=== PATIENT | male | born 1960 | race Caucasian/White ===

== ENCOUNTER 2017-08-04 10:37 | Inpatient (IN) | payer MEDICAID ==
[~2017-08-04] VITALS: Ht 180.3 cm; Wt 79.4 kg
[2017-08-04] VITALS (8 sets, daily range): BP systolic 123–155; BP diastolic 65–88
[2017-08-04] MEDS ORDERED: FEROSUL325 M1 PO (11:24)
[2017-08-04] MEDS ORDERED: WARFARIN SODIUM10 MG ORAL (11:24)
[2017-08-04] MEDS ORDERED: LORATADINE10 M3 PO (11:24)
[2017-08-04] MEDS ORDERED: FOLIC ACID1 MG ORAL (11:24)
[2017-08-04] MEDS ORDERED: MIRTAZAPINE15 M3 ORAL (11:24)
[2017-08-04] MEDS ORDERED: GABAPENTIN600 MG ORAL (11:24)
[2017-08-04] MEDS ORDERED: Vancomycin 1.5gm/D5W 250ml 250 ML IVPB ONE (11:30)
[2017-08-04] MEDS ORDERED: VENTOLIN HFA18 GM INH (11:36)
[2017-08-04] MEDS ORDERED: ATROVENT HFA12.9 GM IH (11:36)
--- NOTE | 2017-08-04 12:14 | Diagnostic Imaging Report ---
Indication: Dyspnea Comparison: None A single view chest radiograph was obtained. Findings: Cardiomediastinal appearance is within normal limits for age. Pulmonary vascularity is appropriate. The diaphragmatic contour is smooth and costophrenic angles are sharp. No pleural effusions are identified. The bones are osteopenic. Impression: No acute findings
[2017-08-04 12:41] LABS: BASOPHILS % (AUTO) 1.2 % (0.0-2.0); EOSINOPHILS % (AUTO) 9.4 % (0.0-3.0); HEMATOCRIT 37.7 % (42.0-52.0); HEMOGLOBIN 12.2 G/DL (14.2-18.0); LYMPHOCYTES % (AUTO) 31.2 % (20.0-45.0); MEAN CORPUSCULAR VOLUME 91 FL (80-99); MONOCYTES % (AUTO) 8.5 % (1.0-10.0); NEUTROPHILS % (AUTO) 49.7 % (45.0-75.0); PLATELET COUNT 379 K/UL (150-450); RED BLOOD COUNT 4.16 M/UL (4.70-6.10); RED CELL DISTRIBUTION WIDTH 18.9 % (11.6-14.8); WHITE BLOOD COUNT 7.3 K/UL (4.8-10.8)
[2017-08-04 12:49] LABS: ANION GAP 4 mmol/L (5-15); BLOOD UREA NITROGEN 11 mg/dL (7-18); CALCIUM 8.8 MG/DL (8.5-10.1); CARBON DIOXIDE 28 MMOL/L (21-32); CHLORIDE 102 MMOL/L (98-107); CREATININE 0.9 MG/DL (0.55-1.30); POTASSIUM 4.9 MMOL/L (3.5-5.1); SODIUM 134 MMOL/L (136-145)
--- NOTE | 2017-08-04 12:50 | Emergency Room Report ---
History of Present Illness General Chief Complaint: General Complaint Source: Patient Present Illness HPI 57-year-old male, presenting with right lower extremity pain swelling redness. Patient states it has been that way for a long time, however has gotten worse in the last week. Denies any fever or chills. Is at a [id number] and a nurse helps with his wound. No recent antibiotic use Denies any history of DVT Allergies: Coded Allergies: CEPHALEXIN (Verified Allergy, Unknown, 08/04/17) Patient History Past Medical History: see triage record Past Surgical History: none Pertinent Family History: none Reviewed Nursing Documentation: PMH: Agreed, PSxH: Agreed Nursing Documentation-PMH Hx COPD: Yes Review of Systems All Other Systems: negative except mentioned in HPI Physical Exam Vital Signs Date Time Temp Pulse Resp B/P (MAP) Pulse Ox O2 Delivery O2 Flow Rate FiO2 08/04/17 11:08 97.9 100 20 133/84 96 Room Air 97.9 Sp02 EP Interpretation: reviewed, normal General Appearance: alert, GCS 15, non-toxic, mild distress Head: normocephalic, atraumatic Eyes: bilateral eye normal inspection, bilateral eye PERRL, bilateral eye EOMI ENT: normal ENT inspection, normal pharynx, normal voice, moist mucus membranes Neck: normal inspection, full range of motion, supple Respiratory: normal inspection, lungs clear, normal breath sounds, no respiratory distress, no retraction, no wheezing, speaking full sentences, chest symmetrical Cardiovascular #1: normal inspection, regular rate, rhythm, no edema, normal capillary refill Cardiovascular #2: 2+ radial (R), 2+ radial (L) Gastrointestinal: normal inspection, non tender, soft, non-distended, no guarding Genitourinary: no CVA tenderness Musculoskeletal: other - RLE with eryteha exttending from foot to mid calf, purulent drainage dorsum R foot Neurologic: normal inspection, alert, oriented x3, responsive, motor strength/ tone normal, sensory intact, normal gait, speech normal Psychiatric: normal inspection, judgement/insight normal, memory normal Skin: normal inspection, normal color, no rash, warm/dry, well hydrated, normal turgor Medical Decision Making Diagnostic Impression: Primary Impression: Cellulitis of right lower limb ER Course 57 over male with right lower extremity erythema swelling pain DDX: Cellulitis No crepitus / pain out of proportion / rapid spreading for concern for nec fasc Plan: Antibiotics Anticipate admission ER course: Patient has been monitored during ED stay, HD stable Given IV antibiotics Disposition: Patient is to be admitted to [facility] D/W hospitalist Dr Smith Please note that this Emergency Department Report was dictated using [employer] truck installation mechanic technology software, occasionally this can lead to erroneous entry secondary to interpretation by the dictation equipment. EKG Diagnostic Results EP Interpretation: Yes Rate: normal Rhythm: NSR ST Segments: No acute changes ASA given to patient: No Rhythm Strip EP Interpretation: Yes Rate: 90 Rhythm: NSR, no PVCs, no ectopy Chest X-ray CXR: Ordered: Yes 1 view Indication: Pain EP interpretation: Yes Interpretation: No consolidation, no effusion, no PTX, no acute cardiopulmonary disease Impression: No acute disease Electronically signed by Meredith Farfan MD Laboratory Tests Test 08/04/17 12:15 08/04/17 12:50 White Blood Count 7.3 K/UL (4.8-10.8) Red Blood Count 4.16 M/UL (4.70-6.10) L Hemoglobin 12.2 G/DL (14.2-18.0) L Hematocrit 37.7 % (42.0-52.0) L Mean Corpuscular Volume 91 FL (80-99) Mean Corpuscular Hemoglobin 29.3 PG (27.0-31.0) Mean Corpuscular Hemoglobin Concent 32.3 G/DL (32.0-36.0) Red Cell Distribution Width 18.9 % (11.6-14.8) H Platelet Count 379 K/UL (150-450) Mean Platelet Volume 5.8 FL (6.5-10.1) L Neutrophils (%) (Auto) 49.7 % (45.0-75.0) Lymphocytes (%) (Auto) 31.2 % (20.0-45.0) Monocytes (%) (Auto) 8.5 % (1.0-10.0) Eosinophils (%) (Auto) 9.4 % (0.0-3.0) H Basophils (%) (Auto) 1.2 % (0.0-2.0) Sodium Level 134 MMOL/L (136-145) L Potassium Level 4.9 MMOL/L (3.5-5.1) Chloride Level 102 MMOL/L (98-107) Carbon Dioxide Level 28 MMOL/L (21-32) Anion Gap 4 mmol/L (5-15) L Blood Urea Nitrogen 11 mg/dL (7-18) Creatinine 0.9 MG/DL (0.55-1.30) Estimate Glomerular Filtration Rate > 60 mL/min (>60) Glucose Level 86 MG/DL (74-106) Lactic Acid Level 1.60 mmol/L (0.66-2.22) Calcium Level 8.8 MG/DL (8.5-10.1) Total Bilirubin 0.2 MG/DL (0.2-1.0) Aspartate Amino Transferase (AST) 32 U/L (15-37) Alanine Aminotransferase (ALT) 13 U/L (12-78) Alkaline Phosphatase 103 U/L (46-116) Troponin I 0.017 ng/mL (0.000-0.056) Total Protein 8.1 G/DL (6.4-8.2) Albumin 2.6 G/DL (3.4-5.0) L Globulin 5.5 g/dL Albumin/Globulin Ratio 0.5 (1.0-2.7) L Urine Color Pending Urine Appearance Pending Urine pH Pending Urine Specific [place] Pending Urine Protein Pending Urine Glucose (UA) Pending Urine Ketones Pending Urine Occult Blood Pending Urine Nitrite Pending Urine Bilirubin Pending Urine Urobilinogen Pending Urine Leukocyte Esterase Pending Last Vital Signs Date Time Temp Pulse Resp B/P (MAP) Pulse Ox O2 Delivery O2 Flow Rate FiO2 08/04/17 12:43 97.9 99 18 123/79 98 Room Air 97.9 Disposition: ADMITTED INPATIENT Condition: Serious Referrals: NOT CHOSEN SLIM/,REFERRING (PCP) Meredith Farfan M.D. Aug 04, 2017 12:50
[2017-08-04 12:54] LABS: ALANINE AMINOTRANSFERASE 13 U/L (12-78); ALBUMIN 2.6 G/DL (3.4-5.0); ALBUMIN/GLOBULIN RATIO 0.5 (1.0-2.7); ALKALINE PHOSPHATASE 103 U/L (46-116); ASPARTATE AMINO TRANSFERASE 32 U/L (15-37); BILIRUBIN,TOTAL 0.2 MG/DL (0.2-1.0)
[2017-08-04] MEDS ORDERED: DiphenhydrAMINE 50mg/ml Inj ONE (13:14)
[2017-08-04] MEDS ORDERED: DiphenhydrAMINE 50mg/ml Inj IVP ONE (13:15)
[2017-08-04 13:26] LABS: APPEARANCE,URINE CLEAR; BILIRUBIN, URINE NEGATIVE (NEGATIVE); COLOR,URINE PALE YELLOW; GLUCOSE, URINE (UA) NEGATIVE (NEGATIVE); KETONES,URINE NEGATIVE (NEGATIVE); LEUKOCYTE ESTERASE ,URINE NEGATIVE (NEGATIVE); NITRITE,URINE NEGATIVE (NEGATIVE); PH,URINE 5 (4.5-8.0); PROTEIN,URINE NEGATIVE (NEGATIVE); UROBILINOGEN,URINE NORMAL MG/DL (0.0-1.0)
[2017-08-04] MEDS ORDERED: Morphine Sulfate 4mg/ml Inj IVP ONE (14:15)
[2017-08-04] MEDS ORDERED: Albuterol 90mcg Inhaler 8gm INH PRN ×2 (15:45)
[2017-08-04 17:19] LABS: INR 2.1 (0.9-1.1)
[2017-08-04] MEDS: Clindamycin 600mg 50 ML IV SCH (17:33)
[2017-08-04] MEDS: Ipratropium 0.02% Inh Soln 2.5ml UD HHN SCH (20:10)
--- NOTE | 2017-08-04 20:14 | Cardiology Progress Note ---
Assessment/Plan Assessment/Plan The patient is seen and examined, full consult note is dictated. Objective Last 24 Hour Vital Signs Date Time Temp Pulse Resp B/P (MAP) Pulse Ox O2 Delivery O2 Flow Rate FiO2 08/04/17 16:00 98.1 97 20 123/65 91 Room Air 08/04/17 15:45 98.1 97 20 123/65 91 Room Air 08/04/17 15:00 96.8 101 20 136/80 92 Room Air 08/04/17 14:30 96.8 101 20 136/80 92 Room Air 08/04/17 14:15 97.9 08/04/17 14:12 97.9 08/04/17 14:03 97.9 95 17 128/76 98 Room Air 97.9 08/04/17 13:48 97.9 95 17 128/76 98 Room Air 97.9 08/04/17 12:43 97.9 99 18 123/79 98 Room Air 97.9 08/04/17 11:08 97.9 100 20 133/84 96 Room Air 97.9 Laboratory Tests Test 08/04/17 12:15 08/04/17 12:50 08/04/17 16:43 White Blood Count 7.3 K/UL (4.8-10.8) Red Blood Count 4.16 M/UL (4.70-6.10) L Hemoglobin 12.2 G/DL (14.2-18.0) L Hematocrit 37.7 % (42.0-52.0) L Mean Corpuscular Volume 91 FL (80-99) Mean Corpuscular Hemoglobin 29.3 PG (27.0-31.0) Mean Corpuscular Hemoglobin Concent 32.3 G/DL (32.0-36.0) Red Cell Distribution Width 18.9 % (11.6-14.8) H Platelet Count 379 K/UL (150-450) Mean Platelet Volume 5.8 FL (6.5-10.1) L Neutrophils (%) (Auto) 49.7 % (45.0-75.0) Lymphocytes (%) (Auto) 31.2 % (20.0-45.0) Monocytes (%) (Auto) 8.5 % (1.0-10.0) Eosinophils (%) (Auto) 9.4 % (0.0-3.0) H Basophils (%) (Auto) 1.2 % (0.0-2.0) Sodium Level 134 MMOL/L (136-145) L Potassium Level 4.9 MMOL/L (3.5-5.1) Chloride Level 102 MMOL/L (98-107) Carbon Dioxide Level 28 MMOL/L (21-32) Anion Gap 4 mmol/L (5-15) L Blood Urea Nitrogen 11 mg/dL (7-18) Creatinine 0.9 MG/DL (0.55-1.30) Estimat Glomerular Filtration Rate > 60 mL/min (>60) Glucose Level 86 MG/DL (74-106) Lactic Acid Level 1.60 mmol/L (0.66-2.22) Calcium Level 8.8 MG/DL (8.5-10.1) Total Bilirubin 0.2 MG/DL (0.2-1.0) Aspartate Amino Transf (AST/SGOT) 32 U/L (15-37) Alanine Aminotransferase (ALT/SGPT) 13 U/L (12-78) Alkaline Phosphatase 103 U/L (46-116) Troponin I 0.017 ng/mL (0.000-0.056) Total Protein 8.1 G/DL (6.4-8.2) Albumin 2.6 G/DL (3.4-5.0) L Globulin 5.5 g/dL Albumin/Globulin Ratio 0.5 (1.0-2.7) L Urine Color Pale yellow Urine Appearance Clear Urine pH 5 (4.5-8.0) Urine Specific [place] 1.010 (1.005-1.035) Urine Protein Negative (NEGATIVE) Urine Glucose (UA) Negative (NEGATIVE) Urine Ketones Negative (NEGATIVE) Urine Occult Blood Negative (NEGATIVE) Urine Nitrite Negative (NEGATIVE) Urine Bilirubin Negative (NEGATIVE) Urine Urobilinogen Normal MG/DL (0.0-1.0) Urine Leukocyte Esterase Negative (NEGATIVE) Prothrombin Time 22.4 SEC (9.30-11.50) H Prothromb Time International Ratio 2.1 (0.9-1.1) H LANCE SHIPLEY Aug 04, 2017 20:14
--- NOTE | 2017-08-04 21:45 | Consultation ---
DATE OF CONSULTATION: 08/04/2017 INFECTIOUS DISEASE CONSULTATION CONSULTING PHYSICIAN: Devonte Zamora M.D. PRIMARY ATTENDING PHYSICIAN: Torsten Sandoval M.D. REASON FOR CONSULT: Cellulitis of right leg. HISTORY OF PRESENT ILLNESS: This is a 57-year-old white male, admitted today complaining of pain and swelling in right lower extremity, getting worse in the past week. No fever. No chills. He developed an ulcer on the right foot. The patient got vancomycin in the ER and developed some burning sensation and does not want to take anymore of it. PAST MEDICAL HISTORY: Significant for history of deep venous thrombosis and pulmonary emboli. The patient is on Coumadin. The patient is also a smoker. MEDICATIONS: Getting folic acid, mirtazapine, Atrovent, ferrous sulfate, albuterol, Coumadin, and Tylenol. ALLERGIES: Allergic to cephalexin. SOCIAL HISTORY: Smoking one pack of cigarettes a day. He is single, has one child. Occasionally smokes weed. Social drinking. REVIEW OF SYSTEMS: He had occasional cough. He has significant pain in right lower extremity. He has burning sensation in other areas of upper body after getting vancomycin. PHYSICAL EXAMINATION: GENERAL APPEARANCE: Well developed, in no acute distress. VITAL SIGNS: Temperature 98.1 degrees, pulse 97, and blood pressure 123/65. HEAD AND NECK: He has facial erythema. No oral lesion. HEART: S1 and S2. Regular. LUNGS: Clear. ABDOMEN: Soft and nontender. EXTREMITIES: He has bilateral lower extremity edema, stasis dermatitis, has superficial ulcer and erythema in the right foot that are more severe near the toe area. LABORATORY AND DIAGNOSTIC DATA: Chest x-ray was negative. WBC 7.3, hemoglobin 12.2, hematocrit 37.7, and platelets 379. Sodium 134, potassium 4.9, chloride 102, bicarbonate 28, BUN 11, creatinine 0.9 and glucose is 86. Albumin is 2.6. IMPRESSION: Right lower extremity cellulitis, has bilateral stasis dermatitis of lower extremity, has history of deep vein thrombosis and pulmonary emboli, has nicotine dependence. He is allergic to cephalexin and believes to have some reaction to vancomycin. RECOMMENDATION: We will give the patient clindamycin and we will obtain wound culture. At the end of my exam, I thank Dr. Sandoval for involving me in the care of this patient. Devonte Zamora M.D. DR: DELIA JOB#: [id number] CC: SAUNDRA
[2017-08-04] MEDS ORDERED: Warfarin Sodium 10mg ORAL ONE (22:30)
[2017-08-05] VITALS: BP 114/68
[2017-08-05] MEDS: Clindamycin 600mg 50 ML IV SCH ×3 (01:06→17:37)
[2017-08-05 04:00] VITALS: BP 114/66
[2017-08-05] MEDS: Ipratropium 0.02% Inh Soln 2.5ml UD HHN SCH ×4 (07:49→19:44)
[2017-08-05 08:00] VITALS: BP 111/65
[2017-08-05 09:57] LABS: BASOPHILS % (AUTO) 0.7 % (0.0-2.0); EOSINOPHILS % (AUTO) 12.4 % (0.0-3.0); HEMATOCRIT 39.6 % (42.0-52.0); HEMOGLOBIN 12.5 G/DL (14.2-18.0); LYMPHOCYTES % (AUTO) 16.5 % (20.0-45.0); MEAN CORPUSCULAR VOLUME 89 FL (80-99); MONOCYTES % (AUTO) 3.7 % (1.0-10.0); NEUTROPHILS % (AUTO) 66.7 % (45.0-75.0); PLATELET COUNT 406 K/UL (150-450); RED BLOOD COUNT 4.44 M/UL (4.70-6.10); RED CELL DISTRIBUTION WIDTH 18.6 % (11.6-14.8); WHITE BLOOD COUNT 6.5 K/UL (4.8-10.8)
[2017-08-05 12:00] VITALS: BP 116/70
--- NOTE | 2017-08-05 12:05 | Infectious Diseases Prog Note ---
Assessment/Plan Assessment/Plan A; R leg cellulitis stasis Dermatitis allergic reaction to IV Vancomycin history of DVT P; Continue Clindamycin Venous duplex of R leg to rule out DVT Subjective ROS Limited/Unobtainable: No Respiratory: Reports: no symptoms Cardiovascular: Reports: no symptoms Gastrointestinal/Abdominal: Reports: no symptoms Musculoskeletal: Reports: pain, other - pain in left leg Allergies: Coded Allergies: CEPHALEXIN (Verified Allergy, Unknown, 08/04/17) Objective Vital Signs Last 24 Hour Vital Signs Date Time Temp Pulse Resp B/P (MAP) Pulse Ox O2 Delivery O2 Flow Rate FiO2 08/05/17 10:54 89 20 99 Nasal Cannula 4.0 36 08/05/17 10:43 88 18 96 Nasal Cannula 4.0 36 08/05/17 08:00 94 08/05/17 08:00 92 22 98 Nasal Cannula 4.0 36 08/05/17 07:50 89 20 Nasal Cannula 4.0 36 08/05/17 07:50 95 Nasal Cannula 4.0 36 08/05/17 07:50 Nasal Cannula 4.0 36 08/05/17 07:50 89 20 94 Nasal Cannula 4.0 36 08/05/17 04:00 96 08/05/17 04:00 98.1 97 20 114/66 96 08/05/17 00:00 98.4 104 20 114/68 95 08/05/17 00:00 109 08/04/17 22:10 97.0 93 20 155/88 95 08/04/17 21:52 116 20 90 Nasal Cannula 4.0 36 08/04/17 21:45 36 08/04/17 21:45 116 20 90 Nasal Cannula 4.0 36 08/04/17 21:45 Nasal Cannula 4.0 36 08/04/17 20:00 97.0 116 20 126/71 100 08/04/17 16:00 98.1 97 20 123/65 91 Room Air 08/04/17 15:45 98.1 97 20 123/65 91 Room Air 08/04/17 15:00 96.8 101 20 136/80 92 Room Air 08/04/17 14:30 96.8 101 20 136/80 92 Room Air 08/04/17 14:15 97.9 08/04/17 14:12 97.9 08/04/17 14:03 97.9 95 17 128/76 98 Room Air 97.9 08/04/17 13:48 97.9 95 17 128/76 98 Room Air 97.9 08/04/17 12:43 97.9 99 18 123/79 98 Room Air 97.9 Height (Feet): 5 Height (Inches): 11.00 Weight (Pounds): 175 General Appearance: no acute distress HEENT: mucous membranes moist Respiratory/Chest: lungs clear Cardiovascular: normal rate Abdomen: soft, non tender Skin: rash, ulcers, other - right foot suferficial ulcer, erythma & tenderness of right leg Neurologic/Psychiatric: alert, responsive Laboratory Tests Test 08/04/17 12:15 08/04/17 12:50 08/04/17 16:43 08/04/17 20:21 White Blood Count 7.3 K/UL (4.8-10.8) Red Blood Count 4.16 M/UL (4.70-6.10) L Hemoglobin 12.2 G/DL (14.2-18.0) L Hematocrit 37.7 % (42.0-52.0) L Mean Corpuscular Volume 91 FL (80-99) Mean Corpuscular Hemoglobin 29.3 PG (27.0-31.0) Mean Corpuscular Hemoglobin Concent 32.3 G/DL (32.0-36.0) Red Cell Distribution Width 18.9 % (11.6-14.8) H Platelet Count 379 K/UL (150-450) Mean Platelet Volume 5.8 FL (6.5-10.1) L Neutrophils (%) (Auto) 49.7 % (45.0-75.0) Lymphocytes (%) (Auto) 31.2 % (20.0-45.0) Monocytes (%) (Auto) 8.5 % (1.0-10.0) Eosinophils (%) (Auto) 9.4 % (0.0-3.0) H Basophils (%) (Auto) 1.2 % (0.0-2.0) Sodium Level 134 MMOL/L (136-145) L Potassium Level 4.9 MMOL/L (3.5-5.1) Chloride Level 102 MMOL/L (98-107) Carbon Dioxide Level 28 MMOL/L (21-32) Anion Gap 4 mmol/L (5-15) L Blood Urea Nitrogen 11 mg/dL (7-18) Creatinine 0.9 MG/DL (0.55-1.30) Estimat Glomerular Filtration Rate > 60 mL/min (>60) Glucose Level 86 MG/DL (74-106) Lactic Acid Level 1.60 mmol/L (0.66-2.22) Calcium Level 8.8 MG/DL (8.5-10.1) Total Bilirubin 0.2 MG/DL (0.2-1.0) Aspartate Amino Transf (AST/SGOT) 32 U/L (15-37) Alanine Aminotransferase (ALT/SGPT) 13 U/L (12-78) Alkaline Phosphatase 103 U/L (46-116) Troponin I 0.017 ng/mL (0.000-0.056) Total Protein 8.1 G/DL (6.4-8.2) Albumin 2.6 G/DL (3.4-5.0) L Globulin 5.5 g/dL Albumin/Globulin Ratio 0.5 (1.0-2.7) L Urine Color Pale yellow Urine Appearance Clear Urine pH 5 (4.5-8.0) Urine Specific [place] 1.010 (1.005-1.035) Urine Protein Negative (NEGATIVE) Urine Glucose (UA) Negative (NEGATIVE) Urine Ketones Negative (NEGATIVE) Urine Occult Blood Negative (NEGATIVE) Urine Nitrite Negative (NEGATIVE) Urine Bilirubin Negative (NEGATIVE) Urine Urobilinogen Normal MG/DL (0.0-1.0) Urine Leukocyte Esterase Negative (NEGATIVE) Prothrombin Time 22.4 SEC (9.30-11.50) H Prothromb Time International Ratio 2.1 (0.9-1.1) H Arterial Blood pH 7.518 (7.350-7.450) Arterial Blood Partial Pressure CO2 31.1 mmHg (35.0-45.0) L Arterial Blood Partial Pressure O2 49.9 mmHg (75.0-100.0) Arterial Blood HCO3 24.7 mmol/L (22.0-26.0) Arterial Blood Oxygen Saturation 84.8 % (92.0-98.0) L Arterial Blood Base Excess 2.4 Crispin Test Positive Test 08/05/17 09:30 White Blood Count 6.5 K/UL (4.8-10.8) Red Blood Count 4.44 M/UL (4.70-6.10) L Hemoglobin 12.5 G/DL (14.2-18.0) L Hematocrit 39.6 % (42.0-52.0) L Mean Corpuscular Volume 89 FL (80-99) Mean Corpuscular Hemoglobin 28.2 PG (27.0-31.0) Mean Corpuscular Hemoglobin Concent 31.6 G/DL (32.0-36.0) L Red Cell Distribution Width 18.6 % (11.6-14.8) H Platelet Count 406 K/UL (150-450) Mean Platelet Volume 5.8 FL (6.5-10.1) L Neutrophils (%) (Auto) 66.7 % (45.0-75.0) Lymphocytes (%) (Auto) 16.5 % (20.0-45.0) L Monocytes (%) (Auto) 3.7 % (1.0-10.0) Eosinophils (%) (Auto) 12.4 % (0.0-3.0) H Basophils (%) (Auto) 0.7 % (0.0-2.0) Prothrombin Time 20.9 SEC (9.30-11.50) H Prothromb Time International Ratio 2.0 (0.9-1.1) H Troponin I 0.000 ng/mL (0.000-0.056) Current Medications Medications (Trade) Dose Ordered Sig/Italo Route PRN Reason Start Time Stop Time Status Last Admin Dose Admin Acetaminophen (Tylenol) 650 mg EVERY 4 HOURS PRN ORAL Mild Pain/Temp > 100.5 08/04/17 15:30 09/03/17 15:29 Albuterol Sulfate (Proventil MDI) 2 puff EVERY 6 HOURS PRN INH Shortness of Breath 08/04/17 15:45 09/03/17 15:44 Clindamycin HCl/ Dextrose 50 ml @ 100 mls/hr Q8H IV 08/04/17 17:00 08/11/17 23:59 08/05/17 08:11 Ferrous Sulfate (Feosol) 325 mg BID ORAL 08/04/17 18:00 09/03/17 17:59 08/05/17 08:11 Fexofenadine HCl (Lawanda) 60 mg BID ORAL 2/13/18 18:00 09/03/17 17:59 08/05/17 08:11 Folic Acid (Folate) 1 mg DAILY ORAL 08/05/17 09:00 09/04/17 08:59 08/05/17 08:11 Gabapentin (Neurontin) 600 mg QID ORAL 08/04/17 18:00 09/03/17 17:59 08/05/17 08:11 Ipratropium [place] (Atrovent) 500 mcg QIDRT HHN 08/04/17 19:00 08/09/17 18:59 08/05/17 10:43 Mirtazapine (Remeron) 45 mg BEDTIME ORAL 08/04/17 21:00 09/03/17 20:59 08/04/17 22:02 Warfarin Sodium (Coumadin per pharmacy) 1 ea DAILY PRN MISC Per rx protocol 08/04/17 15:45 09/03/17 15:44 Warfarin Sodium (Coumadin) 10 mg COUMADIN ORAL 08/05/17 17:00 08/05/17 17:01 ANANT BRANDT Aug 05, 2017 12:05
--- NOTE | 2017-08-05 13:06 | Consultation ---
Consult Note Consult Note asked to eval for electrolyte abnormalities Low Na 57-year-old male, presenting with right lower extremity pain swelling redness. Patient states it has been that way for a long time, however has gotten worse in the last week. Denies any fever or chills. Is at a [facility] and a nurse helps with his wound. No recent antibiotic use Denies any history of DVT CEPHALEXIN (Verified Allergy, Unknown, 08/04/17) He has bilateral lower extremity edema, stasis dermatitis, has superficial ulcer and erythema in the right foot that are more severe near the toe area. data reviewed interviewed and examined . Assessment/Plan Low Na , depletional Right lower extremity cellulitis, bilateral stasis dermatitis of lower extremity, history of deep vein thrombosis & pulmonary emboli, on Coumadin nicotine dependence. ? COPD allergic to cephalexin and vancomycin. HypoAlbuminemia- Urine Neg for protein. Plan: NS jefe- Monitor lytes Iron panel per ID local skin care per orders KENTRELL WARREN Aug 05, 2017 13:06
--- NOTE | 2017-08-05 13:12 | Wound Care Consultation ---
Wound Assessment Wound Assessment : Wound Number: 1 Wound Present on Admission: Yes New Wound: No Status Change of Wound: No Wound Location Body Site Modif: right, lower Wound Location Body Site: leg - and dorsal foot Wound Type: vascular issue w/vascular changes Che Test: Does not Che Vascular Issues: venous stasis ulcers - with cellulitis Wound Thickness: Full Thickness Percent of Wound Dinosaur/Red: 70 Percent of Wound Bed Yellow/Wh: 30 Wound Drainage Description: Serosanguineous Wound Drainage Amount: Moderate Wound Drainage Odor: None/Absent Tissue Surrounding Wound: Erythemic Wound General Appearance: Reddened, Draining Wound Comment #1 Venous stasis ulcer with cellulitis on the right lower leg and dorsal foot Recommendations -Cleanse with saline pat dry apply Xeroform gauze cover with 4x4 wrap with Kerlix daily and PRN soiled/dislodged -Offload both heels -Optimize nutrition -Keep clean and dry -Turn and reposition -Assess and f/u with MD for any changes CURTIS CAZARES RN Aug 05, 2017 13:12
[2017-08-05] MEDS ORDERED: Sodium Chloride 500ML 500 ML IV ONE (13:15)
[2017-08-05 16:00] VITALS: BP 103/50
--- NOTE | 2017-08-05 16:17 | Cardiology Report ---
APPROVED REPORT EXAM: Two-dimensional and M-mode echocardiogram with Doppler and color Doppler. INDICATION SOB M-Mode DIMENSIONS IVSd1.4 (0.7-1.1cm)Left Atrium (MM)2.5 (1.6-4.0cm) LVDd4.1 (3.5-5.6cm)Aortic Root3.6 (2.0-3.7cm) PWd1.1 (0.7-1.1cm)Aortic Cusp Exc.1.8 (1.5-2.0cm) IVSs1.9 cm LVDs2.6 (2.5-4.0cm) PWs1.5 cm Normal left ventricular chamber size, systolic function and wall motion . Left ventricular ejection fraction estimated to be 65-70 %. Mild left ventricular hypertrophy by 2-D. Trivial posterior pericardial effusion. All other cardiac chamber sizes are within normal limits. Focal aortic valve sclerosis with adequate cusp excursion. Thickened mitral valve leaflets with normal excursion. Mitral annulus and aortic root calcification. Normal pulmonic valve structure. Normal tricuspid valve structure. IVC at 1.8 cm without physiologic collapse . A color flow and spectral Doppler study was performed and revealed: No aortic regurgitation. Trace mitral valve regurgitation . Mitral diastolic velocities suggest reduced left ventricular relaxation c/w mild LV diastolic dysfunction (Grade I ) Trace tricuspid regurgitation. Tricuspid systolic velocities suggests peak right ventricular systolic pressure of 25 mmHg No Pulmonic regurgitation present.
[2017-08-05] MEDS ORDERED: Warfarin Sodium 10mg ORAL SCH (17:00)
--- NOTE | 2017-08-05 18:00 | Consultation ---
DATE OF CONSULTATION: 08/05/2017 PULMONARY CONSULTATION CONSULTING PHYSICIAN: René Gore M.D. HISTORY OF PRESENT ILLNESS: This is a 57-year-old male, who is a shelter resident. He came to the hospital with right lower extremity pain, swelling and redness. He was seen and worked up and admitted to the hospital. He was also noted to be hypoxic with a pO2 49. X-ray of the chest has been clear. PAST MEDICAL HISTORY: Notable only for previous DVT and pulmonary embolism. He is presently also on Coumadin. He is also a smoker. MEDICATIONS: Home medications, folic acid, mirtazapine, Atrovent, ferrous sulfate, albuterol, Coumadin, and Tylenol. ALLERGIES: Cephalexin. SOCIAL HISTORY: He admits to tobacco and marijuana use. REVIEW OF SYSTEMS: Denies any headaches, hematemesis, melena, or hematochezia. PHYSICAL EXAMINATION: GENERAL: Reveals 57-year-old male HEENT: Unremarkable. CHEST: Clear breath sounds bilaterally. ABDOMEN: Soft. EXTREMITIES: He has 1+ bilateral lower extremity edema as well as a superficial ulcer on the right foot. LABORATORY AND DIAGNOSTIC DATA: X-ray chest negative. White count 7.3. IMPRESSION: 1. Right lower extremity cellulitis. 2. History of deep vein thrombosis. 3. Chronic Coumadin usage. 4. History of previous pulmonary embolism. 5. Tobacco use. 6. . DISCUSSION: Continue present medications and care. The patient will stay on Coumadin, breathing treatments, pain medications and antibiotics per ID. His hypoxemia is secondary to combination of previous pulmonary embolism and chronic obstructive pulmonary disease. We will continue to follow. Thank you for the consultation. René Gore M.D. DR: ABENA JOB#: [id number] CC:
[2017-08-05 20:00] VITALS: BP 112/57
--- NOTE | 2017-08-05 23:30 | Consultation ---
DATE OF CONSULTATION: 08/05/2017 HEMATOLOGY/ONCOLOGY CONSULTATION CONSULTING PHYSICIAN: Chance Lakhani M.D. REFERRING PHYSICIAN: Torsten Sandoval M.D. REASON FOR CONSULTATION: Evaluation of coagulopathy, DVT, and pulmonary embolism. IDENTIFYING DATA: Dear Dr. Sandoval, The patient is a pleasant 57-year-old male with past medical history significant for right lower extremity pain, swelling, redness has been getting worse over the past several weeks. The patient denies any fevers or chills, antibiotic use. The patient has been on anticoagulation. The patient noted to have anemia as well. Hematology service consulted as well as Nephrology and ID service. PAST MEDICAL HISTORY: DVT, pulmonary embolism on Coumadin, also a smoker. MEDICATIONS: Mirtazapine, folic acid, ferrous sulfate, Atrovent, Coumadin, Tylenol, albuterol. ALLERGIES: Keflex. SOCIAL HISTORY: Smokes one cigarette a day. Single. One child. Smokes weed. Social drinking. REVIEW OF SYSTEMS: CONSTITUTIONAL: No fevers, chills, or night sweats. SKIN: No rashes, bumps, or itching. HEENT: No headache, hearing or vision changes. BREASTS: No lumps, pain, or discharge. PULMONARY: No cough, sputum, or shortness of breath. GASTROINTESTINAL: No nausea, vomiting, or diarrhea. GENITOURINARY: No dysuria, frequency, or urgency. MUSCULOSKELETAL: No joint swelling, muscle pain, or trauma. PHYSICAL EXAMINATION: GENERAL: No acute distress. VITAL SIGNS: Reviewed. HEENT: Facial erythema noted. PULMONARY: Decreased breath sounds. CARDIOVASCULAR: Regular rate. No S3 or S4. ABDOMEN: Soft, nontender, and nondistended. EXTREMITIES: Lower extremity edema noted bilaterally. LABORATORY AND DIAGNOSTIC DATA: WBC 7.3, hemoglobin 12.2, hematocrit 38, and platelets 379,00. BUN 11, creatinine 0.9. ASSESSMENT AND RECOMMENDATIONS: 1. Pulmonary embolism and deep venous thrombosis history. He is on Coumadin. Continue to maintain INR between 2 and 3. Current INR is at 2. 2. Anemia due to underlying chronic disease. Continue to closely monitor. 3. Coagulopathy due to the patient being on Coumadin. 4. Hyponatremia. Continue to closely monitor. Likely depletional. 5. Lower extremity cellulitis. Continue antibiotics. 6. Nicotine dependence, likely chronic obstructive pulmonary disease related as well. 7. Hypoalbuminemia, probably related severe protein-caloric malnutrition. I appreciate consultation. Chance Lakhani M.D. DR: SAVANNAH JOB#: [id number] CC:
[2017-08-06] VITALS: BP 111/60
[2017-08-06] MEDS: Clindamycin 600mg 50 ML IV SCH ×3 (00:39→17:45)
[2017-08-06 04:00] VITALS: BP 106/57
[2017-08-06] MEDS: Ipratropium 0.02% Inh Soln 2.5ml UD HHN SCH ×4 (07:05→19:45)
--- NOTE | 2017-08-06 07:30 | History and Physical Report ---
DATE OF ADMISSION: 08/04/2017 REASON FOR ADMISSION: Cellulitis. HISTORY OF PRESENT ILLNESS: The patient has also been complaining of wheezing and cough productive for a week and shortness of breath and rash all over. The patient also came in because of right foot pain. He has history of DVT, history of alcohol and drug abuse. Apparently, the patient ankle and has rash and itching. The patient is weak and somewhat confused. The patient does have pain around where the wound is on the right foot. Denies nausea, vomiting, or diarrhea. Denies fever or chills. PAST MEDICAL HISTORY: Iron deficiency anemia, neuropathy, allergic rhinitis, history of wounds, and history of DVT. PAST SURGICAL HISTORY: None. MEDICATIONS: Ferrous sulfate, gabapentin, loratadine, lorazepam, and warfarin. Also, we are not sure if the patient has been taking warfarin. The patient has been noncompliant with . ALLERGIES: Vancomycin and cephalexin. SOCIAL HISTORY: . No drug or alcohol abuse. FAMILY HISTORY: Noncontributory. PHYSICAL EXAMINATION: VITAL SIGNS: Temperature . HEENT: PERRLA. NECK: Supple. No lymphadenopathy. CHEST: Clear to auscultation. CARDIOVASCULAR: Regular rate and rhythm. GASTROINTESTINAL: Abdomen is soft and nontender. EXTREMITIES: He does have wounds and wounds. Please refer to the nursing notes for the details. The patient does have a wound on the right foot and left calf. There is a lesion on the right knee. Bandage over the right ankle. scratch santos. No edema. Reflexes are equal on both sides. The patient moves all four extremities. LABORATORY DATA: WBC of 7.3, hemoglobin 12.2, and platelets of 279. Sodium 134, potassium 4.9, BUN of 11, creatinine of 0.9, and glucose of 80. ASSESSMENT AND PLAN: Shortness of breath, wheezing, cough, extremities itching and history of deep vein thrombosis. I have asked Dr. Gore to see the patient. I have asked Dr. Summres, Dr. Call, Dr. Canales, and Dr. Lakhani for hypoxia and altered as well as borderline elevated troponin as well as cellulitis. Cellulitis, elevated troponin, hypoxia , and consultants have been called. Torsten Sandoval M.D. DR: MIMI JOB#: [id number] CC:
[2017-08-06 08:00] VITALS: BP 139/87
--- NOTE | 2017-08-06 08:12 | Pulmonology Progress Note ---
Assessment/Plan Assessment/Plan IMPRESSION: 1. Right lower extremity cellulitis. 2. History of deep vein thrombosis. 3. Chronic Coumadin usage. 4. History of previous pulmonary embolism. 5. Tobacco use. 6. Probable underlying COPD DISCUSSION: Continue present medications and care. The patient will stay on Coumadin, breathing treatments, pain medications and antibiotics per ID. His hypoxemia is secondary to combination of previous pulmonary embolism and chronic obstructive pulmonary disease. I will continue to follow. INR is therapeutic. Thank you for the consultation. Subjective Interval Events: None; ECHo done Constitutional: Reports: no symptoms HEENT: Repors: no symptoms Respiratory: Reports: dry cough Cardiovascular: Reports: no symptoms Gastrointestinal/Abdominal: Reports: no symptoms Allergies: Coded Allergies: VANCOMYCIN (Verified Allergy, Severe, rash, 08/05/17) CEPHALEXIN (Verified Allergy, Unknown, 08/04/17) Objective Last 24 Hour Vital Signs Date Time Temp Pulse Resp B/P (MAP) Pulse Ox O2 Delivery O2 Flow Rate FiO2 08/06/17 07:17 Nasal Cannula 5.0 40 08/06/17 07:17 95 Nasal Cannula 5.0 40 08/06/17 07:16 88 20 95 Nasal Cannula 5.0 40 08/06/17 07:05 88 20 74 Room Air 21 08/06/17 04:00 86 08/06/17 04:00 98.3 87 20 106/57 95 Venturi Mask 35 08/06/17 00:00 91 08/06/17 00:00 98.3 88 22 111/60 97 08/05/17 20:00 98.1 88 23 112/57 99 08/05/17 20:00 88 08/05/17 19:54 90 20 97 Nasal Cannula 4.0 36 08/05/17 19:44 97 20 94 Nasal Cannula 4.0 36 08/05/17 19:44 94 Nasal Cannula 4.0 36 08/05/17 19:44 Nasal Cannula 4.0 36 08/05/17 16:00 87 08/05/17 16:00 97.7 88 20 103/50 95 08/05/17 15:08 87 18 99 Nasal Cannula 4.0 36 08/05/17 14:59 86 16 97 Nasal Cannula 4.0 36 08/05/17 12:00 97.5 91 22 116/70 96 08/05/17 12:00 87 08/05/17 10:54 89 20 99 Nasal Cannula 4.0 36 08/05/17 10:43 88 18 96 Nasal Cannula 4.0 36 Intake and Output 08/05/17 08/06/17 19:00 07:00 Intake Total 360 ml Output Total 550 ml 1800 ml Balance -190 ml -1800 ml Intake Oral 360 ml Output Urine Total 550 ml 1800 ml # Bowel Movements 1 General Appearance: no acute distress HEENT: normocephalic Respiratory/Chest: chest wall non-tender, lungs clear Cardiovascular: normal peripheral pulses, normal rate Abdomen: normal bowel sounds Microbiology Date/Time Source Procedure Growth Status 08/04/17 12:25 Blood Blood Culture - Preliminary NO GROWTH AFTER 24 HOURS Resulted 08/04/17 12:15 Blood Blood Culture - Preliminary NO GROWTH AFTER 24 HOURS Resulted Laboratory Tests 08/05/17 09:30: White Blood Count 6.5, Red Blood Count 4.44L, Hemoglobin 12.5L, Hematocrit 39.6L , Mean Corpuscular Volume 89, Mean Corpuscular Hemoglobin 28.2, Mean Corpuscular Hemoglobin Concent 31.6L, Red Cell Distribution Width 18.6H, Platelet Count 406, Mean Platelet Volume 5.8L, Neutrophils (%) (Auto) 66.7, Lymphocytes (%) (Auto) 16.5L, Monocytes (%) (Auto) 3.7, Eosinophils (%) (Auto) 12.4H, Basophils (%) (Auto) 0.7, Prothrombin Time 20.9H, Prothromb Time International Ratio 2.0H, Troponin I 0.000, C-Reactive Protein, Quantitative 10.0H Current Medications Medications (Trade) Dose Ordered Sig/Italo Route PRN Reason Start Time Stop Time Status Last Admin Dose Admin Acetaminophen (Tylenol) 650 mg EVERY 4 HOURS PRN ORAL Mild Pain/Temp > 100.5 08/04/17 15:30 09/03/17 15:29 Albuterol Sulfate (Proventil MDI) 2 puff EVERY 6 HOURS PRN INH Shortness of Breath 08/04/17 15:45 09/03/17 15:44 Clindamycin HCl/ Dextrose 50 ml @ 100 mls/hr Q8H IV 08/04/17 17:00 08/11/17 23:59 08/06/17 00:39 Diphenhydramine HCl (Benadryl) 25 mg Q6H PRN ORAL Itching 08/05/17 17:30 09/04/17 17:29 08/05/17 20:03 Fexofenadine HCl (Lawanda) 60 mg BID ORAL 08/04/17 18:00 09/03/17 17:59 08/05/17 17:37 Gabapentin (Neurontin) 600 mg QID ORAL 08/04/17 18:00 09/03/17 17:59 08/05/17 20:03 Ipratropium [place] (Atrovent) 500 mcg QIDRT HHN 08/04/17 19:00 08/09/17 18:59 08/06/17 07:05 Lansoprazole (Prevacid) 30 mg DAILY ORAL 08/05/17 13:30 09/04/17 13:29 08/05/17 15:36 Mirtazapine (Remeron) 45 mg BEDTIME ORAL 08/04/17 21:00 09/03/17 20:59 08/05/17 20:03 Warfarin Sodium (Coumadin per pharmacy) 1 ea DAILY PRN MISC Per rx protocol 08/04/17 15:45 09/03/17 15:44 René Gore MD Aug 06, 2017 08:12
[2017-08-06 08:22] LABS: EOSINOPHILS % (AUTO) 19.1 % (0.0-3.0); HEMATOCRIT 40.4 % (42.0-52.0); HEMOGLOBIN 12.9 G/DL (14.2-18.0); LYMPHOCYTES % (AUTO) 18.7 % (20.0-45.0); MEAN CORPUSCULAR VOLUME 90 FL (80-99); MONOCYTES % (AUTO) 7.9 % (1.0-10.0); NEUTROPHILS % (AUTO) 53.4 % (45.0-75.0); PLATELET COUNT 406 K/UL (150-450); RED BLOOD COUNT 4.51 M/UL (4.70-6.10); RED CELL DISTRIBUTION WIDTH 18.6 % (11.6-14.8); WHITE BLOOD COUNT 5.3 K/UL (4.8-10.8)
[2017-08-06 08:54] LABS: INR 2.2 (0.9-1.1)
[2017-08-06 09:43] LABS: ALANINE AMINOTRANSFERASE 15 U/L (12-78); ALBUMIN 2.7 G/DL (3.4-5.0); ALBUMIN/GLOBULIN RATIO 0.5 (1.0-2.7); ALKALINE PHOSPHATASE 86 U/L (46-116); ANION GAP 6 mmol/L (5-15); ASPARTATE AMINO TRANSFERASE 31 U/L (15-37); BILIRUBIN,TOTAL 0.2 MG/DL (0.2-1.0); BLOOD UREA NITROGEN 11 mg/dL (7-18); CALCIUM 9.2 MG/DL (8.5-10.1); CARBON DIOXIDE 29 MMOL/L (21-32); CHLORIDE 100 MMOL/L (98-107); CHOLESTEROL 122 MG/DL (< 200); CREATININE 0.9 MG/DL (0.55-1.30); FERRITIN 143 NG/ML (8-388); GAMMA GLUTAMYL TRANSPEPTIDASE 25 U/L (5-85); HDL CHOLESTEROL 38 MG/DL (40-60); PHOSPHORUS 3.9 MG/DL (2.5-4.9); POTASSIUM 4.1 MMOL/L (3.5-5.1); SODIUM 135 MMOL/L (136-145); TRIGLYCERIDES 79 MG/DL (30-150)
[2017-08-06 09:44] LABS: % IRON SATURATION 9 % (15-50); IRON 22 ug/dL (50-175); TOTAL IRON BINDING CAPACITY 251 ug/dL (250-450)
[2017-08-06 12:00] VITALS: BP 104/69
--- NOTE | 2017-08-06 12:05 | Infectious Diseases Prog Note ---
Assessment/Plan Assessment/Plan A; R leg cellulitis stasis Dermatitis allergic reaction to IV Vancomycin history of DVT COPD Eosinophilia P; Continue Clindamycin Subjective ROS Limited/Unobtainable: No Constitutional: Reports: no symptoms, other - doing better Respiratory: Reports: dry cough Skin: Reports: other - itching dereased Musculoskeletal: Reports: pain, other - in right leg Allergies: Coded Allergies: VANCOMYCIN (Verified Allergy, Severe, rash, 08/05/17) CEPHALEXIN (Verified Allergy, Unknown, 08/04/17) Objective Vital Signs Last 24 Hour Vital Signs Date Time Temp Pulse Resp B/P (MAP) Pulse Ox O2 Delivery O2 Flow Rate FiO2 08/06/17 11:25 81 20 94 Nasal Cannula 4.0 36 08/06/17 11:13 78 18 98 Nasal Cannula 5.0 40 08/06/17 08:00 96.3 88 20 139/87 94 Venturi Mask 35 08/06/17 07:17 Nasal Cannula 5.0 40 08/06/17 07:17 95 Nasal Cannula 5.0 40 08/06/17 07:16 88 20 95 Nasal Cannula 5.0 40 08/06/17 07:05 88 20 74 Room Air 21 08/06/17 04:00 86 08/06/17 04:00 98.3 87 20 106/57 95 Venturi Mask 35 08/06/17 00:00 91 08/06/17 00:00 98.3 88 22 111/60 97 08/05/17 20:00 98.1 88 23 112/57 99 08/05/17 20:00 88 08/05/17 19:54 90 20 97 Nasal Cannula 4.0 36 08/05/17 19:44 97 20 94 Nasal Cannula 4.0 36 08/05/17 19:44 94 Nasal Cannula 4.0 36 08/05/17 19:44 Nasal Cannula 4.0 36 08/05/17 16:00 87 08/05/17 16:00 97.7 88 20 103/50 95 08/05/17 15:08 87 18 99 Nasal Cannula 4.0 36 08/05/17 14:59 86 16 97 Nasal Cannula 4.0 36 Height (Feet): 5 Height (Inches): 11.00 Weight (Pounds): 175 General Appearance: no acute distress HEENT: mucous membranes moist Respiratory/Chest: lungs clear Cardiovascular: normal rate Abdomen: soft, non tender Extremities: other - edema more in R leg Skin: rash - decreasing, ulcers, other - right foot Neurologic/Psychiatric: alert, oriented x 3, responsive Microbiology Date/Time Source Procedure Growth Status 08/04/17 12:25 Blood Blood Culture - Preliminary NO GROWTH AFTER 24 HOURS Resulted 08/04/17 12:15 Blood Blood Culture - Preliminary NO GROWTH AFTER 24 HOURS Resulted 08/04/17 21:00 Nasal Nares MRSA Culture - Preliminary Resulted Laboratory Tests Test 08/06/17 07:40 White Blood Count 5.3 K/UL (4.8-10.8) Red Blood Count 4.51 M/UL (4.70-6.10) L Hemoglobin 12.9 G/DL (14.2-18.0) L Hematocrit 40.4 % (42.0-52.0) L Mean Corpuscular Volume 90 FL (80-99) Mean Corpuscular Hemoglobin 28.6 PG (27.0-31.0) Mean Corpuscular Hemoglobin Concent 32.0 G/DL (32.0-36.0) Red Cell Distribution Width 18.6 % (11.6-14.8) H Platelet Count 406 K/UL (150-450) Mean Platelet Volume 5.4 FL (6.5-10.1) L Neutrophils (%) (Auto) 53.4 % (45.0-75.0) Lymphocytes (%) (Auto) 18.7 % (20.0-45.0) L Monocytes (%) (Auto) 7.9 % (1.0-10.0) Eosinophils (%) (Auto) 19.1 % (0.0-3.0) H Basophils (%) (Auto) 1.0 % (0.0-2.0) Prothrombin Time 22.8 SEC (9.30-11.50) H Prothromb Time International Ratio 2.2 (0.9-1.1) H Sodium Level 135 MMOL/L (136-145) L Potassium Level 4.1 MMOL/L (3.5-5.1) Chloride Level 100 MMOL/L (98-107) Carbon Dioxide Level 29 MMOL/L (21-32) Anion Gap 6 mmol/L (5-15) Blood Urea Nitrogen 11 mg/dL (7-18) Creatinine 0.9 MG/DL (0.55-1.30) Estimat Glomerular Filtration Rate > 60 mL/min (>60) Glucose Level 106 MG/DL (74-106) Hemoglobin A1c 6.6 % (4.3-6.0) H Uric Acid 6.3 MG/DL (2.6-7.2) Calcium Level 9.2 MG/DL (8.5-10.1) Phosphorus Level 3.9 MG/DL (2.5-4.9) Magnesium Level 1.8 MG/DL (1.8-2.4) Iron Level 22 ug/dL (50-175) L Total Iron Binding Capacity 251 ug/dL (250-450) Percent Iron Saturation 9 % (15-50) L Unsaturated Iron Binding 229 ug/dL (112-346) Ferritin 143 NG/ML (8-388) Total Bilirubin 0.2 MG/DL (0.2-1.0) Gamma Glutamyl Transpeptidase 25 U/L (5-85) Aspartate Amino Transf (AST/SGOT) 31 U/L (15-37) Alanine Aminotransferase (ALT/SGPT) 15 U/L (12-78) Alkaline Phosphatase 86 U/L (46-116) Pro-B-Type Natriuretic Peptide 170 pg/mL (0-125) H Total Protein 8.7 G/DL (6.4-8.2) H Albumin 2.7 G/DL (3.4-5.0) L Globulin 6.0 g/dL Albumin/Globulin Ratio 0.5 (1.0-2.7) L Triglycerides Level 79 MG/DL (30-150) Cholesterol Level 122 MG/DL (< 200) LDL Cholesterol 76 mg/dL (<100) HDL Cholesterol 38 MG/DL (40-60) L Cholesterol/HDL Ratio 3.2 (3.3-4.4) L Vitamin B12 Level 141 PG/ML (193-986) L Folate 19.5 NG/ML (8.6-58.9) Thyroid Stimulating Hormone (TSH) 1.490 uiU/mL (0.358-3.740) Current Medications Medications (Trade) Dose Ordered Sig/Italo Route PRN Reason Start Time Stop Time Status Last Admin Dose Admin Acetaminophen (Tylenol) 650 mg EVERY 4 HOURS PRN ORAL Mild Pain/Temp > 100.5 08/04/17 15:30 09/03/17 15:29 Albuterol Sulfate (Proventil MDI) 2 puff EVERY 6 HOURS PRN INH Shortness of Breath 08/04/17 15:45 09/03/17 15:44 Clindamycin HCl/ Dextrose 50 ml @ 100 mls/hr Q8H IV 08/04/17 17:00 08/11/17 23:59 08/06/17 11:05 Diphenhydramine HCl (Benadryl) 25 mg Q6H PRN ORAL Itching 08/05/17 17:30 09/04/17 17:29 08/06/17 09:44 Fexofenadine HCl (Lawanda) 60 mg BID ORAL 08/04/17 18:00 09/03/17 17:59 08/06/17 09:44 Gabapentin (Neurontin) 600 mg QID ORAL 08/04/17 18:00 09/03/17 17:59 08/06/17 09:44 Ipratropium [place] (Atrovent) 500 mcg QIDRT HHN 08/04/17 19:00 08/09/17 18:59 08/06/17 11:13 Lansoprazole (Prevacid) 30 mg DAILY ORAL 08/05/17 13:30 09/04/17 13:29 08/06/17 09:45 Mirtazapine (Remeron) 45 mg BEDTIME ORAL 08/04/17 21:00 09/03/17 20:59 08/05/17 20:03 Warfarin Sodium (Coumadin per pharmacy) 1 ea DAILY PRN MISC Per rx protocol 08/04/17 15:45 09/03/17 15:44 Warfarin Sodium (Coumadin) 10 mg COUMADIN ONCE ORAL 08/06/17 17:00 08/06/17 17:01 ANANT BRANDT Aug 06, 2017 12:05
--- NOTE | 2017-08-06 12:19 | Nephrology Progress Note ---
Assessment/Plan Assessment Low Na , depletional up to 135 today Right lower extremity cellulitis, bilateral stasis dermatitis of lower extremity, history of deep vein thrombosis & pulmonary emboli, on Coumadin nicotine dependence. ? COPD allergic to cephalexin and vancomycin. HypoAlbuminemia- Urine Neg for protein. Low Fe Low B12 High A1C . Plan Medium CHO diet B12 SQ IV Iron per ID local skin care Subjective ROS Limited/Unobtainable: No Constitutional: Reports: malaise Objective Objective Last 24 Hour Vital Signs Date Time Temp Pulse Resp B/P (MAP) Pulse Ox O2 Delivery O2 Flow Rate FiO2 08/06/17 11:25 81 20 94 Nasal Cannula 4.0 36 08/06/17 11:13 78 18 98 Nasal Cannula 5.0 40 08/06/17 08:00 96.3 88 20 139/87 94 Venturi Mask 35 08/06/17 07:17 Nasal Cannula 5.0 40 08/06/17 07:17 95 Nasal Cannula 5.0 40 08/06/17 07:16 88 20 95 Nasal Cannula 5.0 40 08/06/17 07:05 88 20 74 Room Air 21 08/06/17 04:00 86 08/06/17 04:00 98.3 87 20 106/57 95 Venturi Mask 35 08/06/17 00:00 91 08/06/17 00:00 98.3 88 22 111/60 97 08/05/17 20:00 98.1 88 23 112/57 99 08/05/17 20:00 88 08/05/17 19:54 90 20 97 Nasal Cannula 4.0 36 08/05/17 19:44 97 20 94 Nasal Cannula 4.0 36 08/05/17 19:44 94 Nasal Cannula 4.0 36 08/05/17 19:44 Nasal Cannula 4.0 36 08/05/17 16:00 87 08/05/17 16:00 97.7 88 20 103/50 95 08/05/17 15:08 87 18 99 Nasal Cannula 4.0 36 08/05/17 14:59 86 16 97 Nasal Cannula 4.0 36 Intake and Output 08/05/17 08/06/17 19:00 07:00 Intake Total 360 ml Output Total 550 ml 1800 ml Balance -190 ml -1800 ml Intake Oral 360 ml Output Urine Total 550 ml 1800 ml # Bowel Movements 1 Laboratory Tests 08/06/17 07:40: White Blood Count 5.3, Red Blood Count 4.51L, Hemoglobin 12.9L, Hematocrit 40.4L , Mean Corpuscular Volume 90, Mean Corpuscular Hemoglobin 28.6, Mean Corpuscular Hemoglobin Concent 32.0, Red Cell Distribution Width 18.6H, Platelet Count 406, Mean Platelet Volume 5.4L, Neutrophils (%) (Auto) 53.4, Lymphocytes (%) (Auto) 18.7L, Monocytes (%) (Auto) 7.9, Eosinophils (%) (Auto) 19.1H, Basophils (%) (Auto) 1.0, Prothrombin Time 22.8H, Prothromb Time International Ratio 2.2H, Sodium Level 135L, Potassium Level 4.1, Chloride Level 100, Carbon Dioxide Level 29, Anion Gap 6, Blood Urea Nitrogen 11, Creatinine 0.9, Estimat Glomerular Filtration Rate > 60, Glucose Level 106, Hemoglobin A1c 6.6H, Uric Acid 6.3, Calcium Level 9.2, Phosphorus Level 3.9, Magnesium Level 1.8, Iron Level 22L, Total Iron Binding Capacity 251, Percent Iron Saturation 9L, Unsaturated Iron Binding 229, Ferritin 143, Total Bilirubin 0.2, Gamma Glutamyl Transpeptidase 25, Aspartate Amino Transf (AST/SGOT) 31, Alanine Aminotransferase (ALT/SGPT) 15, Alkaline Phosphatase 86, Pro-B-Type Natriuretic Peptide 170H, Total Protein 8.7H, Albumin 2.7L, Globulin 6.0, Albumin/Globulin Ratio 0.5L, Triglycerides Level 79, Cholesterol Level 122, LDL Cholesterol 76, HDL Cholesterol 38L, Cholesterol/HDL Ratio 3.2L, Vitamin B12 Level 141L, Folate 19.5, Thyroid Stimulating Hormone (TSH) 1.490 Height (Feet): 5 Height (Inches): 11.00 Weight (Pounds): 175 General Appearance: no apparent distress Objective no change KENTRELL WARREN Aug 06, 2017 12:19
[2017-08-06] MEDS ORDERED: Iron Sucrose 200 MG in NS 110 ML IV ONE (14:00)
[2017-08-06] MEDS: Vitamin B12 1000mcg/ml Inj SUBQ SCH (14:55)
[2017-08-06 16:00] VITALS: BP 121/67
[2017-08-06] MEDS ORDERED: Warfarin Sodium 10mg ORAL ONE (17:00)
[2017-08-06 20:00] VITALS: BP 126/75
--- NOTE | 2017-08-06 21:17 | General Progress Note ---
Assessment/Plan Problem List: (1) Cellulitis of right lower limb ICD Codes: L03.115 - Cellulitis of right lower limb SNOMED: 827124082 Status: progressing Assessment/Plan ams cellulitis abx per id afebrile itching not hypoxic reviewed chart and labs Subjective Allergies: Coded Allergies: VANCOMYCIN (Verified Allergy, Severe, rash, 08/05/17) CEPHALEXIN (Verified Allergy, Unknown, 08/04/17) Subjective itching pain le Objective Last 24 Hour Vital Signs Date Time Temp Pulse Resp B/P (MAP) Pulse Ox O2 Delivery O2 Flow Rate FiO2 08/06/17 19:57 89 20 98 Nasal Cannula 3.0 32 08/06/17 19:45 Nasal Cannula 3.0 32 08/06/17 19:45 95 Nasal Cannula 3.0 32 08/06/17 19:45 88 18 95 Nasal Cannula 3.0 32 08/06/17 16:00 97.0 85 20 121/67 96 Venturi Mask 35 08/06/17 16:00 88 08/06/17 15:44 91 20 95 Nasal Cannula 2.0 28 08/06/17 15:30 87 16 93 Room Air 21 08/06/17 12:00 97.3 80 22 104/69 96 Venturi Mask 35 08/06/17 12:00 80 08/06/17 11:25 81 20 94 Nasal Cannula 4.0 36 08/06/17 11:13 78 18 98 Nasal Cannula 5.0 40 08/06/17 08:00 96.3 88 20 139/87 94 Venturi Mask 35 08/06/17 08:00 83 08/06/17 07:17 Nasal Cannula 5.0 40 08/06/17 07:17 95 Nasal Cannula 5.0 40 08/06/17 07:16 88 20 95 Nasal Cannula 5.0 40 08/06/17 07:05 88 20 74 Room Air 21 08/06/17 04:00 86 08/06/17 04:00 98.3 87 20 106/57 95 Venturi Mask 35 08/06/17 00:00 91 08/06/17 00:00 98.3 88 22 111/60 97 Intake and Output 08/05/17 08/06/17 19:00 07:00 Intake Total 360 ml Output Total 550 ml 1800 ml Balance -190 ml -1800 ml Intake Oral 360 ml Output Urine Total 550 ml 1800 ml # Bowel Movements 1 Laboratory Tests 08/06/17 07:40: White Blood Count 5.3, Red Blood Count 4.51L, Hemoglobin 12.9L, Hematocrit 40.4L , Mean Corpuscular Volume 90, Mean Corpuscular Hemoglobin 28.6, Mean Corpuscular Hemoglobin Concent 32.0, Red Cell Distribution Width 18.6H, Platelet Count 406, Mean Platelet Volume 5.4L, Neutrophils (%) (Auto) 53.4, Lymphocytes (%) (Auto) 18.7L, Monocytes (%) (Auto) 7.9, Eosinophils (%) (Auto) 19.1H, Basophils (%) (Auto) 1.0, Prothrombin Time 22.8H, Prothromb Time International Ratio 2.2H, Sodium Level 135L, Potassium Level 4.1, Chloride Level 100, Carbon Dioxide Level 29, Anion Gap 6, Blood Urea Nitrogen 11, Creatinine 0.9, Estimat Glomerular Filtration Rate > 60, Glucose Level 106, Hemoglobin A1c 6.6H, Uric Acid 6.3, Calcium Level 9.2, Phosphorus Level 3.9, Magnesium Level 1.8, Iron Level 22L, Total Iron Binding Capacity 251, Percent Iron Saturation 9L, Unsaturated Iron Binding 229, Ferritin 143, Total Bilirubin 0.2, Gamma Glutamyl Transpeptidase 25, Aspartate Amino Transf (AST/SGOT) 31, Alanine Aminotransferase (ALT/SGPT) 15, Alkaline Phosphatase 86, Pro-B-Type Natriuretic Peptide 170H, Total Protein 8.7H, Albumin 2.7L, Globulin 6.0, Albumin/Globulin Ratio 0.5L, Triglycerides Level 79, Cholesterol Level 122, LDL Cholesterol 76, HDL Cholesterol 38L, Cholesterol/HDL Ratio 3.2L, Vitamin B12 Level 141L, Folate 19.5, Thyroid Stimulating Hormone (TSH) 1.490 Height (Feet): 5 Height (Inches): 11.00 Weight (Pounds): 175 General Appearance: confused Neck: supple Torsten Sandoval MD Aug 06, 2017 21:17
--- NOTE | 2017-08-06 23:17 | Consultation ---
DATE OF CONSULTATION: 08/04/2017 CARDIOLOGY CONSULTATION CONSULTING PHYSICIAN: Rafa Summers M.D. REFERRING PHYSICIAN: Torsten Sandoval M.D. REASON FOR CONSULTATION: Management of tachycardia. HISTORY OF PRESENT ILLNESS: The patient is an very unfortunate 57-year-old gentleman who presents to the hospital with right lower extremity pain, swelling, and redness. The patient states that the above condition has worsened in the past week. He denies any fever or chills. He is a resident of a [facility] and is transferred to this facility by Dr. Sandoval. He denies any prior history of DVT. At the time of arrival to the hospital, blood pressure was 133/84 mmHg, his heart rate was 100. Cardiology consultation was made at request of Dr. Sandoval for management of tachycardia. The patient denies any prior history of coronary artery disease, congestive heart failure, or cardiac arrhythmias. PAST MEDICAL HISTORY: Right lower extremity cellulitis/ulceration, history of DVT, history of pulmonary embolism. ALLERGIES: To cephalexin MEDICATIONS: List of medication includes albuterol two puffs inhaler every six hours p.r.n. shortness of breath, ferrous sulfate 325 mg twice daily, folic acid 1 mg p.o. daily, gabapentin 600 mg q.four times a day, Atrovent one puff inhaled four times a day, loratadine 10 mg p.o. daily, mirtazapine 45 mg daily, and warfarin 10 mg daily. SOCIAL HISTORY: Resident of a [facility]. Denies any tobacco, alcohol, illicit drug use. REVIEW OF SYSTEMS: HEENT: Denies any headache, diplopia, or blurred vision. CONSTITUTIONAL: Denies any fever, chills, night, or weight loss. CARDIOVASCULAR: Denies any no chest pain, shortness of breath, PND, orthopnea, leg swelling, palpitations, or syncope. PULMONARY: Denies any cough, hemoptysis, or wheezing. GASTROINTESTINAL: Denies any nausea, vomiting, diarrhea, constipation, abdominal pain, GI bleed. GENITOURINARY: Denies any hematuria, dysuria, or incontinence. NEUROLOGIC: Denies any motor dysfunction, sensory deficit, or altered speech. MUSCULOSKELETAL: Complaining of right lower extremity pain, swelling, redness, and warmth as well as presence of wounds. PHYSICAL EXAMINATION: VITAL SIGNS: Blood pressure was 133/84, respirations 20, pulse of 100, temperature 97.9 degrees Fahrenheit, and O2 saturation 96%. GENERAL: The patient is an very unfortunate 57-year-old gentleman, in no apparent respiratory distress. GCS 15. Nontoxic. HEENT: Atraumatic and normocephalic. Anicteric. Pupils are equal, round, and reactive to light and accommodation. Extraocular movements are intact. NECK: JVP less than 5 cm. No carotid bruits. Carotid upstrokes 2+ bilaterally. CARDIOVASCULAR: Normal S1 and S2. Regular rate and rhythm. Tachycardiac. No murmurs, gallops, or rubs. PMI is at fourth intercostal space in the left midclavicular line. LUNGS: Clear to auscultation bilaterally. ABDOMEN: Soft, nontender, and nondistended. No hepatosplenomegaly. Positive bowel sounds. EXTREMITIES: Right lower extremity erythema extending from mid calf down to the foot, purulent discharge from the dorsum of the right foot and there is associated edema and redness. LABORATORY FINDINGS: WBC was 7.3, hemoglobin 12.2, hematocrit of 37.7, platelet count 379. Sodium was 134, potassium 4.9, chloride 102, bicarbonate 28, BUN of 11, creatinine 0.9, glucose 86. Calcium is 8.8. INR was 2.1. Chest x-ray showed no acute cardiopulmonary disease. EKG showed sinus tachycardia with no acute ST and T-wave abnormalities, no evidence of ectopy. ASSESSMENT AND PLAN: The patient is an very unfortunate 57-year-old gentleman, seen in Cardiology consultation at request of Dr. Sandoval. 1. Sinus tachycardia. This could be secondary to the infection. We will like to obtain 2D echocardiography to rule out pulmonary embolism. The patient is on anticoagulation therapy. Clinically does not appear to be in heart failure. 2. Right lower extremity cellulitis. 3. History of deep venous thrombosis, on warfarin therapy with therapeutic INR level. Further therapeutic and diagnostic decision will be based on the results of 2D echocardiography. I would like to thank, , for the courtesy of this consultation. Rafa Summers M.D. DR: Ari JOB#: [id number] CC:
[2017-08-07] VITALS: BP 128/78
[2017-08-07] MEDS: Clindamycin 600mg 50 ML IV SCH ×3 (00:39→18:01)
--- NOTE | 2017-08-07 01:31 | General Progress Note ---
Assessment/Plan Assessment/Plan 1. Pulmonary embolism and deep venous thrombosis history. --> He is on Coumadin. --> Continue to maintain INR between 2 and 3. --> Current INR is at 2. 2. Anemia due to underlying chronic disease. --> Continue to closely monitor. --> Anemia workup reviewed. --> Iron 22, TIBC 251, Ferritin 143, B12 141, Folate 19.5 --> Transfuse if hgb <7 3. Coagulopathy due to the patient being on Coumadin. 4. Hyponatremia. --> Continue to closely monitor. Likely depletional. 5. Lower extremity cellulitis. --> Continue antibiotics. 6. Nicotine dependence, likely chronic obstructive pulmonary disease related as well. 7. Hypoalbuminemia, probably related severe protein-caloric malnutrition. Subjective Date patient seen: Aug 06, 2017 Constitutional: Denies: no symptoms, chills, diaphoresis, fever, malaise, weakness, other HEENT: Denies: no symptoms, eye pain, blurred vision, tearing, double vision, ear pain, ear discharge, nose pain, nose congestion, throat pain, throat swelling, mouth pain, mouth swelling, other Cardiovascular: Denies: no symptoms, chest pain, edema, irregular heart rate, lightheadedness, palpitations, syncope, other Respiratory: Denies: no symptoms, cough, orthopnea, shortness of breath, SOB with excertion, SOB at rest, sputum, stridor, wheezing, other Gastrointestinal/Abdominal: Denies: no symptoms, abdomen distended, abdominal pain, black stools, tarry stools, blood in stool, constipated, diarrhea, difficulty swallowing, nausea, poor appetite, poor fluid intake, rectal bleeding , vomiting, other Genitourinary: Denies: no symptoms, burning, discharge, frequency, flank pain, hematuria, incontinence, pain, urgency, other Hematologic/Lymphatic: Reports: anemia Allergies: Coded Allergies: VANCOMYCIN (Verified Allergy, Severe, rash, 08/05/17) CEPHALEXIN (Verified Allergy, Unknown, 08/04/17) Subjective On anticoagulation. No fever. H/H stable. Objective Last 24 Hour Vital Signs Date Time Temp Pulse Resp B/P (MAP) Pulse Ox O2 Delivery O2 Flow Rate FiO2 08/06/17 20:00 97.9 87 24 126/75 94 Nasal Cannula 4.0 35 08/06/17 20:00 86 08/06/17 19:57 89 20 98 Nasal Cannula 3.0 32 08/06/17 19:45 Nasal Cannula 3.0 32 08/06/17 19:45 95 Nasal Cannula 3.0 32 08/06/17 19:45 88 18 95 Nasal Cannula 3.0 32 08/06/17 16:00 97.0 85 20 121/67 96 Venturi Mask 35 08/06/17 16:00 88 08/06/17 15:44 91 20 95 Nasal Cannula 2.0 28 08/06/17 15:30 87 16 93 Room Air 21 08/06/17 12:00 97.3 80 22 104/69 96 Venturi Mask 35 08/06/17 12:00 80 08/06/17 11:25 81 20 94 Nasal Cannula 4.0 36 08/06/17 11:13 78 18 98 Nasal Cannula 5.0 40 08/06/17 08:00 96.3 88 20 139/87 94 Venturi Mask 35 08/06/17 08:00 83 08/06/17 07:17 Nasal Cannula 5.0 40 08/06/17 07:17 95 Nasal Cannula 5.0 40 08/06/17 07:16 88 20 95 Nasal Cannula 5.0 40 08/06/17 07:05 88 20 74 Room Air 21 08/06/17 04:00 86 08/06/17 04:00 98.3 87 20 106/57 95 Venturi Mask 35 Intake and Output 08/06/17 08/07/17 19:00 07:00 Intake Total 240 ml Output Total 600 ml Balance -360 ml Intake Oral 240 ml Output Urine Total 600 ml Laboratory Tests 08/06/17 07:40: White Blood Count 5.3, Red Blood Count 4.51L, Hemoglobin 12.9L, Hematocrit 40.4L , Mean Corpuscular Volume 90, Mean Corpuscular Hemoglobin 28.6, Mean Corpuscular Hemoglobin Concent 32.0, Red Cell Distribution Width 18.6H, Platelet Count 406, Mean Platelet Volume 5.4L, Neutrophils (%) (Auto) 53.4, Lymphocytes (%) (Auto) 18.7L, Monocytes (%) (Auto) 7.9, Eosinophils (%) (Auto) 19.1H, Basophils (%) (Auto) 1.0, Prothrombin Time 22.8H, Prothromb Time International Ratio 2.2H, Sodium Level 135L, Potassium Level 4.1, Chloride Level 100, Carbon Dioxide Level 29, Anion Gap 6, Blood Urea Nitrogen 11, Creatinine 0.9, Estimat Glomerular Filtration Rate > 60, Glucose Level 106, Hemoglobin A1c 6.6H, Uric Acid 6.3, Calcium Level 9.2, Phosphorus Level 3.9, Magnesium Level 1.8, Iron Level 22L, Total Iron Binding Capacity 251, Percent Iron Saturation 9L, Unsaturated Iron Binding 229, Ferritin 143, Total Bilirubin 0.2, Gamma Glutamyl Transpeptidase 25, Aspartate Amino Transf (AST/SGOT) 31, Alanine Aminotransferase (ALT/SGPT) 15, Alkaline Phosphatase 86, Pro-B-Type Natriuretic Peptide 170H, Total Protein 8.7H, Albumin 2.7L, Globulin 6.0, Albumin/Globulin Ratio 0.5L, Triglycerides Level 79, Cholesterol Level 122, LDL Cholesterol 76, HDL Cholesterol 38L, Cholesterol/HDL Ratio 3.2L, Vitamin B12 Level 141L, Folate 19.5, Thyroid Stimulating Hormone (TSH) 1.490 Height (Feet): 5 Height (Inches): 11.00 Weight (Pounds): 175 General Appearance: no apparent distress EENT: normal ENT inspection Neck: supple Cardiovascular: normal rate, regular rhythm Respiratory/Chest: lungs clear Chance Lakhani Aug 07, 2017 01:31
[2017-08-07 04:00] VITALS: BP 119/76
[2017-08-07 07:00] LABS: INR 2.1 (0.9-1.1)
[2017-08-07 08:00] VITALS: BP 121/63
[2017-08-07] MEDS: Vitamin B12 1000mcg/ml Inj SUBQ SCH (08:33)
--- NOTE | 2017-08-07 08:45 | Pulmonology Progress Note ---
Assessment/Plan Assessment/Plan IMPRESSION: 1. Right lower extremity cellulitis. 2. History of deep vein thrombosis. 3. Chronic Coumadin usage. 4. History of previous pulmonary embolism. 5. Tobacco use. 6. Probable underlying COPD DISCUSSION: Continue present medications and care. The patient will stay on Coumadin, breathing treatments, pain medications and antibiotics per ID. His hypoxemia is secondary to combination of previous pulmonary embolism and chronic obstructive pulmonary disease. I will continue to follow. INR is therapeutic. Subjective Interval Events: None Constitutional: Reports: no symptoms HEENT: Repors: no symptoms Respiratory: Reports: no symptoms Cardiovascular: Reports: no symptoms Allergies: Coded Allergies: VANCOMYCIN (Verified Allergy, Severe, rash, 08/05/17) CEPHALEXIN (Verified Allergy, Unknown, 08/04/17) Objective Last 24 Hour Vital Signs Date Time Temp Pulse Resp B/P (MAP) Pulse Ox O2 Delivery O2 Flow Rate FiO2 08/07/17 04:00 97.7 86 18 119/76 100 Nasal Cannula 4.0 35 08/07/17 04:00 84 08/07/17 00:00 97.9 88 21 128/78 98 Nasal Cannula 4.0 35 08/07/17 00:00 84 08/06/17 20:00 208.2 87 24 126/75 94 Nasal Cannula 4.0 35 96 08/06/17 20:00 86 08/06/17 19:57 89 20 98 Nasal Cannula 3.0 32 08/06/17 19:45 Nasal Cannula 3.0 32 08/06/17 19:45 95 Nasal Cannula 3.0 32 08/06/17 19:45 88 18 95 Nasal Cannula 3.0 32 08/06/17 16:00 97.0 85 20 121/67 96 Venturi Mask 35 08/06/17 16:00 88 08/06/17 15:44 91 20 95 Nasal Cannula 2.0 28 08/06/17 15:30 87 16 93 Room Air 21 08/06/17 12:00 97.3 80 22 104/69 96 Venturi Mask 35 08/06/17 12:00 80 08/06/17 11:25 81 20 94 Nasal Cannula 4.0 36 08/06/17 11:13 78 18 98 Nasal Cannula 5.0 40 Intake and Output 08/06/17 08/07/17 19:00 07:00 Intake Total 240 ml 350 ml Output Total 600 ml 1200 ml Balance -360 ml -850 ml Intake Oral 240 ml 300 ml IV Total 50 ml Output Urine Total 600 ml 1200 ml General Appearance: no acute distress HEENT: normocephalic Respiratory/Chest: chest wall non-tender, lungs clear Cardiovascular: normal peripheral pulses, normal rate Abdomen: normal bowel sounds Microbiology Date/Time Source Procedure Growth Status 08/04/17 12:25 Blood Blood Culture - Preliminary NO GROWTH AFTER 48 HOURS Resulted 08/04/17 12:15 Blood Blood Culture - Preliminary NO GROWTH AFTER 48 HOURS Resulted 08/04/17 21:00 Nasal Nares MRSA Culture - Preliminary Resulted 08/04/17 20:30 Foot Right Gram Stain - Final Resulted 08/04/17 20:30 Wound Culture - Preliminary Gram Negative Bacillus 1 Resulted Laboratory Tests 08/07/17 06:00: Prothrombin Time 22.6H, Prothromb Time International Ratio 2.1H Current Medications Medications (Trade) Dose Ordered Sig/Italo Route PRN Reason Start Time Stop Time Status Last Admin Dose Admin Acetaminophen (Tylenol) 650 mg EVERY 4 HOURS PRN ORAL Mild Pain/Temp > 100.5 08/04/17 15:30 09/03/17 15:29 08/06/17 17:46 Albuterol Sulfate (Proventil MDI) 2 puff EVERY 6 HOURS PRN INH Shortness of Breath 08/04/17 15:45 09/03/17 15:44 Clindamycin HCl/ Dextrose 50 ml @ 100 mls/hr Q8H IV 08/04/17 17:00 08/11/17 23:59 08/07/17 08:33 Cyanocobalamin (Vitamin B12) 1,000 mcg DAILY SUBQ 08/06/17 14:00 08/08/17 09:01 08/07/17 08:33 Diphenhydramine HCl (Benadryl) 25 mg Q6H PRN ORAL Itching 08/05/17 17:30 09/04/17 17:29 08/06/17 09:44 Fexofenadine HCl (Lawanda) 60 mg BID ORAL 08/04/17 18:00 09/03/17 17:59 08/07/17 08:33 Gabapentin (Neurontin) 600 mg QID ORAL 08/04/17 18:00 09/03/17 17:59 08/07/17 08:33 Ipratropium [place] (Atrovent) 500 mcg QIDRT HHN 08/04/17 19:00 08/09/17 18:59 08/06/17 19:45 Lansoprazole (Prevacid) 30 mg DAILY ORAL 08/05/17 13:30 09/04/17 13:29 08/07/17 08:33 Mirtazapine (Remeron) 45 mg BEDTIME ORAL 08/04/17 21:00 09/03/17 20:59 08/06/17 21:02 Warfarin Sodium (Coumadin per pharmacy) 1 ea DAILY PRN MISC Per rx protocol 08/04/17 15:45 09/03/17 15:44 Warfarin Sodium (Coumadin) 10 mg COUMADIN ONCE ORAL 08/07/17 17:00 08/07/17 17:01 René Gore MD Aug 07, 2017 08:45
[2017-08-07] MEDS: Ipratropium 0.02% Inh Soln 2.5ml UD HHN SCH ×4 (08:46→19:20)
--- NOTE | 2017-08-07 09:02 | Cardiology Progress Note ---
Assessment/Plan Assessment/Plan 1. Sinus tachycardia, resolved,this could be secondary to the infection/ cellulitis. No evidence of RV strain on the echo, LVEF at 65%. The patient is on anticoagulation therapy. 2. Right lower extremity cellulitis. 3. History of deep venous thrombosis, on warfarin therapy with therapeutic INR level. Subjective Subjective Sinus rhythm at 78. Objective Last 24 Hour Vital Signs Date Time Temp Pulse Resp B/P (MAP) Pulse Ox O2 Delivery O2 Flow Rate FiO2 08/07/17 08:57 78 18 96 Nasal Cannula 3.0 32 08/07/17 08:48 96 Nasal Cannula 3.0 32 08/07/17 08:48 Nasal Cannula 3.0 32 08/07/17 08:46 78 18 95 Nasal Cannula 3.0 32 08/07/17 04:00 97.7 86 18 119/76 100 Nasal Cannula 4.0 35 08/07/17 04:00 84 08/07/17 00:00 97.9 88 21 128/78 98 Nasal Cannula 4.0 35 08/07/17 00:00 84 08/06/17 20:00 208.2 87 24 126/75 94 Nasal Cannula 4.0 35 96 08/06/17 20:00 86 08/06/17 19:57 89 20 98 Nasal Cannula 3.0 32 08/06/17 19:45 Nasal Cannula 3.0 32 08/06/17 19:45 95 Nasal Cannula 3.0 32 08/06/17 19:45 88 18 95 Nasal Cannula 3.0 32 08/06/17 16:00 97.0 85 20 121/67 96 Venturi Mask 35 08/06/17 16:00 88 08/06/17 15:44 91 20 95 Nasal Cannula 2.0 28 08/06/17 15:30 87 16 93 Room Air 21 08/06/17 12:00 97.3 80 22 104/69 96 Venturi Mask 35 08/06/17 12:00 80 08/06/17 11:25 81 20 94 Nasal Cannula 4.0 36 08/06/17 11:13 78 18 98 Nasal Cannula 5.0 40 Intake and Output 08/06/17 08/07/17 19:00 07:00 Intake Total 240 ml 350 ml Output Total 600 ml 1200 ml Balance -360 ml -850 ml Intake Oral 240 ml 300 ml IV Total 50 ml Output Urine Total 600 ml 1200 ml 2D Echo: LVEF 65%, Mild LVH, Grade I LVDD, RVSP 25 mmHg Laboratory Tests Test 08/07/17 06:00 Prothrombin Time 22.6 SEC (9.30-11.50) H Prothromb Time International Ratio 2.1 (0.9-1.1) H Microbiology Date/Time Source Procedure Growth Status 08/04/17 12:25 Blood Blood Culture - Preliminary NO GROWTH AFTER 48 HOURS Resulted 08/04/17 12:15 Blood Blood Culture - Preliminary NO GROWTH AFTER 48 HOURS Resulted 08/04/17 21:00 Nasal Nares MRSA Culture - Preliminary Resulted 08/04/17 20:30 Foot Right Gram Stain - Final Resulted 08/04/17 20:30 Wound Culture - Preliminary Gram Negative Bacillus 1 Resulted Objective HEENT: Atraumatic and normocephalic. Anicteric. Pupils are equal, round, and reactive to light and accommodation. Extraocular movements are intact. NECK: JVP less than 5 cm. No carotid bruits. Carotid upstrokes 2+ bilaterally. CARDIOVASCULAR: Normal S1 and S2. Regular rate and rhythm. Tachycardiac. No murmurs, gallops, or rubs. PMI is at fourth intercostal space in the left midclavicular line. LUNGS: Clear to auscultation bilaterally. ABDOMEN: Soft, nontender, and nondistended. No hepatosplenomegaly. Positive bowel sounds. EXTREMITIES: Right lower extremity erythema extending from mid calf down to the foot, purulent discharge from the dorsum of the right foot and there is associated edema and redness. LANCE SHIPLEY Aug 07, 2017 09:02
[2017-08-07 12:00] VITALS: BP 128/70
--- NOTE | 2017-08-07 13:22 | Nephrology Progress Note ---
Assessment/Plan Problem List: (1) Cellulitis of right lower limb (2) Low vitamin B12 level (3) DM (diabetes mellitus) Assessment Low Na , depletional up to 135 today Right lower extremity cellulitis, bilateral stasis dermatitis of lower extremity, history of deep vein thrombosis & pulmonary emboli, on Coumadin nicotine dependence. ? COPD allergic to cephalexin and vancomycin. HypoAlbuminemia- Urine Neg for protein. Low Fe Low B12 High A1C . . Plan Medium CHO diet B12 SQ IV Iron per ID local skin care Subjective ROS Limited/Unobtainable: No Constitutional: Reports: malaise Objective Objective Last 24 Hour Vital Signs Date Time Temp Pulse Resp B/P (MAP) Pulse Ox O2 Delivery O2 Flow Rate FiO2 08/07/17 11:54 88 18 99 Nasal Cannula 3.0 32 08/07/17 11:43 88 18 97 Nasal Cannula 3.0 32 08/07/17 08:57 78 18 96 Nasal Cannula 3.0 32 08/07/17 08:48 96 Nasal Cannula 3.0 32 08/07/17 08:48 Nasal Cannula 3.0 32 08/07/17 08:46 78 18 95 Nasal Cannula 3.0 32 08/07/17 04:00 97.7 86 18 119/76 100 Nasal Cannula 4.0 35 08/07/17 04:00 84 08/07/17 00:00 97.9 88 21 128/78 98 Nasal Cannula 4.0 35 08/07/17 00:00 84 08/06/17 20:00 208.2 87 24 126/75 94 Nasal Cannula 4.0 35 96 08/06/17 20:00 86 08/06/17 19:57 89 20 98 Nasal Cannula 3.0 32 08/06/17 19:45 Nasal Cannula 3.0 32 08/06/17 19:45 95 Nasal Cannula 3.0 32 08/06/17 19:45 88 18 95 Nasal Cannula 3.0 32 08/06/17 16:00 97.0 85 20 121/67 96 Venturi Mask 35 08/06/17 16:00 88 08/06/17 15:44 91 20 95 Nasal Cannula 2.0 28 08/06/17 15:30 87 16 93 Room Air 21 Intake and Output 08/06/17 08/07/17 19:00 07:00 Intake Total 240 ml 350 ml Output Total 600 ml 1200 ml Balance -360 ml -850 ml Intake Oral 240 ml 300 ml IV Total 50 ml Output Urine Total 600 ml 1200 ml Laboratory Tests 08/07/17 06:00: Prothrombin Time 22.6H, Prothromb Time International Ratio 2.1H Height (Feet): 5 Height (Inches): 11.00 Weight (Pounds): 175 General Appearance: no apparent distress Respiratory/Chest: decreased breath sounds Abdomen: soft Objective no change KENTRELL WARREN Aug 07, 2017 13:22
--- NOTE | 2017-08-07 14:15 | Infectious Diseases Prog Note ---
Assessment/Plan Assessment/Plan A; R leg cellulitis stasis Dermatitis allergic reaction to IV Vancomycin history of DVT COPD Eosinophilia P; Continue Clindamycin Subjective ROS Limited/Unobtainable: Yes Allergies: Coded Allergies: VANCOMYCIN (Verified Allergy, Severe, rash, 08/05/17) CEPHALEXIN (Verified Allergy, Unknown, 08/04/17) Objective Vital Signs Last 24 Hour Vital Signs Date Time Temp Pulse Resp B/P (MAP) Pulse Ox O2 Delivery O2 Flow Rate FiO2 08/07/17 12:00 97.3 81 19 128/70 97 Nasal Cannula 4.0 08/07/17 11:54 88 18 99 Nasal Cannula 3.0 32 08/07/17 11:43 88 18 97 Nasal Cannula 3.0 32 08/07/17 08:57 78 18 96 Nasal Cannula 3.0 32 08/07/17 08:48 96 Nasal Cannula 3.0 32 08/07/17 08:48 Nasal Cannula 3.0 32 08/07/17 08:46 78 18 95 Nasal Cannula 3.0 32 08/07/17 08:00 97.3 79 19 121/63 97 Nasal Cannula 4.0 08/07/17 04:00 97.7 86 18 119/76 100 Nasal Cannula 4.0 35 08/07/17 04:00 84 08/07/17 00:00 97.9 88 21 128/78 98 Nasal Cannula 4.0 35 08/07/17 00:00 84 08/06/17 20:00 208.2 87 24 126/75 94 Nasal Cannula 4.0 35 96 08/06/17 20:00 86 08/06/17 19:57 89 20 98 Nasal Cannula 3.0 32 08/06/17 19:45 Nasal Cannula 3.0 32 08/06/17 19:45 95 Nasal Cannula 3.0 32 08/06/17 19:45 88 18 95 Nasal Cannula 3.0 32 08/06/17 16:00 97.0 85 20 121/67 96 Venturi Mask 35 08/06/17 16:00 88 08/06/17 15:44 91 20 95 Nasal Cannula 2.0 28 08/06/17 15:30 87 16 93 Room Air 21 Height (Feet): 5 Height (Inches): 11.00 Weight (Pounds): 175 HEENT: mucous membranes moist Respiratory/Chest: lungs clear Cardiovascular: normal rate Abdomen: soft, non tender Extremities: no edema Skin: rash, ulcers, other Neurologic/Psychiatric: other - sleeping Microbiology Date/Time Source Procedure Growth Status 08/04/17 21:00 Nasal Nares MRSA Culture - Final NO METHICILLIN RESISTANT STAPH AUREUS... Complete 08/04/17 21:00 Rectum VRE Culture - Final NO VANCOMYCIN RESISTANT ENTEROCOCCUS ... Complete 08/04/17 20:30 Foot Right Gram Stain - Final Resulted 08/04/17 20:30 Wound Culture - Preliminary Gram Negative Bacillus 1 Staphylococcus Aureus Streptococcus Group C Resulted Laboratory Tests Test 08/07/17 06:00 Prothrombin Time 22.6 SEC (9.30-11.50) H Prothromb Time International Ratio 2.1 (0.9-1.1) H Current Medications Medications (Trade) Dose Ordered Sig/Italo Route PRN Reason Start Time Stop Time Status Last Admin Dose Admin Acetaminophen (Tylenol) 650 mg EVERY 4 HOURS PRN ORAL Mild Pain/Temp > 100.5 08/04/17 15:30 09/03/17 15:29 08/06/17 17:46 Albuterol Sulfate (Proventil MDI) 2 puff EVERY 6 HOURS PRN INH Shortness of Breath 08/04/17 15:45 09/03/17 15:44 Clindamycin HCl/ Dextrose 50 ml @ 100 mls/hr Q8H IV 08/04/17 17:00 08/11/17 23:59 08/07/17 08:33 Cyanocobalamin (Vitamin B12) 1,000 mcg DAILY SUBQ 08/06/17 14:00 08/08/17 09:01 08/07/17 08:33 Diphenhydramine HCl (Benadryl) 25 mg Q6H PRN ORAL Itching 08/05/17 17:30 09/04/17 17:29 08/06/17 09:44 Fexofenadine HCl (Lawanda) 60 mg BID ORAL 08/04/17 18:00 09/03/17 17:59 08/07/17 08:33 Gabapentin (Neurontin) 600 mg QID ORAL 08/04/17 18:00 09/03/17 17:59 08/07/17 13:40 Ipratropium [place] (Atrovent) 500 mcg QIDRT HHN 08/04/17 19:00 08/09/17 18:59 08/07/17 11:43 Lansoprazole (Prevacid) 30 mg DAILY ORAL 08/05/17 13:30 09/04/17 13:29 08/07/17 08:33 Mirtazapine (Remeron) 45 mg BEDTIME ORAL 08/04/17 21:00 09/03/17 20:59 08/06/17 21:02 Warfarin Sodium (Coumadin per pharmacy) 1 ea DAILY PRN MISC Per rx protocol 08/04/17 15:45 09/03/17 15:44 Warfarin Sodium (Coumadin) 10 mg COUMADIN ONCE ORAL 08/07/17 17:00 08/07/17 17:01 ANANT BRANDT Aug 07, 2017 14:15
--- NOTE | 2017-08-07 14:47 | Cardiology Report ---
APPROVED REPORT EKG Measurement Heart [id number] Normal sinus rhythm Possible Left atrial enlargement Borderline ECG
[2017-08-07 16:00] VITALS: BP 117/59
[2017-08-07] MEDS ORDERED: Warfarin Sodium 10mg ORAL ONE (17:00)
[2017-08-07 20:00] VITALS: BP 113/79
--- NOTE | 2017-08-07 22:48 | General Progress Note ---
Assessment/Plan Problem List: (1) Cellulitis of right lower limb ICD Codes: L03.115 - Cellulitis of right lower limb SNOMED: [id number] Status: progressing Assessment/Plan ams cellulitis abx per id not hypoxic decreased itching decreased rash afebrile Subjective ROS Limited/Unobtainable: Yes Allergies: Coded Allergies: VANCOMYCIN (Verified Allergy, Severe, rash, 08/05/17) CEPHALEXIN (Verified Allergy, Unknown, 08/04/17) Subjective itching pain le Objective Last 24 Hour Vital Signs Date Time Temp Pulse Resp B/P (MAP) Pulse Ox O2 Delivery O2 Flow Rate FiO2 08/07/17 20:00 98.2 86 20 113/79 94 Nasal Cannula 4.0 08/07/17 20:00 79 08/07/17 19:30 85 18 100 Nasal Cannula 3.0 32 08/07/17 19:21 97 Nasal Cannula 3.0 32 08/07/17 19:21 Nasal Cannula 3.0 32 08/07/17 19:19 79 18 97 Nasal Cannula 3.0 32 08/07/17 16:24 82 18 95 Nasal Cannula 3.0 32 08/07/17 16:00 80 08/07/17 16:00 97.9 82 19 117/59 94 Nasal Cannula 4.0 08/07/17 12:00 97.3 81 19 128/70 97 Nasal Cannula 4.0 08/07/17 12:00 82 08/07/17 11:54 88 18 99 Nasal Cannula 3.0 32 08/07/17 11:43 88 18 97 Nasal Cannula 3.0 32 08/07/17 08:57 78 18 96 Nasal Cannula 3.0 32 08/07/17 08:48 96 Nasal Cannula 3.0 32 08/07/17 08:48 Nasal Cannula 3.0 32 08/07/17 08:46 78 18 95 Nasal Cannula 3.0 32 08/07/17 08:00 97.3 79 19 121/63 97 Nasal Cannula 4.0 08/07/17 08:00 86 08/07/17 04:00 97.7 86 18 119/76 100 Nasal Cannula 4.0 35 08/07/17 04:00 84 08/07/17 00:00 97.9 88 21 128/78 98 Nasal Cannula 4.0 35 08/07/17 00:00 84 Intake and Output 08/06/17 08/07/17 19:00 07:00 Intake Total 240 ml 350 ml Output Total 600 ml 1200 ml Balance -360 ml -850 ml Intake Oral 240 ml 300 ml IV Total 50 ml Output Urine Total 600 ml 1200 ml Laboratory Tests 08/07/17 06:00: Prothrombin Time 22.6H, Prothromb Time International Ratio 2.1H Height (Feet): 5 Height (Inches): 11.00 Weight (Pounds): 175 EENT: normal ENT inspection Cardiovascular: normal rate Abdomen: soft Torsten Sandoval MD Aug 07, 2017 22:48
[2017-08-08] VITALS: BP 117/69
[2017-08-08] MEDS: Clindamycin 600mg 50 ML IV SCH ×3 (00:34→17:11)
--- NOTE | 2017-08-08 03:29 | General Progress Note ---
Assessment/Plan Assessment/Plan #. Pulmonary embolism and deep venous thrombosis history. --> He is on Coumadin. --> Continue to maintain INR between 2 and 3. --> Current INR is at 2. #. Anemia due to underlying chronic disease. --> Continue to closely monitor. --> Anemia workup reviewed. --> Iron 22, TIBC 251, Ferritin 143, B12 141, Folate 19.5 --> Transfuse if hgb <7, Trend cbc daily. #. Coagulopathy due to the patient being on Coumadin. --> INR goal has been met. Cont on coumadin. #. Hyponatremia. --> Continue to closely monitor. Likely depletional. #. Right Lower extremity cellulitis. --> Continue antibiotics. --> On clindamycin, patient allergic to vancomycin. #. Nicotine dependence, likely chronic obstructive pulmonary disease related as well. #. Hypoalbuminemia, probably related severe protein-caloric malnutrition. Subjective Date patient seen: Aug 07, 2017 Constitutional: Denies: no symptoms, chills, diaphoresis, fever, malaise, weakness, other HEENT: Denies: no symptoms, eye pain, blurred vision, tearing, double vision, ear pain, ear discharge, nose pain, nose congestion, throat pain, throat swelling, mouth pain, mouth swelling, other Cardiovascular: Denies: no symptoms, chest pain, edema, irregular heart rate, lightheadedness, palpitations, syncope, other Respiratory: Denies: no symptoms, cough, orthopnea, shortness of breath, SOB with excertion, SOB at rest, sputum, stridor, wheezing, other Gastrointestinal/Abdominal: Denies: no symptoms, abdomen distended, abdominal pain, black stools, tarry stools, blood in stool, constipated, diarrhea, difficulty swallowing, nausea, poor appetite, poor fluid intake, rectal bleeding , vomiting, other Genitourinary: Denies: no symptoms, burning, discharge, frequency, flank pain, hematuria, incontinence, pain, urgency, other Allergies: Coded Allergies: VANCOMYCIN (Verified Allergy, Severe, rash, 08/05/17) CEPHALEXIN (Verified Allergy, Unknown, 08/04/17) Subjective On anticoagulation. NAD. On abx. Objective Last 24 Hour Vital Signs Date Time Temp Pulse Resp B/P (MAP) Pulse Ox O2 Delivery O2 Flow Rate FiO2 08/08/17 00:00 98.8 86 18 117/69 95 Nasal Cannula 4.0 08/07/17 20:00 98.2 86 20 113/79 94 Nasal Cannula 4.0 08/07/17 20:00 79 08/07/17 19:30 85 18 100 Nasal Cannula 3.0 32 08/07/17 19:21 97 Nasal Cannula 3.0 32 08/07/17 19:21 Nasal Cannula 3.0 32 08/07/17 19:19 79 18 97 Nasal Cannula 3.0 32 08/07/17 16:24 82 18 95 Nasal Cannula 3.0 32 08/07/17 16:00 80 08/07/17 16:00 97.9 82 19 117/59 94 Nasal Cannula 4.0 08/07/17 12:00 97.3 81 19 128/70 97 Nasal Cannula 4.0 08/07/17 12:00 82 08/07/17 11:54 88 18 99 Nasal Cannula 3.0 32 08/07/17 11:43 88 18 97 Nasal Cannula 3.0 32 08/07/17 08:57 78 18 96 Nasal Cannula 3.0 32 08/07/17 08:48 96 Nasal Cannula 3.0 32 08/07/17 08:48 Nasal Cannula 3.0 32 08/07/17 08:46 78 18 95 Nasal Cannula 3.0 32 08/07/17 08:00 97.3 79 19 121/63 97 Nasal Cannula 4.0 08/07/17 08:00 86 08/07/17 04:00 97.7 86 18 119/76 100 Nasal Cannula 4.0 35 08/07/17 04:00 84 Intake and Output 08/07/17 08/08/17 19:00 07:00 Intake Total 480 ml Output Total 600 ml Balance -120 ml Intake Oral 480 ml Output Urine Total 600 ml # Voids 1 Laboratory Tests 08/07/17 06:00: Prothrombin Time 22.6H, Prothromb Time International Ratio 2.1H Height (Feet): 5 Height (Inches): 11.00 Weight (Pounds): 175 General Appearance: confused EENT: normal ENT inspection Cardiovascular: normal rate Respiratory/Chest: lungs clear Abdomen: no organomegaly Chance Lakhani Aug 08, 2017 03:29
[2017-08-08 04:00] VITALS: BP 125/74
[2017-08-08] MEDS: Ipratropium 0.02% Inh Soln 2.5ml UD HHN SCH ×4 (06:55→15:30)
[2017-08-08 08:00] VITALS: BP 147/88
[2017-08-08 08:37] LABS: INR 1.9 (0.9-1.1)
[2017-08-08 08:39] LABS: BASOPHILS % (AUTO) 1.1 % (0.0-2.0); EOSINOPHILS % (AUTO) 11.2 % (0.0-3.0); HEMATOCRIT 39.2 % (42.0-52.0); HEMOGLOBIN 12.9 G/DL (14.2-18.0); LYMPHOCYTES % (AUTO) 30.3 % (20.0-45.0); MEAN CORPUSCULAR VOLUME 90 FL (80-99); NEUTROPHILS % (AUTO) 47.4 % (45.0-75.0); PLATELET COUNT 423 K/UL (150-450); RED BLOOD COUNT 4.36 M/UL (4.70-6.10); RED CELL DISTRIBUTION WIDTH 18.8 % (11.6-14.8); WHITE BLOOD COUNT 5.3 K/UL (4.8-10.8)
[2017-08-08 09:08] LABS: ALANINE AMINOTRANSFERASE 17 U/L (12-78); ALBUMIN 2.8 G/DL (3.4-5.0); ALBUMIN/GLOBULIN RATIO 0.5 (1.0-2.7); ALKALINE PHOSPHATASE 105 U/L (46-116); ANION GAP 6 mmol/L (5-15); ASPARTATE AMINO TRANSFERASE 26 U/L (15-37); BILIRUBIN,TOTAL 0.1 MG/DL (0.2-1.0); BLOOD UREA NITROGEN 16 mg/dL (7-18); CALCIUM 9.4 MG/DL (8.5-10.1); CARBON DIOXIDE 30 MMOL/L (21-32); CHLORIDE 99 MMOL/L (98-107); PHOSPHORUS 4.3 MG/DL (2.5-4.9); POTASSIUM 4.2 MMOL/L (3.5-5.1); SODIUM 135 MMOL/L (136-145)
[2017-08-08] MEDS: Vitamin B12 1000mcg/ml Inj SUBQ SCH (09:24)
--- NOTE | 2017-08-08 09:34 | Nephrology Progress Note ---
Assessment/Plan Problem List: (1) Cellulitis of right lower limb (2) Low vitamin B12 level (3) DM (diabetes mellitus) Assessment Low Na , depletional up to 135 today Right lower extremity cellulitis, bilateral stasis dermatitis of lower extremity, history of deep vein thrombosis & pulmonary emboli, on Coumadin nicotine dependence. ? COPD allergic to cephalexin and vancomycin. HypoAlbuminemia- Urine Neg for protein. Low Fe Low B12 High A1C . . Plan Medium CHO diet B12 SQ IV Iron per ID local skin care Subjective ROS Limited/Unobtainable: No Objective Objective Last 24 Hour Vital Signs Date Time Temp Pulse Resp B/P (MAP) Pulse Ox O2 Delivery O2 Flow Rate FiO2 08/08/17 07:05 78 18 96 Nasal Cannula 3.0 32 08/08/17 06:57 Nasal Cannula 3.0 32 08/08/17 06:57 94 Nasal Cannula 3.0 32 08/08/17 06:55 77 18 94 Nasal Cannula 3.0 32 08/08/17 04:00 97.7 78 20 125/74 95 Nasal Cannula 4.0 08/08/17 04:00 73 08/08/17 00:00 73 08/08/17 00:00 98.8 86 18 117/69 95 Nasal Cannula 4.0 08/07/17 20:00 98.2 86 20 113/79 94 Nasal Cannula 4.0 08/07/17 20:00 79 08/07/17 19:30 85 18 100 Nasal Cannula 3.0 32 08/07/17 19:21 97 Nasal Cannula 3.0 32 08/07/17 19:21 Nasal Cannula 3.0 32 08/07/17 19:19 79 18 97 Nasal Cannula 3.0 32 08/07/17 16:24 82 18 95 Nasal Cannula 3.0 32 08/07/17 16:00 80 08/07/17 16:00 97.9 82 19 117/59 94 Nasal Cannula 4.0 08/07/17 12:00 97.3 81 19 128/70 97 Nasal Cannula 4.0 08/07/17 12:00 82 08/07/17 11:54 88 18 99 Nasal Cannula 3.0 32 08/07/17 11:43 88 18 97 Nasal Cannula 3.0 32 Intake and Output 08/07/17 08/08/17 19:00 07:00 Intake Total 480 ml 400 ml Output Total 600 ml 1450 ml Balance -120 ml -1050 ml Intake Oral 480 ml 400 ml Output Urine Total 600 ml 1450 ml # Voids 1 Laboratory Tests 08/08/17 06:42: White Blood Count 5.3, Red Blood Count 4.36L, Hemoglobin 12.9L, Hematocrit 39.2L , Mean Corpuscular Volume 90, Mean Corpuscular Hemoglobin 29.6, Mean Corpuscular Hemoglobin Concent 32.9, Red Cell Distribution Width 18.8H, Platelet Count 423, Mean Platelet Volume 5.4L, Neutrophils (%) (Auto) 47.4, Lymphocytes (%) (Auto) 30.3, Monocytes (%) (Auto) 10.0, Eosinophils (%) (Auto) 11.2H, Basophils (%) (Auto) 1.1, Prothrombin Time 20.1H, Prothromb Time International Ratio 1.9H, Sodium Level 135L, Potassium Level 4.2, Chloride Level 99, Carbon Dioxide Level 30, Anion Gap 6, Blood Urea Nitrogen 16, Creatinine 1.0, Estimat Glomerular Filtration Rate > 60, Glucose Level 90, Uric Acid 5.9, Calcium Level 9.4, Phosphorus Level 4.3, Magnesium Level 1.8, Total Bilirubin 0.1L, Aspartate Amino Transf (AST/SGOT) 26, Alanine Aminotransferase ( ALT/SGPT) 17, Alkaline Phosphatase 105, C-Reactive Protein, Quantitative 2.9H, Pro-B-Type Natriuretic Peptide 60, Total Protein 8.7H, Albumin 2.8L, Globulin 5.9, Albumin/Globulin Ratio 0.5L Height (Feet): 5 Height (Inches): 11.00 Weight (Pounds): 175 General Appearance: no apparent distress Objective no change KENTRELL WARREN Aug 08, 2017 09:34
--- NOTE | 2017-08-08 10:37 | Pulmonology Progress Note ---
Assessment/Plan Assessment/Plan IMPRESSION: 1. Right lower extremity cellulitis. 2. History of deep vein thrombosis. 3. Chronic Coumadin usage. 4. History of previous pulmonary embolism. 5. Tobacco use. 6. Probable underlying COPD DISCUSSION: Continue present medications and care. The patient will stay on Coumadin, breathing treatments, pain medications and antibiotics per ID. His hypoxemia is secondary to combination of previous pulmonary embolism and chronic obstructive pulmonary disease. I will continue to follow. INR is therapeutic. Subjective Interval Events: Saturating 96%on 3Lmin nasal prongs Constitutional: Reports: no symptoms HEENT: Repors: no symptoms Respiratory: Reports: no symptoms Cardiovascular: Reports: no symptoms Allergies: Coded Allergies: VANCOMYCIN (Verified Allergy, Severe, rash, 08/05/17) CEPHALEXIN (Verified Allergy, Unknown, 08/04/17) Objective Last 24 Hour Vital Signs Date Time Temp Pulse Resp B/P (MAP) Pulse Ox O2 Delivery O2 Flow Rate FiO2 08/08/17 07:05 78 18 96 Nasal Cannula 3.0 32 08/08/17 06:57 Nasal Cannula 3.0 32 08/08/17 06:57 94 Nasal Cannula 3.0 32 08/08/17 06:55 77 18 94 Nasal Cannula 3.0 32 08/08/17 04:00 97.7 78 20 125/74 95 Nasal Cannula 4.0 08/08/17 04:00 73 08/08/17 00:00 73 08/08/17 00:00 98.8 86 18 117/69 95 Nasal Cannula 4.0 08/07/17 20:00 98.2 86 20 113/79 94 Nasal Cannula 4.0 08/07/17 20:00 79 08/07/17 19:30 85 18 100 Nasal Cannula 3.0 32 08/07/17 19:21 97 Nasal Cannula 3.0 32 08/07/17 19:21 Nasal Cannula 3.0 32 08/07/17 19:19 79 18 97 Nasal Cannula 3.0 32 08/07/17 16:24 82 18 95 Nasal Cannula 3.0 32 08/07/17 16:00 80 08/07/17 16:00 97.9 82 19 117/59 94 Nasal Cannula 4.0 08/07/17 12:00 97.3 81 19 128/70 97 Nasal Cannula 4.0 08/07/17 12:00 82 08/07/17 11:54 88 18 99 Nasal Cannula 3.0 32 08/07/17 11:43 88 18 97 Nasal Cannula 3.0 32 Intake and Output 08/07/17 08/08/17 19:00 07:00 Intake Total 480 ml 400 ml Output Total 600 ml 1450 ml Balance -120 ml -1050 ml Intake Oral 480 ml 400 ml Output Urine Total 600 ml 1450 ml # Voids 1 General Appearance: no acute distress HEENT: normocephalic Respiratory/Chest: chest wall non-tender, lungs clear Cardiovascular: normal peripheral pulses, normal rate Laboratory Tests 08/08/17 06:42: White Blood Count 5.3, Red Blood Count 4.36L, Hemoglobin 12.9L, Hematocrit 39.2L , Mean Corpuscular Volume 90, Mean Corpuscular Hemoglobin 29.6, Mean Corpuscular Hemoglobin Concent 32.9, Red Cell Distribution Width 18.8H, Platelet Count 423, Mean Platelet Volume 5.4L, Neutrophils (%) (Auto) 47.4, Lymphocytes (%) (Auto) 30.3, Monocytes (%) (Auto) 10.0, Eosinophils (%) (Auto) 11.2H, Basophils (%) (Auto) 1.1, Prothrombin Time 20.1H, Prothromb Time International Ratio 1.9H, Sodium Level 135L, Potassium Level 4.2, Chloride Level 99, Carbon Dioxide Level 30, Anion Gap 6, Blood Urea Nitrogen 16, Creatinine 1.0, Estimat Glomerular Filtration Rate > 60, Glucose Level 90, Uric Acid 5.9, Calcium Level 9.4, Phosphorus Level 4.3, Magnesium Level 1.8, Total Bilirubin 0.1L, Aspartate Amino Transf (AST/SGOT) 26, Alanine Aminotransferase ( ALT/SGPT) 17, Alkaline Phosphatase 105, C-Reactive Protein, Quantitative 2.9H, Pro-B-Type Natriuretic Peptide 60, Total Protein 8.7H, Albumin 2.8L, Globulin 5.9, Albumin/Globulin Ratio 0.5L Current Medications Medications (Trade) Dose Ordered Sig/Italo Route PRN Reason Start Time Stop Time Status Last Admin Dose Admin Acetaminophen (Tylenol) 650 mg EVERY 4 HOURS PRN ORAL Mild Pain/Temp > 100.5 08/04/17 15:30 09/03/17 15:29 08/06/17 17:46 Albuterol Sulfate (Proventil MDI) 2 puff EVERY 6 HOURS PRN INH Shortness of Breath 08/04/17 15:45 09/03/17 15:44 Clindamycin HCl/ Dextrose 50 ml @ 100 mls/hr Q8H IV 08/04/17 17:00 08/11/17 23:59 08/08/17 09:25 Diphenhydramine HCl (Benadryl) 25 mg Q6H PRN ORAL Itching 08/05/17 17:30 09/04/17 17:29 08/06/17 09:44 Fexofenadine HCl (Lawanda) 60 mg BID ORAL 08/04/17 18:00 09/03/17 17:59 08/08/17 09:23 Gabapentin (Neurontin) 600 mg QID ORAL 08/04/17 18:00 09/03/17 17:59 08/08/17 09:24 Ipratropium [place] (Atrovent) 500 mcg QIDRT HHN 08/04/17 19:00 08/09/17 18:59 08/08/17 06:55 Lansoprazole (Prevacid) 30 mg DAILY ORAL 08/05/17 13:30 09/04/17 13:29 08/08/17 09:23 Mirtazapine (Remeron) 45 mg BEDTIME ORAL 08/04/17 21:00 09/03/17 20:59 08/07/17 21:06 Warfarin Sodium (Coumadin per pharmacy) 1 ea DAILY PRN MISC Per rx protocol 08/04/17 15:45 09/03/17 15:44 Warfarin Sodium (Coumadin) 10 mg COUMADIN ORAL 08/08/17 17:00 09/07/17 16:59 René Gore MD Aug 08, 2017 10:37
--- NOTE | 2017-08-08 10:49 | Infectious Diseases Prog Note ---
"Assessment/Plan Assessment/Plan antibiotics : clindamycin A 1. right leg cellulitis with staph aureus | streptococcus | pseudomonas 2. stasis dermatitis 3. COPD 4. allergic reaction to vancomycin P 1. continue clindamycin 2. start levoquin 3. will follow up cultures Subjective Constitutional: Denies: fever, chills Respiratory: Denies: shortness of breath, dry cough Gastrointestinal/Abdominal: Denies: nausea, vomiting, diarrhea Musculoskeletal: Reports: pain - decreased Allergies: Coded Allergies: VANCOMYCIN (Verified Allergy, Severe, rash, 08/05/17) CEPHALEXIN (Verified Allergy, Unknown, 08/04/17) Objective Vital Signs Last 24 Hour Vital Signs Date Time Temp Pulse Resp B/P (MAP) Pulse Ox O2 Delivery O2 Flow Rate FiO2 08/08/17 07:05 78 18 96 Nasal Cannula 3.0 32 08/08/17 06:57 Nasal Cannula 3.0 32 08/08/17 06:57 94 Nasal Cannula 3.0 32 08/08/17 06:55 77 18 94 Nasal Cannula 3.0 32 08/08/17 04:00 97.7 78 20 125/74 95 Nasal Cannula 4.0 08/08/17 04:00 73 08/08/17 00:00 73 08/08/17 00:00 98.8 86 18 117/69 95 Nasal Cannula 4.0 08/07/17 20:00 98.2 86 20 113/79 94 Nasal Cannula 4.0 08/07/17 20:00 79 08/07/17 19:30 85 18 100 Nasal Cannula 3.0 32 08/07/17 19:21 97 Nasal Cannula 3.0 32 08/07/17 19:21 Nasal Cannula 3.0 32 08/07/17 19:19 79 18 97 Nasal Cannula 3.0 32 08/07/17 16:24 82 18 95 Nasal Cannula 3.0 32 08/07/17 16:00 80 08/07/17 16:00 97.9 82 19 117/59 94 Nasal Cannula 4.0 08/07/17 12:00 97.3 81 19 128/70 97 Nasal Cannula 4.0 08/07/17 12:00 82 08/07/17 11:54 88 18 99 Nasal Cannula 3.0 32 08/07/17 11:43 88 18 97 Nasal Cannula 3.0 32 Height (Feet): 5 Height (Inches): 11.00 Weight (Pounds): 175 Respiratory/Chest: lungs clear Cardiovascular: normal rate, regular rhythm, no gallop/murmur Abdomen: soft, non tender Extremities: no edema, other - right leg erythema Laboratory Tests Test 08/08/17 06:42 White Blood Count 5.3 K/UL (4.8-10.8) Red Blood Count 4.36 M/UL (4.70-6.10) L Hemoglobin 12.9 G/DL (14.2-18.0) L Hematocrit 39.2 % (42.0-52.0) L Mean Corpuscular Volume 90 FL (80-99) Mean Corpuscular Hemoglobin 29.6 PG (27.0-31.0) Mean Corpuscular Hemoglobin Concent 32.9 G/DL (32.0-36.0) Red Cell Distribution Width 18.8 % (11.6-14.8) H Platelet Count 423 K/UL (150-450) Mean Platelet Volume 5.4 FL (6.5-10.1) L Neutrophils (%) (Auto) 47.4 % (45.0-75.0) Lymphocytes (%) (Auto) 30.3 % (20.0-45.0) Monocytes (%) (Auto) 10.0 % (1.0-10.0) Eosinophils (%) (Auto) 11.2 % (0.0-3.0) H Basophils (%) (Auto) 1.1 % (0.0-2.0) Prothrombin Time 20.1 SEC (9.30-11.50) H Prothromb Time International Ratio 1.9 (0.9-1.1) H Sodium Level 135 MMOL/L (136-145) L Potassium Level 4.2 MMOL/L (3.5-5.1) Chloride Level 99 MMOL/L (98-107) Carbon Dioxide Level 30 MMOL/L (21-32) Anion Gap 6 mmol/L (5-15) Blood Urea Nitrogen 16 mg/dL (7-18) Creatinine 1.0 MG/DL (0.55-1.30) Estimat Glomerular Filtration Rate > 60 mL/min (>60) Glucose Level 90 MG/DL (74-106) Uric Acid 5.9 MG/DL (2.6-7.2) Calcium Level 9.4 MG/DL (8.5-10.1) Phosphorus Level 4.3 MG/DL (2.5-4.9) Magnesium Level 1.8 MG/DL (1.8-2.4) Total Bilirubin 0.1 MG/DL (0.2-1.0) L Aspartate Amino Transf (AST/SGOT) 26 U/L (15-37) Alanine Aminotransferase (ALT/SGPT) 17 U/L (12-78) Alkaline Phosphatase 105 U/L (46-116) C-Reactive Protein, Quantitative 2.9 mg/dL (0.00-0.90) H Pro-B-Type Natriuretic Peptide 60 pg/mL (0-125) Total Protein 8.7 G/DL (6.4-8.2) H Albumin 2.8 G/DL (3.4-5.0) L Globulin 5.9 g/dL Albumin/Globulin Ratio 0.5 (1.0-2.7) L EMILY GRAHAM Aug 08, 2017 10:49"
[2017-08-08] MEDS: Levofloxacin 500mg tab ORAL SCH (11:20)
[2017-08-08 12:01] VITALS: BP 129/80
[2017-08-08 16:00] VITALS: BP 101/55
[2017-08-08] MEDS ORDERED: Warfarin Sodium 10mg ORAL SCH (17:00)
[2017-08-08 20:00] VITALS: BP 119/76
--- NOTE | 2017-08-08 20:09 | General Progress Note ---
Assessment/Plan Problem List: (1) Cellulitis of right lower limb ICD Codes: L03.115 - Cellulitis of right lower limb SNOMED: 657362138 Status: progressing Assessment/Plan le cellulitis improving reviewed chart and labs cellulitis afebrile Subjective ROS Limited/Unobtainable: Yes Constitutional: Reports: no symptoms Allergies: Coded Allergies: VANCOMYCIN (Verified Allergy, Severe, rash, 08/05/17) CEPHALEXIN (Verified Allergy, Unknown, 08/04/17) Subjective itching pain le Objective Last 24 Hour Vital Signs Date Time Temp Pulse Resp B/P (MAP) Pulse Ox O2 Delivery O2 Flow Rate FiO2 08/08/17 16:00 105 08/08/17 16:00 97.7 85 20 101/55 98 Nasal Cannula 85 08/08/17 15:40 86 20 99 Nasal Cannula 2.0 28 08/08/17 15:31 84 20 97 Nasal Cannula 2.0 28 08/08/17 12:01 97.3 80 18 129/80 96 Nasal Cannula 2.0 08/08/17 12:00 80 08/08/17 12:00 97.3 80 18 96 Nasal Cannula 2.0 08/08/17 11:03 77 18 98 Nasal Cannula 2.0 28 08/08/17 10:52 76 18 96 Nasal Cannula 3.0 32 08/08/17 08:00 97.3 83 22 147/88 97 Nasal Cannula 4.0 08/08/17 08:00 82 08/08/17 07:05 78 18 96 Nasal Cannula 3.0 32 08/08/17 06:57 Nasal Cannula 3.0 32 08/08/17 06:57 94 Nasal Cannula 3.0 32 08/08/17 06:55 77 18 94 Nasal Cannula 3.0 32 08/08/17 04:00 97.7 78 20 125/74 95 Nasal Cannula 4.0 08/08/17 04:00 73 08/08/17 00:00 73 08/08/17 00:00 98.8 86 18 117/69 95 Nasal Cannula 4.0 Intake and Output 08/07/17 08/08/17 19:00 07:00 Intake Total 480 ml 400 ml Output Total 600 ml 1450 ml Balance -120 ml -1050 ml Intake Oral 480 ml 400 ml Output Urine Total 600 ml 1450 ml # Voids 1 Laboratory Tests 08/08/17 06:42: White Blood Count 5.3, Red Blood Count 4.36L, Hemoglobin 12.9L, Hematocrit 39.2L , Mean Corpuscular Volume 90, Mean Corpuscular Hemoglobin 29.6, Mean Corpuscular Hemoglobin Concent 32.9, Red Cell Distribution Width 18.8H, Platelet Count 423, Mean Platelet Volume 5.4L, Neutrophils (%) (Auto) 47.4, Lymphocytes (%) (Auto) 30.3, Monocytes (%) (Auto) 10.0, Eosinophils (%) (Auto) 11.2H, Basophils (%) (Auto) 1.1, Prothrombin Time 20.1H, Prothromb Time International Ratio 1.9H, Sodium Level 135L, Potassium Level 4.2, Chloride Level 99, Carbon Dioxide Level 30, Anion Gap 6, Blood Urea Nitrogen 16, Creatinine 1.0, Estimat Glomerular Filtration Rate > 60, Glucose Level 90, Uric Acid 5.9, Calcium Level 9.4, Phosphorus Level 4.3, Magnesium Level 1.8, Total Bilirubin 0.1L, Aspartate Amino Transf (AST/SGOT) 26, Alanine Aminotransferase ( ALT/SGPT) 17, Alkaline Phosphatase 105, C-Reactive Protein, Quantitative 2.9H, Pro-B-Type Natriuretic Peptide 60, Total Protein 8.7H, Albumin 2.8L, Globulin 5.9, Albumin/Globulin Ratio 0.5L Height (Feet): 5 Height (Inches): 11.00 Weight (Pounds): 175 Cardiovascular: regular rhythm Respiratory/Chest: lungs clear Abdomen: soft Torsten Sandoval MD Aug 08, 2017 20:09
[2017-08-09] VITALS: BP 105/69
[2017-08-09] MEDS: Clindamycin 600mg 50 ML IV SCH ×2 (01:24→08:14)
[2017-08-09 04:00] VITALS: BP 120/56
[2017-08-09] MEDS: Ipratropium 0.02% Inh Soln 2.5ml UD HHN SCH ×3 (07:14→14:51)
[2017-08-09 07:51] LABS: INR 1.8 (0.9-1.1)
[2017-08-09 08:00] VITALS: BP 124/76
[2017-08-09] MEDS: Levofloxacin 500mg tab ORAL SCH (08:14)
--- NOTE | 2017-08-09 08:19 | Pulmonology Progress Note ---
Assessment/Plan Assessment/Plan IMPRESSION: 1. Right lower extremity cellulitis. 2. History of deep vein thrombosis. 3. Chronic Coumadin usage. 4. History of previous pulmonary embolism. 5. Tobacco use. 6. Probable underlying COPD DISCUSSION: Continue present medications and care. The patient will stay on Coumadin, breathing treatments, pain medications and antibiotics per ID. His hypoxemia is secondary to combination of previous pulmonary embolism and chronic obstructive pulmonary disease. I will continue to follow. INR is therapeutic. Subjective Interval Events: none Constitutional: Reports: no symptoms HEENT: Repors: no symptoms Respiratory: Reports: no symptoms Cardiovascular: Reports: no symptoms Gastrointestinal/Abdominal: Reports: no symptoms Allergies: Coded Allergies: VANCOMYCIN (Verified Allergy, Severe, rash, 08/05/17) CEPHALEXIN (Verified Allergy, Unknown, 08/04/17) Objective Last 24 Hour Vital Signs Date Time Temp Pulse Resp B/P (MAP) Pulse Ox O2 Delivery O2 Flow Rate FiO2 08/09/17 07:02 75 20 99 Nasal Cannula 3.0 32 08/09/17 06:58 72 20 97 Nasal Cannula 3.0 32 08/09/17 06:58 97 Nasal Cannula 3.0 32 08/09/17 06:58 Nasal Cannula 3.0 32 08/09/17 04:00 98.0 73 20 120/56 98 Nasal Cannula 2.0 08/09/17 03:45 75 08/09/17 00:00 97.7 85 20 105/69 97 Nasal Cannula 2.0 08/08/17 23:48 75 08/08/17 20:20 Nasal Cannula 3.0 32 08/08/17 20:20 96 Nasal Cannula 3.0 32 08/08/17 20:00 97.7 81 20 119/76 96 Nasal Cannula 2.0 08/08/17 19:33 80 08/08/17 16:00 105 08/08/17 16:00 97.7 85 20 101/55 98 Nasal Cannula 85 08/08/17 15:40 86 20 99 Nasal Cannula 2.0 28 08/08/17 15:31 84 20 97 Nasal Cannula 2.0 28 08/08/17 12:01 97.3 80 18 129/80 96 Nasal Cannula 2.0 08/08/17 12:00 80 08/08/17 12:00 97.3 80 18 96 Nasal Cannula 2.0 08/08/17 11:03 77 18 98 Nasal Cannula 2.0 28 08/08/17 10:52 76 18 96 Nasal Cannula 3.0 32 Intake and Output 08/08/17 08/09/17 19:00 07:00 Intake Total 780 ml 50 ml Output Total 1350 ml 600 ml Balance -570 ml -550 ml Intake Oral 680 ml IV Total 100 ml 50 ml Output Urine Total 1350 ml 600 ml # Voids 2 General Appearance: no acute distress HEENT: normocephalic Respiratory/Chest: chest wall non-tender Cardiovascular: normal peripheral pulses, normal rate Abdomen: normal bowel sounds Laboratory Tests 08/09/17 07:10: Prothrombin Time 18.6H, Prothromb Time International Ratio 1.8H Current Medications Medications (Trade) Dose Ordered Sig/Italo Route PRN Reason Start Time Stop Time Status Last Admin Dose Admin Acetaminophen (Tylenol) 650 mg EVERY 4 HOURS PRN ORAL Mild Pain/Temp > 100.5 08/04/17 15:30 09/03/17 15:29 08/09/17 06:25 Albuterol Sulfate (Proventil MDI) 2 puff EVERY 6 HOURS PRN INH Shortness of Breath 08/04/17 15:45 09/03/17 15:44 Clindamycin HCl/ Dextrose 50 ml @ 100 mls/hr Q8H IV 08/04/17 17:00 08/11/17 23:59 08/09/17 08:14 Diphenhydramine HCl (Benadryl) 25 mg Q6H PRN ORAL Itching 08/05/17 17:30 09/04/17 17:29 08/09/17 06:22 Fexofenadine HCl ([place]anda) 60 mg BID ORAL 08/04/17 18:00 09/03/17 17:59 08/09/17 08:14 Gabapentin (Neurontin) 600 mg QID ORAL 08/04/17 18:00 09/03/17 17:59 08/09/17 08:13 Ipratropium [place] (Atrovent) 500 mcg QIDRT HHN 08/04/17 19:00 08/09/17 18:59 08/09/17 07:14 Lansoprazole (Prevacid) 30 mg DAILY ORAL 08/05/17 13:30 09/04/17 13:29 08/09/17 08:13 Levofloxacin (Levaquin) 500 mg DAILY ORAL 08/08/17 11:00 08/15/17 10:59 08/09/17 08:14 Mirtazapine (Remeron) 45 mg BEDTIME ORAL 08/04/17 21:00 09/03/17 20:59 08/08/17 20:47 Warfarin Sodium (Coumadin per pharmacy) 1 ea DAILY PRN MISC Per rx protocol 08/04/17 15:45 09/03/17 15:44 Warfarin Sodium (Coumadin) 1 mg COUMADIN ONCE ORAL 08/09/17 17:00 08/09/17 17:01 Warfarin Sodium (Coumadin) 10 mg COUMADIN ONCE ORAL 08/09/17 17:00 08/09/17 17:01 René Gore MD Aug 09, 2017 08:19
--- NOTE | 2017-08-09 10:10 | General Progress Note ---
Assessment/Plan Problem List: (1) Cellulitis of right lower limb ICD Codes: L03.115 - Cellulitis of right lower limb SNOMED: [id number] Status: progressing Assessment/Plan le cellulitis no change reviewed chart and labs and meds Subjective ROS Limited/Unobtainable: Yes Allergies: Coded Allergies: VANCOMYCIN (Verified Allergy, Severe, rash, 08/05/17) CEPHALEXIN (Verified Allergy, Unknown, 08/04/17) Subjective itching Objective Last 24 Hour Vital Signs Date Time Temp Pulse Resp B/P (MAP) Pulse Ox O2 Delivery O2 Flow Rate FiO2 08/09/17 08:00 97.2 76 20 124/76 100 Nasal Cannula 2.0 76 08/09/17 08:00 75 08/09/17 07:02 75 20 99 Nasal Cannula 3.0 32 08/09/17 06:58 72 20 97 Nasal Cannula 3.0 32 08/09/17 06:58 97 Nasal Cannula 3.0 32 08/09/17 06:58 Nasal Cannula 3.0 32 08/09/17 04:00 98.0 73 20 120/56 98 Nasal Cannula 2.0 08/09/17 03:45 75 08/09/17 00:00 97.7 85 20 105/69 97 Nasal Cannula 2.0 08/08/17 23:48 75 08/08/17 20:20 Nasal Cannula 3.0 32 08/08/17 20:20 96 Nasal Cannula 3.0 32 08/08/17 20:00 97.7 81 20 119/76 96 Nasal Cannula 2.0 08/08/17 19:33 80 08/08/17 16:00 105 08/08/17 16:00 97.7 85 20 101/55 98 Nasal Cannula 85 08/08/17 15:40 86 20 99 Nasal Cannula 2.0 28 08/08/17 15:31 84 20 97 Nasal Cannula 2.0 28 08/08/17 12:01 97.3 80 18 129/80 96 Nasal Cannula 2.0 08/08/17 12:00 80 08/08/17 12:00 97.3 80 18 96 Nasal Cannula 2.0 08/08/17 11:03 77 18 98 Nasal Cannula 2.0 28 08/08/17 10:52 76 18 96 Nasal Cannula 3.0 32 Intake and Output 08/08/17 08/09/17 19:00 07:00 Intake Total 780 ml 50 ml Output Total 1350 ml 600 ml Balance -570 ml -550 ml Intake Oral 680 ml IV Total 100 ml 50 ml Output Urine Total 1350 ml 600 ml # Voids 2 Laboratory Tests 08/09/17 07:10: Prothrombin Time 18.6H, Prothromb Time International Ratio 1.8H Height (Feet): 5 Height (Inches): 11.00 Weight (Pounds): 175 Respiratory/Chest: lungs clear Abdomen: soft Torsten Sandoval MD Aug 09, 2017 10:10
--- NOTE | 2017-08-09 10:22 | Infectious Diseases Prog Note ---
Assessment/Plan Assessment/Plan A; R leg cellulitis, culture MSSA, Pseudomonas & strep group C stasis Dermatitis allergic reaction to IV Vancomycin history of DVT COPD Eosinophilia improving P; Change Clindamycin to Doxycycline Continue Levaquin Subjective ROS Limited/Unobtainable: No Constitutional: Reports: no symptoms Cardiovascular: Reports: no symptoms Gastrointestinal/Abdominal: Reports: no symptoms Genitourinary: Reports: no symptoms Musculoskeletal: Reports: pain, other - in right leg Allergies: Coded Allergies: VANCOMYCIN (Verified Allergy, Severe, rash, 08/05/17) CEPHALEXIN (Verified Allergy, Unknown, 08/04/17) Objective Vital Signs Last 24 Hour Vital Signs Date Time Temp Pulse Resp B/P (MAP) Pulse Ox O2 Delivery O2 Flow Rate FiO2 08/09/17 08:00 97.2 76 20 124/76 100 Nasal Cannula 2.0 76 08/09/17 08:00 75 08/09/17 07:02 75 20 99 Nasal Cannula 3.0 32 08/09/17 06:58 72 20 97 Nasal Cannula 3.0 32 08/09/17 06:58 97 Nasal Cannula 3.0 32 08/09/17 06:58 Nasal Cannula 3.0 32 08/09/17 04:00 98.0 73 20 120/56 98 Nasal Cannula 2.0 08/09/17 03:45 75 08/09/17 00:00 97.7 85 20 105/69 97 Nasal Cannula 2.0 08/08/17 23:48 75 08/08/17 20:20 Nasal Cannula 3.0 32 08/08/17 20:20 96 Nasal Cannula 3.0 32 08/08/17 20:00 97.7 81 20 119/76 96 Nasal Cannula 2.0 08/08/17 19:33 80 08/08/17 16:00 105 08/08/17 16:00 97.7 85 20 101/55 98 Nasal Cannula 85 08/08/17 15:40 86 20 99 Nasal Cannula 2.0 28 08/08/17 15:31 84 20 97 Nasal Cannula 2.0 28 08/08/17 12:01 97.3 80 18 129/80 96 Nasal Cannula 2.0 08/08/17 12:00 80 08/08/17 12:00 97.3 80 18 96 Nasal Cannula 2.0 08/08/17 11:03 77 18 98 Nasal Cannula 2.0 28 08/08/17 10:52 76 18 96 Nasal Cannula 3.0 32 Height (Feet): 5 Height (Inches): 11.00 Weight (Pounds): 175 General Appearance: no acute distress HEENT: mucous membranes moist Respiratory/Chest: lungs clear Cardiovascular: normal rate Abdomen: soft, non tender Extremities: other - edema of right leg Skin: ulcers, other - right foot Neurologic/Psychiatric: alert, oriented x 3, responsive Laboratory Tests Test 08/09/17 07:10 Prothrombin Time 18.6 SEC (9.30-11.50) H Prothromb Time International Ratio 1.8 (0.9-1.1) H Current Medications Medications (Trade) Dose Ordered Sig/Italo Route PRN Reason Start Time Stop Time Status Last Admin Dose Admin Acetaminophen (Tylenol) 650 mg EVERY 4 HOURS PRN ORAL Mild Pain/Temp > 100.5 08/04/17 15:30 09/03/17 15:29 08/09/17 06:25 Albuterol Sulfate (Proventil MDI) 2 puff EVERY 6 HOURS PRN INH Shortness of Breath 08/04/17 15:45 09/03/17 15:44 Clindamycin HCl/ Dextrose 50 ml @ 100 mls/hr Q8H IV 08/04/17 17:00 08/11/17 23:59 08/09/17 08:14 Diphenhydramine HCl (Benadryl) 25 mg Q6H PRN ORAL Itching 08/05/17 17:30 09/04/17 17:29 08/09/17 06:22 Fexofenadine HCl (Lawanda) 60 mg BID ORAL 08/04/17 18:00 09/03/17 17:59 08/09/17 08:14 Gabapentin (Neurontin) 600 mg QID ORAL 08/04/17 18:00 09/03/17 17:59 08/09/17 08:13 Ipratropium [place] (Atrovent) 500 mcg QIDRT HHN 08/04/17 19:00 08/09/17 18:59 08/09/17 07:14 Lansoprazole (Prevacid) 30 mg DAILY ORAL 08/05/17 13:30 09/04/17 13:29 08/09/17 08:13 Levofloxacin (Levaquin) 500 mg DAILY ORAL 08/08/17 11:00 08/15/17 10:59 08/09/17 08:14 Mirtazapine (Remeron) 45 mg BEDTIME ORAL 08/04/17 21:00 09/03/17 20:59 08/08/17 20:47 Warfarin Sodium (Coumadin per pharmacy) 1 ea DAILY PRN MISC Per rx protocol 08/04/17 15:45 09/03/17 15:44 Warfarin Sodium (Coumadin) 1 mg COUMADIN ONCE ORAL 08/09/17 17:00 08/09/17 17:01 Warfarin Sodium (Coumadin) 10 mg COUMADIN ONCE ORAL 08/09/17 17:00 08/09/17 17:01 ANANT BRANDT Aug 09, 2017 10:22
--- NOTE | 2017-08-09 11:35 | Nephrology Progress Note ---
Assessment/Plan Problem List: (1) Cellulitis of right lower limb (2) Low vitamin B12 level (3) DM (diabetes mellitus) Assessment Low Na , depletional up to 135 today Right lower extremity cellulitis, bilateral stasis dermatitis of lower extremity, history of deep vein thrombosis & pulmonary emboli, on Coumadin nicotine dependence. ? COPD allergic to cephalexin and vancomycin. HypoAlbuminemia- Urine Neg for protein. Low Fe Low B12 High A1C . . Plan no labs today Medium CHO diet B12 SQ IV Iron per ID local skin care Subjective ROS Limited/Unobtainable: No Constitutional: Reports: malaise Objective Objective Last 24 Hour Vital Signs Date Time Temp Pulse Resp B/P (MAP) Pulse Ox O2 Delivery O2 Flow Rate FiO2 08/09/17 11:06 76 20 99 Nasal Cannula 2.0 28 08/09/17 11:04 76 20 96 Nasal Cannula 2.0 28 08/09/17 08:00 97.2 76 20 124/76 100 Nasal Cannula 2.0 76 08/09/17 08:00 75 08/09/17 07:02 75 20 99 Nasal Cannula 3.0 32 08/09/17 06:58 72 20 97 Nasal Cannula 3.0 32 08/09/17 06:58 97 Nasal Cannula 3.0 32 08/09/17 06:58 Nasal Cannula 3.0 32 08/09/17 04:00 98.0 73 20 120/56 98 Nasal Cannula 2.0 08/09/17 03:45 75 08/09/17 00:00 97.7 85 20 105/69 97 Nasal Cannula 2.0 08/08/17 23:48 75 08/08/17 20:20 Nasal Cannula 3.0 32 08/08/17 20:20 96 Nasal Cannula 3.0 32 08/08/17 20:00 97.7 81 20 119/76 96 Nasal Cannula 2.0 08/08/17 19:33 80 08/08/17 16:00 105 08/08/17 16:00 97.7 85 20 101/55 98 Nasal Cannula 85 08/08/17 15:40 86 20 99 Nasal Cannula 2.0 28 08/08/17 15:31 84 20 97 Nasal Cannula 2.0 28 08/08/17 12:01 97.3 80 18 129/80 96 Nasal Cannula 2.0 08/08/17 12:00 80 08/08/17 12:00 97.3 80 18 96 Nasal Cannula 2.0 Intake and Output 08/08/17 08/09/17 19:00 07:00 Intake Total 780 ml 50 ml Output Total 1350 ml 600 ml Balance -570 ml -550 ml Intake Oral 680 ml IV Total 100 ml 50 ml Output Urine Total 1350 ml 600 ml # Voids 2 Laboratory Tests 08/09/17 07:10: Prothrombin Time 18.6H, Prothromb Time International Ratio 1.8H Height (Feet): 5 Height (Inches): 11.00 Weight (Pounds): 175 General Appearance: no apparent distress Objective no change KENTRELL WARREN Aug 09, 2017 11:34
[2017-08-09 12:00] VITALS: BP 122/83
--- NOTE | 2017-08-09 12:53 | Cardiology Progress Note ---
Assessment/Plan Assessment/Plan 1. Sinus tachycardia, resolved,this could be secondary to the infection/ cellulitis. No evidence of RV strain on the echo, LVEF at 65%. 2. Right lower extremity cellulitis with MSSA, on IV ABx therapy. 3. History of deep venous thrombosis, subtherapeutic INR levels, adjust warfarin dose. 4. Stasis dermatitis. Subjective Subjective Sinus rhythm at 76. Objective Last 24 Hour Vital Signs Date Time Temp Pulse Resp B/P (MAP) Pulse Ox O2 Delivery O2 Flow Rate FiO2 08/09/17 12:00 97.3 79 22 122/83 99 Nasal Cannula 2.0 79 08/09/17 11:06 76 20 99 Nasal Cannula 2.0 28 08/09/17 11:04 76 20 96 Nasal Cannula 2.0 28 08/09/17 08:00 97.2 76 20 124/76 100 Nasal Cannula 2.0 76 08/09/17 08:00 75 08/09/17 07:02 75 20 99 Nasal Cannula 3.0 32 08/09/17 06:58 72 20 97 Nasal Cannula 3.0 32 08/09/17 06:58 97 Nasal Cannula 3.0 32 08/09/17 06:58 Nasal Cannula 3.0 32 08/09/17 04:00 98.0 73 20 120/56 98 Nasal Cannula 2.0 08/09/17 03:45 75 08/09/17 00:00 97.7 85 20 105/69 97 Nasal Cannula 2.0 08/08/17 23:48 75 08/08/17 20:20 Nasal Cannula 3.0 32 08/08/17 20:20 96 Nasal Cannula 3.0 32 08/08/17 20:00 97.7 81 20 119/76 96 Nasal Cannula 2.0 08/08/17 19:33 80 08/08/17 16:00 105 08/08/17 16:00 97.7 85 20 101/55 98 Nasal Cannula 85 08/08/17 15:40 86 20 99 Nasal Cannula 2.0 28 08/08/17 15:31 84 20 97 Nasal Cannula 2.0 28 Intake and Output 08/08/17 08/09/17 19:00 07:00 Intake Total 780 ml 50 ml Output Total 1350 ml 600 ml Balance -570 ml -550 ml Intake Oral 680 ml IV Total 100 ml 50 ml Output Urine Total 1350 ml 600 ml # Voids 2 2D Echo: LVEF 65%, Mild LVH, Grade I LVDD, RVSP 25 mmHg Laboratory Tests Test 08/09/17 07:10 Prothrombin Time 18.6 SEC (9.30-11.50) H Prothromb Time International Ratio 1.8 (0.9-1.1) H Objective HEENT: Atraumatic and normocephalic. Anicteric. Pupils are equal, round, and reactive to light and accommodation. Extraocular movements are intact. NECK: JVP less than 5 cm. No carotid bruits. Carotid upstrokes 2+ bilaterally. CARDIOVASCULAR: Normal S1 and S2. Regular rate and rhythm. Tachycardiac. No murmurs, gallops, or rubs. PMI is at fourth intercostal space in the left midclavicular line. LUNGS: Clear to auscultation bilaterally. ABDOMEN: Soft, nontender, and nondistended. No hepatosplenomegaly. Positive bowel sounds. EXTREMITIES: Right lower extremity erythema extending from mid calf down to the foot, purulent discharge from the dorsum of the right foot and there is associated edema and redness. LANCE SHIPLEY Aug 09, 2017 12:53
[2017-08-09 16:00] VITALS: BP 121/72
[2017-08-09] MEDS ORDERED: WARFARIN SOD ORAL ONE ×2 (17:00)
[2017-08-09] MEDS ORDERED: Warfarin Sodium 1mg ORAL ONE (17:00)
[2017-08-09] MEDS ORDERED: Warfarin Sodium 10mg ORAL ONE (17:00)
[2017-08-09 20:00] VITALS: BP 114/69
[2017-08-10] VITALS (7 sets, daily range): BP systolic 112–126; BP diastolic 62–78
[2017-08-10 08:29] LABS: INR 1.5 (0.9-1.1)
[2017-08-10] MEDS: Levofloxacin 500mg tab ORAL SCH (08:54)
--- NOTE | 2017-08-10 10:44 | Infectious Diseases Prog Note ---
Assessment/Plan Assessment/Plan A; R leg cellulitis, culture MSSA, Pseudomonas & strep group C stasis Dermatitis allergic reaction to IV Vancomycin history of DVT COPD Eosinophilia improving P; Continue Levaquin & Doxycycline Clotrimazole cream between toes Subjective ROS Limited/Unobtainable: No Respiratory: Reports: productive cough Skin: Reports: other - itching decreased Allergies: Coded Allergies: VANCOMYCIN (Verified Allergy, Severe, rash, 08/05/17) CEPHALEXIN (Verified Allergy, Unknown, 08/04/17) Objective Vital Signs Last 24 Hour Vital Signs Date Time Temp Pulse Resp B/P (MAP) Pulse Ox O2 Delivery O2 Flow Rate FiO2 08/10/17 08:00 76 08/10/17 07:54 97.7 81 20 126/78 96 Nasal Cannula 2.0 08/10/17 03:41 79 08/10/17 03:41 98.0 79 20 114/72 95 Nasal Cannula 2.0 08/10/17 00:06 82 08/10/17 00:00 98.0 87 20 115/64 99 Nasal Cannula 2.0 08/09/17 22:18 90 08/09/17 20:00 97.5 94 20 114/69 97 Nasal Cannula 2.0 08/09/17 19:19 96 Nasal Cannula 3.0 32 08/09/17 19:19 Nasal Cannula 3.0 32 08/09/17 16:00 96.5 83 20 121/72 96 Nasal Cannula 2.0 83 08/09/17 16:00 76 08/09/17 15:02 82 18 99 Nasal Cannula 2.0 28 08/09/17 14:52 80 18 99 Nasal Cannula 3.0 32 08/09/17 12:00 79 08/09/17 12:00 97.3 79 22 122/83 99 Nasal Cannula 2.0 79 08/09/17 11:06 76 20 99 Nasal Cannula 2.0 28 08/09/17 11:04 76 20 96 Nasal Cannula 2.0 28 Height (Feet): 5 Height (Inches): 11.00 Weight (Pounds): 175 General Appearance: no acute distress HEENT: mucous membranes moist Respiratory/Chest: lungs clear Cardiovascular: normal rate Abdomen: soft, non tender Extremities: other - edema of legs Skin: other - erythema, skin scaling of right foot Neurologic/Psychiatric: alert, oriented x 3, responsive Laboratory Tests Test 08/10/17 08:00 Prothrombin Time 15.5 SEC (9.30-11.50) H Prothromb Time International Ratio 1.5 (0.9-1.1) H Current Medications Medications (Trade) Dose Ordered Sig/Italo Route PRN Reason Start Time Stop Time Status Last Admin Dose Admin Acetaminophen (Tylenol) 650 mg EVERY 4 HOURS PRN ORAL Mild Pain/Temp > 100.5 08/04/17 15:30 09/03/17 15:29 08/09/17 17:04 Albuterol Sulfate (Proventil MDI) 2 puff EVERY 6 HOURS PRN INH Shortness of Breath 08/04/17 15:45 09/03/17 15:44 Collagenase (Santyl) 1 applic DAILY TOPIC 08/10/17 09:00 09/09/17 08:59 08/10/17 08:54 Collagenase (Santyl) 1 applic PRN PRN TOPIC SOILAGE 08/09/17 19:45 09/08/17 19:44 Diphenhydramine HCl (Benadryl) 25 mg Q6H PRN ORAL Itching 08/05/17 17:30 09/04/17 17:29 08/10/17 08:54 Doxycycline Monohydrate (Vibramycin) 100 mg EVERY 12 HOURS ORAL 08/09/17 10:30 08/16/17 23:59 08/10/17 08:54 Fexofenadine HCl (Lawanda) 60 mg BID ORAL 08/04/17 18:00 09/03/17 17:59 08/10/17 08:54 Gabapentin (Neurontin) 600 mg QID ORAL 08/04/17 18:00 09/03/17 17:59 08/10/17 08:54 Lansoprazole (Prevacid) 30 mg DAILY ORAL 08/05/17 13:30 09/04/17 13:29 08/10/17 08:53 Levofloxacin (Levaquin) 500 mg DAILY ORAL 08/08/17 11:00 08/15/17 10:59 08/10/17 08:54 Mirtazapine (Remeron) 45 mg BEDTIME ORAL 08/04/17 21:00 09/03/17 20:59 08/09/17 20:59 Warfarin Sodium (Coumadin per pharmacy) 1 ea DAILY PRN MISC Per rx protocol 08/04/17 15:45 09/03/17 15:44 Warfarin Sodium (Coumadin) 14 mg COUMADIN ONCE ORAL 08/10/17 17:00 08/10/17 17:01 ANANT BRANDT Aug 10, 2017 10:44
--- NOTE | 2017-08-10 11:43 | Pulmonology Progress Note ---
Assessment/Plan Assessment/Plan IMPRESSION: 1. Right lower extremity cellulitis. 2. History of deep vein thrombosis. 3. Chronic Coumadin usage. 4. History of previous pulmonary embolism. 5. Tobacco use. 6. Probable underlying COPD DISCUSSION: Continue present medications and care. The patient will stay on Coumadin, breathing treatments, pain medications and antibiotics per ID. His hypoxemia is secondary to combination of previous pulmonary embolism and chronic obstructive pulmonary disease. I will continue to follow. INR is therapeutic. Subjective Interval Events: none Constitutional: Reports: no symptoms HEENT: Repors: no symptoms Respiratory: Reports: no symptoms Cardiovascular: Reports: no symptoms Allergies: Coded Allergies: VANCOMYCIN (Verified Allergy, Severe, rash, 08/05/17) CEPHALEXIN (Verified Allergy, Unknown, 08/04/17) Objective Last 24 Hour Vital Signs Date Time Temp Pulse Resp B/P (MAP) Pulse Ox O2 Delivery O2 Flow Rate FiO2 08/10/17 08:00 76 08/10/17 07:54 97.7 81 20 126/78 96 Nasal Cannula 2.0 08/10/17 03:41 79 08/10/17 03:41 98.0 79 20 114/72 95 Nasal Cannula 2.0 08/10/17 00:06 82 08/10/17 00:00 98.0 87 20 115/64 99 Nasal Cannula 2.0 08/09/17 22:18 90 08/09/17 20:00 97.5 94 20 114/69 97 Nasal Cannula 2.0 08/09/17 19:19 96 Nasal Cannula 3.0 32 08/09/17 19:19 Nasal Cannula 3.0 32 08/09/17 16:00 96.5 83 20 121/72 96 Nasal Cannula 2.0 83 08/09/17 16:00 76 08/09/17 15:02 82 18 99 Nasal Cannula 2.0 28 08/09/17 14:52 80 18 99 Nasal Cannula 3.0 32 08/09/17 12:00 79 08/09/17 12:00 97.3 79 22 122/83 99 Nasal Cannula 2.0 79 Intake and Output 08/09/17 08/10/17 19:00 07:00 Intake Total 640 ml Output Total 1425 ml 175 ml Balance -785 ml -175 ml Intake Oral 540 ml IV Total 100 ml Output Urine Total 1425 ml 175 ml # Voids 3 General Appearance: no acute distress HEENT: normocephalic Respiratory/Chest: chest wall non-tender Cardiovascular: normal peripheral pulses Abdomen: normal bowel sounds Laboratory Tests 08/10/17 08:00: Prothrombin Time 15.5H, Prothromb Time International Ratio 1.5H Current Medications Medications (Trade) Dose Ordered Sig/Italo Route PRN Reason Start Time Stop Time Status Last Admin Dose Admin Acetaminophen (Tylenol) 650 mg EVERY 4 HOURS PRN ORAL Mild Pain/Temp > 100.5 08/04/17 15:30 09/03/17 15:29 08/09/17 17:04 Albuterol Sulfate (Proventil MDI) 2 puff EVERY 6 HOURS PRN INH Shortness of Breath 08/04/17 15:45 09/03/17 15:44 Clotrimazole (Lotrimin) 1 applic THREE TIMES A DAY TOPIC 08/10/17 13:00 09/09/17 12:59 Collagenase (Santyl) 1 applic DAILY TOPIC 08/10/17 09:00 09/09/17 08:59 08/10/17 08:54 Collagenase (Santyl) 1 applic PRN PRN TOPIC SOILAGE 08/09/17 19:45 09/08/17 19:44 Diphenhydramine HCl (Benadryl) 25 mg Q6H PRN ORAL Itching 08/05/17 17:30 09/04/17 17:29 08/10/17 08:54 Doxycycline Monohydrate (Vibramycin) 100 mg EVERY 12 HOURS ORAL 08/09/17 10:30 08/16/17 23:59 08/10/17 08:54 Fexofenadine HCl (Lawanda) 60 mg BID ORAL 08/04/17 18:00 09/03/17 17:59 08/10/17 08:54 Gabapentin (Neurontin) 600 mg QID ORAL 08/04/17 18:00 09/03/17 17:59 08/10/17 08:54 Lansoprazole (Prevacid) 30 mg DAILY ORAL 08/05/17 13:30 09/04/17 13:29 08/10/17 08:53 Levofloxacin (Levaquin) 500 mg DAILY ORAL 08/08/17 11:00 08/15/17 10:59 08/10/17 08:54 Mirtazapine (Remeron) 45 mg BEDTIME ORAL 08/04/17 21:00 09/03/17 20:59 08/09/17 20:59 Warfarin Sodium (Coumadin per pharmacy) 1 ea DAILY PRN MISC Per rx protocol 08/04/17 15:45 09/03/17 15:44 Warfarin Sodium (Coumadin) 14 mg COUMADIN ONCE ORAL 08/10/17 17:00 08/10/17 17:01 René Gore MD Aug 10, 2017 11:43
--- NOTE | 2017-08-10 13:37 | Nephrology Progress Note ---
Assessment/Plan Problem List: (1) Cellulitis of right lower limb (2) Low vitamin B12 level (3) DM (diabetes mellitus) Assessment Low Na , depletional up to 135 today Right lower extremity cellulitis, bilateral stasis dermatitis of lower extremity, history of deep vein thrombosis & pulmonary emboli, on Coumadin nicotine dependence. ? COPD allergic to cephalexin and vancomycin. HypoAlbuminemia- Urine Neg for protein. Low Fe Low B12 High A1C . . Plan no labs today Medium CHO diet B12 SQ IV Iron per ID local skin care Subjective ROS Limited/Unobtainable: No Objective Objective Last 24 Hour Vital Signs Date Time Temp Pulse Resp B/P (MAP) Pulse Ox O2 Delivery O2 Flow Rate FiO2 08/10/17 12:00 97.0 74 19 120/62 96 Nasal Cannula 2.0 08/10/17 08:53 Nasal Cannula 2.0 08/10/17 08:52 98 Nasal Cannula 2.0 08/10/17 08:51 86 18 Nasal Cannula 2.0 08/10/17 08:00 76 08/10/17 07:54 97.7 81 20 126/78 96 Nasal Cannula 2.0 08/10/17 03:41 79 08/10/17 03:41 98.0 79 20 114/72 95 Nasal Cannula 2.0 08/10/17 00:06 82 08/10/17 00:00 98.0 87 20 115/64 99 Nasal Cannula 2.0 08/09/17 22:18 90 08/09/17 20:00 97.5 94 20 114/69 97 Nasal Cannula 2.0 08/09/17 19:19 96 Nasal Cannula 3.0 32 08/09/17 19:19 Nasal Cannula 3.0 32 08/09/17 16:00 96.5 83 20 121/72 96 Nasal Cannula 2.0 83 08/09/17 16:00 76 08/09/17 15:02 82 18 99 Nasal Cannula 2.0 28 08/09/17 14:52 80 18 99 Nasal Cannula 3.0 32 Intake and Output 08/09/17 08/10/17 19:00 07:00 Intake Total 640 ml Output Total 1425 ml 175 ml Balance -785 ml -175 ml Intake Oral 540 ml IV Total 100 ml Output Urine Total 1425 ml 175 ml # Voids 3 Laboratory Tests 08/10/17 08:00: Prothrombin Time 15.5H, Prothromb Time International Ratio 1.5H Height (Feet): 5 Height (Inches): 11.00 Weight (Pounds): 175 General Appearance: no apparent distress Cardiovascular: tachycardia, arrhythmia Respiratory/Chest: decreased breath sounds Abdomen: soft Objective no change KENTRELL WARREN Aug 10, 2017 13:37
[2017-08-10] MEDS ORDERED: WARFARIN SOD ORAL ONE ×2 (17:00)
[2017-08-10] MEDS ORDERED: Albuterol 90mcg Inhaler 8gm INH PRN (21:00)
--- NOTE | 2017-08-10 21:10 | General Progress Note ---
Assessment/Plan Problem List: (1) Cellulitis of right lower limb ICD Codes: L03.115 - Cellulitis of right lower limb SNOMED: 926898974 (2) DM (diabetes mellitus) ICD Codes: E11.9 - Type 2 diabetes mellitus without complications SNOMED: 16288688 Status: progressing Assessment/Plan le cellulitis dm abx per id afebrile no change Subjective ROS Limited/Unobtainable: Yes Allergies: Coded Allergies: VANCOMYCIN (Verified Allergy, Severe, rash, 08/05/17) CEPHALEXIN (Verified Allergy, Unknown, 08/04/17) Subjective itching Objective Last 24 Hour Vital Signs Date Time Temp Pulse Resp B/P (MAP) Pulse Ox O2 Delivery O2 Flow Rate FiO2 08/10/17 20:23 Nasal Cannula 2.0 28 08/10/17 20:23 98 Nasal Cannula 2.0 28 08/10/17 20:07 97.9 81 20 114/69 96 Room Air 82 08/10/17 20:07 96 Nasal Cannula 2.0 08/10/17 16:12 97.0 08/10/17 16:00 82 08/10/17 16:00 97.3 80 20 112/71 97 Nasal Cannula 2.0 08/10/17 15:13 97.0 08/10/17 12:00 97.0 74 19 120/62 96 Nasal Cannula 2.0 08/10/17 12:00 72 08/10/17 08:53 Nasal Cannula 2.0 08/10/17 08:52 98 Nasal Cannula 2.0 08/10/17 08:51 86 18 Nasal Cannula 2.0 08/10/17 08:00 76 08/10/17 07:54 97.7 81 20 126/78 96 Nasal Cannula 2.0 08/10/17 03:41 79 08/10/17 03:41 98.0 79 20 114/72 95 Nasal Cannula 2.0 08/10/17 00:06 82 08/10/17 00:00 98.0 87 20 115/64 99 Nasal Cannula 2.0 08/09/17 22:18 90 Intake and Output 08/09/17 08/10/17 19:00 07:00 Intake Total 640 ml Output Total 1425 ml 175 ml Balance -785 ml -175 ml Intake Oral 540 ml IV Total 100 ml Output Urine Total 1425 ml 175 ml # Voids 3 Laboratory Tests 08/10/17 08:00: Prothrombin Time 15.5H, Prothromb Time International Ratio 1.5H Height (Feet): 5 Height (Inches): 11.00 Weight (Pounds): 175 General Appearance: confused Cardiovascular: normal rate Respiratory/Chest: lungs clear Torsten Sandoval MD Aug 10, 2017 21:10
[2017-08-11 03:42] VITALS: BP 95/54
--- NOTE | 2017-08-11 07:41 | Cardiology Progress Note ---
Assessment/Plan Assessment/Plan 1. Sinus tachycardia, resolved,this could be secondary to the infection/ cellulitis. No evidence of RV strain on the echo, LVEF at 65%. 2. Right lower extremity cellulitis with MSSA, on IV ABx therapy. 3. History of deep venous thrombosis, INR 1.5, adjust warfarin dose. 4. Stasis dermatitis. Subjective Subjective Transferred to the med-surg unit. No chest pain or SOB. Objective Last 24 Hour Vital Signs Date Time Temp Pulse Resp B/P (MAP) Pulse Ox O2 Delivery O2 Flow Rate FiO2 08/11/17 03:42 97.3 71 20 95/54 99 81 08/11/17 03:42 99 Nasal Cannula 2.0 08/10/17 23:48 99 Nasal Cannula 2.0 08/10/17 23:18 97.7 85 20 114/72 99 Nasal Cannula 85 08/10/17 20:23 Nasal Cannula 2.0 28 08/10/17 20:23 98 Nasal Cannula 2.0 28 08/10/17 20:07 97.9 81 20 114/69 96 Room Air 82 08/10/17 20:07 96 Nasal Cannula 2.0 08/10/17 16:12 97.0 08/10/17 16:00 82 08/10/17 16:00 97.3 80 20 112/71 97 Nasal Cannula 2.0 08/10/17 15:13 97.0 08/10/17 12:00 97.0 74 19 120/62 96 Nasal Cannula 2.0 08/10/17 12:00 72 08/10/17 08:53 Nasal Cannula 2.0 08/10/17 08:52 98 Nasal Cannula 2.0 08/10/17 08:51 86 18 Nasal Cannula 2.0 08/10/17 08:00 76 08/10/17 07:54 97.7 81 20 126/78 96 Nasal Cannula 2.0 Intake and Output 08/10/17 08/11/17 19:00 07:00 Intake Total 360 ml Output Total 750 ml Balance -390 ml Intake Oral 360 ml Output Urine Total 750 ml # Voids 3 2D Echo: LVEF 65%, Mild LVH, Grade I LVDD, RVSP 25 mmHg Laboratory Tests Test 08/10/17 08:00 Prothrombin Time 15.5 SEC (9.30-11.50) H Prothromb Time International Ratio 1.5 (0.9-1.1) H Objective HEENT: Atraumatic and normocephalic. Anicteric. Pupils are equal, round, and reactive to light and accommodation. Extraocular movements are intact. NECK: JVP less than 5 cm. No carotid bruits. Carotid upstrokes 2+ bilaterally. CARDIOVASCULAR: Normal S1 and S2. Regular rate and rhythm. Tachycardiac. No murmurs, gallops, or rubs. PMI is at fourth intercostal space in the left midclavicular line. LUNGS: Clear to auscultation bilaterally. ABDOMEN: Soft, nontender, and nondistended. No hepatosplenomegaly. Positive bowel sounds. EXTREMITIES: Right lower extremity erythema extending from mid calf down to the foot, purulent discharge from the dorsum of the right foot and there is associated edema and redness. LANCE SHIPLEY Aug 11, 2017 07:41
[2017-08-11 08:00] VITALS: BP 99/53
[2017-08-11 09:18] LABS: INR 1.4 (0.9-1.1)
--- NOTE | 2017-08-11 10:01 | General Progress Note ---
Assessment/Plan Status: stable Assessment/Plan #. Pulmonary embolism and deep venous thrombosis history. --> He is on Coumadin. --> Continue to maintain INR between 2 and 3. --> Monitor closely. #. Anemia due to underlying chronic disease. --> Has not needed prbc, anemia is mild at this time. --> Continue to closely monitor. --> Anemia workup reviewed. --> Iron 22, TIBC 251, Ferritin 143, B12 141, Folate 19.5 --> Transfuse if hgb <7, Trend cbc daily. #. Coagulopathy due to the patient being on Coumadin. --> INR goal has been met. Cont on coumadin. #. Hyponatremia. --> Continue to closely monitor. Likely depletional. #. Right Lower extremity cellulitis. --> Continue antibiotics. Improving. --> On clindamycin, patient allergic to vancomycin. #. Nicotine dependence, likely chronic obstructive pulmonary disease related as well. #. Hypoalbuminemia, probably related severe protein-caloric malnutrition. Subjective Date patient seen: Aug 10, 2017 Constitutional: Denies: no symptoms, chills, diaphoresis, fever, malaise, weakness, other HEENT: Denies: no symptoms, eye pain, blurred vision, tearing, double vision, ear pain, ear discharge, nose pain, nose congestion, throat pain, throat swelling, mouth pain, mouth swelling, other Cardiovascular: Denies: no symptoms, chest pain, edema, irregular heart rate, lightheadedness, palpitations, syncope, other Respiratory: Denies: no symptoms, cough, orthopnea, shortness of breath, SOB with excertion, SOB at rest, sputum, stridor, wheezing, other Gastrointestinal/Abdominal: Denies: no symptoms, abdomen distended, abdominal pain, black stools, tarry stools, blood in stool, constipated, diarrhea, difficulty swallowing, nausea, poor appetite, poor fluid intake, rectal bleeding , vomiting, other Genitourinary: Denies: no symptoms, burning, discharge, frequency, flank pain, hematuria, incontinence, pain, urgency, other Hematologic/Lymphatic: Reports: other Allergies: Coded Allergies: VANCOMYCIN (Verified Allergy, Severe, rash, 08/05/17) CEPHALEXIN (Verified Allergy, Unknown, 08/04/17) Subjective On anticoagulation measures. No acute distress. No fever. Objective Last 24 Hour Vital Signs Date Time Temp Pulse Resp B/P (MAP) Pulse Ox O2 Delivery O2 Flow Rate FiO2 08/11/17 08:00 97.9 78 20 99/53 96 08/11/17 07:55 97 Nasal Cannula 2.0 28 08/11/17 07:55 Nasal Cannula 2.0 28 08/11/17 03:42 97.3 71 20 95/54 99 81 08/11/17 03:42 99 Nasal Cannula 2.0 08/10/17 23:48 99 Nasal Cannula 2.0 08/10/17 23:18 97.7 85 20 114/72 99 Nasal Cannula 85 08/10/17 20:23 Nasal Cannula 2.0 28 08/10/17 20:23 98 Nasal Cannula 2.0 28 08/10/17 20:07 97.9 81 20 114/69 96 Room Air 82 08/10/17 20:07 96 Nasal Cannula 2.0 08/10/17 16:12 97.0 08/10/17 16:00 82 08/10/17 16:00 97.3 80 20 112/71 97 Nasal Cannula 2.0 08/10/17 15:13 97.0 08/10/17 12:00 97.0 74 19 120/62 96 Nasal Cannula 2.0 08/10/17 12:00 72 Intake and Output 08/10/17 08/11/17 19:00 07:00 Intake Total 360 ml Output Total 750 ml Balance -390 ml Intake Oral 360 ml Output Urine Total 750 ml # Voids 3 Laboratory Tests 08/11/17 08:45: Prothrombin Time 15.1H, Prothromb Time International Ratio 1.4H Height (Feet): 5 Height (Inches): 11.00 Weight (Pounds): 175 General Appearance: no apparent distress Cardiovascular: normal rate, regular rhythm Respiratory/Chest: lungs clear Abdomen: non tender, soft Edema: trace edema Skin: warm/dry Chance Lakhani Aug 11, 2017 10:01
[2017-08-11] MEDS: Levofloxacin 500mg tab ORAL SCH (10:10)
[2017-08-11] MEDS: Enoxaparin 80mg Inj SUBQ SCH ×2 (11:32→21:18)
[2017-08-11 12:00] VITALS: BP 133/81
--- NOTE | 2017-08-11 13:10 | Infectious Diseases Prog Note ---
Assessment/Plan Assessment/Plan A; R leg cellulitis, culture MSSA, Pseudomonas & strep group C stasis Dermatitis allergic reaction to IV Vancomycin Acute DVT of R leg COPD Eosinophilia improving P; Continue Levaquin & Doxycycline, Clotrimazole Subjective ROS Limited/Unobtainable: No Respiratory: Reports: no symptoms Cardiovascular: Reports: no symptoms Gastrointestinal/Abdominal: Reports: no symptoms Skin: Reports: other - itching, pain in legs Allergies: Coded Allergies: VANCOMYCIN (Verified Allergy, Severe, rash, 08/05/17) CEPHALEXIN (Verified Allergy, Unknown, 08/04/17) Objective Vital Signs Last 24 Hour Vital Signs Date Time Temp Pulse Resp B/P (MAP) Pulse Ox O2 Delivery O2 Flow Rate FiO2 08/11/17 12:00 97.2 81 19 133/81 96 08/11/17 08:00 Nasal Cannula 2.0 08/11/17 08:00 97.9 78 20 99/53 96 08/11/17 07:55 97 Nasal Cannula 2.0 28 08/11/17 07:55 Nasal Cannula 2.0 28 08/11/17 03:42 97.3 71 20 95/54 99 81 08/11/17 03:42 99 Nasal Cannula 2.0 08/10/17 23:48 99 Nasal Cannula 2.0 08/10/17 23:18 97.7 85 20 114/72 99 Nasal Cannula 85 08/10/17 20:23 Nasal Cannula 2.0 28 08/10/17 20:23 98 Nasal Cannula 2.0 28 08/10/17 20:07 97.9 81 20 114/69 96 Room Air 82 08/10/17 20:07 96 Nasal Cannula 2.0 08/10/17 16:12 97.0 08/10/17 16:00 82 08/10/17 16:00 97.3 80 20 112/71 97 Nasal Cannula 2.0 08/10/17 15:13 97.0 Height (Feet): 5 Height (Inches): 11.00 Weight (Pounds): 175 General Appearance: no acute distress HEENT: mucous membranes moist Respiratory/Chest: lungs clear Cardiovascular: normal rate Abdomen: soft, non tender Extremities: other - bilateral leg edema Skin: ulcers, other - R foot Laboratory Tests Test 08/11/17 08:45 Prothrombin Time 15.1 SEC (9.30-11.50) H Prothromb Time International Ratio 1.4 (0.9-1.1) H Current Medications Medications (Trade) Dose Ordered Sig/Italo Route PRN Reason Start Time Stop Time Status Last Admin Dose Admin Acetaminophen (Tylenol) 650 mg Q4H PRN ORAL Mild Pain/Temp > 100.5 08/10/17 21:00 09/09/17 20:59 Albuterol Sulfate (Proventil MDI) 2 puff Q6H PRN INH Shortness of Breath 08/10/17 21:00 09/09/17 20:59 Clotrimazole (Lotrimin) 1 applic THREE TIMES A DAY TOPIC 08/11/17 09:00 09/09/17 17:59 Collagenase (Santyl) 1 applic DAILY TOPIC 08/11/17 09:00 09/09/17 08:59 Collagenase (Santyl) 1 applic PRN PRN TOPIC SOILAGE 08/10/17 21:00 09/09/17 20:59 Diphenhydramine HCl (Benadryl) 25 mg Q6H PRN ORAL Itching 08/10/17 21:00 09/04/17 20:59 Doxycycline Monohydrate (Vibramycin) 100 mg EVERY 12 HOURS ORAL 08/10/17 21:00 08/16/17 23:59 08/11/17 10:11 Enoxaparin Sodium (Lovenox) 80 mg Q12HR SUBQ 08/11/17 11:00 09/10/17 10:59 08/11/17 11:32 Fexofenadine HCl (Lawanda) 60 mg BID ORAL 08/11/17 09:00 09/03/17 17:59 08/11/17 10:09 Gabapentin (Neurontin) 600 mg QID ORAL 08/10/17 21:00 09/03/17 17:59 08/11/17 10:10 Lansoprazole (Prevacid) 30 mg DAILY ORAL 08/11/17 09:00 09/04/17 13:29 08/11/17 10:11 Levofloxacin (Levaquin) 500 mg DAILY ORAL 08/11/17 09:00 08/15/17 10:59 08/11/17 10:10 Mirtazapine (Remeron) 45 mg BEDTIME ORAL 08/10/17 21:00 3/15/18 20:59 08/10/17 21:03 Warfarin Sodium (Coumadin per pharmacy) 1 ea DAILY PRN MISC Per rx protocol 08/10/17 21:00 09/09/17 20:59 Warfarin Sodium (Coumadin) 15 mg COUMADIN ONCE ORAL 08/11/17 17:00 08/11/17 17:01 ANANT BRANDT Aug 11, 2017 13:10
--- NOTE | 2017-08-11 13:48 | Nephrology Progress Note ---
Assessment/Plan Problem List: (1) Cellulitis of right lower limb (2) Low vitamin B12 level (3) DM (diabetes mellitus) Assessment Low Na , depletional up to 135 Right lower extremity cellulitis, bilateral stasis dermatitis of lower extremity, history of deep vein thrombosis & pulmonary emboli, on Coumadin nicotine dependence. ? COPD allergic to cephalexin and vancomycin. HypoAlbuminemia- Urine Neg for protein. Low Fe Low B12 High A1C . . Plan no labs today Medium CHO diet B12 SQ IV Iron per ID local skin care Subjective ROS Limited/Unobtainable: No Constitutional: Reports: malaise Objective Objective Last 24 Hour Vital Signs Date Time Temp Pulse Resp B/P (MAP) Pulse Ox O2 Delivery O2 Flow Rate FiO2 08/11/17 12:00 97.2 81 19 133/81 96 08/11/17 08:00 Nasal Cannula 2.0 08/11/17 08:00 97.9 78 20 99/53 96 08/11/17 07:55 97 Nasal Cannula 2.0 28 08/11/17 07:55 Nasal Cannula 2.0 28 08/11/17 03:42 97.3 71 20 95/54 99 81 08/11/17 03:42 99 Nasal Cannula 2.0 08/10/17 23:48 99 Nasal Cannula 2.0 08/10/17 23:18 97.7 85 20 114/72 99 Nasal Cannula 85 08/10/17 20:23 Nasal Cannula 2.0 28 08/10/17 20:23 98 Nasal Cannula 2.0 28 08/10/17 20:07 97.9 81 20 114/69 96 Room Air 82 08/10/17 20:07 96 Nasal Cannula 2.0 08/10/17 16:12 97.0 08/10/17 16:00 82 08/10/17 16:00 97.3 80 20 112/71 97 Nasal Cannula 2.0 08/10/17 15:13 97.0 Intake and Output 08/10/17 08/11/17 19:00 07:00 Intake Total 360 ml Output Total 750 ml Balance -390 ml Intake Oral 360 ml Output Urine Total 750 ml # Voids 3 Laboratory Tests 08/11/17 08:45: Prothrombin Time 15.1H, Prothromb Time International Ratio 1.4H Height (Feet): 5 Height (Inches): 11.00 Weight (Pounds): 175 General Appearance: no apparent distress Objective no change KENTRELL WARREN Aug 11, 2017 13:48
[2017-08-11 16:00] VITALS: BP 110/70
[2017-08-11] MEDS ORDERED: Warfarin Sod 10 MG, Warfarin Sod 5 MG ORAL ONE ×2 (17:00)
[2017-08-11 20:00] VITALS: BP 131/76
--- NOTE | 2017-08-11 21:04 | General Progress Note ---
Assessment/Plan Problem List: (1) Cellulitis of right lower limb ICD Codes: L03.115 - Cellulitis of right lower limb SNOMED: 533111791 (2) DM (diabetes mellitus) ICD Codes: E11.9 - Type 2 diabetes mellitus without complications SNOMED: 89646007 Status: progressing Assessment/Plan le cellulitis dm abx per id dvt /pe anticogulation per heme /onc moniter for bleeding Subjective ROS Limited/Unobtainable: Yes Allergies: Coded Allergies: VANCOMYCIN (Verified Allergy, Severe, rash, 08/05/17) CEPHALEXIN (Verified Allergy, Unknown, 08/04/17) Subjective itching Objective Last 24 Hour Vital Signs Date Time Temp Pulse Resp B/P (MAP) Pulse Ox O2 Delivery O2 Flow Rate FiO2 08/11/17 16:00 Nasal Cannula 2.0 08/11/17 16:00 97.2 78 19 110/70 98 97.2 08/11/17 12:00 97.2 81 19 133/81 96 08/11/17 12:00 Nasal Cannula 2.0 08/11/17 08:00 Nasal Cannula 2.0 08/11/17 08:00 97.9 78 20 99/53 96 08/11/17 07:55 97 Nasal Cannula 2.0 28 08/11/17 07:55 Nasal Cannula 2.0 28 08/11/17 03:42 97.3 71 20 95/54 99 81 08/11/17 03:42 99 Nasal Cannula 2.0 08/10/17 23:48 99 Nasal Cannula 2.0 08/10/17 23:18 97.7 85 20 114/72 99 Nasal Cannula 85 Intake and Output 08/10/17 08/11/17 19:00 07:00 Intake Total 360 ml Output Total 750 ml Balance -390 ml Intake Oral 360 ml Output Urine Total 750 ml # Voids 3 Laboratory Tests 08/11/17 08:45: Prothrombin Time 15.1H, Prothromb Time International Ratio 1.4H Height (Feet): 5 Height (Inches): 11.00 Weight (Pounds): 175 Cardiovascular: normal rate Respiratory/Chest: lungs clear Torsten Sandoval MD Aug 11, 2017 21:04
[2017-08-12 04:00] VITALS: BP 130/81
--- NOTE | 2017-08-12 06:57 | Pulmonology Progress Note ---
Assessment/Plan Assessment/Plan IMPRESSION: 1. Right lower extremity cellulitis. 2. History of deep vein thrombosis. 3. Chronic Coumadin usage. 4. History of previous pulmonary embolism. 5. Tobacco use. 6. Probable underlying COPD DISCUSSION: Continue present medications and care. The patient will stay on Coumadin, breathing treatments, pain medications and antibiotics per ID. His hypoxemia is secondary to combination of previous pulmonary embolism and chronic obstructive pulmonary disease. I will continue to follow. INR is therapeutic. Subjective Interval Events: none Constitutional: Reports: no symptoms HEENT: Repors: no symptoms Respiratory: Reports: no symptoms Cardiovascular: Reports: no symptoms Gastrointestinal/Abdominal: Reports: no symptoms Allergies: Coded Allergies: VANCOMYCIN (Verified Allergy, Severe, rash, 08/05/17) CEPHALEXIN (Verified Allergy, Unknown, 08/04/17) Objective Last 24 Hour Vital Signs Date Time Temp Pulse Resp B/P (MAP) Pulse Ox O2 Delivery O2 Flow Rate FiO2 08/12/17 04:00 99.3 84 20 130/81 98 Nasal Cannula 2.0 99.3 08/12/17 00:28 Nasal Cannula 2.0 08/11/17 20:00 97.2 76 20 131/76 98 Nasal Cannula 2.0 97.2 08/11/17 20:00 Nasal Cannula 2.0 08/11/17 19:00 Nasal Cannula 2.0 28 08/11/17 19:00 96 Nasal Cannula 2.0 28 08/11/17 16:00 Nasal Cannula 2.0 08/11/17 16:00 97.2 78 19 110/70 98 97.2 08/11/17 12:00 97.2 81 19 133/81 96 08/11/17 12:00 Nasal Cannula 2.0 08/11/17 08:00 Nasal Cannula 2.0 08/11/17 08:00 97.9 78 20 99/53 96 08/11/17 07:55 97 Nasal Cannula 2.0 28 08/11/17 07:55 Nasal Cannula 2.0 28 Intake and Output 08/11/17 08/12/17 19:00 07:00 Intake Total 240 ml Output Total 400 ml Balance -160 ml Intake Oral 240 ml Output Urine Total 400 ml General Appearance: no acute distress HEENT: normocephalic Respiratory/Chest: chest wall non-tender, lungs clear Cardiovascular: normal peripheral pulses, normal rate Laboratory Tests 08/11/17 08:45: Prothrombin Time 15.1H, Prothromb Time International Ratio 1.4H Current Medications Medications (Trade) Dose Ordered Sig/Italo Route PRN Reason Start Time Stop Time Status Last Admin Dose Admin Acetaminophen (Tylenol) 650 mg Q4H PRN ORAL Mild Pain/Temp > 100.5 08/10/17 21:00 09/09/17 20:59 Albuterol Sulfate (Proventil MDI) 2 puff Q6H PRN INH Shortness of Breath 08/10/17 21:00 09/09/17 20:59 Clotrimazole (Lotrimin) 1 applic THREE TIMES A DAY TOPIC 08/11/17 09:00 09/09/17 17:59 08/11/17 18:38 Collagenase (Santyl) 1 applic DAILY TOPIC 08/11/17 09:00 09/09/17 08:59 08/11/17 14:40 Collagenase (Santyl) 1 applic PRN PRN TOPIC SOILAGE 08/10/17 21:00 09/09/17 20:59 08/11/17 14:38 Diphenhydramine HCl (Benadryl) 25 mg Q6H PRN ORAL Itching 08/10/17 21:00 09/04/17 20:59 Doxycycline Monohydrate (Vibramycin) 100 mg EVERY 12 HOURS ORAL 08/10/17 21:00 08/16/17 23:59 08/11/17 21:16 Enoxaparin Sodium (Lovenox) 80 mg Q12HR SUBQ 08/11/17 11:00 09/10/17 10:59 08/11/17 21:18 Fexofenadine HCl (Lawanda) 60 mg BID ORAL 08/11/17 09:00 09/03/17 17:59 08/11/17 18:38 Gabapentin (Neurontin) 600 mg QID ORAL 08/10/17 21:00 09/03/17 17:59 08/11/17 21:17 Lansoprazole (Prevacid) 30 mg DAILY ORAL 08/11/17 09:00 09/04/17 13:29 08/11/17 10:11 Levofloxacin (Levaquin) 500 mg DAILY ORAL 08/11/17 09:00 08/15/17 10:59 08/11/17 10:10 Mirtazapine (Remeron) 45 mg BEDTIME ORAL 08/10/17 21:00 09/03/17 20:59 08/11/17 21:17 Warfarin Sodium (Coumadin per pharmacy) 1 ea DAILY PRN MISC Per rx protocol 08/10/17 21:00 09/09/17 20:59 René Gore MD Aug 12, 2017 06:57
[2017-08-12 07:25] LABS: INR 1.5 (0.9-1.1)
[2017-08-12 07:42] LABS: ALANINE AMINOTRANSFERASE 16 U/L (12-78); ALBUMIN 2.8 G/DL (3.4-5.0); ALBUMIN/GLOBULIN RATIO 0.5 (1.0-2.7); ALKALINE PHOSPHATASE 116 U/L (46-116); ANION GAP 4 mmol/L (5-15); ASPARTATE AMINO TRANSFERASE 29 U/L (15-37); BILIRUBIN,TOTAL 0.2 MG/DL (0.2-1.0); BLOOD UREA NITROGEN 23 mg/dL (7-18); CALCIUM 8.8 MG/DL (8.5-10.1); CARBON DIOXIDE 31 MMOL/L (21-32); CHLORIDE 101 MMOL/L (98-107); PHOSPHORUS 4.2 MG/DL (2.5-4.9); POTASSIUM 4.1 MMOL/L (3.5-5.1); SODIUM 136 MMOL/L (136-145)
[2017-08-12 08:00] VITALS: BP 150/79
[2017-08-12] MEDS: Levofloxacin 500mg tab ORAL SCH (08:39)
[2017-08-12] MEDS: Enoxaparin 80mg Inj SUBQ SCH ×2 (08:42→20:30)
--- NOTE | 2017-08-12 09:26 | General Progress Note ---
Assessment/Plan Assessment/Plan #. Right Lower extremity cellulitis. --> Continue antibiotics. Improving. --> On clindamycin, patient allergic to vancomycin. #. Pulmonary embolism and deep venous thrombosis history. --> Improving, INR currently 1.5 --> He is on Coumadin. --> Continue to maintain INR between 2 and 3. --> Monitor closely. #. Anemia due to underlying chronic disease. --> Has not needed prbc, anemia is mild at this time. --> Continue to closely monitor. --> Anemia workup reviewed. --> Iron 22, TIBC 251, Ferritin 143, B12 141, Folate 19.5 --> Transfuse if hgb <7, Trend cbc daily. #. Coagulopathy due to the patient being on Coumadin. --> INR goal b/t 2 and 3. --> Continue on coumadin. #. Hyponatremia. --> Continue to closely monitor. Likely depletional. #. Nicotine dependence, likely chronic obstructive pulmonary disease related as well. #. Hypoalbuminemia, probably related severe protein-caloric malnutrition. Subjective Date patient seen: Aug 11, 2017 Constitutional: Denies: no symptoms, chills, diaphoresis, fever, malaise, weakness, other HEENT: Denies: no symptoms, eye pain, blurred vision, tearing, double vision, ear pain, ear discharge, nose pain, nose congestion, throat pain, throat swelling, mouth pain, mouth swelling, other Cardiovascular: Denies: no symptoms, chest pain, edema, irregular heart rate, lightheadedness, palpitations, syncope, other Respiratory: Denies: no symptoms, cough, orthopnea, shortness of breath, SOB with excertion, SOB at rest, sputum, stridor, wheezing, other Gastrointestinal/Abdominal: Denies: no symptoms, abdomen distended, abdominal pain, black stools, tarry stools, blood in stool, constipated, diarrhea, difficulty swallowing, nausea, poor appetite, poor fluid intake, rectal bleeding , vomiting, other Genitourinary: Denies: no symptoms, burning, discharge, frequency, flank pain, hematuria, incontinence, pain, urgency, other Neurologic/Psychiatric: Denies: no symptoms, anxiety, depressed, emotional problems, headache, numbness, paresthesia, pre-existing deficit, seizure, tingling, tremors, weakness, other Allergies: Coded Allergies: VANCOMYCIN (Verified Allergy, Severe, rash, 08/05/17) CEPHALEXIN (Verified Allergy, Unknown, 08/04/17) Subjective On anticoagulation measures. No new events overnight. Objective Last 24 Hour Vital Signs Date Time Temp Pulse Resp B/P (MAP) Pulse Ox O2 Delivery O2 Flow Rate FiO2 08/12/17 09:11 74 18 Nasal Cannula 2.0 08/12/17 09:10 Nasal Cannula 2.0 28 08/12/17 09:10 97 Nasal Cannula 2.0 28 08/12/17 08:00 97.9 74 19 150/79 98 97.9 08/12/17 04:00 99.3 84 20 130/81 98 Nasal Cannula 2.0 99.3 08/12/17 00:28 Nasal Cannula 2.0 08/11/17 20:00 97.2 76 20 131/76 98 Nasal Cannula 2.0 97.2 08/11/17 20:00 Nasal Cannula 2.0 08/11/17 19:00 Nasal Cannula 2.0 28 08/11/17 19:00 96 Nasal Cannula 2.0 28 08/11/17 16:00 Nasal Cannula 2.0 08/11/17 16:00 97.2 78 19 110/70 98 97.2 08/11/17 12:00 97.2 81 19 133/81 96 08/11/17 12:00 Nasal Cannula 2.0 Intake and Output 08/11/17 08/12/17 19:00 07:00 Intake Total 240 ml Output Total 400 ml Balance -160 ml Intake Oral 240 ml Output Urine Total 400 ml Laboratory Tests 08/12/17 06:30: Prothrombin Time 15.9H, Prothromb Time International Ratio 1.5H, Sodium Level 136, Potassium Level 4.1, Chloride Level 101, Carbon Dioxide Level 31, Anion Gap 4L, Blood Urea Nitrogen 23H, Creatinine 1.0, Estimat Glomerular Filtration Rate > 60, Glucose Level 95, Uric Acid 5.9, Calcium Level 8.8, Phosphorus Level 4.2, Magnesium Level 1.8, Total Bilirubin 0.2, Aspartate Amino Transf (AST/SGOT ) 29, Alanine Aminotransferase (ALT/SGPT) 16, Alkaline Phosphatase 116, Total Protein 8.1, Albumin 2.8L, Globulin 5.3, Albumin/Globulin Ratio 0.5L Height (Feet): 5 Height (Inches): 11.00 Weight (Pounds): 175 EENT: normal ENT inspection Cardiovascular: normal rate Abdomen: non tender, soft Edema: mild edema Skin: warm/dry Chance Lakhani Aug 12, 2017 09:26
--- NOTE | 2017-08-12 11:52 | Nephrology Progress Note ---
Assessment/Plan Problem List: (1) Cellulitis of right lower limb (2) Low vitamin B12 level (3) DM (diabetes mellitus) Assessment Low Na , depletional up to 136 Right lower extremity cellulitis, bilateral stasis dermatitis of lower extremity, history of deep vein thrombosis & pulmonary emboli, on Coumadin nicotine dependence. ? COPD allergic to cephalexin and vancomycin. HypoAlbuminemia- Urine Neg for protein. Low Fe Low B12 High A1C . . Plan Medium CHO diet B12 SQ IV Iron per ID local skin care Subjective ROS Limited/Unobtainable: No Constitutional: Reports: malaise Objective Objective Last 24 Hour Vital Signs Date Time Temp Pulse Resp B/P (MAP) Pulse Ox O2 Delivery O2 Flow Rate FiO2 08/12/17 11:02 97.9 08/12/17 09:11 74 18 Nasal Cannula 2.0 08/12/17 09:10 Nasal Cannula 2.0 28 08/12/17 09:10 97 Nasal Cannula 2.0 28 08/12/17 08:00 97.9 74 19 150/79 98 97.9 08/12/17 04:00 99.3 84 20 130/81 98 Nasal Cannula 2.0 99.3 08/12/17 00:28 Nasal Cannula 2.0 08/11/17 20:00 97.2 76 20 131/76 98 Nasal Cannula 2.0 97.2 08/11/17 20:00 Nasal Cannula 2.0 08/11/17 19:00 Nasal Cannula 2.0 28 08/11/17 19:00 96 Nasal Cannula 2.0 28 08/11/17 16:00 Nasal Cannula 2.0 08/11/17 16:00 97.2 78 19 110/70 98 97.2 08/11/17 12:00 97.2 81 19 133/81 96 08/11/17 12:00 Nasal Cannula 2.0 Intake and Output 08/11/17 08/12/17 19:00 07:00 Intake Total 240 ml Output Total 400 ml Balance -160 ml Intake Oral 240 ml Output Urine Total 400 ml Laboratory Tests 08/12/17 06:30: Prothrombin Time 15.9H, Prothromb Time International Ratio 1.5H, Sodium Level 136, Potassium Level 4.1, Chloride Level 101, Carbon Dioxide Level 31, Anion Gap 4L, Blood Urea Nitrogen 23H, Creatinine 1.0, Estimat Glomerular Filtration Rate > 60, Glucose Level 95, Uric Acid 5.9, Calcium Level 8.8, Phosphorus Level 4.2, Magnesium Level 1.8, Total Bilirubin 0.2, Aspartate Amino Transf (AST/SGOT ) 29, Alanine Aminotransferase (ALT/SGPT) 16, Alkaline Phosphatase 116, Total Protein 8.1, Albumin 2.8L, Globulin 5.3, Albumin/Globulin Ratio 0.5L Height (Feet): 5 Height (Inches): 11.00 Weight (Pounds): 175 General Appearance: no apparent distress Cardiovascular: normal rate Respiratory/Chest: lungs clear Objective no change KENTRELL WARREN Aug 12, 2017 11:52
[2017-08-12 12:00] VITALS: BP 116/71
--- NOTE | 2017-08-12 12:06 | Infectious Diseases Prog Note ---
Assessment/Plan Assessment/Plan A; R leg cellulitis, culture MSSA, Pseudomonas & strep group C stasis Dermatitis allergic reaction to IV Vancomycin Acute DVT of R leg COPD Eosinophilia improving P; Continue Levaquin & Doxycycline, Clotrimazole X 4 days Subjective ROS Limited/Unobtainable: No Respiratory: Reports: no symptoms Cardiovascular: Reports: no symptoms Gastrointestinal/Abdominal: Reports: no symptoms Genitourinary: Reports: no symptoms Musculoskeletal: Reports: pain, other - back pain Allergies: Coded Allergies: VANCOMYCIN (Verified Allergy, Severe, rash, 08/05/17) CEPHALEXIN (Verified Allergy, Unknown, 08/04/17) Objective Vital Signs Last 24 Hour Vital Signs Date Time Temp Pulse Resp B/P (MAP) Pulse Ox O2 Delivery O2 Flow Rate FiO2 08/12/17 11:02 97.9 08/12/17 09:11 74 18 Nasal Cannula 2.0 08/12/17 09:10 Nasal Cannula 2.0 28 08/12/17 09:10 97 Nasal Cannula 2.0 28 08/12/17 08:00 97.9 74 19 150/79 98 97.9 08/12/17 04:00 99.3 84 20 130/81 98 Nasal Cannula 2.0 99.3 08/12/17 00:28 Nasal Cannula 2.0 08/11/17 20:00 97.2 76 20 131/76 98 Nasal Cannula 2.0 97.2 08/11/17 20:00 Nasal Cannula 2.0 08/11/17 19:00 Nasal Cannula 2.0 28 08/11/17 19:00 96 Nasal Cannula 2.0 28 08/11/17 16:00 Nasal Cannula 2.0 08/11/17 16:00 97.2 78 19 110/70 98 97.2 Height (Feet): 5 Height (Inches): 11.00 Weight (Pounds): 175 HEENT: mucous membranes moist Respiratory/Chest: lungs clear Cardiovascular: normal rate Abdomen: soft, non tender Extremities: other - edema of legs R>L Skin: ulcers, other - R foot Neurologic/Psychiatric: alert, oriented x 3, responsive Laboratory Tests Test 08/12/17 06:30 Prothrombin Time 15.9 SEC (9.30-11.50) H Prothromb Time International Ratio 1.5 (0.9-1.1) H Sodium Level 136 MMOL/L (136-145) Potassium Level 4.1 MMOL/L (3.5-5.1) Chloride Level 101 MMOL/L (98-107) Carbon Dioxide Level 31 MMOL/L (21-32) Anion Gap 4 mmol/L (5-15) L Blood Urea Nitrogen 23 mg/dL (7-18) H Creatinine 1.0 MG/DL (0.55-1.30) Estimat Glomerular Filtration Rate > 60 mL/min (>60) Glucose Level 95 MG/DL (74-106) Uric Acid 5.9 MG/DL (2.6-7.2) Calcium Level 8.8 MG/DL (8.5-10.1) Phosphorus Level 4.2 MG/DL (2.5-4.9) Magnesium Level 1.8 MG/DL (1.8-2.4) Total Bilirubin 0.2 MG/DL (0.2-1.0) Aspartate Amino Transf (AST/SGOT) 29 U/L (15-37) Alanine Aminotransferase (ALT/SGPT) 16 U/L (12-78) Alkaline Phosphatase 116 U/L (46-116) Total Protein 8.1 G/DL (6.4-8.2) Albumin 2.8 G/DL (3.4-5.0) L Globulin 5.3 g/dL Albumin/Globulin Ratio 0.5 (1.0-2.7) L Current Medications Medications (Trade) Dose Ordered Sig/Italo Route PRN Reason Start Time Stop Time Status Last Admin Dose Admin Acetaminophen (Tylenol) 650 mg Q4H PRN ORAL Mild Pain/Temp > 100.5 08/10/17 21:00 09/09/17 20:59 08/12/17 11:02 Albuterol Sulfate (Proventil MDI) 2 puff Q6H PRN INH Shortness of Breath 08/10/17 21:00 09/09/17 20:59 Clotrimazole (Lotrimin) 1 applic THREE TIMES A DAY TOPIC 08/11/17 09:00 09/09/17 17:59 08/12/17 08:52 Collagenase (Santyl) 1 applic DAILY TOPIC 08/11/17 09:00 09/09/17 08:59 08/12/17 08:53 Collagenase (Santyl) 1 applic PRN PRN TOPIC SOILAGE 08/10/17 21:00 09/09/17 20:59 08/11/17 14:38 Diphenhydramine HCl (Benadryl) 25 mg Q6H PRN ORAL Itching 08/10/17 21:00 09/04/17 20:59 Doxycycline Monohydrate (Vibramycin) 100 mg EVERY 12 HOURS ORAL 08/10/17 21:00 08/16/17 23:59 08/12/17 08:40 Enoxaparin Sodium (Lovenox) 80 mg Q12HR SUBQ 08/11/17 11:00 09/10/17 10:59 08/12/17 08:42 Fexofenadine HCl (Alwanda) 60 mg BID ORAL 08/11/17 09:00 09/03/17 17:59 08/12/17 08:39 Gabapentin (Neurontin) 600 mg QID ORAL 08/10/17 21:00 09/03/17 17:59 08/12/17 08:39 Lansoprazole (Prevacid) 30 mg DAILY ORAL 08/11/17 09:00 09/04/17 13:29 08/12/17 08:39 Levofloxacin (Levaquin) 500 mg DAILY ORAL 08/11/17 09:00 08/15/17 10:59 08/12/17 08:39 Mirtazapine (Remeron) 45 mg BEDTIME ORAL 08/10/17 21:00 09/03/17 20:59 08/11/17 21:17 Warfarin Sodium (Coumadin per pharmacy) 1 ea DAILY PRN MISC Per rx protocol 08/10/17 21:00 09/09/17 20:59 Warfarin Sodium (Coumadin) 15 mg COUMADIN ONCE ORAL 08/12/17 17:00 08/12/17 17:01 ANANT BRANDT Aug 12, 2017 12:06
--- NOTE | 2017-08-12 13:42 | General Progress Note ---
Assessment/Plan Problem List: (1) Cellulitis of right lower limb ICD Codes: L03.115 - Cellulitis of right lower limb SNOMED: 708056391 (2) DM (diabetes mellitus) ICD Codes: E11.9 - Type 2 diabetes mellitus without complications SNOMED: 84172223 Status: progressing Assessment/Plan le cellulitis is c/o of pain so consulted dr muse reviewed chart and labs abx per id dvt /pe anticogulation per heme /onc Subjective Allergies: Coded Allergies: VANCOMYCIN (Verified Allergy, Severe, rash, 08/05/17) CEPHALEXIN (Verified Allergy, Unknown, 08/04/17) Subjective pain all over itching Objective Last 24 Hour Vital Signs Date Time Temp Pulse Resp B/P (MAP) Pulse Ox O2 Delivery O2 Flow Rate FiO2 08/12/17 12:01 97.9 08/12/17 12:00 97.8 82 20 116/71 97 97.8 08/12/17 11:02 97.9 08/12/17 09:11 74 18 Nasal Cannula 2.0 08/12/17 09:10 Nasal Cannula 2.0 28 08/12/17 09:10 97 Nasal Cannula 2.0 28 08/12/17 08:00 97.9 74 19 150/79 98 97.9 08/12/17 04:00 99.3 84 20 130/81 98 Nasal Cannula 2.0 99.3 08/12/17 00:28 Nasal Cannula 2.0 08/11/17 20:00 97.2 76 20 131/76 98 Nasal Cannula 2.0 97.2 08/11/17 20:00 Nasal Cannula 2.0 08/11/17 19:00 Nasal Cannula 2.0 28 08/11/17 19:00 96 Nasal Cannula 2.0 28 08/11/17 16:00 Nasal Cannula 2.0 08/11/17 16:00 97.2 78 19 110/70 98 97.2 Intake and Output 08/11/17 08/12/17 19:00 07:00 Intake Total 240 ml Output Total 400 ml Balance -160 ml Intake Oral 240 ml Output Urine Total 400 ml Laboratory Tests 08/12/17 06:30: Prothrombin Time 15.9H, Prothromb Time International Ratio 1.5H, Sodium Level 136, Potassium Level 4.1, Chloride Level 101, Carbon Dioxide Level 31, Anion Gap 4L, Blood Urea Nitrogen 23H, Creatinine 1.0, Estimat Glomerular Filtration Rate > 60, Glucose Level 95, Uric Acid 5.9, Calcium Level 8.8, Phosphorus Level 4.2, Magnesium Level 1.8, Total Bilirubin 0.2, Aspartate Amino Transf (AST/SGOT ) 29, Alanine Aminotransferase (ALT/SGPT) 16, Alkaline Phosphatase 116, Total Protein 8.1, Albumin 2.8L, Globulin 5.3, Albumin/Globulin Ratio 0.5L Height (Feet): 5 Height (Inches): 11.00 Weight (Pounds): 175 Neck: supple Cardiovascular: normal rate Respiratory/Chest: lungs clear Abdomen: soft Torsten Sandoval MD Aug 12, 2017 13:42
[2017-08-12 16:00] VITALS: BP 116/70
[2017-08-12] MEDS ORDERED: Warfarin Sod 10 MG, Warfarin Sod 5 MG ORAL ONE ×2 (17:00)
[2017-08-12] MEDS: traMADol 50mg tab ORAL PRN (17:44)
--- NOTE | 2017-08-12 19:19 | Cardiology Progress Note ---
Assessment/Plan Assessment/Plan 1. Sinus tachycardia, resolved,this could be secondary to the infection/ cellulitis. No evidence of RV strain on the echo, LVEF at 65%. 2. Right lower extremity cellulitis with MSSA, on IV ABx therapy. 3. History of deep venous thrombosis, INR 1.5, adjust warfarin dose. 4. Stasis dermatitis. Subjective Subjective No cardiac events. No chest pain or SOB. Objective Last 24 Hour Vital Signs Date Time Temp Pulse Resp B/P (MAP) Pulse Ox O2 Delivery O2 Flow Rate FiO2 08/12/17 18:43 97.9 08/12/17 17:44 97.9 08/12/17 17:23 97.9 08/12/17 16:24 97.9 08/12/17 16:00 97.0 78 21 116/70 95 97.0 08/12/17 12:00 97.8 82 20 116/71 97 97.8 08/12/17 11:02 97.9 08/12/17 09:11 74 18 Nasal Cannula 2.0 08/12/17 09:10 Nasal Cannula 2.0 28 08/12/17 09:10 97 Nasal Cannula 2.0 28 08/12/17 08:00 97.9 74 19 150/79 98 97.9 08/12/17 04:00 99.3 84 20 130/81 98 Nasal Cannula 2.0 99.3 08/12/17 00:28 Nasal Cannula 2.0 08/11/17 20:00 97.2 76 20 131/76 98 Nasal Cannula 2.0 97.2 08/11/17 20:00 Nasal Cannula 2.0 Intake and Output 08/11/17 08/12/17 19:00 07:00 Intake Total 240 ml Output Total 400 ml Balance -160 ml Intake Oral 240 ml Output Urine Total 400 ml 2D Echo: LVEF 65%, Mild LVH, Grade I LVDD, RVSP 25 mmHg Laboratory Tests Test 08/12/17 06:30 Prothrombin Time 15.9 SEC (9.30-11.50) H Prothromb Time International Ratio 1.5 (0.9-1.1) H Sodium Level 136 MMOL/L (136-145) Potassium Level 4.1 MMOL/L (3.5-5.1) Chloride Level 101 MMOL/L (98-107) Carbon Dioxide Level 31 MMOL/L (21-32) Anion Gap 4 mmol/L (5-15) L Blood Urea Nitrogen 23 mg/dL (7-18) H Creatinine 1.0 MG/DL (0.55-1.30) Estimat Glomerular Filtration Rate > 60 mL/min (>60) Glucose Level 95 MG/DL (74-106) Uric Acid 5.9 MG/DL (2.6-7.2) Calcium Level 8.8 MG/DL (8.5-10.1) Phosphorus Level 4.2 MG/DL (2.5-4.9) Magnesium Level 1.8 MG/DL (1.8-2.4) Total Bilirubin 0.2 MG/DL (0.2-1.0) Aspartate Amino Transf (AST/SGOT) 29 U/L (15-37) Alanine Aminotransferase (ALT/SGPT) 16 U/L (12-78) Alkaline Phosphatase 116 U/L (46-116) Total Protein 8.1 G/DL (6.4-8.2) Albumin 2.8 G/DL (3.4-5.0) L Globulin 5.3 g/dL Albumin/Globulin Ratio 0.5 (1.0-2.7) L Objective HEENT: Atraumatic and normocephalic. Anicteric. Pupils are equal, round, and reactive to light and accommodation. Extraocular movements are intact. NECK: JVP less than 5 cm. No carotid bruits. Carotid upstrokes 2+ bilaterally. CARDIOVASCULAR: Normal S1 and S2. Regular rate and rhythm. Tachycardiac. No murmurs, gallops, or rubs. PMI is at fourth intercostal space in the left midclavicular line. LUNGS: Clear to auscultation bilaterally. ABDOMEN: Soft, nontender, and nondistended. No hepatosplenomegaly. Positive bowel sounds. EXTREMITIES: Right lower extremity erythema extending from mid calf down to the foot, purulent discharge from the dorsum of the right foot and there is associated edema and redness. LANCE SHIPLEY Aug 12, 2017 19:19
[2017-08-12 20:00] VITALS: BP 114/71
--- NOTE | 2017-08-12 21:57 | Diagnostic Imaging Report ---
APPROVED REPORT CPT Code: 20581 Present Symptoms Comments: Swelling and Ecchymosis RIGHT LEG: Venous imaging reveals acute nonocclusive thrombus in the common femoral to popliteal veins. Remainder of the deep venous system within normal limits. No evidence of thrombus in the calf veins. Greater saphenous vein also occluded at the greater saphenous vein and common femoral junction. ANNETTE Emery was notified of abnormal results at results at 1000 am.
[2017-08-12 23:56] VITALS: BP 110/65
[2017-08-13] MEDS: traMADol 50mg tab ORAL PRN ×2 (01:44→08:36)
[2017-08-13 04:21] VITALS: BP 130/77
[2017-08-13 07:42] LABS: INR 1.8 (0.9-1.1)
[2017-08-13 08:00] VITALS: BP 128/64
[2017-08-13] MEDS: Levofloxacin 500mg tab ORAL SCH (08:35)
[2017-08-13] MEDS: Enoxaparin 80mg Inj SUBQ SCH (08:39)
--- NOTE | 2017-08-13 08:55 | Consultation ---
History of Present Illness General Date patient seen: Aug 13, 2017 Present Illness Allergies: Coded Allergies: VANCOMYCIN (Verified Allergy, Severe, rash, 08/05/17) CEPHALEXIN (Verified Allergy, Unknown, 08/04/17) Medication History Scheduled Ferrous Sulfate (Ferosul), 325 MG PO BID, (Reported) Folic Acid* (Folic Acid*), 1 MG ORAL DAILY, (Reported) Gabapentin* (Gabapentin*), 600 MG ORAL QID, (Reported) Ipratropium [place] (Atrovent Hfa), 1 PUFF IH QID, (Reported) Loratadine (Loratadine), 10 MG PO DAILY, (Reported) Mirtazapine* (Mirtazapine*), 45 MG ORAL DAILY, (Reported) Warfarin Sod* (Warfarin Sod*), 10 MG ORAL DAILY, (Reported) Scheduled PRN Albuterol Sulfate (Ventolin Hfa), 2 PUFFS INH EVERY 6 HOURS PRN for Shortness of Breath, (Reported) Patient History Healthcare decision maker Resuscitation status Advanced Directive on File No Physical Exam Last 24 Hour Vital Signs Date Time Temp Pulse Resp B/P (MAP) Pulse Ox O2 Delivery O2 Flow Rate FiO2 08/13/17 08:36 97.0 08/13/17 08:00 97.0 91 19 128/64 95 97.0 08/13/17 04:21 98 Nasal Cannula 2.0 08/13/17 04:21 97.9 83 19 130/77 98 97.9 08/13/17 02:43 97.5 08/13/17 01:44 97.5 08/12/17 23:56 97.5 79 18 110/65 95 97.5 08/12/17 23:56 95 Nasal Cannula 2.0 08/12/17 20:00 Nasal Cannula 2.0 08/12/17 20:00 97.3 86 18 114/71 95 97.3 08/12/17 19:56 97 Nasal Cannula 2.0 28 08/12/17 19:56 Nasal Cannula 2.0 28 08/12/17 19:56 86 18 Nasal Cannula 2.0 28 08/12/17 17:44 97.9 08/12/17 17:23 97.9 08/12/17 16:24 97.9 08/12/17 16:00 97.0 78 21 116/70 95 97.0 08/12/17 12:00 97.8 82 20 116/71 97 97.8 08/12/17 11:02 97.9 08/12/17 09:11 74 18 Nasal Cannula 2.0 08/12/17 09:10 Nasal Cannula 2.0 28 08/12/17 09:10 97 Nasal Cannula 2.0 28 Intake and Output 08/12/17 08/13/17 19:00 07:00 Intake Total 920 ml 480 ml Balance 920 ml 480 ml Intake Oral 920 ml 480 ml # Voids 2 3 Laboratory Tests Test 08/13/17 05:40 Prothrombin Time 18.8 SEC (9.30-11.50) H Prothromb Time International Ratio 1.8 (0.9-1.1) H Height (Feet): 5 Height (Inches): 11.00 Weight (Pounds): 175 Medications Current Medications Medications (Trade) Dose Ordered Sig/Italo Route PRN Reason Start Time Stop Time Status Last Admin Dose Admin Acetaminophen (Tylenol) 650 mg Q4H PRN ORAL Mild Pain/Temp > 100.5 08/10/17 21:00 09/09/17 20:59 08/12/17 16:24 Albuterol Sulfate (Proventil MDI) 2 puff Q6H PRN INH Shortness of Breath 08/10/17 21:00 09/09/17 20:59 Clotrimazole (Lotrimin) 1 applic THREE TIMES A DAY TOPIC 08/11/17 09:00 09/09/17 17:59 08/13/17 08:44 Collagenase (Santyl) 1 applic DAILY TOPIC 08/11/17 09:00 09/09/17 08:59 08/13/17 08:43 Collagenase (Santyl) 1 applic PRN PRN TOPIC SOILAGE 08/10/17 21:00 09/09/17 20:59 08/11/17 14:38 Diphenhydramine HCl (Benadryl) 25 mg Q6H PRN ORAL Itching 08/10/17 21:00 09/04/17 20:59 Doxycycline Monohydrate (Vibramycin) 100 mg EVERY 12 HOURS ORAL 08/10/17 21:00 08/16/17 23:59 08/13/17 08:36 Enoxaparin Sodium (Lovenox) 80 mg Q12HR SUBQ 08/11/17 11:00 09/10/17 10:59 08/13/17 08:39 Fexofenadine HCl (Lawanda) 60 mg BID ORAL 08/11/17 09:00 09/03/17 17:59 08/13/17 08:35 Gabapentin (Neurontin) 600 mg QID ORAL 08/10/17 21:00 09/03/17 17:59 08/13/17 08:36 Lansoprazole (Prevacid) 30 mg DAILY ORAL 08/11/17 09:00 09/04/17 13:29 08/13/17 08:36 Levofloxacin (Levaquin) 500 mg DAILY ORAL 08/11/17 09:00 08/15/17 10:59 08/13/17 08:35 Mirtazapine (Remeron) 45 mg BEDTIME ORAL 08/10/17 21:00 09/03/17 20:59 08/12/17 20:29 Tramadol HCl (Ultram) 50 mg Q4H PRN ORAL Severe Pain (Pain Scale 7-10) 08/12/17 17:30 08/19/17 17:29 08/13/17 08:36 Warfarin Sodium (Coumadin per pharmacy) 1 ea DAILY PRN MISC Per rx protocol 08/10/17 21:00 09/09/17 20:59 Warfarin Sodium (Coumadin) 15 mg COUMADIN ONCE ORAL 08/13/17 17:00 08/13/17 17:01 Assessment/Plan Assessment/Plan (1) Right foot pain (2) Right foot cellulitis (3) Right LE DVT seen dictated. ISAC HIDALGO N. P.ATaryn Aug 13, 2017 08:55
[2017-08-13] MEDS ORDERED: Norco 5mg/325mg tab ORAL PRN (09:00)
--- NOTE | 2017-08-13 09:24 | General Progress Note ---
Assessment/Plan Assessment/Plan #. Right Lower extremity cellulitis. --> Continue antibiotics and pain management. Improving. --> On clindamycin, patient allergic to vancomycin. --> Appreciate ID recs. #. Pulmonary embolism and deep venous thrombosis history. --> Improving, INR currently 1.8 --> He is on Coumadin. --> Continue to maintain INR between 2 and 3. --> Monitor closely. #. Anemia due to underlying chronic disease. --> Has not needed prbc, anemia is mild at this time. --> Continue to closely monitor. --> Anemia workup reviewed. --> Iron 22, TIBC 251, Ferritin 143, B12 141, Folate 19.5 --> Transfuse if hgb <7, Trend cbc daily. #. Coagulopathy due to the patient being on Coumadin. --> INR goal b/t 2 and 3. --> Continue on coumadin. #. Hyponatremia. --> Continue to closely monitor. Likely depletional. #. Nicotine dependence, likely chronic obstructive pulmonary disease related as well. #. Hypoalbuminemia, probably related severe protein-caloric malnutrition. Subjective Allergies: Coded Allergies: VANCOMYCIN (Verified Allergy, Severe, rash, 08/05/17) CEPHALEXIN (Verified Allergy, Unknown, 08/04/17) Subjective On anticoagulation measures. Some pain and itching. H/H stable. Objective Last 24 Hour Vital Signs Date Time Temp Pulse Resp B/P (MAP) Pulse Ox O2 Delivery O2 Flow Rate FiO2 08/13/17 08:36 97.0 08/13/17 08:00 97.0 91 19 128/64 95 97.0 08/13/17 04:21 98 Nasal Cannula 2.0 08/13/17 04:21 97.9 83 19 130/77 98 97.9 08/13/17 02:43 97.5 08/13/17 01:44 97.5 08/12/17 23:56 97.5 79 18 110/65 95 97.5 08/12/17 23:56 95 Nasal Cannula 2.0 08/12/17 20:00 Nasal Cannula 2.0 08/12/17 20:00 97.3 86 18 114/71 95 97.3 08/12/17 19:56 97 Nasal Cannula 2.0 28 08/12/17 19:56 Nasal Cannula 2.0 28 08/12/17 19:56 86 18 Nasal Cannula 2.0 28 08/12/17 17:44 97.9 08/12/17 17:23 97.9 08/12/17 16:24 97.9 08/12/17 16:00 97.0 78 21 116/70 95 97.0 08/12/17 12:00 97.8 82 20 116/71 97 97.8 08/12/17 11:02 97.9 Intake and Output 08/12/17 08/13/17 19:00 07:00 Intake Total 920 ml 480 ml Balance 920 ml 480 ml Intake Oral 920 ml 480 ml # Voids 2 3 Labs Test 08/11/17 08:45 08/12/17 06:30 08/13/17 05:40 Prothrombin Time 15.1 SEC (9.30-11.50) 15.9 SEC (9.30-11.50) 18.8 SEC (9.30-11.50) Prothromb Time International Ratio 1.4 (0.9-1.1) 1.5 (0.9-1.1) 1.8 (0.9-1.1) Sodium Level 136 MMOL/L (136-145) Potassium Level 4.1 MMOL/L (3.5-5.1) Chloride Level 101 MMOL/L (98-107) Carbon Dioxide Level 31 MMOL/L (21-32) Anion Gap 4 mmol/L (5-15) Blood Urea Nitrogen 23 mg/dL (7-18) Creatinine 1.0 MG/DL (0.55-1.30) Estimat Glomerular Filtration Rate > 60 mL/min (>60) Glucose Level 95 MG/DL (74-106) Uric Acid 5.9 MG/DL (2.6-7.2) Calcium Level 8.8 MG/DL (8.5-10.1) Phosphorus Level 4.2 MG/DL (2.5-4.9) Magnesium Level 1.8 MG/DL (1.8-2.4) Total Bilirubin 0.2 MG/DL (0.2-1.0) Aspartate Amino Transf (AST/SGOT) 29 U/L (15-37) Alanine Aminotransferase (ALT/SGPT) 16 U/L (12-78) Alkaline Phosphatase 116 U/L (46-116) Total Protein 8.1 G/DL (6.4-8.2) Albumin 2.8 G/DL (3.4-5.0) Globulin 5.3 g/dL Albumin/Globulin Ratio 0.5 (1.0-2.7) Laboratory Tests 08/13/17 05:40: Prothrombin Time 18.8H, Prothromb Time International Ratio 1.8H Height (Feet): 5 Height (Inches): 11.00 Weight (Pounds): 175 Chance Lakhani Aug 13, 2017 09:24
--- NOTE | 2017-08-13 09:35 | Pulmonology Progress Note ---
Assessment/Plan Assessment/Plan IMPRESSION: 1. Right lower extremity cellulitis. 2. History of deep vein thrombosis. 3. Chronic Coumadin usage. 4. History of previous pulmonary embolism. 5. Tobacco use. 6. Probable underlying COPD DISCUSSION: Continue present medications and care. Continue Coumadin, breathing treatments, pain medications and antibiotics per ID. His hypoxemia is secondary to combination of previous pulmonary embolism and chronic obstructive pulmonary disease. I will continue to follow. INR is therapeutic. Subjective Interval Events: none Constitutional: Reports: no symptoms HEENT: Repors: no symptoms Respiratory: Reports: no symptoms Cardiovascular: Reports: no symptoms Gastrointestinal/Abdominal: Reports: no symptoms Allergies: Coded Allergies: VANCOMYCIN (Verified Allergy, Severe, rash, 08/05/17) CEPHALEXIN (Verified Allergy, Unknown, 08/04/17) Objective Last 24 Hour Vital Signs Date Time Temp Pulse Resp B/P (MAP) Pulse Ox O2 Delivery O2 Flow Rate FiO2 08/13/17 08:36 97.0 08/13/17 08:00 97.0 91 19 128/64 95 97.0 08/13/17 04:21 98 Nasal Cannula 2.0 08/13/17 04:21 97.9 83 19 130/77 98 97.9 08/13/17 02:43 97.5 08/13/17 01:44 97.5 08/12/17 23:56 97.5 79 18 110/65 95 97.5 08/12/17 23:56 95 Nasal Cannula 2.0 08/12/17 20:00 Nasal Cannula 2.0 08/12/17 20:00 97.3 86 18 114/71 95 97.3 08/12/17 19:56 97 Nasal Cannula 2.0 28 08/12/17 19:56 Nasal Cannula 2.0 28 08/12/17 19:56 86 18 Nasal Cannula 2.0 28 08/12/17 17:44 97.9 08/12/17 17:23 97.9 08/12/17 16:24 97.9 08/12/17 16:00 97.0 78 21 116/70 95 97.0 08/12/17 12:00 97.8 82 20 116/71 97 97.8 08/12/17 11:02 97.9 Intake and Output 08/12/17 08/13/17 19:00 07:00 Intake Total 920 ml 480 ml Balance 920 ml 480 ml Intake Oral 920 ml 480 ml # Voids 2 3 General Appearance: no acute distress HEENT: normocephalic, PERRL Respiratory/Chest: lungs clear Cardiovascular: normal peripheral pulses, normal rate Abdomen: normal bowel sounds, soft, non tender Laboratory Tests 08/13/17 05:40: Prothrombin Time 18.8H, Prothromb Time International Ratio 1.8H Current Medications Medications (Trade) Dose Ordered Sig/Italo Route PRN Reason Start Time Stop Time Status Last Admin Dose Admin Acetaminophen (Tylenol) 650 mg Q4H PRN ORAL Mild Pain/Temp > 100.5 08/10/17 21:00 09/09/17 20:59 08/12/17 16:24 Acetaminophen/ Hydrocodone Bitart ([place] 5/325) 1 tab Q4H PRN ORAL severe pain 7-10 08/13/17 09:00 08/20/17 08:59 Albuterol Sulfate (Proventil MDI) 2 puff Q6H PRN INH Shortness of Breath 08/10/17 21:00 09/09/17 20:59 Clotrimazole (Lotrimin) 1 applic THREE TIMES A DAY TOPIC 08/11/17 09:00 09/09/17 17:59 08/13/17 08:44 Collagenase (Santyl) 1 applic DAILY TOPIC 08/11/17 09:00 09/09/17 08:59 08/13/17 08:43 Collagenase (Santyl) 1 applic PRN PRN TOPIC SOILAGE 08/10/17 21:00 09/09/17 20:59 08/11/17 14:38 Diphenhydramine HCl (Benadryl) 25 mg Q6H PRN ORAL Itching 08/10/17 21:00 09/04/17 20:59 Doxycycline Monohydrate (Vibramycin) 100 mg EVERY 12 HOURS ORAL 08/10/17 21:00 08/16/17 23:59 08/13/17 08:36 Enoxaparin Sodium (Lovenox) 80 mg Q12HR SUBQ 08/11/17 11:00 09/10/17 10:59 08/13/17 08:39 Fexofenadine HCl (Lawanda) 60 mg BID ORAL 08/11/17 09:00 09/03/17 17:59 08/13/17 08:35 Gabapentin (Neurontin) 600 mg QID ORAL 08/10/17 21:00 09/03/17 17:59 08/13/17 08:36 Lansoprazole (Prevacid) 30 mg DAILY ORAL 08/11/17 09:00 09/04/17 13:29 08/13/17 08:36 Levofloxacin (Levaquin) 500 mg DAILY ORAL 08/11/17 09:00 08/15/17 10:59 08/13/17 08:35 Mirtazapine (Remeron) 45 mg BEDTIME ORAL 08/10/17 21:00 09/03/17 20:59 08/12/17 20:29 Warfarin Sodium (Coumadin per pharmacy) 1 ea DAILY PRN MISC Per rx protocol 08/10/17 21:00 09/09/17 20:59 Warfarin Sodium (Coumadin) 15 mg COUMADIN ONCE ORAL 08/13/17 17:00 08/13/17 17:01 René Gore MD Aug 13, 2017 09:35
[2017-08-13] MEDS ORDERED: TYLENOL325 MG ORAL (11:35)
[2017-08-13] MEDS ORDERED: PREVACID30 MG ORAL (11:36)
[2017-08-13] MEDS ORDERED: CLOTRIMAZOLE15 GM TOPIC (11:38)
[2017-08-13] MEDS ORDERED: SANTYL30 GM TP (11:38)
[2017-08-13] MEDS ORDERED: BENADRYL25 M3 PO (11:39)
[2017-08-13] MEDS ORDERED: DOXY 100100 MG PO (11:42)
[2017-08-13] MEDS ORDERED: LEVAQUIN500 MG ORAL (11:43)
[2017-08-13] MEDS ORDERED: LEVAQUIN750 MG ORAL (11:43)
[2017-08-13] MEDS ORDERED: ALLEGRA ALLERGY60 M1 PO (11:43)
[2017-08-13] MEDS ORDERED: LOVENOX80 MG/0.8 SUBQ (11:44)
[2017-08-13] MEDS ORDERED: COUMADIN7.5 MG ORAL ×2 (11:45→11:51)
[2017-08-13] MEDS ORDERED: NORCO 5-325 TA1 EACH ORAL (11:46)
[2017-08-13 11:47] VITALS: BP 129/78
[2017-08-13] MEDS ORDERED: DOXYCYCLINE HY200 MG PO (11:49)
--- NOTE | 2017-08-13 11:59 | Nephrology Progress Note ---
Assessment/Plan Problem List: (1) Cellulitis of right lower limb (2) Low vitamin B12 level (3) DM (diabetes mellitus) Assessment Low Na , depletional up to 136 Right lower extremity cellulitis, bilateral stasis dermatitis of lower extremity, history of deep vein thrombosis & pulmonary emboli, on Coumadin nicotine dependence. ? COPD allergic to cephalexin and vancomycin. HypoAlbuminemia- Urine Neg for protein. Low Fe Low B12 High A1C . . Plan Medium CHO diet B12 SQ IV Iron per ID local skin care ? Dc planning Subjective ROS Limited/Unobtainable: No Constitutional: Reports: malaise Objective Objective Last 24 Hour Vital Signs Date Time Temp Pulse Resp B/P (MAP) Pulse Ox O2 Delivery O2 Flow Rate FiO2 08/13/17 11:47 97.2 78 18 129/78 96 97.2 08/13/17 08:36 97.0 08/13/17 08:00 97.0 91 19 128/64 95 97.0 08/13/17 04:21 98 Nasal Cannula 2.0 08/13/17 04:21 97.9 83 19 130/77 98 97.9 08/13/17 02:43 97.5 08/13/17 01:44 97.5 08/12/17 23:56 97.5 79 18 110/65 95 97.5 08/12/17 23:56 95 Nasal Cannula 2.0 08/12/17 20:00 Nasal Cannula 2.0 08/12/17 20:00 97.3 86 18 114/71 95 97.3 08/12/17 19:56 97 Nasal Cannula 2.0 28 08/12/17 19:56 Nasal Cannula 2.0 28 08/12/17 19:56 86 18 Nasal Cannula 2.0 28 08/12/17 17:44 97.9 08/12/17 17:23 97.9 08/12/17 16:24 97.9 08/12/17 16:00 97.0 78 21 116/70 95 97.0 08/12/17 12:00 97.8 82 20 116/71 97 97.8 Intake and Output 08/12/17 08/13/17 19:00 07:00 Intake Total 920 ml 480 ml Balance 920 ml 480 ml Intake Oral 920 ml 480 ml # Voids 2 3 Laboratory Tests 08/13/17 05:40: Prothrombin Time 18.8H, Prothromb Time International Ratio 1.8H Height (Feet): 5 Height (Inches): 11.00 Weight (Pounds): 175 General Appearance: no apparent distress Objective no change KENTRELL WARREN Aug 13, 2017 11:59
--- NOTE | 2017-08-13 13:02 | Infectious Diseases Prog Note ---
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 yesterday Subjective ROS Limited/Unobtainable: No Constitutional: Reports: no symptoms Respiratory: Reports: no symptoms, dry cough Cardiovascular: Reports: no symptoms Gastrointestinal/Abdominal: Reports: no symptoms Musculoskeletal: Reports: pain, other - in right leg Allergies: Coded Allergies: VANCOMYCIN (Verified Allergy, Severe, rash, 08/05/17) CEPHALEXIN (Verified Allergy, Unknown, 08/04/17) Objective Vital Signs Last 24 Hour Vital Signs Date Time Temp Pulse Resp B/P (MAP) Pulse Ox O2 Delivery O2 Flow Rate FiO2 08/13/17 11:47 97.2 78 18 129/78 96 97.2 08/13/17 08:36 97.0 08/13/17 08:00 97.0 91 19 128/64 95 97.0 08/13/17 04:21 98 Nasal Cannula 2.0 08/13/17 04:21 97.9 83 19 130/77 98 97.9 08/13/17 02:43 97.5 08/13/17 01:44 97.5 08/12/17 23:56 97.5 79 18 110/65 95 97.5 08/12/17 23:56 95 Nasal Cannula 2.0 08/12/17 20:00 Nasal Cannula 2.0 08/12/17 20:00 97.3 86 18 114/71 95 97.3 08/12/17 19:56 97 Nasal Cannula 2.0 28 08/12/17 19:56 Nasal Cannula 2.0 28 08/12/17 19:56 86 18 Nasal Cannula 2.0 28 08/12/17 17:44 97.9 08/12/17 17:23 97.9 08/12/17 16:24 97.9 08/12/17 16:00 97.0 78 21 116/70 95 97.0 Height (Feet): 5 Height (Inches): 11.00 Weight (Pounds): 175 General Appearance: no acute distress HEENT: mucous membranes moist Respiratory/Chest: lungs clear Cardiovascular: normal rate Abdomen: soft, non tender Extremities: other - edema of legs Skin: ulcers, other - right foot Neurologic/Psychiatric: alert, oriented x 3, responsive Laboratory Tests Test 08/13/17 05:40 Prothrombin Time 18.8 SEC (9.30-11.50) H Prothromb Time International Ratio 1.8 (0.9-1.1) H Current Medications Medications (Trade) Dose Ordered Sig/Italo Route PRN Reason Start Time Stop Time Status Last Admin Dose Admin Acetaminophen (Tylenol) 650 mg Q4H PRN ORAL Mild Pain/Temp > 100.5 08/10/17 21:00 09/09/17 20:59 08/12/17 16:24 Acetaminophen/ Hydrocodone Bitart ([place] 5/325) 1 tab Q4H PRN ORAL severe pain 7-10 08/13/17 09:00 08/20/17 08:59 Albuterol Sulfate (Proventil MDI) 2 puff Q6H PRN INH Shortness of Breath 08/10/17 21:00 09/09/17 20:59 08/13/17 10:49 Clotrimazole (Lotrimin) 1 applic THREE TIMES A DAY TOPIC 08/11/17 09:00 09/09/17 17:59 08/13/17 08:44 Collagenase (Santyl) 1 applic DAILY TOPIC 08/11/17 09:00 09/09/17 08:59 08/13/17 08:43 Collagenase (Santyl) 1 applic PRN PRN TOPIC SOILAGE 08/10/17 21:00 09/09/17 20:59 08/11/17 14:38 Diphenhydramine HCl (Benadryl) 25 mg Q6H PRN ORAL Itching 08/10/17 21:00 09/04/17 20:59 Doxycycline Monohydrate (Vibramycin) 100 mg EVERY 12 HOURS ORAL 08/10/17 21:00 08/16/17 23:59 08/13/17 08:36 Enoxaparin Sodium (Lovenox) 80 mg Q12HR SUBQ 08/11/17 11:00 09/10/17 10:59 08/13/17 08:39 Fexofenadine HCl (Lawanda) 60 mg BID ORAL 08/11/17 09:00 09/03/17 17:59 08/13/17 08:35 Gabapentin (Neurontin) 600 mg QID ORAL 08/10/17 21:00 09/03/17 17:59 08/13/17 08:36 Lansoprazole (Prevacid) 30 mg DAILY ORAL 08/11/17 09:00 09/04/17 13:29 08/13/17 08:36 Levofloxacin (Levaquin) 500 mg DAILY ORAL 08/11/17 09:00 08/15/17 10:59 08/13/17 08:35 Mirtazapine (Remeron) 45 mg BEDTIME ORAL 08/10/17 21:00 09/03/17 20:59 08/12/17 20:29 Warfarin Sodium (Coumadin per pharmacy) 1 ea DAILY PRN MISC Per rx protocol 08/10/17 21:00 09/09/17 20:59 Warfarin Sodium (Coumadin) 15 mg COUMADIN ONCE ORAL 08/13/17 17:00 08/13/17 17:01 ANANT BRANDT Aug 13, 2017 13:02
[2017-08-13] MEDS ORDERED: Warfarin Sod 10 MG, Warfarin Sod 5 MG ORAL ONE ×2 (17:00)
--- NOTE | 2017-08-13 17:02 | Consultation ---
DATE OF CONSULTATION: 08/13/2017 PAIN MANAGEMENT CONSULTATION CONSULTING PHYSICIAN: Jennifer Fernandez M.D. REFERRING PHYSICIAN: Torsten Sandoval M.D. PHYSICIAN PRODUCTION TOOL ENGINEER: Khalida Levine CHIEF COMPLAINT: Right lower extremity pain. HISTORY OF PRESENT ILLNESS: This is a 57-year-old male, who is being seen on the Medical/Surgical floor of [facility] for initial comprehensive pain management consultation. The patient is reporting that he has been having severe right lower extremity pain for weeks with swelling and redness, an open wound noted. The pain is 10/10, describing the pain as sharp, stabbing, burning pain, increasing with movement and touch and nothing has been helping him with the pain. The patient is on Neurontin 300 tablets three times a day with minimal relief. Due to this, we were consulted so that the patient would have adequate pain control while here in the hospital. PAST MEDICAL HISTORY: DVT and pulmonary embolism. MEDICATIONS: Folic acid, mirtazapine, Atrovent, ferrous sulfate, albuterol, Coumadin and Tylenol. ALLERGIES: Cephalexin and vancomycin. SOCIAL HISTORY: Smokes tobacco, smokes marijuana as well as drinks alcohol occasionally. REVIEW OF SYSTEMS: Denies rash, fever, chills, sweating, dizziness, drowsiness, blurred vision, sore throat, or change in his weight. No shortness of breath. No nausea, vomiting, diarrhea, or blood in stool or urine. No bowel or bladder incontinence. No dysuria. He is complaining of right lower extremity pain. PHYSICAL EXAMINATION: GENERAL: Alert, awake, and oriented x3. VITAL SIGNS: Blood pressure 128/64, heart rate is 91, oxygen saturation is 95%, respirations 19, and temperature is 97 degrees Fahrenheit. HEENT: PERRLA. NECK: Range of motion is full in all directions. No tenderness to tenderness to paraspinal muscles. No adenopathy. LUNGS: Decreased breath sounds bilaterally. HEART: S1 and S2 regular. ABDOMEN: Benign. BACK: Range of motion is full on flexion and extension. EXTREMITIES: Upper extremity range of motion is full in all directions. Motor is intact. No cyanosis. No clubbing. No edema. Sensory is intact. Reflexes are unobtainable. No adenopathy. Lower extremity motion is decreased due to the patient's pain and condition with bandages noted on the right lower extremity. Redness seen and tenderness to palpation. Sensory is reduced. Deep tendon reflexes are unobtainable. No adenopathy. ASSESSMENT AND PLAN: This is a 57-year-old male with right foot pain, right foot cellulitis, right lower extremity deep vein thrombosis. The patient will be discontinued of the tramadol, which was started at 50 mg every four hours for severe pain and we will instead start on [place] 5/325 mg one tablet every four hours as needed for severe pain. The patient was discussed with Dr. Fernandez and Dr. Fernandez concurred. We will follow the patient. Thank you very much for the courtesy of this consultation. Jennifer Fernandez M.D. SPEEDY Levine DR: KYLER JOB#: [id number] CC:
--- NOTE | 2017-08-13 23:16 | General Progress Note ---
Assessment/Plan Assessment/Plan #. Right Lower extremity cellulitis. --> Continue antibiotics and pain management. --> Continues to improve. --> On clindamycin, patient allergic to vancomycin. --> Appreciate ID recs. #. Pulmonary embolism and deep venous thrombosis history. --> Improving, INR currently 1.8 --> He is on Coumadin. --> Continue to maintain INR between 2 and 3. --> Monitor closely. #. Anemia due to underlying chronic disease. --> Has not needed prbc, anemia is mild at this time. --> Continue to closely monitor. --> Anemia workup reviewed. --> Iron 22, TIBC 251, Ferritin 143, B12 141, Folate 19.5 --> Transfuse if hgb <7, Trend cbc daily. #. Coagulopathy due to the patient being on Coumadin. --> INR goal b/t 2 and 3. --> Continue on coumadin. #. Hyponatremia. --> Continue to closely monitor. Likely depletional. #. Nicotine dependence, likely chronic obstructive pulmonary disease related as well. #. Hypoalbuminemia, probably related severe protein-caloric malnutrition. Subjective Date patient seen: Aug 13, 2017 Constitutional: Denies: no symptoms, chills, diaphoresis, fever, malaise, weakness, other HEENT: Denies: no symptoms, eye pain, blurred vision, tearing, double vision, ear pain, ear discharge, nose pain, nose congestion, throat pain, throat swelling, mouth pain, mouth swelling, other Cardiovascular: Denies: no symptoms, chest pain, edema, irregular heart rate, lightheadedness, palpitations, syncope, other Respiratory: Denies: no symptoms, cough, orthopnea, shortness of breath, SOB with excertion, SOB at rest, sputum, stridor, wheezing, other Gastrointestinal/Abdominal: Denies: no symptoms, abdomen distended, abdominal pain, black stools, tarry stools, blood in stool, constipated, diarrhea, difficulty swallowing, nausea, poor appetite, poor fluid intake, rectal bleeding , vomiting, other Genitourinary: Denies: no symptoms, burning, discharge, frequency, flank pain, hematuria, incontinence, pain, urgency, other Neurologic/Psychiatric: Denies: no symptoms, anxiety, depressed, emotional problems, headache, numbness, paresthesia, pre-existing deficit, seizure, tingling, tremors, weakness, other Allergies: Coded Allergies: VANCOMYCIN (Verified Allergy, Severe, rash, 08/05/17) CEPHALEXIN (Verified Allergy, Unknown, 08/04/17) Subjective No major events. Pending discharge. Objective Last 24 Hour Vital Signs Date Time Temp Pulse Resp B/P (MAP) Pulse Ox O2 Delivery O2 Flow Rate FiO2 08/13/17 13:11 97.2 08/13/17 11:47 97.2 78 18 129/78 96 97.2 08/13/17 08:36 97.0 08/13/17 08:00 97.0 91 19 128/64 95 97.0 08/13/17 06:39 85 17 Nasal Cannula 2.0 08/13/17 06:39 98 Nasal Cannula 2.0 08/13/17 06:39 Nasal Cannula 2.0 08/13/17 04:21 98 Nasal Cannula 2.0 08/13/17 04:21 97.9 83 19 130/77 98 97.9 08/13/17 02:43 97.5 08/13/17 01:44 97.5 08/12/17 23:56 97.5 79 18 110/65 95 97.5 08/12/17 23:56 95 Nasal Cannula 2.0 Intake and Output 08/12/17 08/13/17 19:00 07:00 Intake Total 920 ml 480 ml Balance 920 ml 480 ml Intake Oral 920 ml 480 ml # Voids 2 3 Laboratory Tests 08/13/17 05:40: Prothrombin Time 18.8H, Prothromb Time International Ratio 1.8H Height (Feet): 5 Height (Inches): 11.00 Weight (Pounds): 175 General Appearance: no apparent distress EENT: normal ENT inspection Neck: normal alignment Cardiovascular: normal rate Respiratory/Chest: lungs clear Chance Lakhani Aug 13, 2017 23:16
--- NOTE | 2017-08-14 16:23 | Discharge Summary ---
Discharge Summary Hospital Course Date of Admission Aug 04, 2017 at 12:43 Date of Discharge Aug 13, 2017 at 14:00 Admitting Diagnosis cellulitis HPI Awais Quach is a 57 year old male who was admitted on Aug 04, 2017 at 12:43 for Cellulitis Hospital Course [id number] Discharge Discharge Disposition Patient was discharged to SNF/Subacute Facility(03) Discharge Diagnoses: Melissa Escalera NP Aug 14, 2017 16:23
--- NOTE | 2017-08-15 00:45 | Discharge Summary 2 SIG ---
DATE OF ADMISSION: 08/04/2017 DATE OF DISCHARGE: 08/13/2017 CONSULTANTS: 1. Rafa Summers M.D. 2. Jennifer Fernandez M.D. 3. Chance Lakhani M.D. 4. René Gore M.D. 5. Thad Canales M.D. 6. Devonte Zamora M.D. BRIEF HOSPITAL COURSE: The patient is a 57-year-old male who presented to ED complaining of right lower extremity pain with swelling and redness. The patient stated that it has been like that for quite a while and had been getting worse over the last week. He denied any fever or chills. He has a medical history significant for a prior DVT and PE and has been on Coumadin. On evaluation at ED, blood work did not show any leukocytosis. Hemoglobin was 12, hematocrit was 37. Sodium was 134. Troponin was negative. He had a chest x-ray done that showed no acute disease and EKG that was in normal sinus rhythm. He was admitted for cellulitis of the right leg with bilateral stasis dermatitis. He is allergic to cephalexin and had some reaction to vancomycin. He was started initially on clindamycin pending culture results. Hyponatremia was likely depletional. He was given NS bolus. He was noted to be hypoxic, however, chest x-ray was clear. He was given breathing treatments and was noted to have coagulopathy, INR of 2. He was continued on Coumadin with goal of 2 to 3. Anemia workup done showed anemia due to underlying chronic disease. Iron was 22, TIBC 251, ferritin 143, B12 141, and folate was 19. He did not require any blood transfusion. Hemoglobin was stable. He was seen by pain management and was given [place] for severe pain. He had episodes of tachycardia, which eventually resolved. Tachycardia possibly secondary to infection. There was no evidence of RV strain on echocardiogram and left ventricular ejection fraction was noted 65% to 70%. He had venous duplex of the right lower extremity that revealed an acute nonocclusive thrombus in the common femoral to popliteal vein. The patient was continued on Coumadin. Wound culture showed growth of Pseudomonas, Staphylococcus, and Streptococcus group C. Antibiotics were changed to Levaquin and doxycycline. He was also given clotrimazole topically three times a day. He was given IV iron and vitamin B12 subcutaneously. Hyponatremia improved. He was eventually discharged back to [facility]. He was then referred to SNF and the patient was accepted at [facility]. FINAL DIAGNOSES: 1. Right lower extremity cellulitis. 2. Acute and chronic deep vein thrombosis of the right leg. 3. Old pulmonary embolism, on anticoagulation. 4. Anemia due to underlying chronic disease. 5. Anemia due to iron deficiency. 6. Coagulopathy due to Coumadin use. 7. Hyponatremia. 8. Hypoalbuminemia, probably related to severe protein-calorie malnutrition. 9. Nicotine dependence, likely due to chronic obstructive pulmonary disease. 10. Stasis dermatitis. 11. Cellulitis due to MSSA, Pseudomonas, and Streptococcus group C. 12. Sinus tachycardia due to infection. 13. Low vitamin B12. DISPOSITION: The patient was discharged to SNF. DISCHARGE MEDICATIONS: Refer to medication list. Torsten Sandoval M.D. I have been assigned to dictate discharge summary on this account and I was not involved in the patient's management. Melissa Escalera N.P. DR: PETRA JOB#: [id number] CC: SAUNDRA
== END 2017-08-13 14:00 | DRG 383 ==
LOC: EDBD 10:37 → EDUNIT# 10:37 → EMR 11:50 → 4W 12:43 → EDBEDREQ 13:23 → 2E 21:32 → 4W 08-10 19:57
DX: L03.115 Cellulitis of right lower limb (principal); E43 Unspecified severe protein-calorie malnutrition; D68.9 Coagulation defect, unspecified; I82.411 Acute embolism and thrombosis of right femoral vein; E87.1 Hypo-osmolality and hyponatremia; I87.2 Venous insufficiency (chronic) (peripheral); F17.200 Nicotine dependence, unspecified, uncomplicated; J44.9 Chronic obstructive pulmonary disease, unspecified; Z79.01 Long term (current) use of anticoagulants; Z86.711 Personal history of pulmonary embolism; I82.431 Acute embolism and thrombosis of right popliteal vein; I82.511 Chronic embolism and thrombosis of right femoral vein; I82.531 Chronic embolism and thrombosis of right popliteal vein; D50.9 Iron deficiency anemia, unspecified; R09.02 Hypoxemia; F12.90 Cannabis use, unspecified, uncomplicated; R00.0 Tachycardia, unspecified; E53.8 Deficiency of other specified B group vitamins; E11.9 Type 2 diabetes mellitus without complications; R52 Pain, unspecified; B95.61 Methicillin susceptible Staphylococcus aureus infection as the cause of diseases classified elsewhere; B96.5 Pseudomonas (aeruginosa) (mallei) (pseudomallei) as the cause of diseases classified elsewhere
CPT/HCPCS: 36415; 36600; 71045; 80053; 80061; 81003; 82607; 82728; 82746; 82803; 82977; 83036; 83540; 83550; 83605; 83735; 83880; 84100; 84443; 84484; 84550; 85025; 85610; 86140; 87040; 87070; 87081; 87181; 87205; 93005; 93306; 93971; 94640; 94664; 94760; 99285; S0077

== ENCOUNTER 2017-12-07 16:25 | Inpatient (IN) | payer MEDICAID ==
[~2017-12-07] VITALS: Ht 182.9 cm; Wt 87.5 kg
[~2017-12-07 16:25] MED LIST: ALLEGRA ALLERGY60 M1 PO; ATROVENT HFA12.9 GM IH; BENADRYL25 M3 PO; CLOTRIMAZOLE15 GM TOPIC; COUMADIN7.5 MG ORAL; DOXY 100100 MG PO; DOXYCYCLINE HY200 MG PO; FEROSUL325 M1 PO; FOLIC ACID1 MG ORAL; GABAPENTIN600 MG ORAL; LEVAQUIN500 MG ORAL; LEVAQUIN750 MG ORAL; LORATADINE10 M3 PO; LOVENOX80 MG/0.8 SUBQ; MIRTAZAPINE15 M3 ORAL; NORCO 5-325 TA1 EACH ORAL; PREVACID30 MG ORAL; SANTYL30 GM TP; TYLENOL325 MG ORAL; VENTOLIN HFA18 GM INH; WARFARIN SODIUM10 MG ORAL
--- NOTE | 2017-12-07 16:29 | Emergency Room Report ---
History of Present Illness General Chief Complaint: General Complaint Source: Medical Record, EMS Present Illness HPI Patient presents with complaints of swelling to both legs patient is sent from nursing facility over the past several months the patient has had continued redness and swelling There is now discharge from both lower extremities Patient has history of DVT is on anticoagulation There was no reports of chest pain or shortness of breath No reports of any fevers Allergies: Coded Allergies: VANCOMYCIN (Verified Allergy, Severe, rash, 08/05/17) CEPHALEXIN (Verified Allergy, Unknown, 08/04/17) Patient History Past Medical History: see triage record Pertinent Family History: none Reviewed Nursing Documentation: PMH: Agreed; PSxH: Agreed Nursing Documentation-PMH Hx Cardiac Problems: No Hx COPD: Yes Hx Cancer: No Hx Gastrointestinal Problems: No Review of Systems All Other Systems: negative except mentioned in HPI Physical Exam Vital Signs Date Time Temp Pulse Resp B/P (MAP) Pulse Ox O2 Delivery O2 Flow Rate FiO2 12/07/17 15:57 97.7 96 16 113/71 98 Room Air 97.7 Sp02 EP Interpretation: reviewed, normal General Appearance: no apparent distress Head: normocephalic, atraumatic Eyes: bilateral eye PERRL, bilateral eye EOMI ENT: normal pharynx, no angioedema Respiratory: lungs clear, normal breath sounds Cardiovascular #1: regular rate, rhythm Gastrointestinal: non tender, soft Musculoskeletal: other - Significant edema bilaterally increased erythema, pulses are intact however Neurologic: alert, responsive Skin: other - As above Lymphatic: other - Significant edema bilaterally Procedures Central Line Central Line : Consent: Emergent Central Line Lumen: triple Maximal Sterile Barrier Tech: yes cap, yes mask, yes sterile gown, yes sterile gloves, yes large sterile sheet, yes hand hygiene, yes chlorhexidine prep Central Line Postion: femoral (R) Anesthesia: Lidocaine cc's of anesthesia: 4 Complications: none Central Line Post Position: sutured Attempts: One Patient Tolerated: Well Complications: None Medical Decision Making Diagnostic Impression: Primary Impression: Cellulitis ER Course Given the patient's history and presentation given the appearance of the lower extremities patient has concerning worsening cellulitis Venous stasis Patient had poor IV access requiring central line placement Requiring pain medication and broad-spectrum antibiotics Patient has known history of DVT repeat ultrasound has not been obtained and patient requires further inpatient care Labs Test 12/07/17 20:55 6/19/18 08:35 White Blood Count 9.6 K/UL (4.8-10.8) 8.0 K/UL (4.8-10.8) Red Blood Count 4.63 M/UL (4.70-6.10) 4.69 M/UL (4.70-6.10) Hemoglobin 12.0 G/DL (14.2-18.0) 12.3 G/DL (14.2-18.0) Hematocrit 37.8 % (42.0-52.0) 38.2 % (42.0-52.0) Mean Corpuscular Volume 82 FL (80-99) 81 FL (80-99) Mean Corpuscular Hemoglobin 25.8 PG (27.0-31.0) 26.3 PG (27.0-31.0) Mean Corpuscular Hemoglobin Concent 31.6 G/DL (32.0-36.0) 32.3 G/DL (32.0-36.0) Red Cell Distribution Width 15.4 % (11.6-14.8) 15.3 % (11.6-14.8) Platelet Count 458 K/UL (150-450) 447 K/UL (150-450) Mean Platelet Volume 5.6 FL (6.5-10.1) 6.1 FL (6.5-10.1) Neutrophils (%) (Auto) 54.5 % (45.0-75.0) 67.3 % (45.0-75.0) Lymphocytes (%) (Auto) 30.1 % (20.0-45.0) 18.0 % (20.0-45.0) Monocytes (%) (Auto) 6.6 % (1.0-10.0) 9.1 % (1.0-10.0) Eosinophils (%) (Auto) 7.6 % (0.0-3.0) 4.8 % (0.0-3.0) Basophils (%) (Auto) 1.1 % (0.0-2.0) 0.8 % (0.0-2.0) Prothrombin Time 15.8 SEC (9.30-11.50) Prothromb Time International Ratio 1.5 (0.9-1.1) Activated Partial Thromboplast Time 40 SEC (23-33) Sodium Level 133 MMOL/L (136-145) 133 MMOL/L (136-145) Potassium Level 3.7 MMOL/L (3.5-5.1) 4.1 MMOL/L (3.5-5.1) Chloride Level 101 MMOL/L (98-107) 101 MMOL/L (98-107) Carbon Dioxide Level 25 MMOL/L (21-32) 26 MMOL/L (21-32) Anion Gap 8 mmol/L (5-15) 6 mmol/L (5-15) Blood Urea Nitrogen 17 mg/dL (7-18) 18 mg/dL (7-18) Creatinine 1.1 MG/DL (0.55-1.30) 1.0 MG/DL (0.55-1.30) Estimat Glomerular Filtration Rate > 60 mL/min (>60) > 60 mL/min (>60) Glucose Level 104 MG/DL (74-106) 123 MG/DL (74-106) Lactic Acid Level 1.00 mmol/L (0.4-2.0) Calcium Level 8.6 MG/DL (8.5-10.1) 8.5 MG/DL (8.5-10.1) Total Bilirubin 0.4 MG/DL (0.2-1.0) 0.5 MG/DL (0.2-1.0) Aspartate Amino Transf (AST/SGOT) 22 U/L (15-37) 19 U/L (15-37) Alanine Aminotransferase (ALT/SGPT) 17 U/L (12-78) 16 U/L (12-78) Alkaline Phosphatase 97 U/L (46-116) 90 U/L (46-116) Total Creatine Kinase 74 U/L (26-308) Creatine Kinase MB 1.0 NG/ML (0.0-3.6) Creatine Kinase MB Relative Index 1.3 Troponin I 0.000 ng/mL (0.000-0.056) Total Protein 8.3 G/DL (6.4-8.2) 7.8 G/DL (6.4-8.2) Albumin 2.7 G/DL (3.4-5.0) 2.4 G/DL (3.4-5.0) Globulin 5.6 g/dL 5.4 g/dL Albumin/Globulin Ratio 0.5 (1.0-2.7) 0.4 (1.0-2.7) Rhythm Strip Diag. Results EP Interpretation: yes Rate: 88 Rhythm: NSR, no PVC's, no ectopy Chest X-Ray Diagnostic Results Chest X-Ray Diagnostic Results : Chest X-Ray Ordered: Yes # of Views/Limited/Complete: 1 View Indication: Chest Pain EP Interpretation: Yes Interpretation: no consolidation, no effusion, no pneumothorax Impression: No acute disease Electronically Signed by: Torsten Barbosa DO Last Vital Signs Date Time Temp Pulse Resp B/P (MAP) Pulse Ox O2 Delivery O2 Flow Rate FiO2 12/07/17 15:57 97.7 96 16 113/71 98 Room Air 97.7 Status: improved Disposition: ADMITTED INPATIENT Condition: Serious Torsten Barbosa DO Dec 07, 2017 16:29
[2017-12-07] MEDS ORDERED: PREVACID15 MG ORAL (16:35)
[2017-12-07] MEDS ORDERED: COUMADIN4 MG ORAL (16:35)
[2017-12-07] MEDS ORDERED: GABAPENTIN600 MG ORAL (16:35)
[2017-12-07] MEDS ORDERED: Bacitracin Oint UD TOPIC ONE (16:45)
--- NOTE | 2017-12-07 17:37 | Diagnostic Imaging Report ---
Indication: Chest pain Comparison: 08/04/2017 A single view chest radiograph was obtained. Findings: Borderline cardiomegaly. Mediastinal contours appear sharp. No definite focal airspace consolidation, pleural effusion or pneumothorax. No acute osseous abnormality seen. Impression: No radiographic evidence of acute cardiopulmonary disease.
[2017-12-07] MEDS ORDERED: BREO ELLIPTA 11 EACH IH (17:46)
[2017-12-07] MEDS ORDERED: LANSOPRAZOLE30 MG ORAL (17:46)
[2017-12-07 19:10] VITALS: BP 115/70
[2017-12-07] MEDS ORDERED: HYDROcodone/Acetamin 10/325 tab ORAL ONE (19:30)
[2017-12-07] MEDS ORDERED: Lidocaine 1% 10mg/ml/Epi 0.005mg/ml 30ml vial INJ ONE (19:30)
[2017-12-07 20:05] VITALS: BP 120/72
[2017-12-07] MEDS ORDERED: Morphine Sulfate 4mg/ml Inj IVP ONE (20:15)
[2017-12-07] MEDS ORDERED: Clindamycin 600mg 50 ML IVPB ONE (20:30)
[2017-12-07 21:28] LABS: ANION GAP 8 mmol/L (5-15); BLOOD UREA NITROGEN 17 mg/dL (7-18); CALCIUM 8.6 MG/DL (8.5-10.1); CARBON DIOXIDE 25 MMOL/L (21-32); CHLORIDE 101 MMOL/L (98-107); CREATININE 1.1 MG/DL (0.55-1.30); INR 1.5 (0.9-1.1); POTASSIUM 3.7 MMOL/L (3.5-5.1); SODIUM 133 MMOL/L (136-145)
[2017-12-07 21:29] LABS: BASOPHILS % (AUTO) 1.1 % (0.0-2.0); EOSINOPHILS % (AUTO) 7.6 % (0.0-3.0); HEMATOCRIT 37.8 % (42.0-52.0); LYMPHOCYTES % (AUTO) 30.1 % (20.0-45.0); MEAN CORPUSCULAR VOLUME 82 FL (80-99); MONOCYTES % (AUTO) 6.6 % (1.0-10.0); NEUTROPHILS % (AUTO) 54.5 % (45.0-75.0); PLATELET COUNT 458 K/UL (150-450); RED BLOOD COUNT 4.63 M/UL (4.70-6.10); RED CELL DISTRIBUTION WIDTH 15.4 % (11.6-14.8); WHITE BLOOD COUNT 9.6 K/UL (4.8-10.8)
[2017-12-07 21:34] VITALS: BP 130/72
[2017-12-07 21:41] LABS: ALANINE AMINOTRANSFERASE 17 U/L (12-78); ALBUMIN 2.7 G/DL (3.4-5.0); ALBUMIN/GLOBULIN RATIO 0.5 (1.0-2.7); ALKALINE PHOSPHATASE 97 U/L (46-116); ASPARTATE AMINO TRANSFERASE 22 U/L (15-37); BILIRUBIN,TOTAL 0.4 MG/DL (0.2-1.0); CREATINE KINASE 74 U/L (26-308)
[2017-12-07] MEDS ORDERED: Nitroglycerin Subl 0.4mg tab SL PRN (22:30)
[2017-12-07] MEDS ORDERED: Albuterol/Ipratropium 3ml neb HHN PRN (22:30)
[2017-12-07] MEDS ORDERED: Miralax 17gm pkt ORAL PRN (22:30)
[2017-12-07 23:20] VITALS: BP 127/76
[2017-12-08] VITALS (7 sets, daily range): BP systolic 101–127; BP diastolic 55–70
[2017-12-08] MEDS: Aztreonam Inj 1 GM in NS 50 ML IVPB SCH ×3 (06:00→21:28)
[2017-12-08] MEDS: NovoLOG Insulin Flexpen SUBQ SCH ×4 (06:30→21:00)
[2017-12-08 08:51] LABS: BASOPHILS % (AUTO) 0.8 % (0.0-2.0); EOSINOPHILS % (AUTO) 4.8 % (0.0-3.0); HEMATOCRIT 38.2 % (42.0-52.0); HEMOGLOBIN 12.3 G/DL (14.2-18.0); MEAN CORPUSCULAR VOLUME 81 FL (80-99); MONOCYTES % (AUTO) 9.1 % (1.0-10.0); NEUTROPHILS % (AUTO) 67.3 % (45.0-75.0); PLATELET COUNT 447 K/UL (150-450); RED BLOOD COUNT 4.69 M/UL (4.70-6.10); RED CELL DISTRIBUTION WIDTH 15.3 % (11.6-14.8)
[2017-12-08] MEDS: Bactrim-DS 1 tab ORAL SCH ×2 (08:54→17:00)
[2017-12-08] MEDS: Morphine Sulfate 2mg/ml Inj IVP PRN (08:56)
[2017-12-08] MEDS: Heparin 5000 units/ml inj SUBQ SCH ×2 (08:56→21:33)
[2017-12-08 09:40] LABS: ALANINE AMINOTRANSFERASE 16 U/L (12-78); ALBUMIN 2.4 G/DL (3.4-5.0); ALBUMIN/GLOBULIN RATIO 0.4 (1.0-2.7); ALKALINE PHOSPHATASE 90 U/L (46-116); ANION GAP 6 mmol/L (5-15); ASPARTATE AMINO TRANSFERASE 19 U/L (15-37); BILIRUBIN,TOTAL 0.5 MG/DL (0.2-1.0); BLOOD UREA NITROGEN 18 mg/dL (7-18); CALCIUM 8.5 MG/DL (8.5-10.1); CARBON DIOXIDE 26 MMOL/L (21-32); CHLORIDE 101 MMOL/L (98-107); POTASSIUM 4.1 MMOL/L (3.5-5.1); SODIUM 133 MMOL/L (136-145)
--- NOTE | 2017-12-08 12:04 | Consultation ---
History of Present Illness General Date patient seen: Dec 08, 2017 Chief Complaint: General Complaint Present Illness HPI 57 y/o M with hx of DVT, COPD, [facility] resident presents with b/l leg swelling, redness and discharge No CP, SOB, fevers Afebrile, no leukocytosis At RA CXR neg. Allergies: Coded Allergies: VANCOMYCIN (Verified Allergy, Severe, rash, 08/05/17) CEPHALEXIN (Verified Allergy, Unknown, 08/04/17) Medication History Scheduled Ferrous Sulfate (Ferosul), 325 MG PO BID, (Reported) Folic Acid* (Folic Acid*), 1 MG ORAL DAILY, (Reported) Gabapentin* (Gabapentin*), 600 MG ORAL QID, (Reported) Lansoprazole* (Lansoprazole*), 30 MG ORAL DAILY, (Reported) Mirtazapine* (Mirtazapine*), 45 MG ORAL DAILY, (Reported) Warfarin Sod* (Coumadin*), 8 MG ORAL DAILY, (Reported) Miscellaneous Medications Fluticasone/Vilanterol (Breo Ellipta 100-25 Mcg INH), 1 EACH IH, (Reported) Discontinued Medications Acetaminophen (Tylenol), 650 MG ORAL Q4HR PRN for Mild Pain (Pain Scale 1-3), ( Reported) Discontinued Reason: Pt stopped taking med Albuterol Sulfate (Ventolin Hfa), 2 PUFFS INH EVERY 6 HOURS PRN for Shortness of Breath, (Reported) Discontinued Reason: Pt stopped taking med Clotrimazole* (Lotrimin*), 1 APPLIC TOPIC TWICE A DAY, (Reported) Discontinued Reason: Pt stopped taking med Collagenase Clostridium Hist. (Santyl), 1 APPLIC TP DAILY, (Reported) Discontinued Reason: Pt stopped taking med Diphenhydramine HCl (Benadryl), 25 MG PO Q6HR PRN for itching, (Reported) Discontinued Reason: Pt stopped taking med Doxycycline Hyclate (Doxycycline Hyclate), 100 MG PO BID, (Reported) Discontinued Reason: Pt stopped taking med Enoxaparin (Lovenox), 80 MG SUBQ Q12HR, (Reported) Discontinued Reason: Pt stopped taking med Fexofenadine Hcl (Lawanda Allergy), 60 MG PO BID, (Reported) Discontinued Reason: Pt stopped taking med Hydrocodone Bit/Acetaminophen 5-325* ([place] 5-325*), 1 TAB ORAL Q4H PRN for For Pain, (Reported) Discontinued Reason: Pt stopped taking med Ipratropium [place] (Atrovent Hfa), 1 PUFF IH QID, (Reported) Discontinued Reason: Pt stopped taking med Lansoprazole* (Prevacid*), 30 MG ORAL DAILY, (Reported) Discontinued Reason: Pt stopped taking med Lansoprazole* (Prevacid*), 15 MG ORAL DAILY, (Reported) Discontinued Reason: Medication dose changed Levofloxacin* (Levaquin*), 500 MG ORAL DAILY, (Reported) Discontinued Reason: Therapy completed Levofloxacin* (Levaquin*), 750 MG ORAL DAILY, (Reported) Discontinued Reason: Therapy completed Loratadine (Loratadine), 10 MG PO DAILY, (Reported) Discontinued Reason: Pt stopped taking med Warfarin Sod (Coumadin*), 15 MG ORAL BEFORE DINNER, (Reported) Discontinued Reason: Medication dose changed Warfarin Sod (Coumadin*), 15 MG ORAL BEFORE DINNER, (Reported) Discontinued Reason: Medication dose changed Warfarin Sod* (Warfarin Sod*), 10 MG ORAL DAILY, (Reported) Discontinued Reason: Medication dose changed Patient History Healthcare decision maker Resuscitation status Advanced Directive on File Patient History Narrative PMhx: as above Shx: reviewed Fhx: non contributory Review of Systems All Other Systems: negative except mentioned in HPI Physical Exam Physical Exam Narrative General Appearance: no apparent distress Head: normocephalic, atraumatic Eyes: bilateral eye PERRL, bilateral eye EOMI ENT: normal pharynx, no angioedema Respiratory: lungs clear, normal breath sounds Cardiovascular : regular rate, rhythm Gastrointestinal: non tender, soft Musculoskeletal: other - Significant edema bilaterally increased erythema with skin denuation on both feet on dorsal aspect and fouls smelling odor; small ulceration in L foot on metatarsal area Neurologic: alert, responsive Skin: other - As above Lymphatic: other - Significant edema bilaterally Last 24 Hour Vital Signs Date Time Temp Pulse Resp B/P (MAP) Pulse Ox O2 Delivery O2 Flow Rate FiO2 12/08/17 09:26 98.3 12/08/17 08:56 98.3 12/08/17 08:43 98.3 89 20 121/61 91 98.3 12/08/17 07:30 83 16 Room Air 21 12/08/17 04:28 97.7 92 20 120/70 92 Room Air 97.7 12/08/17 00:23 97.5 80 20 119/70 92 Room Air 97.5 12/08/17 00:20 97.5 82 16 127/69 99 Room Air 97.5 12/08/17 00:10 97.5 82 16 127/69 99 Room Air 97.5 12/07/17 23:20 87 17 127/76 98 Room Air 12/07/17 21:34 89 20 130/72 99 Room Air 12/07/17 20:11 97.7 12/07/17 20:11 97.7 12/07/17 20:05 88 18 120/72 97 Room Air 12/07/17 19:10 97.8 80 18 115/70 98 Room Air 97.8 12/07/17 15:57 97.7 96 16 113/71 98 Room Air 97.7 Intake and Output 12/07/17 12/08/17 19:00 07:00 Intake Total 0 ml Output Total 600 ml Balance 0 ml -600 ml Intake Oral 0 ml Output Urine Total 600 ml # Voids 4 # Bowel Movements 1 Laboratory Tests Test 12/07/17 20:55 12/08/17 08:35 White Blood Count 9.6 K/UL (4.8-10.8) 8.0 K/UL (4.8-10.8) Red Blood Count 4.63 M/UL (4.70-6.10) L 4.69 M/UL (4.70-6.10) L Hemoglobin 12.0 G/DL (14.2-18.0) L 12.3 G/DL (14.2-18.0) L Hematocrit 37.8 % (42.0-52.0) L 38.2 % (42.0-52.0) L Mean Corpuscular Volume 82 FL (80-99) 81 FL (80-99) Mean Corpuscular Hemoglobin 25.8 PG (27.0-31.0) L 26.3 PG (27.0-31.0) L Mean Corpuscular Hemoglobin Concent 31.6 G/DL (32.0-36.0) L 32.3 G/DL (32.0-36.0) Red Cell Distribution Width 15.4 % (11.6-14.8) H 15.3 % (11.6-14.8) H Platelet Count 458 K/UL (150-450) H 447 K/UL (150-450) Mean Platelet Volume 5.6 FL (6.5-10.1) L 6.1 FL (6.5-10.1) L Neutrophils (%) (Auto) 54.5 % (45.0-75.0) 67.3 % (45.0-75.0) Lymphocytes (%) (Auto) 30.1 % (20.0-45.0) 18.0 % (20.0-45.0) L Monocytes (%) (Auto) 6.6 % (1.0-10.0) 9.1 % (1.0-10.0) Eosinophils (%) (Auto) 7.6 % (0.0-3.0) H 4.8 % (0.0-3.0) H Basophils (%) (Auto) 1.1 % (0.0-2.0) 0.8 % (0.0-2.0) Prothrombin Time 15.8 SEC (9.30-11.50) H Prothromb Time International Ratio 1.5 (0.9-1.1) H Activated Partial Thromboplast Time 40 SEC (23-33) H Sodium Level 133 MMOL/L (136-145) L 133 MMOL/L (136-145) L Potassium Level 3.7 MMOL/L (3.5-5.1) 4.1 MMOL/L (3.5-5.1) Chloride Level 101 MMOL/L (98-107) 101 MMOL/L (98-107) Carbon Dioxide Level 25 MMOL/L (21-32) 26 MMOL/L (21-32) Anion Gap 8 mmol/L (5-15) 6 mmol/L (5-15) Blood Urea Nitrogen 17 mg/dL (7-18) 18 mg/dL (7-18) Creatinine 1.1 MG/DL (0.55-1.30) 1.0 MG/DL (0.55-1.30) Estimat Glomerular Filtration Rate > 60 mL/min (>60) > 60 mL/min (>60) Glucose Level 104 MG/DL (74-106) 123 MG/DL (74-106) H Lactic Acid Level 1.00 mmol/L (0.4-2.0) Calcium Level 8.6 MG/DL (8.5-10.1) 8.5 MG/DL (8.5-10.1) Total Bilirubin 0.4 MG/DL (0.2-1.0) 0.5 MG/DL (0.2-1.0) Aspartate Amino Transf (AST/SGOT) 22 U/L (15-37) 19 U/L (15-37) Alanine Aminotransferase (ALT/SGPT) 17 U/L (12-78) 16 U/L (12-78) Alkaline Phosphatase 97 U/L (46-116) 90 U/L (46-116) Total Creatine Kinase 74 U/L (26-308) Creatine Kinase MB 1.0 NG/ML (0.0-3.6) Creatine Kinase MB Relative Index 1.3 Troponin I 0.000 ng/mL (0.000-0.056) Total Protein 8.3 G/DL (6.4-8.2) H 7.8 G/DL (6.4-8.2) Albumin 2.7 G/DL (3.4-5.0) L 2.4 G/DL (3.4-5.0) L Globulin 5.6 g/dL 5.4 g/dL Albumin/Globulin Ratio 0.5 (1.0-2.7) L 0.4 (1.0-2.7) L Height (Feet): 6 Height (Inches): 0.00 Weight (Pounds): 210 Medications Current Medications Medications (Trade) Dose Ordered Sig/Italo Route PRN Reason Start Time Stop Time Status Last Admin Dose Admin Acetaminophen (Tylenol) 650 mg Q4H PRN ORAL fever 12/07/17 22:30 01/06/18 22:29 Albuterol/ Ipratropium (Albuterol/ Ipratropium) 3 ml EVERY 4 HOURS PRN HHN Shortness of Breath 12/07/17 22:30 12/12/17 22:29 Aztreonam 1 gm/ Sodium Chloride 50 ml @ 100 mls/hr EVERY 8 HOURS IVPB 12/08/17 06:00 12/15/17 05:59 Dextrose (Dextrose 50%) STAT PRN IV Hypoglycemia 12/07/17 22:30 01/06/18 22:29 Gabapentin (Neurontin) 600 mg QID ORAL 12/08/17 09:00 01/07/18 08:59 12/08/17 08:54 Heparin Sodium (Porcine) (Heparin 5000 units/ml) 5,000 units EVERY 12 HOURS SUBQ 12/08/17 09:00 01/07/18 08:59 12/08/17 08:56 Insulin Aspart (NovoLOG) BEFORE MEALS AND HS SUBQ 12/08/17 06:30 01/07/18 06:29 Mirtazapine (Remeron) 45 mg DAILY ORAL 12/08/17 09:00 01/07/18 08:59 12/08/17 08:55 Morphine Sulfate (Morphine Sulfate) 2 mg EVERY 4 HOURS PRN IVP Moderate Pain (Pain Scale 4-6) 12/07/17 22:30 12/14/17 22:29 12/08/17 08:56 Nitroglycerin (Ntg) 0.4 mg Q5M PRN SL Prn Chest Pain 12/07/17 22:30 01/06/18 22:29 Ondansetron HCl (Zofran) 4 mg Q6H PRN IVP Nausea & Vomiting 12/07/17 22:30 01/06/18 22:29 Polyethylene Glycol (Miralax) 17 gm DAILYPRN PRN ORAL Constipation 12/07/17 22:30 01/06/18 22:29 Temazepam (Restoril) 15 mg HSPRN PRN ORAL Insomnia 12/07/17 22:30 12/14/17 22:29 Trimethoprim/ Sulfamethoxazole (Bactrim-DS) 1 tab TWICE A DAY ORAL 12/08/17 09:00 12/15/17 08:59 12/08/17 08:54 Assessment/Plan Assessment/Plan Abx: Clinda x1 12/07 Bactrim 12/08- Aztreonam 12/08- Assessment: Mod- severe B/l leg Cellulitis, w/ skin denudation on b/l feet, small L foot dorsal ulcer- on background of chronic lymphdema/ +foul smelling Afebrile, no leukocytosis DVT COPD [facility] resident [place] and [place] allergy Plan: -Continue Bactrim and Aztreonam and add Flagyl for cellulitis -wound cx -Podiatry eval -f/u cx -Monitor CBC/BMP, temperatures -wound care per hospital protocol Thank you for this consultation. Will continue to monitor off abx. Discussed with ANNETTE. Leatha Choi M.D. Dec 08, 2017 12:04
[2017-12-08] MEDS ORDERED: metroNIDAZOLE 500mg tab ORAL SCH (15:00)
--- NOTE | 2017-12-08 18:06 | Consultation ---
Consult Note Assessment/Plan A/ 1) Cellulitis bilateral lower extremities 2) Non pressure ulcers bilateral feet/ankles 3) DM P/ 1) Will change wound care orders 2) Will order Arterial doppler 3) Cont abx per ID 4) Will follow Thank you Rajeev Olsen DPM Dec 08, 2017 18:06
--- NOTE | 2017-12-08 19:30 | History and Physical Report ---
DATE OF ADMISSION: 12/08/2017 CONSULTANTS: 1. Bryant Antoine M.D. 2. Prem Thompson M.D. 3. Rajeev Olsen D.P.M. CHIEF COMPLAINT: Bilateral lower extremity cellulitis and wound. BRIEF HISTORY: This is a 57-year-old male, who lives in a board and care presents with a history of bilateral leg wounds and cellulitis getting worse, came to [place], diagnosed with the above, and admitted to medical floor for further treatment. Currently, calm in bed. No complaint. No chest pain. No shortness of breath. No nausea, vomiting, or diarrhea. PAST MEDICAL HISTORY: COPD and edema. He also has diabetes. PAST SURGICAL HISTORY: Finger surgery. MEDICATIONS: Neurontin, Remeron, heparin, Bactrim, NovoLog, albuterol, Tylenol, morphine, MiraLAX, Restoril, and Zofran. ALLERGIES: Cephalexin and vancomycin. SOCIAL HISTORY: Positive smoke. Positive alcohol. Positive marijuana use. PHYSICAL EXAMINATION: GENERAL: Calm in bed, oriented x2, and in no acute distress. Diabetes. VITAL SIGNS: Show temperature is 98, pulse 79, respirations 20, and blood pressure 120/65. CARDIOVASCULAR: No murmurs. LUNGS: Poor air exchange. ABDOMEN: Bowel sounds distant. EXTREMITIES: No cyanosis or clubbing. 1+ edema. Bilateral wound dressing clean and dry. Redness up to mid black[place] and slightly swollen. LABORATORY DATA: Laboratories, at this time, show hemoglobin 12.3, otherwise CBC is normal. BMP shows sodium 133 and glucose 123. Troponin 0.00. Albumin 2.4. INR is 1.5. PTT is 40. ASSESSMENT: 1. Bilateral lower extremity cellulitis. 2. Edema. 3. Chronic obstructive pulmonary disease. 4. Hypoalbuminemia. 5. Diabetes. 6. Anemia. 7. Encephalopathy. PLAN: 1. Continue premeds. 2. OT, PT, and dietary followup. 3. Wound care. 4. Antibiotics per Infectious Disease. 5. O2 and pulmonary treatment as needed. 6. Blood sugar control. 7. Dietary followup. 8. Pain control. 9. Dr. Antoine, Dr. Thompson, Dr. Olsen, and Dr. Santamaria to consult. 10. We will continue to follow this patient medically. Miguel Angel Carlos Nolan DR: ELLEN JOB#: [id number] CC:
--- NOTE | 2017-12-08 20:45 | Consultation ---
DATE OF CONSULTATION: 12/08/2017 CONSULTING PHYSICIAN: Rajeev Olsen D.P.M. REQUESTING PHYSICIAN: Miguel Angel Nolan D.O. REASON FOR CONSULTATION: Cellulitis of bilateral lower extremities with ulcers as well as diabetes mellitus. HISTORY OF PRESENT ILLNESS: The patient is a 57-year-old male, who was admitted to [facility] on 12/07/2017 for bilateral leg cellulitis. The patient states that he has been having pain in his legs since April, , and which led him to this hospitalization after 8 months. The patient currently denies any fevers, chills, nausea, or vomiting, but does specify equal pain in bilateral lower extremities. PAST MEDICAL HISTORY: Significant for hypertension, chronic obstructive pulmonary disease, and diabetes mellitus. MEDICATIONS: Per MAR and include Flagyl, Neurontin, heparin, Bactrim, and aztreonam. ALLERGIES: He is allergic to cephalexin and vancomycin. SOCIAL HISTORY: The patient resides in a halfway facility. FAMILY HISTORY: Noncontributory. REVIEW OF SYSTEMS: HEENT: The patient denies any headaches, blurred vision, or ringing in the ears. CARDIORESPIRATORY: The patient denies any chest pain or shortness of breath. GENITOURINARY: The patient denies any urgency, frequency, burning upon urination, or hematuria. GASTROINTESTINAL: The patient denies any constipation, diarrhea, or blood in stool. PHYSICAL EXAMINATION: VITAL SIGNS: Temperature is 98.2 and he has been afebrile past 24 hours. Pulse of 86, respirations 20, blood pressure is 108/67, and saturating 92% on room air. LOWER EXTREMITY: Vascular, nonpalpable pedal pulses noted bilaterally. Feet are excessively warm bilaterally. There is nonpitting edema noted bilaterally. No cyanosis is noted. DERMATOLOGICAL: There is a full-thickness wounds noted on bilateral feet notably on the bilateral ankles on the dorsum of bilateral feet. There is no bone or tendon exposed. There is malodor at both sites. Scant serous drainage is noted. Bilateral lower extremity erythema is noted. NEUROLOGICAL: Protective threshold is normal. Reflexes are normal. MUSCULOSKELETAL: He has 4/5 muscle strength noted in anterior lateral and posterior muscle groups of bilateral lower extremities. No gross deformities are noted. LABORATORY DATA: White blood cell count is 8.0 and has had no leukocytosis during this admission. H and H is 12.3 and 38.2 and platelet count is 447,000. Glucose is 123. Lactic acid is 1.00. Potassium is 4.1, BUN 18, creatinine is 1.0, and albumin is 2.4. INR is 1.5. ASSESSMENT: 1. Cellulitis of bilateral lower extremities. 2. Non-pressure ulcers in bilateral feet and ankles. 3. Diabetes mellitus. PLAN: 1. We will change wound care orders to consist of cleansing all the wounds with hydrogen peroxide and applying Xeroform and dry dressing daily. We will order arterial ultrasound to assess vascular status. 2. Continue antibiotics per ID. 3. We will follow. Thank you for the courtesy of this consultation. Rajeev Olsen D.P.M. DR: DEEPIKA JOB#: [id number] CC:
[2017-12-08] MEDS: metroNIDAZOLE 500mg tab ORAL SCH (21:26)
[2017-12-08] MEDS: Dyna-Hex 2% Top Sol 2oz TOPIC SCH (23:47)
[2017-12-09] VITALS (7 sets, daily range): BP systolic 113–145; BP diastolic 65–94
[2017-12-09] MEDS: Morphine Sulfate 2mg/ml Inj IVP PRN ×3 (03:57→13:57)
[2017-12-09] MEDS: Aztreonam Inj 1 GM in NS 50 ML IVPB SCH ×3 (06:01→21:32)
[2017-12-09] MEDS: NovoLOG Insulin Flexpen SUBQ SCH ×4 (06:02→21:00)
[2017-12-09] MEDS: metroNIDAZOLE 500mg tab ORAL SCH ×3 (06:02→21:32)
[2017-12-09 06:40] LABS: BASOPHILS % (AUTO) 0.9 % (0.0-2.0); EOSINOPHILS % (AUTO) 6.6 % (0.0-3.0); HEMATOCRIT 37.3 % (42.0-52.0); LYMPHOCYTES % (AUTO) 22.3 % (20.0-45.0); MEAN CORPUSCULAR VOLUME 82 FL (80-99); MONOCYTES % (AUTO) 9.7 % (1.0-10.0); NEUTROPHILS % (AUTO) 60.5 % (45.0-75.0); PLATELET COUNT 441 K/UL (150-450); RED BLOOD COUNT 4.54 M/UL (4.70-6.10); RED CELL DISTRIBUTION WIDTH 15.5 % (11.6-14.8); WHITE BLOOD COUNT 7.7 K/UL (4.8-10.8)
[2017-12-09 06:56] LABS: ANION GAP 8 mmol/L (5-15); BLOOD UREA NITROGEN 12 mg/dL (7-18); CALCIUM 8.7 MG/DL (8.5-10.1); CARBON DIOXIDE 25 MMOL/L (21-32); CHLORIDE 101 MMOL/L (98-107); CREATININE 1.1 MG/DL (0.55-1.30); POTASSIUM 3.9 MMOL/L (3.5-5.1); SODIUM 134 MMOL/L (136-145)
--- NOTE | 2017-12-09 07:12 | Cardiology Report ---
APPROVED REPORT EKG Measurement Heart [id number] ID [id number] Sinus rhythm with occasional premature ventricular complexes Possible Left atrial enlargement Borderline ECG
--- NOTE | 2017-12-09 08:36 | Consultation ---
Consult Note Consult Note [id number] Job ID Chance Lakhani MD Dec 09, 2017 08:36
[2017-12-09] MEDS: Bactrim-DS 1 tab ORAL SCH ×2 (08:37→21:32)
[2017-12-09] MEDS ORDERED: Enoxaparin Sodium 300mg/3ml vial SUBQ SCH ×3 (10:00)
[2017-12-09] MEDS: Enoxaparin 100mg Inj SUBQ SCH (10:45)
[2017-12-09] MEDS: Enoxaparin 40mg Inj SUBQ SCH (10:47)
--- NOTE | 2017-12-09 14:17 | Consultation ---
History of Present Illness General Date patient seen: Dec 08, 2017 Chief Complaint: General Complaint Present Illness Allergies: Coded Allergies: VANCOMYCIN (Verified Allergy, Severe, red man syndrome, 12/08/17) CEPHALEXIN (Verified Allergy, Unknown, Hives, 12/08/17) Medication History Scheduled Ferrous Sulfate (Ferosul), 325 MG PO BID, (Reported) Folic Acid* (Folic Acid*), 1 MG ORAL DAILY, (Reported) Gabapentin* (Gabapentin*), 600 MG ORAL QID, (Reported) Lansoprazole* (Lansoprazole*), 30 MG ORAL DAILY, (Reported) Mirtazapine* (Mirtazapine*), 45 MG ORAL DAILY, (Reported) Warfarin Sod* (Coumadin*), 8 MG ORAL DAILY, (Reported) Miscellaneous Medications Fluticasone/Vilanterol (Breo Ellipta 100-25 Mcg INH), 1 EACH IH, (Reported) Discontinued Medications Acetaminophen (Tylenol), 650 MG ORAL Q4HR PRN for Mild Pain (Pain Scale 1-3), ( Reported) Discontinued Reason: Pt stopped taking med Albuterol Sulfate (Ventolin Hfa), 2 PUFFS INH EVERY 6 HOURS PRN for Shortness of Breath, (Reported) Discontinued Reason: Pt stopped taking med Clotrimazole* (Lotrimin*), 1 APPLIC TOPIC TWICE A DAY, (Reported) Discontinued Reason: Pt stopped taking med Collagenase Clostridium Hist. (Santyl), 1 APPLIC TP DAILY, (Reported) Discontinued Reason: Pt stopped taking med Diphenhydramine HCl (Benadryl), 25 MG PO Q6HR PRN for itching, (Reported) Discontinued Reason: Pt stopped taking med Doxycycline Hyclate (Doxycycline Hyclate), 100 MG PO BID, (Reported) Discontinued Reason: Pt stopped taking med Enoxaparin (Lovenox), 80 MG SUBQ Q12HR, (Reported) Discontinued Reason: Pt stopped taking med Fexofenadine Hcl (Lawanda Allergy), 60 MG PO BID, (Reported) Discontinued Reason: Pt stopped taking med Hydrocodone Bit/Acetaminophen 5-325* ([place] 5-325*), 1 TAB ORAL Q4H PRN for For Pain, (Reported) Discontinued Reason: Pt stopped taking med Ipratropium [place] (Atrovent Hfa), 1 PUFF IH QID, (Reported) Discontinued Reason: Pt stopped taking med Lansoprazole* (Prevacid*), 30 MG ORAL DAILY, (Reported) Discontinued Reason: Pt stopped taking med Lansoprazole* (Prevacid*), 15 MG ORAL DAILY, (Reported) Discontinued Reason: Medication dose changed Levofloxacin* (Levaquin*), 500 MG ORAL DAILY, (Reported) Discontinued Reason: Therapy completed Levofloxacin* (Levaquin*), 750 MG ORAL DAILY, (Reported) Discontinued Reason: Therapy completed Loratadine (Loratadine), 10 MG PO DAILY, (Reported) Discontinued Reason: Pt stopped taking med Warfarin Sod (Coumadin*), 15 MG ORAL BEFORE DINNER, (Reported) Discontinued Reason: Medication dose changed Warfarin Sod (Coumadin*), 15 MG ORAL BEFORE DINNER, (Reported) Discontinued Reason: Medication dose changed Warfarin Sod* (Warfarin Sod*), 10 MG ORAL DAILY, (Reported) Discontinued Reason: Medication dose changed Patient History Healthcare decision maker Resuscitation status Advanced Directive on File Physical Exam Last 24 Hour Vital Signs Date Time Temp Pulse Resp B/P (MAP) Pulse Ox O2 Delivery O2 Flow Rate FiO2 12/09/17 13:57 98.3 12/09/17 11:48 98.3 94 20 125/72 93 Room Air 98.3 12/09/17 09:08 97.1 12/09/17 08:38 97.1 12/09/17 08:22 97.1 88 18 129/69 97 Room Air 97.1 12/09/17 07:44 84 18 Room Air 21 12/09/17 04:00 97.8 89 16 113/69 96 Room Air 97.8 12/09/17 00:00 98.2 84 17 120/65 93 Room Air 98.2 12/08/17 20:03 86 18 Room Air 21 12/08/17 20:00 98.0 82 18 101/55 95 Room Air 98.0 12/08/17 15:51 98.2 86 20 108/67 92 98.2 Intake and Output 12/08/17 12/09/17 19:00 07:00 Intake Total 610 ml 530 ml Output Total 650 ml 1500 ml Balance -40 ml -970 ml Intake Oral 560 ml 480 ml IV Total 50 ml 50 ml Output Urine Total 650 ml 1500 ml Laboratory Tests Test 12/09/17 04:00 White Blood Count 7.7 K/UL (4.8-10.8) Red Blood Count 4.54 M/UL (4.70-6.10) L Hemoglobin 12.0 G/DL (14.2-18.0) L Hematocrit 37.3 % (42.0-52.0) L Mean Corpuscular Volume 82 FL (80-99) Mean Corpuscular Hemoglobin 26.4 PG (27.0-31.0) L Mean Corpuscular Hemoglobin Concent 32.1 G/DL (32.0-36.0) Red Cell Distribution Width 15.5 % (11.6-14.8) H Platelet Count 441 K/UL (150-450) Mean Platelet Volume 5.1 FL (6.5-10.1) L Neutrophils (%) (Auto) 60.5 % (45.0-75.0) Lymphocytes (%) (Auto) 22.3 % (20.0-45.0) Monocytes (%) (Auto) 9.7 % (1.0-10.0) Eosinophils (%) (Auto) 6.6 % (0.0-3.0) H Basophils (%) (Auto) 0.9 % (0.0-2.0) Sodium Level 134 MMOL/L (136-145) L Potassium Level 3.9 MMOL/L (3.5-5.1) Chloride Level 101 MMOL/L (98-107) Carbon Dioxide Level 25 MMOL/L (21-32) Anion Gap 8 mmol/L (5-15) Blood Urea Nitrogen 12 mg/dL (7-18) Creatinine 1.1 MG/DL (0.55-1.30) Estimat Glomerular Filtration Rate > 60 mL/min (>60) Glucose Level 78 MG/DL (74-106) Calcium Level 8.7 MG/DL (8.5-10.1) Microbiology Date/Time Source Procedure Growth Status 12/08/17 14:30 Leg Left Gram Stain - Final Resulted 12/08/17 14:30 Wound Culture - Preliminary Gram Negative Bacillus 1 Resulted Height (Feet): 6 Height (Inches): 0.00 Weight (Pounds): 203 Medications Current Medications Medications (Trade) Dose Ordered Sig/Italo Route PRN Reason Start Time Stop Time Status Last Admin Dose Admin Acetaminophen (Tylenol) 650 mg Q4H PRN ORAL fever 12/07/17 22:30 01/06/18 22:29 Albuterol/ Ipratropium (Albuterol/ Ipratropium) 3 ml EVERY 4 HOURS PRN HHN Shortness of Breath 12/07/17 22:30 12/12/17 22:29 Aztreonam 1 gm/ Sodium Chloride 50 ml @ 100 mls/hr EVERY 8 HOURS IVPB 12/08/17 06:00 12/15/17 05:59 12/09/17 13:29 Chlorhexidine Gluconate (Mahi-Hex 2%) 1 applic DAILY@2000 TOPIC 12/08/17 23:40 01/07/18 23:39 12/08/17 23:47 Dextrose (Dextrose 50%) 25 ml STAT PRN IV Hypoglycemia 12/08/17 15:30 01/06/18 22:29 Dextrose (Dextrose 50%) 50 ml STAT PRN IV Hypoglycemia 12/08/17 15:30 01/07/18 15:29 Enoxaparin Sodium (Lovenox) 40 mg Q24H SUBQ 12/09/17 11:00 01/08/18 10:59 12/09/17 10:47 Enoxaparin Sodium (Lovenox) 100 mg Q24H SUBQ 12/09/17 11:00 01/08/18 10:59 12/09/17 10:45 Gabapentin (Neurontin) 600 mg QID ORAL 12/08/17 09:00 01/07/18 08:59 12/09/17 13:29 Insulin Aspart (NovoLOG) BEFORE MEALS AND HS SUBQ 12/08/17 06:30 01/07/18 06:29 Metronidazole (Flagyl) 500 mg Q8HR ORAL 12/08/17 22:00 12/15/17 21:59 12/09/17 13:29 Mirtazapine (Remeron) 45 mg DAILY ORAL 12/08/17 09:00 01/07/18 08:59 12/09/17 08:38 Morphine Sulfate (Morphine Sulfate) 2 mg EVERY 4 HOURS PRN IVP Moderate Pain (Pain Scale 4-6) 12/07/17 22:30 12/14/17 22:29 12/09/17 13:57 Nitroglycerin (Ntg) 0.4 mg Q5M PRN SL Prn Chest Pain 12/07/17 22:30 01/06/18 22:29 Ondansetron HCl (Zofran) 4 mg Q6H PRN IVP Nausea & Vomiting 12/07/17 22:30 01/06/18 22:29 Polyethylene Glycol (Miralax) 17 gm DAILYPRN PRN ORAL Constipation 12/07/17 22:30 01/06/18 22:29 Temazepam (Restoril) 15 mg HSPRN PRN ORAL Insomnia 12/07/17 22:30 12/14/17 22:29 Trimethoprim/ Sulfamethoxazole (Bactrim-DS) 1 tab Q12HR ORAL 12/09/17 21:00 12/15/17 08:59 Warfarin Sodium (Coumadin per pharmacy) 1 ea DAILY PRN MISC Per rx protocol 12/09/17 08:45 01/08/18 08:44 Warfarin Sodium (Coumadin) 5 mg COUMADIN ORAL 12/09/17 17:00 12/09/17 18:00 Assessment/Plan Problem List: (1) COPD (chronic obstructive pulmonary disease) ICD Codes: J44.9 - Chronic obstructive pulmonary disease, unspecified SNOMED: 31845640 (2) Encounter for generalized patient complaints ICD Codes: Z00.8 - Encounter for other general examination SNOMED: 938387418 (3) DM (diabetes mellitus) ICD Codes: E11.9 - Type 2 diabetes mellitus without complications SNOMED: 17469312 (4) Cellulitis ICD Codes: L03.90 - Cellulitis, unspecified SNOMED: 960099855 Prem Thompson MD Dec 09, 2017 14:17
--- NOTE | 2017-12-09 14:19 | Pulmonology Progress Note ---
Assessment/Plan Problems: (1) DVT (deep venous thrombosis) (2) COPD (chronic obstructive pulmonary disease) (3) Encounter for generalized patient complaints (4) DM (diabetes mellitus) (5) Cellulitis Assessment/Plan venous doppler reviewed on Lovenox therapeutic dose respiratory treatment titrate fio2 to sat of 92& sliding scale diabetic diet. Subjective ROS Limited/Unobtainable: No Allergies: Coded Allergies: VANCOMYCIN (Verified Allergy, Severe, red man syndrome, 12/08/17) CEPHALEXIN (Verified Allergy, Unknown, Hives, 12/08/17) Objective Last 24 Hour Vital Signs Date Time Temp Pulse Resp B/P (MAP) Pulse Ox O2 Delivery O2 Flow Rate FiO2 12/09/17 13:57 98.3 12/09/17 11:48 98.3 94 20 125/72 93 Room Air 98.3 12/09/17 09:08 97.1 12/09/17 08:38 97.1 12/09/17 08:22 97.1 88 18 129/69 97 Room Air 97.1 12/09/17 07:44 84 18 Room Air 21 12/09/17 04:00 97.8 89 16 113/69 96 Room Air 97.8 12/09/17 00:00 98.2 84 17 120/65 93 Room Air 98.2 12/08/17 20:03 86 18 Room Air 21 12/08/17 20:00 98.0 82 18 101/55 95 Room Air 98.0 12/08/17 15:51 98.2 86 20 108/67 92 98.2 Intake and Output 12/08/17 12/09/17 19:00 07:00 Intake Total 610 ml 530 ml Output Total 650 ml 1500 ml Balance -40 ml -970 ml Intake Oral 560 ml 480 ml IV Total 50 ml 50 ml Output Urine Total 650 ml 1500 ml General Appearance: WD/WN HEENT: normocephalic, atraumatic Respiratory/Chest: chest wall non-tender, lungs clear Cardiovascular: normal peripheral pulses, normal rate Abdomen: normal bowel sounds, soft, non tender, no scars Microbiology Date/Time Source Procedure Growth Status 12/07/17 20:55 Blood Blood Culture - Preliminary NO GROWTH AFTER 24 HOURS Resulted 12/07/17 20:50 Blood Blood Culture - Preliminary NO GROWTH AFTER 24 HOURS Resulted 12/08/17 14:30 Leg Left Gram Stain - Final Resulted 12/08/17 14:30 Wound Culture - Preliminary Gram Negative Bacillus 1 Resulted Laboratory Tests 12/09/17 04:00: White Blood Count 7.7, Red Blood Count 4.54L, Hemoglobin 12.0L, Hematocrit 37.3L , Mean Corpuscular Volume 82, Mean Corpuscular Hemoglobin 26.4L, Mean Corpuscular Hemoglobin Concent 32.1, Red Cell Distribution Width 15.5H, Platelet Count 441, Mean Platelet Volume 5.1L, Neutrophils (%) (Auto) 60.5, Lymphocytes (%) (Auto) 22.3, Monocytes (%) (Auto) 9.7, Eosinophils (%) (Auto) 6.6H, Basophils (%) (Auto) 0.9, Sodium Level 134L, Potassium Level 3.9, Chloride Level 101, Carbon Dioxide Level 25, Anion Gap 8, Blood Urea Nitrogen 12 , Creatinine 1.1, Estimat Glomerular Filtration Rate > 60, Glucose Level 78, Calcium Level 8.7 Current Medications Medications (Trade) Dose Ordered Sig/Italo Route PRN Reason Start Time Stop Time Status Last Admin Dose Admin Acetaminophen (Tylenol) 650 mg Q4H PRN ORAL fever 12/07/17 22:30 01/06/18 22:29 Albuterol/ Ipratropium (Albuterol/ Ipratropium) 3 ml EVERY 4 HOURS PRN HHN Shortness of Breath 12/07/17 22:30 12/12/17 22:29 Aztreonam 1 gm/ Sodium Chloride 50 ml @ 100 mls/hr EVERY 8 HOURS IVPB 12/08/17 06:00 12/15/17 05:59 12/09/17 13:29 Chlorhexidine Gluconate (Mahi-Hex 2%) 1 applic DAILY@1999 TOPIC 12/08/17 23:40 01/07/18 23:39 12/08/17 23:47 Dextrose (Dextrose 50%) 25 ml STAT PRN IV Hypoglycemia 12/08/17 15:30 01/06/18 22:29 Dextrose (Dextrose 50%) 50 ml STAT PRN IV Hypoglycemia 12/08/17 15:30 01/07/18 15:29 Enoxaparin Sodium (Lovenox) 40 mg Q24H SUBQ 12/09/17 11:00 01/08/18 10:59 12/09/17 10:47 Enoxaparin Sodium (Lovenox) 100 mg Q24H SUBQ 12/09/17 11:00 01/08/18 10:59 12/09/17 10:45 Gabapentin (Neurontin) 600 mg QID ORAL 12/08/17 09:00 01/07/18 08:59 12/09/17 13:29 Insulin Aspart (NovoLOG) BEFORE MEALS AND HS SUBQ 12/08/17 06:30 01/07/18 06:29 Metronidazole (Flagyl) 500 mg Q8HR ORAL 12/08/17 22:00 12/15/17 21:59 12/09/17 13:29 Mirtazapine (Remeron) 45 mg DAILY ORAL 12/08/17 09:00 01/07/18 08:59 12/09/17 08:38 Morphine Sulfate (Morphine Sulfate) 2 mg EVERY 4 HOURS PRN IVP Moderate Pain (Pain Scale 4-6) 12/07/17 22:30 12/14/17 22:29 12/09/17 13:57 Nitroglycerin (Ntg) 0.4 mg Q5M PRN SL Prn Chest Pain 12/07/17 22:30 01/06/18 22:29 Ondansetron HCl (Zofran) 4 mg Q6H PRN IVP Nausea & Vomiting 12/07/17 22:30 01/06/18 22:29 Polyethylene Glycol (Miralax) 17 gm DAILYPRN PRN ORAL Constipation 12/07/17 22:30 01/06/18 22:29 Temazepam (Restoril) 15 mg HSPRN PRN ORAL Insomnia 12/07/17 22:30 12/14/17 22:29 Trimethoprim/ Sulfamethoxazole (Bactrim-DS) 1 tab Q12HR ORAL 12/09/17 21:00 12/15/17 08:59 Warfarin Sodium (Coumadin per pharmacy) 1 ea DAILY PRN MISC Per rx protocol 12/09/17 08:45 01/08/18 08:44 Warfarin Sodium (Coumadin) 5 mg COUMADIN ORAL 12/09/17 17:00 12/09/17 18:00 Prem Thompson MD Dec 09, 2017 14:19
--- NOTE | 2017-12-09 15:19 | General Progress Note ---
Assessment/Plan Problem List: (1) COPD (chronic obstructive pulmonary disease) ICD Codes: J44.9 - Chronic obstructive pulmonary disease, unspecified SNOMED: 40058230 (2) Cellulitis ICD Codes: L03.90 - Cellulitis, unspecified SNOMED: 121937825 (3) DVT (deep venous thrombosis) ICD Codes: I82.409 - Acute embolism and thrombosis of unspecified deep veins of unspecified lower extremity SNOMED: 897997048 (4) DM (diabetes mellitus) ICD Codes: E11.9 - Type 2 diabetes mellitus without complications SNOMED: 54692983 Status: unchanged Assessment/Plan ot pt diet wound care abx anticoag cbc bmp am Subjective Constitutional: Reports: weakness Allergies: Coded Allergies: VANCOMYCIN (Verified Allergy, Severe, red man syndrome, 12/08/17) CEPHALEXIN (Verified Allergy, Unknown, Hives, 12/08/17) All Systems: reviewed and negative except above Subjective calm in bed Objective Last 24 Hour Vital Signs Date Time Temp Pulse Resp B/P (MAP) Pulse Ox O2 Delivery O2 Flow Rate FiO2 12/09/17 14:27 98.3 12/09/17 13:57 98.3 12/09/17 11:48 98.3 94 20 125/72 93 Room Air 98.3 12/09/17 08:38 97.1 12/09/17 08:22 97.1 88 18 129/69 97 Room Air 97.1 12/09/17 07:44 84 18 Room Air 21 12/09/17 04:00 97.8 89 16 113/69 96 Room Air 97.8 12/09/17 00:00 98.2 84 17 120/65 93 Room Air 98.2 12/08/17 20:03 86 18 Room Air 21 12/08/17 20:00 98.0 82 18 101/55 95 Room Air 98.0 12/08/17 15:51 98.2 86 20 108/67 92 98.2 Intake and Output 12/08/17 12/09/17 19:00 07:00 Intake Total 610 ml 530 ml Output Total 650 ml 1500 ml Balance -40 ml -970 ml Intake Oral 560 ml 480 ml IV Total 50 ml 50 ml Output Urine Total 650 ml 1500 ml Laboratory Tests 12/09/17 04:00: White Blood Count 7.7, Red Blood Count 4.54L, Hemoglobin 12.0L, Hematocrit 37.3L , Mean Corpuscular Volume 82, Mean Corpuscular Hemoglobin 26.4L, Mean Corpuscular Hemoglobin Concent 32.1, Red Cell Distribution Width 15.5H, Platelet Count 441, Mean Platelet Volume 5.1L, Neutrophils (%) (Auto) 60.5, Lymphocytes (%) (Auto) 22.3, Monocytes (%) (Auto) 9.7, Eosinophils (%) (Auto) 6.6H, Basophils (%) (Auto) 0.9, Sodium Level 134L, Potassium Level 3.9, Chloride Level 101, Carbon Dioxide Level 25, Anion Gap 8, Blood Urea Nitrogen 12 , Creatinine 1.1, Estimat Glomerular Filtration Rate > 60, Glucose Level 78, Calcium Level 8.7 Height (Feet): 6 Height (Inches): 0.00 Weight (Pounds): 203 General Appearance: lethargic EENT: normal ENT inspection Neck: normal alignment Cardiovascular: normal peripheral pulses, normal rate, regular rhythm Respiratory/Chest: chest wall non-tender, lungs clear, normal breath sounds Abdomen: normal bowel sounds, non tender, soft Extremities: normal inspection Edema: 1+ Arm (L), 1+ Arm (R), 1+ Leg (L), 1+ Leg (R), 1+ Pedal (L), 1+ Pedal ( R), 1+ Generalized Edema: trace edema Neurologic: motor weakness Skin: normal pigmentation, warm/dry Miguel Angel Nolan DO Dec 09, 2017 15:19
--- NOTE | 2017-12-09 15:45 | Consultation ---
DATE OF CONSULTATION: 12/09/2017 HEMATOLOGY/ONCOLOGY CONSULTATION CONSULTING PHYSICIAN: Chance Lakhani M.D. REFERRING PHYSICIANS: 1. Miguel Angel Nolan D.O. 2. Prem Thompson M.D. REASON FOR CONSULTATION: Evaluation of right lower extremity DVT. IDENTIFYING DATA: Dear Dr. Miguel Angel Nolan and Dr. Thomspon, The patient is a pleasant 57-year-old male, I have seen him on prior hospitalization back in July of this year, history is significant for pulmonary embolism, history of coagulopathy on Coumadin, history of DVT, has been on long-term anticoagulation for more than five years. At this time, he presents with similar symptoms that he had before bilateral lower extremity cellulitis, started on antibiotics. ID Service has been consulted. Swelling on both legs, continues to change his dressings. He has a history of again DVT with anticoagulation, currently has been off of it, and INR goal between 2 and 3 is recommended. PAST MEDICAL HISTORY: As noted above. PAST SURGICAL HISTORY: None noted. ALLERGIES: 01:17. REVIEW OF SYSTEMS: CONSTITUTIONAL: No fevers, chills, or night sweats. SKIN: No rashes, bumps, or itching. HEENT: No headache, hearing or visual changes. BREASTS: No lumps, pain, or discharge. PULMONARY: No cough, sputum, or shortness of breath. GASTROINTESTINAL: No nausea, vomiting, or diarrhea. GENITOURINARY: No dysuria, frequency, or urgency. MUSCULOSKELETAL: No muscle, joint swelling, or trauma. PHYSICAL EXAMINATION: VITAL SIGNS: Reviewed. GENERAL: No acute distress. PULMONARY: Decreased breath sounds. CARDIOVASCULAR: Regular rate. No S3 or S4. ABDOMEN: Soft, nontender, and nondistended. EXTREMITIES: Lower extremity cellulitis noted bilaterally. LABORATORY AND DIAGNOSTIC DATA: CBC, 01:48 hemoglobin 12, platelet count 241. INR of 1.5. BUN of 12 and creatinine of 1.1. ASSESSMENT AND RECOMMENDATIONS: 1. DVT on the lower extremity, on the right side. Continue the patient on Coumadin lifelong given history of PE. The patient has IVC filter as well. Imaging has been reviewed. 2. Pulmonary embolism x2, history of IVC filter in addition to being on Coumadin at this time. 3. Coagulopathy due to Coumadin. Continue Lovenox as well until INR is between 2 and 3. 4. Lower extremity cellulitis on broad-spectrum antibiotics with wound noted, being seen by Podiatry. 5. Diabetes mellitus. 02:49. 6. Pressure ulcerations bilateral feet and ankles. Continue management with Podiatry. I appreciate consultation. Chance Lakhani M.D. DR: ARTURO JOB#: [id number] CC:
--- NOTE | 2017-12-09 16:13 | Infectious Diseases Prog Note ---
Assessment/Plan Assessment/Plan Abx: Clinda x1 12/07 Bactrim 12/08- Aztreonam 12/08- Assessment: Mod- severe B/l leg Cellulitis, w/ skin denudation on b/l feet, small L foot dorsal ulcer- on background of chronic lymphedema/ +foul smelling Afebrile, no leukocytosis DVT COPD senior living resident [place] and [place] allergy Plan: -Continue Bactrim and Aztreonam and Flagyl #2/-14 for cellulitis; duration pending improvement -will switch to oral regimen Bactrim, Levaquin and Flagyl upon discharge -f/u wound cx -Podiatry f/u -f/u cx -Monitor CBC/BMP, temperatures -wound care per hospital protocol Thank you for this consultation. Will continue to monitor off abx. Discussed with RN. Subjective Allergies: Coded Allergies: VANCOMYCIN (Verified Allergy, Severe, red man syndrome, 12/08/17) CEPHALEXIN (Verified Allergy, Unknown, Hives, 12/08/17) Subjective afebrile Bcx NTD no leukocytosis Objective Vital Signs Last 24 Hour Vital Signs Date Time Temp Pulse Resp B/P (MAP) Pulse Ox O2 Delivery O2 Flow Rate FiO2 12/09/17 14:27 98.3 12/09/17 13:57 98.3 12/09/17 11:48 98.3 94 20 125/72 93 Room Air 98.3 12/09/17 08:38 97.1 12/09/17 08:22 97.1 88 18 129/69 97 Room Air 97.1 12/09/17 07:44 84 18 Room Air 21 12/09/17 04:00 97.8 89 16 113/69 96 Room Air 97.8 12/09/17 00:00 98.2 84 17 120/65 93 Room Air 98.2 12/08/17 20:03 86 18 Room Air 21 12/08/17 20:00 98.0 82 18 101/55 95 Room Air 98.0 Height (Feet): 6 Height (Inches): 0.00 Weight (Pounds): 203 Objective General Appearance: no apparent distress Head: normocephalic, atraumatic Eyes: bilateral eye PERRL, bilateral eye EOMI ENT: normal pharynx, no angioedema Respiratory: lungs clear, normal breath sounds Cardiovascular : regular rate, rhythm Gastrointestinal: non tender, soft Musculoskeletal: other - Significant edema bilaterally increased erythema with skin denuation on both feet on dorsal aspect and fouls smelling odor; small ulceration in L foot on metatarsal area Neurologic: alert, responsive Skin: other - As above Lymphatic: other - Significant edema bilaterally Microbiology Date/Time Source Procedure Growth Status 12/07/17 20:55 Blood Blood Culture - Preliminary NO GROWTH AFTER 24 HOURS Resulted 12/07/17 20:50 Blood Blood Culture - Preliminary NO GROWTH AFTER 24 HOURS Resulted 12/08/17 14:30 Leg Left Gram Stain - Final Resulted 12/08/17 14:30 Wound Culture - Preliminary Gram Negative Bacillus 1 Resulted Laboratory Tests Test 12/09/17 04:00 White Blood Count 7.7 K/UL (4.8-10.8) Red Blood Count 4.54 M/UL (4.70-6.10) L Hemoglobin 12.0 G/DL (14.2-18.0) L Hematocrit 37.3 % (42.0-52.0) L Mean Corpuscular Volume 82 FL (80-99) Mean Corpuscular Hemoglobin 26.4 PG (27.0-31.0) L Mean Corpuscular Hemoglobin Concent 32.1 G/DL (32.0-36.0) Red Cell Distribution Width 15.5 % (11.6-14.8) H Platelet Count 441 K/UL (150-450) Mean Platelet Volume 5.1 FL (6.5-10.1) L Neutrophils (%) (Auto) 60.5 % (45.0-75.0) Lymphocytes (%) (Auto) 22.3 % (20.0-45.0) Monocytes (%) (Auto) 9.7 % (1.0-10.0) Eosinophils (%) (Auto) 6.6 % (0.0-3.0) H Basophils (%) (Auto) 0.9 % (0.0-2.0) Sodium Level 134 MMOL/L (136-145) L Potassium Level 3.9 MMOL/L (3.5-5.1) Chloride Level 101 MMOL/L (98-107) Carbon Dioxide Level 25 MMOL/L (21-32) Anion Gap 8 mmol/L (5-15) Blood Urea Nitrogen 12 mg/dL (7-18) Creatinine 1.1 MG/DL (0.55-1.30) Estimat Glomerular Filtration Rate > 60 mL/min (>60) Glucose Level 78 MG/DL (74-106) Calcium Level 8.7 MG/DL (8.5-10.1) Current Medications Medications (Trade) Dose Ordered Sig/Italo Route PRN Reason Start Time Stop Time Status Last Admin Dose Admin Acetaminophen (Tylenol) 650 mg Q4H PRN ORAL fever 12/07/17 22:30 01/06/18 22:29 Albuterol/ Ipratropium (Albuterol/ Ipratropium) 3 ml EVERY 4 HOURS PRN HHN Shortness of Breath 12/07/17 22:30 12/12/17 22:29 Aztreonam 1 gm/ Sodium Chloride 50 ml @ 100 mls/hr EVERY 8 HOURS IVPB 12/08/17 06:00 12/15/17 05:59 12/09/17 13:29 Chlorhexidine Gluconate (Mahi-Hex 2%) 1 applic DAILY@2000 TOPIC 12/08/17 23:40 01/07/18 23:39 12/08/17 23:47 Dextrose (Dextrose 50%) 25 ml STAT PRN IV Hypoglycemia 12/08/17 15:30 01/06/18 22:29 Dextrose (Dextrose 50%) 50 ml STAT PRN IV Hypoglycemia 12/08/17 15:30 01/07/18 15:29 Enoxaparin Sodium (Lovenox) 40 mg Q24H SUBQ 12/09/17 11:00 01/08/18 10:59 12/09/17 10:47 Enoxaparin Sodium (Lovenox) 100 mg Q24H SUBQ 12/09/17 11:00 01/08/18 10:59 12/09/17 10:45 Gabapentin (Neurontin) 600 mg QID ORAL 12/08/17 09:00 01/07/18 08:59 12/09/17 13:29 Insulin Aspart (NovoLOG) BEFORE MEALS AND HS SUBQ 12/08/17 06:30 01/07/18 06:29 Metronidazole (Flagyl) 500 mg Q8HR ORAL 12/08/17 22:00 12/15/17 21:59 12/09/17 13:29 Mirtazapine (Remeron) 45 mg DAILY ORAL 12/08/17 09:00 01/07/18 08:59 12/09/17 08:38 Morphine Sulfate (Morphine Sulfate) 2 mg EVERY 4 HOURS PRN IVP Moderate Pain (Pain Scale 4-6) 12/07/17 22:30 12/14/17 22:29 12/09/17 13:57 Nitroglycerin (Ntg) 0.4 mg Q5M PRN SL Prn Chest Pain 12/07/17 22:30 01/06/18 22:29 Ondansetron HCl (Zofran) 4 mg Q6H PRN IVP Nausea & Vomiting 12/07/17 22:30 01/06/18 22:29 Polyethylene Glycol (Miralax) 17 gm DAILYPRN PRN ORAL Constipation 12/07/17 22:30 01/06/18 22:29 Temazepam (Restoril) 15 mg HSPRN PRN ORAL Insomnia 12/07/17 22:30 12/14/17 22:29 Trimethoprim/ Sulfamethoxazole (Bactrim-DS) 1 tab Q12HR ORAL 12/09/17 21:00 12/15/17 08:59 Warfarin Sodium (Coumadin per pharmacy) 1 ea DAILY PRN MISC Per rx protocol 12/09/17 08:45 01/08/18 08:44 Warfarin Sodium (Coumadin) 5 mg COUMADIN ORAL 12/09/17 17:00 12/09/17 18:00 Leatha Choi M.D. Dec 09, 2017 16:13
[2017-12-09] MEDS ORDERED: Warfarin Sodium 5mg ORAL SCH (17:00)
[2017-12-09] MEDS ORDERED: Dyna-Hex 2% Top Sol 2oz TOPIC SCH (20:00)
[2017-12-09] MEDS: Dyna-Hex 2% Top Sol 2oz TOPIC SCH (21:31)
[2017-12-10 04:00] VITALS: BP 145/79
[2017-12-10 04:10] VITALS: BP 145/79
[2017-12-10] MEDS: Morphine Sulfate 2mg/ml Inj IVP PRN ×4 (04:22→17:08)
[2017-12-10] MEDS: Aztreonam Inj 1 GM in NS 50 ML IVPB SCH (05:12)
[2017-12-10] MEDS: metroNIDAZOLE 500mg tab ORAL SCH (05:13)
[2017-12-10] MEDS: NovoLOG Insulin Flexpen SUBQ SCH ×4 (05:50→20:50)
[2017-12-10 06:53] LABS: BASOPHILS % (AUTO) 1.2 % (0.0-2.0); EOSINOPHILS % (AUTO) 2.8 % (0.0-3.0); HEMATOCRIT 40.1 % (42.0-52.0); HEMOGLOBIN 13.1 G/DL (14.2-18.0); LYMPHOCYTES % (AUTO) 23.6 % (20.0-45.0); MEAN CORPUSCULAR VOLUME 82 FL (80-99); MONOCYTES % (AUTO) 9.6 % (1.0-10.0); NEUTROPHILS % (AUTO) 62.8 % (45.0-75.0); PLATELET COUNT 470 K/UL (150-450); RED BLOOD COUNT 4.91 M/UL (4.70-6.10); RED CELL DISTRIBUTION WIDTH 15.3 % (11.6-14.8); WHITE BLOOD COUNT 7.6 K/UL (4.8-10.8)
[2017-12-10 07:10] LABS: INR 1.1 (0.9-1.1)
[2017-12-10 07:21] LABS: ANION GAP 11 mmol/L (5-15); BLOOD UREA NITROGEN 15 mg/dL (7-18); CALCIUM 8.9 MG/DL (8.5-10.1); CARBON DIOXIDE 24 MMOL/L (21-32); CHLORIDE 99 MMOL/L (98-107); CREATININE 1.3 MG/DL (0.55-1.30); POTASSIUM 3.8 MMOL/L (3.5-5.1); SODIUM 134 MMOL/L (136-145)
[2017-12-10 08:00] VITALS: BP 148/86
[2017-12-10] MEDS: Bactrim-DS 1 tab ORAL SCH ×2 (08:17→20:50)
--- NOTE | 2017-12-10 09:24 | General Progress Note ---
Assessment/Plan Problem List: (1) COPD (chronic obstructive pulmonary disease) ICD Codes: J44.9 - Chronic obstructive pulmonary disease, unspecified SNOMED: 21488720 (2) Cellulitis ICD Codes: L03.90 - Cellulitis, unspecified SNOMED: 146305106 (3) DVT (deep venous thrombosis) ICD Codes: I82.409 - Acute embolism and thrombosis of unspecified deep veins of unspecified lower extremity SNOMED: 609126161 (4) DM (diabetes mellitus) ICD Codes: E11.9 - Type 2 diabetes mellitus without complications SNOMED: 21401053 Status: stable, progressing Assessment/Plan ot pt diet wound care abx anticoag cbc bmp am dc plan snf Subjective Constitutional: Reports: weakness Allergies: Coded Allergies: VANCOMYCIN (Verified Allergy, Severe, red man syndrome, 12/08/17) CEPHALEXIN (Verified Allergy, Unknown, Hives, 12/08/17) All Systems: reviewed and negative except above Subjective calm in bed Objective Last 24 Hour Vital Signs Date Time Temp Pulse Resp B/P (MAP) Pulse Ox O2 Delivery O2 Flow Rate FiO2 12/10/17 08:23 106 20 Room Air 21 12/10/17 08:00 97.4 100 20 148/86 98 97.4 12/10/17 04:52 97.9 12/10/17 04:22 97.9 12/10/17 04:10 92 Room Air 12/10/17 04:10 98.2 96 20 145/79 92 98.2 12/10/17 04:00 98.2 96 20 145/79 92 98.2 12/10/17 00:00 92 Room Air 12/09/17 23:54 97.9 103 20 144/89 92 97.9 12/09/17 20:30 92 Room Air 12/09/17 20:29 98.4 109 18 145/94 92 98.4 12/09/17 19:27 88 18 Room Air 21 12/09/17 16:00 96.7 86 18 136/80 94 Room Air 96.7 12/09/17 13:57 98.3 12/09/17 11:48 98.3 94 20 125/72 93 Room Air 98.3 Intake and Output 12/09/17 12/10/17 19:00 07:00 Intake Total 1130 ml 100 ml Output Total 2000 ml 500 ml Balance -870 ml -400 ml Intake Oral 1080 ml IV Total 50 ml 100 ml Output Urine Total 2000 ml 500 ml Laboratory Tests 12/10/17 05:00: White Blood Count 7.6, Red Blood Count 4.91, Hemoglobin 13.1L, Hematocrit 40.1L , Mean Corpuscular Volume 82, Mean Corpuscular Hemoglobin 26.6L, Mean Corpuscular Hemoglobin Concent 32.6, Red Cell Distribution Width 15.3H, Platelet Count 470H, Mean Platelet Volume 5.4L, Neutrophils (%) (Auto) 62.8, Lymphocytes (%) (Auto) 23.6, Monocytes (%) (Auto) 9.6, Eosinophils (%) (Auto) 2.8, Basophils (%) (Auto) 1.2, Prothrombin Time 11.6H, Prothromb Time International Ratio 1.1, Sodium Level 134L, Potassium Level 3.8, Chloride Level 99, Carbon Dioxide Level 24, Anion Gap 11, Blood Urea Nitrogen 15, Creatinine 1.3, Estimat Glomerular Filtration Rate 57.1, Glucose Level 92, Calcium Level 8.9 Height (Feet): 6 Height (Inches): 0.00 Weight (Pounds): 202 General Appearance: lethargic EENT: normal ENT inspection Neck: normal alignment Cardiovascular: normal peripheral pulses, normal rate, regular rhythm Respiratory/Chest: chest wall non-tender, lungs clear, normal breath sounds Abdomen: normal bowel sounds, non tender, soft Extremities: normal inspection Edema: 1+ Arm (L), 1+ Arm (R), 1+ Leg (L), 1+ Leg (R), 1+ Pedal (L), 1+ Pedal ( R), 1+ Generalized Neurologic: responsive, motor weakness Skin: normal pigmentation, warm/dry Miguel Angel Nolan DO Dec 10, 2017 09:24
--- NOTE | 2017-12-10 11:09 | General Progress Note ---
Assessment/Plan Status: unchanged Assessment/Plan #. DVT lower extremity, R side. On right side is non-occlusive thrombus in the femoral to popliteal vein. On the left side is recanalized thrombus --> Continue Coumadin INR Goal is 2-3 --> IVC filter in place. Imaging has been reviewed. --> monitor for bleeding --> does not require a thrombophilia workup given that he is already on anticoagulation #. Pulmonary embolism x2, with hx of recurrence --> history of IVC filter in addition to being on Coumadin at this time. #. Coagulopathy due to Coumadin. Continue Lovenox as well until INR is between 2 and 3. #. Lower extremity cellulitis on broad-spectrum antibiotics with wound noted, being seen by Podiatry. --> on abx as per ID, aztreo and bactrim #. Diabetes mellitus. #. Pressure ulcerations bilateral feet and ankles. Continue management with Podiatry. Subjective Date patient seen: Dec 10, 2017 ROS Limited/Unobtainable: Yes Allergies: Coded Allergies: VANCOMYCIN (Verified Allergy, Severe, red man syndrome, 12/08/17) CEPHALEXIN (Verified Allergy, Unknown, Hives, 12/08/17) All Systems: reviewed and negative except above Subjective Pt on wound care, abx, anticoag. Plan dc snf. NAD. Objective Last 24 Hour Vital Signs Date Time Temp Pulse Resp B/P (MAP) Pulse Ox O2 Delivery O2 Flow Rate FiO2 12/10/17 08:23 106 20 Room Air 21 12/10/17 08:00 97.4 100 20 148/86 98 97.4 12/10/17 04:52 97.9 12/10/17 04:22 97.9 12/10/17 04:10 92 Room Air 12/10/17 04:10 98.2 96 20 145/79 92 98.2 12/10/17 04:00 98.2 96 20 145/79 92 98.2 12/10/17 00:00 92 Room Air 12/09/17 23:54 97.9 103 20 144/89 92 97.9 12/09/17 20:30 92 Room Air 12/09/17 20:29 98.4 109 18 145/94 92 98.4 12/09/17 19:27 88 18 Room Air 21 12/09/17 16:00 96.7 86 18 136/80 94 Room Air 96.7 12/09/17 13:57 98.3 12/09/17 11:48 98.3 94 20 125/72 93 Room Air 98.3 Intake and Output 12/09/17 12/10/17 19:00 07:00 Intake Total 1130 ml 100 ml Output Total 2000 ml 500 ml Balance -870 ml -400 ml Intake Oral 1080 ml IV Total 50 ml 100 ml Output Urine Total 2000 ml 500 ml Laboratory Tests 12/10/17 05:00: White Blood Count 7.6, Red Blood Count 4.91, Hemoglobin 13.1L, Hematocrit 40.1L , Mean Corpuscular Volume 82, Mean Corpuscular Hemoglobin 26.6L, Mean Corpuscular Hemoglobin Concent 32.6, Red Cell Distribution Width 15.3H, Platelet Count 470H, Mean Platelet Volume 5.4L, Neutrophils (%) (Auto) 62.8, Lymphocytes (%) (Auto) 23.6, Monocytes (%) (Auto) 9.6, Eosinophils (%) (Auto) 2.8, Basophils (%) (Auto) 1.2, Prothrombin Time 11.6H, Prothromb Time International Ratio 1.1, Sodium Level 134L, Potassium Level 3.8, Chloride Level 99, Carbon Dioxide Level 24, Anion Gap 11, Blood Urea Nitrogen 15, Creatinine 1.3, Estimat Glomerular Filtration Rate 57.1, Glucose Level 92, Calcium Level 8.9 Height (Feet): 6 Height (Inches): 0.00 Weight (Pounds): 193 General Appearance: WD/WN, no apparent distress, alert EENT: PERRL/EOMI Neck: normal alignment, supple Cardiovascular: no JVD, tachycardia Respiratory/Chest: no respiratory distress Abdomen: normal bowel sounds Chance Lakhani MD Dec 10, 2017 11:09
--- NOTE | 2017-12-10 11:18 | Infectious Diseases Prog Note ---
Assessment/Plan Assessment/Plan Assessment: Mod- severe B/l leg Cellulitis, w/ skin denudation on b/l feet, small L foot dorsal ulcer- on background of chronic lymphedema/ +foul smelling; improving -wound cx PsA (I cirp, R Levo, otherwise S), Diphtheroids, staph sp Afebrile, no leukocytosis DVT COPD correction resident [place]ox[place] and [place] allergy Plan: -Continue Bactrim and switch Aztreonam and Flagyl to Zosyn (for better strep coverage) (abx d #3/-14 for cellulitis; duration pending improvement) -12/07 SP Clinda x1 -Podiatry f/u -f/u cx -Monitor CBC/BMP, temperatures -wound care per hospital protocol Thank you for this consultation. Will continue to monitor off abx. Discussed with RN. Subjective Allergies: Coded Allergies: VANCOMYCIN (Verified Allergy, Severe, red man syndrome, 12/08/17) CEPHALEXIN (Verified Allergy, Unknown, Hives, 12/08/17) Subjective afebrile Bcx NTD no leukocytosis Objective Vital Signs Last 24 Hour Vital Signs Date Time Temp Pulse Resp B/P (MAP) Pulse Ox O2 Delivery O2 Flow Rate FiO2 12/10/17 08:23 106 20 Room Air 21 12/10/17 08:00 97.4 100 20 148/86 98 97.4 12/10/17 04:52 97.9 12/10/17 04:22 97.9 12/10/17 04:10 92 Room Air 12/10/17 04:10 98.2 96 20 145/79 92 98.2 12/10/17 04:00 98.2 96 20 145/79 92 98.2 12/10/17 00:00 92 Room Air 12/09/17 23:54 97.9 103 20 144/89 92 97.9 12/09/17 20:30 92 Room Air 12/09/17 20:29 98.4 109 18 145/94 92 98.4 12/09/17 19:27 88 18 Room Air 21 12/09/17 16:00 96.7 86 18 136/80 94 Room Air 96.7 12/09/17 13:57 98.3 12/09/17 11:48 98.3 94 20 125/72 93 Room Air 98.3 Height (Feet): 6 Height (Inches): 0.00 Weight (Pounds): 193 Objective General Appearance: no apparent distress Head: normocephalic, atraumatic Eyes: bilateral eye PERRL, bilateral eye EOMI ENT: normal pharynx, no angioedema Respiratory: lungs clear, normal breath sounds Cardiovascular : regular rate, rhythm Gastrointestinal: non tender, soft Musculoskeletal: other - Significant edema bilaterally increased erythema with skin denuation on both feet on dorsal aspect and fouls smelling odor; small ulceration in L foot on metatarsal area Neurologic: alert, responsive Skin: other - As above Lymphatic: other - Significant edema bilaterally Microbiology Date/Time Source Procedure Growth Status 12/07/17 20:55 Blood Blood Culture - Preliminary NO GROWTH AFTER 48 HOURS Resulted 12/07/17 20:50 Blood Blood Culture - Preliminary NO GROWTH AFTER 48 HOURS Resulted 12/07/17 20:15 Nasal Nares MRSA Culture - Final Staphylococcus Aureus - Mrsa Complete 12/08/17 14:30 Leg Left Gram Stain - Final Resulted 12/08/17 14:30 Wound Culture - Preliminary Pseudomonas Aeruginosa Staphylococcus Species Diphtheroids Resulted 12/07/17 20:15 Rectum VRE Culture - Final NO VANCOMYCIN RESISTANT ENTEROCOCCUS ... Complete Laboratory Tests Test 12/10/17 05:00 White Blood Count 7.6 K/UL (4.8-10.8) Red Blood Count 4.91 M/UL (4.70-6.10) Hemoglobin 13.1 G/DL (14.2-18.0) L Hematocrit 40.1 % (42.0-52.0) L Mean Corpuscular Volume 82 FL (80-99) Mean Corpuscular Hemoglobin 26.6 PG (27.0-31.0) L Mean Corpuscular Hemoglobin Concent 32.6 G/DL (32.0-36.0) Red Cell Distribution Width 15.3 % (11.6-14.8) H Platelet Count 470 K/UL (150-450) H Mean Platelet Volume 5.4 FL (6.5-10.1) L Neutrophils (%) (Auto) 62.8 % (45.0-75.0) Lymphocytes (%) (Auto) 23.6 % (20.0-45.0) Monocytes (%) (Auto) 9.6 % (1.0-10.0) Eosinophils (%) (Auto) 2.8 % (0.0-3.0) Basophils (%) (Auto) 1.2 % (0.0-2.0) Prothrombin Time 11.6 SEC (9.30-11.50) H Prothromb Time International Ratio 1.1 (0.9-1.1) Sodium Level 134 MMOL/L (136-145) L Potassium Level 3.8 MMOL/L (3.5-5.1) Chloride Level 99 MMOL/L (98-107) Carbon Dioxide Level 24 MMOL/L (21-32) Anion Gap 11 mmol/L (5-15) Blood Urea Nitrogen 15 mg/dL (7-18) Creatinine 1.3 MG/DL (0.55-1.30) Estimat Glomerular Filtration Rate 57.1 mL/min (>60) Glucose Level 92 MG/DL (74-106) Calcium Level 8.9 MG/DL (8.5-10.1) Current Medications Medications (Trade) Dose Ordered Sig/Italo Route PRN Reason Start Time Stop Time Status Last Admin Dose Admin Acetaminophen (Tylenol) 650 mg Q4H PRN ORAL fever 12/07/17 22:30 01/06/18 22:29 Albuterol/ Ipratropium (Albuterol/ Ipratropium) 3 ml EVERY 4 HOURS PRN HHN Shortness of Breath 12/07/17 22:30 12/12/17 22:29 Aztreonam 1 gm/ Sodium Chloride 50 ml @ 100 mls/hr EVERY 8 HOURS IVPB 12/08/17 06:00 12/15/17 05:59 12/10/17 05:12 Chlorhexidine Gluconate (Mahi-Hex 2%) 1 applic DAILY@1999 TOPIC 12/08/17 23:40 01/07/18 23:39 12/09/17 21:31 Dextrose (Dextrose 50%) 25 ml STAT PRN IV Hypoglycemia 12/08/17 15:30 01/06/18 22:29 Dextrose (Dextrose 50%) 50 ml STAT PRN IV Hypoglycemia 12/08/17 15:30 01/07/18 15:29 Enoxaparin Sodium (Lovenox) 40 mg Q24H SUBQ 12/09/17 11:00 01/08/18 10:59 12/09/17 10:47 Enoxaparin Sodium (Lovenox) 100 mg Q24H SUBQ 12/09/17 11:00 01/08/18 10:59 12/09/17 10:45 Gabapentin (Neurontin) 600 mg QID ORAL 12/08/17 09:00 01/07/18 08:59 12/10/17 08:18 Insulin Aspart (NovoLOG) BEFORE MEALS AND HS SUBQ 12/08/17 06:30 01/07/18 06:29 Metronidazole (Flagyl) 500 mg Q8HR ORAL 12/08/17 22:00 12/15/17 21:59 12/10/17 05:13 Mirtazapine (Remeron) 45 mg DAILY ORAL 12/08/17 09:00 01/07/18 08:59 12/09/17 08:38 Morphine Sulfate (Morphine Sulfate) 2 mg EVERY 4 HOURS PRN IVP Moderate Pain (Pain Scale 4-6) 12/07/17 22:30 12/14/17 22:29 12/10/17 08:18 Nitroglycerin (Ntg) 0.4 mg Q5M PRN SL Prn Chest Pain 12/07/17 22:30 01/06/18 22:29 Ondansetron HCl (Zofran) 4 mg Q6H PRN IVP Nausea & Vomiting 12/07/17 22:30 01/06/18 22:29 Polyethylene Glycol (Miralax) 17 gm DAILYPRN PRN ORAL Constipation 12/07/17 22:30 01/06/18 22:29 Temazepam (Restoril) 15 mg HSPRN PRN ORAL Insomnia 12/07/17 22:30 12/14/17 22:29 Trimethoprim/ Sulfamethoxazole (Bactrim-DS) 1 tab Q12HR ORAL 12/09/17 21:00 12/15/17 08:59 12/10/17 08:17 Warfarin Sodium (Coumadin per pharmacy) 1 ea DAILY PRN MISC Per rx protocol 12/09/17 08:45 01/08/18 08:44 Leatha Choi M.D. Dec 10, 2017 11:18
[2017-12-10] MEDS: Enoxaparin 40mg Inj SUBQ SCH (11:31)
[2017-12-10] MEDS: Enoxaparin 100mg Inj SUBQ SCH (11:31)
--- NOTE | 2017-12-10 11:56 | Pulmonology Progress Note ---
Assessment/Plan Problems: (1) DVT (deep venous thrombosis) (2) COPD (chronic obstructive pulmonary disease) (3) Encounter for generalized patient complaints (4) DM (diabetes mellitus) (5) Cellulitis Assessment/Plan venous doppler reviewed on Lovenox therapeutic dose respiratory treatment continue abx, Aztreonam, Bactrim titrate fio2 to sat of 92& sliding scale diabetic diet. Subjective ROS Limited/Unobtainable: No Constitutional: Reports: no symptoms HEENT: Repors: no symptoms Respiratory: Reports: no symptoms Allergies: Coded Allergies: VANCOMYCIN (Verified Allergy, Severe, red man syndrome, 12/08/17) CEPHALEXIN (Verified Allergy, Unknown, Hives, 12/08/17) Objective Last 24 Hour Vital Signs Date Time Temp Pulse Resp B/P (MAP) Pulse Ox O2 Delivery O2 Flow Rate FiO2 12/10/17 08:23 106 20 Room Air 21 12/10/17 08:00 97.4 100 20 148/86 98 97.4 12/10/17 04:52 97.9 12/10/17 04:22 97.9 12/10/17 04:10 92 Room Air 12/10/17 04:10 98.2 96 20 145/79 92 98.2 12/10/17 04:00 98.2 96 20 145/79 92 98.2 12/10/17 00:00 92 Room Air 12/09/17 23:54 97.9 103 20 144/89 92 97.9 12/09/17 20:30 92 Room Air 12/09/17 20:29 98.4 109 18 145/94 92 98.4 12/09/17 19:27 88 18 Room Air 21 12/09/17 16:00 96.7 86 18 136/80 94 Room Air 96.7 12/09/17 13:57 98.3 Intake and Output 12/09/17 12/10/17 19:00 07:00 Intake Total 1130 ml 100 ml Output Total 2000 ml 500 ml Balance -870 ml -400 ml Intake Oral 1080 ml IV Total 50 ml 100 ml Output Urine Total 2000 ml 500 ml General Appearance: WD/WN HEENT: normocephalic Respiratory/Chest: chest wall non-tender, lungs clear Cardiovascular: normal peripheral pulses, normal rate Abdomen: normal bowel sounds, soft, non tender, no scars Extremities: other - massive edema 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 Complete Laboratory Tests 12/10/17 05:00: White Blood Count 7.6, Red Blood Count 4.91, Hemoglobin 13.1L, Hematocrit 40.1L , Mean Corpuscular Volume 82, Mean Corpuscular Hemoglobin 26.6L, Mean Corpuscular Hemoglobin Concent 32.6, Red Cell Distribution Width 15.3H, Platelet Count 470H, Mean Platelet Volume 5.4L, Neutrophils (%) (Auto) 62.8, Lymphocytes (%) (Auto) 23.6, Monocytes (%) (Auto) 9.6, Eosinophils (%) (Auto) 2.8, Basophils (%) (Auto) 1.2, Prothrombin Time 11.6H, Prothromb Time International Ratio 1.1, Sodium Level 134L, Potassium Level 3.8, Chloride Level 99, Carbon Dioxide Level 24, Anion Gap 11, Blood Urea Nitrogen 15, Creatinine 1.3, Estimat Glomerular Filtration Rate 57.1, Glucose Level 92, Calcium Level 8.9 Current Medications Medications (Trade) Dose Ordered Sig/Italo Route PRN Reason Start Time Stop Time Status Last Admin Dose Admin Acetaminophen (Tylenol) 650 mg Q4H PRN ORAL fever 12/07/17 22:30 01/06/18 22:29 Albuterol/ Ipratropium (Albuterol/ Ipratropium) 3 ml EVERY 4 HOURS PRN HHN Shortness of Breath 12/07/17 22:30 12/12/17 22:29 Aztreonam 1 gm/ Sodium Chloride 50 ml @ 100 mls/hr EVERY 8 HOURS IVPB 12/08/17 06:00 12/15/17 05:59 12/10/17 05:12 Chlorhexidine Gluconate (Mahi-Hex 2%) 1 applic DAILY@1999 TOPIC 12/08/17 23:40 01/07/18 23:39 12/09/17 21:31 Dextrose (Dextrose 50%) 25 ml STAT PRN IV Hypoglycemia 12/08/17 15:30 01/06/18 22:29 Dextrose (Dextrose 50%) 50 ml STAT PRN IV Hypoglycemia 12/08/17 15:30 01/07/18 15:29 Enoxaparin Sodium (Lovenox) 40 mg Q24H SUBQ 12/09/17 11:00 01/08/18 10:59 12/10/17 11:31 Enoxaparin Sodium (Lovenox) 100 mg Q24H SUBQ 12/09/17 11:00 01/08/18 10:59 12/10/17 11:31 Gabapentin (Neurontin) 600 mg QID ORAL 12/08/17 09:00 01/07/18 08:59 12/10/17 08:18 Insulin Aspart (NovoLOG) BEFORE MEALS AND HS SUBQ 12/08/17 06:30 01/07/18 06:29 Metronidazole (Flagyl) 500 mg Q8HR ORAL 12/08/17 22:00 12/15/17 21:59 12/10/17 05:13 Mirtazapine (Remeron) 45 mg DAILY ORAL 12/08/17 09:00 01/07/18 08:59 12/09/17 08:38 Morphine Sulfate (Morphine Sulfate) 2 mg EVERY 4 HOURS PRN IVP Moderate Pain (Pain Scale 4-6) 12/07/17 22:30 12/14/17 22:29 12/10/17 08:18 Nitroglycerin (Ntg) 0.4 mg Q5M PRN SL Prn Chest Pain 12/07/17 22:30 01/06/18 22:29 Ondansetron HCl (Zofran) 4 mg Q6H PRN IVP Nausea & Vomiting 12/07/17 22:30 01/06/18 22:29 Polyethylene Glycol (Miralax) 17 gm DAILYPRN PRN ORAL Constipation 12/07/17 22:30 01/06/18 22:29 Temazepam (Restoril) 15 mg HSPRN PRN ORAL Insomnia 12/07/17 22:30 12/14/17 22:29 Trimethoprim/ Sulfamethoxazole (Bactrim-DS) 1 tab Q12HR ORAL 12/09/17 21:00 12/15/17 08:59 12/10/17 08:17 Warfarin Sodium (Coumadin per pharmacy) 1 ea DAILY PRN MISC Per rx protocol 12/09/17 08:45 01/08/18 08:44 Warfarin Sodium (Coumadin) 7.5 mg COUMADIN ORAL 12/10/17 17:00 12/10/17 18:01 Prem Thompson MD Dec 10, 2017 11:56
[2017-12-10 12:00] VITALS: BP 158/89
[2017-12-10] MEDS: Piperacillin/Tazobactam 3.375 GM in D5W 110 ML IVPB SCH ×2 (15:06→21:23)
[2017-12-10 16:00] VITALS: BP 153/88
[2017-12-10] MEDS ORDERED: Warfarin Sodium 7.5mg ORAL SCH (17:00)
[2017-12-10 20:00] VITALS: BP 134/80
[2017-12-10] MEDS: Dyna-Hex 2% Top Sol 2oz TOPIC SCH (20:50)
[2017-12-11 00:54] VITALS: BP 127/76
[2017-12-11 04:00] VITALS: BP 122/77
[2017-12-11] MEDS: Morphine Sulfate 2mg/ml Inj IVP PRN ×3 (05:16→15:00)
[2017-12-11] MEDS: Piperacillin/Tazobactam 3.375 GM in D5W 110 ML IVPB SCH ×2 (05:16→14:43)
[2017-12-11] MEDS: NovoLOG Insulin Flexpen SUBQ SCH ×3 (06:17→16:30)
[2017-12-11 07:25] LABS: BASOPHILS % (AUTO) 1.4 % (0.0-2.0); EOSINOPHILS % (AUTO) 7.8 % (0.0-3.0); HEMATOCRIT 41.8 % (42.0-52.0); HEMOGLOBIN 13.4 G/DL (14.2-18.0); LYMPHOCYTES % (AUTO) 25.1 % (20.0-45.0); MEAN CORPUSCULAR VOLUME 82 FL (80-99); MONOCYTES % (AUTO) 11.6 % (1.0-10.0); NEUTROPHILS % (AUTO) 54.1 % (45.0-75.0); PLATELET COUNT 509 K/UL (150-450); RED BLOOD COUNT 5.09 M/UL (4.70-6.10); RED CELL DISTRIBUTION WIDTH 15.6 % (11.6-14.8); WHITE BLOOD COUNT 7.3 K/UL (4.8-10.8)
[2017-12-11 07:46] LABS: ANION GAP 11 mmol/L (5-15); BLOOD UREA NITROGEN 20 mg/dL (7-18); CARBON DIOXIDE 25 MMOL/L (21-32); CHLORIDE 99 MMOL/L (98-107); CREATININE 1.5 MG/DL (0.55-1.30); SODIUM 135 MMOL/L (136-145)
[2017-12-11 08:00] VITALS: BP 129/74
[2017-12-11] MEDS: Bactrim-DS 1 tab ORAL SCH (09:46)
--- NOTE | 2017-12-11 09:49 | General Progress Note ---
Assessment/Plan Status: stable Assessment/Plan #. DVT lower extremity, R side. On right side is non-occlusive thrombus in the femoral to popliteal vein. On the left side is recanalized thrombus --> Continue Coumadin INR Goal is 2-3 --> IVC filter in place. Imaging has been reviewed. --> monitor for bleeding --> does not require a thrombophilia workup given that he is already on anticoagulation #. Pulmonary embolism x2, with hx of recurrence --> history of IVC filter in addition to being on Coumadin at this time. #. Coagulopathy due to Coumadin. Continue Lovenox as well until INR is between 2 and 3. #. Lower extremity cellulitis on broad-spectrum antibiotics with wound noted, being seen by Podiatry. --> on abx as per ID, aztreo and bactrim #. Diabetes mellitus. #. Pressure ulcerations bilateral feet and ankles. Continue management with Podiatry. Subjective Date patient seen: Dec 11, 2017 ROS Limited/Unobtainable: Yes Allergies: Coded Allergies: VANCOMYCIN (Verified Allergy, Severe, red man syndrome, 12/08/17) CEPHALEXIN (Verified Allergy, Unknown, Hives, 12/10/17) Patietn refers tolerates Penicillin, amoxicillin All Systems: reviewed and negative except above Subjective Pt afebrile, Bcx NTD, no leukocytosis. NAD. Objective Last 24 Hour Vital Signs Date Time Temp Pulse Resp B/P (MAP) Pulse Ox O2 Delivery O2 Flow Rate FiO2 12/11/17 08:00 97.3 87 19 129/74 92 97.3 12/11/17 07:24 97 20 Room Air 21 12/11/17 04:00 97.7 87 17 122/77 92 97.7 12/11/17 00:54 98.1 86 18 127/76 91 98.1 12/10/17 20:00 97.6 97 19 134/80 93 97.6 12/10/17 19:28 98 20 Room Air 21 12/10/17 16:00 97.8 93 19 153/88 95 97.8 12/10/17 12:00 97.4 98 20 158/89 93 Room Air 97.4 Intake and Output 12/10/17 12/11/17 19:00 07:00 Intake Total 582.5 ml 377.5 ml Balance 582.5 ml 377.5 ml Intake Oral 500 ml 240 ml IV Total 82.5 ml 137.5 ml # Voids 2 2 Laboratory Tests 12/11/17 06:30: White Blood Count 7.3, Red Blood Count 5.09, Hemoglobin 13.4L, Hematocrit 41.8L , Mean Corpuscular Volume 82, Mean Corpuscular Hemoglobin 26.3L, Mean Corpuscular Hemoglobin Concent 32.1, Red Cell Distribution Width 15.6H, Platelet Count 509H, Mean Platelet Volume 5.6L, Neutrophils (%) (Auto) 54.1, Lymphocytes (%) (Auto) 25.1, Monocytes (%) (Auto) 11.6H, Eosinophils (%) (Auto) 7.8H, Basophils (%) (Auto) 1.4, Prothrombin Time 10.9, Prothromb Time International Ratio 1.0, Sodium Level 135L, Potassium Level 4.0, Chloride Level 99, Carbon Dioxide Level 25, Anion Gap 11, Blood Urea Nitrogen 20H, Creatinine 1.5H, Estimat Glomerular Filtration Rate 48.4, Glucose Level 91, Calcium Level 9.0 Height (Feet): 6 Height (Inches): 0.00 Weight (Pounds): 193 General Appearance: WD/WN, no apparent distress EENT: PERRL/EOMI Neck: normal alignment Cardiovascular: normal peripheral pulses Respiratory/Chest: normal breath sounds, no respiratory distress Abdomen: soft Chance Lakhani MD Dec 11, 2017 09:49
--- NOTE | 2017-12-11 11:32 | Infectious Diseases Prog Note ---
Assessment/Plan Assessment/Plan Assessment: Mod- severe B/l leg Cellulitis, w/ skin denudation on b/l feet, small L foot dorsal ulcer- on background of chronic lymphedema/ +foul smelling; improving -wound cx PsA (I cirp, R Levo, otherwise S), Diphtheroids, staph sp Afebrile, no leukocytosis R DVT on coumadin hx of PE x2 COPD [facility] resident [place] and [place] allergy Plan: -D/c Bactrim #4 given no MRSA isolation from wound cx and increase in Cr -Continue Zosyn abx d #4/14 (for better strep coverage) -12/10 SP Aztreonam and Flagyl #3 -12/07 SP Clinda x1 -Podiatry f/u -f/u cx -Monitor CBC/BMP, temperatures -wound care per hospital protocol Thank you for this consultation. Will continue to monitor off abx. Discussed with RN. Subjective Allergies: Coded Allergies: CEPHALEXIN (Verified Allergy, Intermediate, Hives, 12/11/17) Patietn refers tolerates Penicillin, amoxicillin Tolerated Zosyn 12/10/17 VANCOMYCIN (Verified Allergy, Intermediate, red man syndrome, 12/11/17) Subjective afebrile Bcx NTD no leukocytosis] Cr increased tolerated Zosyn Objective Vital Signs Last 24 Hour Vital Signs Date Time Temp Pulse Resp B/P (MAP) Pulse Ox O2 Delivery O2 Flow Rate FiO2 12/11/17 08:00 97.3 87 19 129/74 92 97.3 12/11/17 07:24 97 20 Room Air 21 12/11/17 04:00 97.7 87 17 122/77 92 97.7 12/11/17 00:54 98.1 86 18 127/76 91 98.1 12/10/17 20:00 97.6 97 19 134/80 93 97.6 12/10/17 19:28 98 20 Room Air 21 12/10/17 16:00 97.8 93 19 153/88 95 97.8 12/10/17 12:00 97.4 98 20 158/89 93 Room Air 97.4 Height (Feet): 6 Height (Inches): 0.00 Weight (Pounds): 193 Objective General Appearance: no apparent distress Head: normocephalic, atraumatic Eyes: bilateral eye PERRL, bilateral eye EOMI ENT: normal pharynx, no angioedema Respiratory: lungs clear, normal breath sounds Cardiovascular : regular rate, rhythm Gastrointestinal: non tender, soft Musculoskeletal: other - Significant edema bilaterally increased erythema with skin denuation on both feet on dorsal aspect and fouls smelling odor; small ulceration in L foot on metatarsal area Neurologic: alert, responsive Skin: other - As above Lymphatic: other - Significant edema bilaterally Microbiology Date/Time Source Procedure Growth Status 12/08/17 14:30 Leg Left Gram Stain - Final Resulted 12/08/17 14:30 Wound Culture - Preliminary Pseudomonas Aeruginosa Staphylococcus Species Diphtheroids Resulted Laboratory Tests Test 12/11/17 06:30 White Blood Count 7.3 K/UL (4.8-10.8) Red Blood Count 5.09 M/UL (4.70-6.10) Hemoglobin 13.4 G/DL (14.2-18.0) L Hematocrit 41.8 % (42.0-52.0) L Mean Corpuscular Volume 82 FL (80-99) Mean Corpuscular Hemoglobin 26.3 PG (27.0-31.0) L Mean Corpuscular Hemoglobin Concent 32.1 G/DL (32.0-36.0) Red Cell Distribution Width 15.6 % (11.6-14.8) H Platelet Count 509 K/UL (150-450) H Mean Platelet Volume 5.6 FL (6.5-10.1) L Neutrophils (%) (Auto) 54.1 % (45.0-75.0) Lymphocytes (%) (Auto) 25.1 % (20.0-45.0) Monocytes (%) (Auto) 11.6 % (1.0-10.0) H Eosinophils (%) (Auto) 7.8 % (0.0-3.0) H Basophils (%) (Auto) 1.4 % (0.0-2.0) Prothrombin Time 10.9 SEC (9.30-11.50) Prothromb Time International Ratio 1.0 (0.9-1.1) Sodium Level 135 MMOL/L (136-145) L Potassium Level 4.0 MMOL/L (3.5-5.1) Chloride Level 99 MMOL/L (98-107) Carbon Dioxide Level 25 MMOL/L (21-32) Anion Gap 11 mmol/L (5-15) Blood Urea Nitrogen 20 mg/dL (7-18) H Creatinine 1.5 MG/DL (0.55-1.30) H Estimat Glomerular Filtration Rate 48.4 mL/min (>60) Glucose Level 91 MG/DL (74-106) Calcium Level 9.0 MG/DL (8.5-10.1) Current Medications Medications (Trade) Dose Ordered Sig/Italo Route PRN Reason Start Time Stop Time Status Last Admin Dose Admin Acetaminophen (Tylenol) 650 mg Q4H PRN ORAL fever 12/07/17 22:30 01/06/18 22:29 Albuterol/ Ipratropium (Albuterol/ Ipratropium) 3 ml EVERY 4 HOURS PRN HHN Shortness of Breath 12/07/17 22:30 12/12/17 22:29 Chlorhexidine Gluconate (Mahi-Hex 2%) 1 applic DAILY@2000 TOPIC 12/08/17 23:40 01/07/18 23:39 12/10/17 20:50 Dextrose (Dextrose 50%) 25 ml STAT PRN IV Hypoglycemia 12/08/17 15:30 01/06/18 22:29 Dextrose (Dextrose 50%) 50 ml STAT PRN IV Hypoglycemia 12/08/17 15:30 01/07/18 15:29 Enoxaparin Sodium (Lovenox) 40 mg Q24H SUBQ 12/09/17 11:00 01/08/18 10:59 12/10/17 11:31 Enoxaparin Sodium (Lovenox) 100 mg Q24H SUBQ 12/09/17 11:00 01/08/18 10:59 12/10/17 11:31 Gabapentin (Neurontin) 600 mg QID ORAL 12/08/17 09:00 01/07/18 08:59 12/11/17 09:45 Insulin Aspart (NovoLOG) BEFORE MEALS AND HS SUBQ 12/08/17 06:30 01/07/18 06:29 Mirtazapine (Remeron) 45 mg DAILY ORAL 12/08/17 09:00 01/07/18 08:59 12/11/17 09:46 Morphine Sulfate (Morphine Sulfate) 2 mg EVERY 4 HOURS PRN IVP Moderate Pain (Pain Scale 4-6) 12/07/17 22:30 12/14/17 22:29 12/11/17 09:45 Nitroglycerin (Ntg) 0.4 mg Q5M PRN SL Prn Chest Pain 12/07/17 22:30 01/06/18 22:29 Ondansetron HCl (Zofran) 4 mg Q6H PRN IVP Nausea & Vomiting 12/07/17 22:30 01/06/18 22:29 Piperacillin Sod/ Tazobactam Sod 3.375 gm/Dextrose 110 ml @ 27.5 mls/hr EVERY 8 HOURS IVPB 12/10/17 14:30 12/15/17 14:29 12/11/17 05:16 Polyethylene Glycol (Miralax) 17 gm DAILYPRN PRN ORAL Constipation 12/07/17 22:30 01/06/18 22:29 Temazepam (Restoril) 15 mg HSPRN PRN ORAL Insomnia 12/07/17 22:30 12/14/17 22:29 Trimethoprim/ Sulfamethoxazole (Bactrim-DS) 1 tab Q12HR ORAL 12/09/17 21:00 12/15/17 08:59 12/11/17 09:46 Warfarin Sodium (Coumadin per pharmacy) 1 ea DAILY PRN MISC Per rx protocol 12/09/17 08:45 01/08/18 08:44 Leatha Choi M.D. Dec 11, 2017 11:32
[2017-12-11 12:00] VITALS: BP 139/93
[2017-12-11] MEDS: Enoxaparin 40mg Inj SUBQ SCH (12:18)
[2017-12-11] MEDS: Enoxaparin 100mg Inj SUBQ SCH (12:19)
--- NOTE | 2017-12-11 12:31 | Pulmonology Progress Note ---
Assessment/Plan Problems: (1) DVT (deep venous thrombosis) (2) COPD (chronic obstructive pulmonary disease) (3) Encounter for generalized patient complaints (4) DM (diabetes mellitus) (5) Cellulitis (6) ATN (acute tubular necrosis) Assessment/Plan renal w/u venous doppler reviewed on Lovenox therapeutic dose respiratory treatment continue abx, Aztreonam, Bactrim titrate fio2 to sat of 92& sliding scale diabetic diet. Subjective ROS Limited/Unobtainable: No Constitutional: Reports: no symptoms HEENT: Repors: no symptoms Respiratory: Reports: no symptoms Allergies: Coded Allergies: CEPHALEXIN (Verified Allergy, Intermediate, Hives, 12/11/17) Patietn refers tolerates Penicillin, amoxicillin Tolerated Zosyn 12/10/17 VANCOMYCIN (Verified Allergy, Intermediate, red man syndrome, 12/11/17) Objective Last 24 Hour Vital Signs Date Time Temp Pulse Resp B/P (MAP) Pulse Ox O2 Delivery O2 Flow Rate FiO2 12/11/17 12:00 96.8 99 19 139/93 93 96.8 12/11/17 08:00 97.3 87 19 129/74 92 97.3 12/11/17 07:24 97 20 Room Air 21 12/11/17 04:00 97.7 87 17 122/77 92 97.7 12/11/17 00:54 98.1 86 18 127/76 91 98.1 12/10/17 20:00 97.6 97 19 134/80 93 97.6 12/10/17 19:28 98 20 Room Air 21 12/10/17 16:00 97.8 93 19 153/88 95 97.8 Intake and Output 12/10/17 12/11/17 19:00 07:00 Intake Total 582.5 ml 377.5 ml Balance 582.5 ml 377.5 ml Intake Oral 500 ml 240 ml IV Total 82.5 ml 137.5 ml # Voids 2 2 General Appearance: WD/WN HEENT: normocephalic Respiratory/Chest: chest wall non-tender, lungs clear Cardiovascular: normal peripheral pulses, normal rate Abdomen: soft, non tender Genitourinary: normal external genitalia Extremities: no clubbing 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 Microbiology Date/Time Source Procedure Growth Status 12/08/17 14:30 Leg Left Gram Stain - Final Resulted 12/08/17 14:30 Wound Culture - Preliminary Pseudomonas Aeruginosa Staphylococcus Species Diphtheroids Resulted Laboratory Tests 12/11/17 06:30: White Blood Count 7.3, Red Blood Count 5.09, Hemoglobin 13.4L, Hematocrit 41.8L , Mean Corpuscular Volume 82, Mean Corpuscular Hemoglobin 26.3L, Mean Corpuscular Hemoglobin Concent 32.1, Red Cell Distribution Width 15.6H, Platelet Count 509H, Mean Platelet Volume 5.6L, Neutrophils (%) (Auto) 54.1, Lymphocytes (%) (Auto) 25.1, Monocytes (%) (Auto) 11.6H, Eosinophils (%) (Auto) 7.8H, Basophils (%) (Auto) 1.4, Prothrombin Time 10.9, Prothromb Time International Ratio 1.0, Sodium Level 135L, Potassium Level 4.0, Chloride Level 99, Carbon Dioxide Level 25, Anion Gap 11, Blood Urea Nitrogen 20H, Creatinine 1.5H, Estimat Glomerular Filtration Rate 48.4, Glucose Level 91, Calcium Level 9.0 Current Medications Medications (Trade) Dose Ordered Sig/Italo Route PRN Reason Start Time Stop Time Status Last Admin Dose Admin Acetaminophen (Tylenol) 650 mg Q4H PRN ORAL fever 12/07/17 22:30 01/06/18 22:29 Albuterol/ Ipratropium (Albuterol/ Ipratropium) 3 ml EVERY 4 HOURS PRN HHN Shortness of Breath 12/07/17 22:30 12/12/17 22:29 Chlorhexidine Gluconate (Mahi-Hex 2%) 1 applic DAILY@1999 TOPIC 12/08/17 23:40 01/07/18 23:39 12/10/17 20:50 Dextrose (Dextrose 50%) 25 ml STAT PRN IV Hypoglycemia 12/08/17 15:30 01/06/18 22:29 Dextrose (Dextrose 50%) 50 ml STAT PRN IV Hypoglycemia 12/08/17 15:30 01/07/18 15:29 Enoxaparin Sodium (Lovenox) 40 mg Q24H SUBQ 12/09/17 11:00 01/08/18 10:59 12/11/17 12:18 Enoxaparin Sodium (Lovenox) 100 mg Q24H SUBQ 12/09/17 11:00 01/08/18 10:59 12/11/17 12:19 Gabapentin (Neurontin) 600 mg QID ORAL 12/08/17 09:00 01/07/18 08:59 12/11/17 09:45 Insulin Aspart (NovoLOG) BEFORE MEALS AND HS SUBQ 12/08/17 06:30 01/07/18 06:29 Mirtazapine (Remeron) 45 mg DAILY ORAL 12/08/17 09:00 01/07/18 08:59 12/11/17 09:46 Morphine Sulfate (Morphine Sulfate) 2 mg EVERY 4 HOURS PRN IVP Moderate Pain (Pain Scale 4-6) 12/07/17 22:30 12/14/17 22:29 12/11/17 09:45 Nitroglycerin (Ntg) 0.4 mg Q5M PRN SL Prn Chest Pain 12/07/17 22:30 01/06/18 22:29 Ondansetron HCl (Zofran) 4 mg Q6H PRN IVP Nausea & Vomiting 12/07/17 22:30 01/06/18 22:29 Piperacillin Sod/ Tazobactam Sod 3.375 gm/Dextrose 110 ml @ 27.5 mls/hr EVERY 8 HOURS IVPB 12/10/17 14:30 12/15/17 14:29 12/11/17 05:16 Polyethylene Glycol (Miralax) 17 gm DAILYPRN PRN ORAL Constipation 12/07/17 22:30 01/06/18 22:29 Temazepam (Restoril) 15 mg HSPRN PRN ORAL Insomnia 12/07/17 22:30 12/14/17 22:29 Warfarin Sodium (Coumadin per pharmacy) 1 ea DAILY PRN MISC Per rx protocol 12/09/17 08:45 01/08/18 08:44 Prem Thompson MD Dec 11, 2017 12:31
[2017-12-11 12:46] LABS: CREATINE KINASE 141 U/L (26-308)
[2017-12-11 16:00] VITALS: BP 144/89
[2017-12-11] MEDS ORDERED: ACETAMINOPHEN325 M1 ORAL (16:45)
[2017-12-11] MEDS ORDERED: HIBICLENS118 ML TP (16:46)
[2017-12-11] MEDS ORDERED: NOVOLOG100 UNIT/3 SUBQ (16:50)
[2017-12-11] MEDS ORDERED: DUONEB 0.5-3(2.53 ML HHN (16:51)
[2017-12-11] MEDS ORDERED: MIRTAZAPINE15 M3 ORAL (16:54)
[2017-12-11] MEDS ORDERED: MORPHINE SU4 MG/1 ML IJ (16:56)
[2017-12-11] MEDS ORDERED: NITROSTAT0.4 M1 SL (16:57)
[2017-12-11] MEDS ORDERED: ZOFRAN 4 MG4 MG/2 ML IV (16:58)
[2017-12-11] MEDS ORDERED: Warfarin Sodium 10mg ORAL SCH (17:00)
[2017-12-11] MEDS ORDERED: ZOSYN 3.373.375 GM/1 IVPB (17:00)
[2017-12-11] MEDS ORDERED: MIRALAX17 G2 ORAL (17:01)
[2017-12-11] MEDS ORDERED: RESTORIL15 MG ORAL (17:02)
[2017-12-11] MEDS ORDERED: LOVENOX10 M4 SUBQ (17:04)
[2017-12-11] MEDS ORDERED: LOVENOX10 M3 SUBQ (17:04)
[2017-12-11] MEDS ORDERED: D5W 50ML50 M1 IV (17:07)
[2017-12-11] MEDS ORDERED: WARFARIN ORAL (17:22)
--- NOTE | 2017-12-13 09:56 | Discharge Summary ---
Discharge Summary Discharge Summary _ DATE OF ADMISSION: 12/07/2017 DATE OF DISCHARGE: 12/11/2017 REASON FOR ADMISSION: 57 years old male with history of COPD, right lower extremity DVT, history of recurrent PE, diabetes, presented from the longterm facility with bilateral lower extremity swelling and redness which gradually increased. There was no reported fever or chills. Patient denied chest pain,shortness of breath. Vital signs were stable. Laboratory workup revealed no leukocytosis, hemoglobin 12.0 ,hematocrit 37.8. Glucose 104 . Stable LFT, troponin negative . EKG revealed normal sinus rhythm. Chest x-ray revealed no acute cardiopulmonary pathology. Patient admitted with diagnosis of cellulitis bilateral lower extremities. CONSULTANTS: pulmonary Dr. Thompson ID specialist Dr. Antoine wood molder/oncologist Dr. Lakhani hat and cap parts cutter hand dr. Kimble [facility] COURSE: Patient admitted to Med Surg floor. Patient started on empiric antibiotic. Infectious disease specialist closely followed. Per Infectious disease specialist , patient had moderate to severe bilateral lower extremity cellulitis with skin denudation and foul smell superimposed on chronic lymphedema. Patient started on empiric antibiotic. Wound culture showed Pseudomonas. Antibiotic provided as per infectious disease doctor recommendation , and to be completed at the longterm [facility]. Patient was afebrile. No leukocytosis. Inspector Repairer [place]stone closely followed for history of recurrent PE as well as right lower extremity DVT. Patient had on right side non-occlusive thrombus in the femoral to popliteal vein and on the left side recanalized thrombus . Patient was on Coumadin and [id number] ro bridge to therapeutic INR and then keep INR in therapeutic window. Patient also had IVC filter in the past. No evidence of recurrence of pulmonary emboli: no chest pain, no shortness of breath, no cough, no palpitations, no anxiety. Tire Servicer closely followed. Supplemental oxygen and pulmonary toilet provided as needed. Chest x-ray revealed no acute cardiopulmonary pathology. Patient had no evidence of COPD exacerbation. Blood sugar was managed with diabetic diet. Patient declined blood sugar monitoring while in the facility. Morning laboratories showed stable blood glucose. Rotary Furnace Operator closely followed . Patient had chronic non-pressure ulcers bilateral feet and ankles, present on admission. Wound care provided as per hat and cap parts cutter hand recommendation. Renal parameters and electrolytes were closely monitored. Electrolytes were corrected as needed. Noted BUN-20 and creatinine 1.5; increase from prior BUN 12 and creatinine 1.1. possibly due to Bactrim. Bactrim discontinued. Antibiotic regimen optimized as per ID recommendations. Monitor renal parameters in the facility. Supportive care provided. Pain management provided, pain was addressed and controlled. Bowel regimen instituted. Patient was stable for discharge back to longterm facility to complete IV antibiotics course FINAL DIAGNOSES: Moderate to severe bilateral lower extremity cellulitis) with skin vegetation) on chronic lymphedema, improving Right lower extremity DVT History of PE 2 Non-pressure ulcer bilateral feet and ankles ( present on admission) COPD Diabetes mellitus Acute kidney injury Possible acute tubular necrosis DISCHARGE MEDICATIONS: See Medication Reconciliation list. DISCHARGE INSTRUCTIONS: was discharged to longterm facility. Follow up with medical doctor at the facility. I have been assigned to dictate discharge summary for this account. I was not involved in the patient's management. Gia Flores NP Dec 13, 2017 09:56
--- NOTE | 2017-12-13 22:16 | Diagnostic Imaging Report ---
APPROVED REPORT CPT Code: 67981 Symptoms Comments: Pain Cellulitis Edematous BILATERAL: Common femoral artery waveform analysis is within normal limits at rest. Color flow duplex sonography reveals patency of the superficial femoral, popliteal, and tibial arteries, there is no evidence of stenosis or occlusion within these segments. Doppler tibial artery waveform analysis is within normal limits, bilaterally. Note: Some of the tibial artery Doppler waveforms are vaodilated, due to severe edematous vessels. Right dorsalis pedis artery was not imaged, due to the wound bandages. There is no evidence of significant arterial occlusive disease, bilaterally.
--- NOTE | 2017-12-13 22:17 | Diagnostic Imaging Report ---
APPROVED REPORT CPT Code: 51026 Present Symptoms Lower Extremity Edema: Bilateral Comments: BLE ulcers RIGHT LEG: Venous imaging reveals acute non-occlusive thrombus in the common femoral to popliteal veins. Remainder of the deep venous system within normal limits. No evidence of thrombus in the calf veins. Greater saphenous vein also within normal limits. LEFT LEG: Venous imaging reveals recanalized chronic thrombus in the superficial femoral vein. Large collateral vein noted anterior to the superficial femoral artery. Imaging also reveals patency of the common femoral, popliteal and calf veins. The greater saphenous vein is also within normal limits. Doppler indicates normal spontaneous flow within these segments. ANNETTE Mitchell was notified of abnormal results at 1050 hours.
== END 2017-12-11 20:45 | DRG 383 ==
LOC: EDBD 16:25 → EMR 17:06 → 4W 17:27 → EDBEDREQ 17:44
DX: L03.116 Cellulitis of left lower limb (principal); N17.0 Acute kidney failure with tubular necrosis; G93.40 Encephalopathy, unspecified; I82.401 Acute embolism and thrombosis of unspecified deep veins of right lower extremity; E88.09 Other disorders of plasma-protein metabolism, not elsewhere classified; L97.319 Non-pressure chronic ulcer of right ankle with unspecified severity; E11.9 Type 2 diabetes mellitus without complications; B96.5 Pseudomonas (aeruginosa) (mallei) (pseudomallei) as the cause of diseases classified elsewhere; L03.115 Cellulitis of right lower limb; D64.9 Anemia, unspecified; J44.9 Chronic obstructive pulmonary disease, unspecified; Z88.1 Allergy status to other antibiotic agents; Z86.711 Personal history of pulmonary embolism; I89.0 Lymphedema, not elsewhere classified; L97.329 Non-pressure chronic ulcer of left ankle with unspecified severity; L97.529 Non-pressure chronic ulcer of other part of left foot with unspecified severity; L97.519 Non-pressure chronic ulcer of other part of right foot with unspecified severity; Z79.01 Long term (current) use of anticoagulants
CPT/HCPCS: 36415; 71045; 80048; 80053; 82550; 82553; 82962; 83605; 84484; 84550; 85025; 85610; 85730; 87040; 87070; 87081; 87181; 87205; 93005; 93925; 93970; 94664; 97803; 99285; J1815; S0077

== ENCOUNTER 2018-02-12 14:51 | Inpatient (IN) | payer MEDICAID ==
[~2018-02-12] VITALS: Ht 172.7 cm; Wt 87.2 kg
[~2018-02-12 14:51] MED LIST changes: +ACETAMINOPHEN325 M1 ORAL; +BREO ELLIPTA 11 EACH IH; +COUMADIN4 MG ORAL; +D5W 50ML50 M1 IV; +DUONEB 0.5-3(2.53 ML HHN; +HIBICLENS118 ML TP; +LANSOPRAZOLE30 MG ORAL; +LOVENOX10 M3 SUBQ; +LOVENOX10 M4 SUBQ; +MIRALAX17 G2 ORAL; +MORPHINE SU4 MG/1 ML IJ; +NITROSTAT0.4 M1 SL; +NOVOLOG100 UNIT/3 SUBQ; +PREVACID15 MG ORAL; +RESTORIL15 MG ORAL; +WARFARIN ORAL; +ZOFRAN 4 MG4 MG/2 ML IV; +ZOSYN 3.373.375 GM/1 IVPB
[2018-02-12 15:00] VITALS: BP 129/76
[2018-02-12] MEDS ORDERED: Piperacillin/Tazobactam 3.375 GM in NS 110 ML IVPB ONE (15:15)
[2018-02-12] MEDS ORDERED: Morphine Sulfate 4mg/ml Inj (IV USE ONLY) IVP ONE (15:15)
--- NOTE | 2018-02-12 15:19 | Emergency Room Report ---
History of Present Illness General Chief Complaint: Skin Rash/Abscess Source: Patient Present Illness HPI Patient was brought in by private ambulance from assisted living. Apparently his dressings on his feet have not been changed for 4 days. They noted maggots in one of the wounds. The patient's complaining about pain from his feet radiating to his body. He states the pain is 10/10, aching. The patient has history of DVTs and is on Coumadin at this time. He drinks alcohol and also smokes THC. His last drink was this morning. He states his tetanus is less than 10 years. He denies chest pain, cough, nausea, vomiting. His stools been loose but brown in color. He denies dysuria. Aside from the wounds he denies other rashes. Denies headache. He's been admitted for this problem in the past (although, no maggots noted). Diabetic. Denies polies. Allergies: Coded Allergies: CEPHALEXIN (Verified Allergy, Intermediate, Hives, 12/11/17) Patietn refers tolerates Penicillin, amoxicillin Tolerated Zosyn 12/10/17 VANCOMYCIN (Verified Allergy, Intermediate, red man syndrome, 12/11/17) Patient History Past Medical History: see triage record, old chart reviewed Social History: Reports: smoking, alcohol use, drug use Social History Narrative Assisted living Reviewed Nursing Documentation: PMH: Agreed; PSxH: Agreed Nursing Documentation-PMH Past Medical History: No History, Except For Hx Cardiac Problems: No - blood clots Hx COPD: Yes Hx Cancer: No Hx Gastrointestinal Problems: No Review of Systems All Other Systems: negative except mentioned in HPI Physical Exam Vital Signs Date Time Temp Pulse Resp B/P (MAP) Pulse Ox O2 Delivery O2 Flow Rate FiO2 02/12/18 14:57 97.7 107 18 127/85 99 Room Air 97.7 Sp02 EP Interpretation: reviewed, normal General Appearance: well appearing, no apparent distress, GCS 15, other - dishevelled with soiled dressings ankles/lower legs and feet Head: normocephalic Eyes: bilateral eye normal inspection, bilateral eye PERRL - 2mm, bilateral eye EOMI ENT: moist mucus membranes Neck: supple Respiratory: chest non-tender, lungs clear, normal breath sounds Cardiovascular #1: regular rate, rhythm, edema - bilateral LE Cardiovascular #2: 2+ radial (R) Gastrointestinal: normal inspection, normal bowel sounds, non tender, no mass, non-distended Musculoskeletal: back normal, gait/station normal, normal range of motion, Azeem's Sign negative, swelling - bilat Neurologic: alert, oriented x3, grossly normal Psychiatric: mood/affect normal Skin: warm/dry, other - bilateral foot and lower leg ulcers with erythema, L top of foot with maggot infestation Medical Decision Making Diagnostic Impression: Primary Impression: Cellulitis of left foot Additional Impressions: Substance abuse Maggot infestation H/O deep venous thrombosis ER Course Patient presents with wound infections and negative infestation with pain. Differential includes sepsis, osteomyelitis, cutaneous infection, maggot infestation amongst others. Patient will be evaluated with EKG, chest x-ray, x- ray of the feet and labs. He'll receive IV hydration, analgesia and will be started on antibiotics. Patient with poor IV access. PICC line was ordered. Labs with elevated WBC. INR elevated, subtherapeutic. Pyuria. Antibiotics begun after PICC inserted. Also, patient given analgesia. Improved with treatment. Discussed with Dr. Sandoval and Dr. Nolan (as Dr. Sandoval signed out to him.) Laboratory Tests Test 02/12/18 17:12 02/12/18 17:26 White Blood Count 11.9 K/UL (4.8-10.8) H Red Blood Count 4.59 M/UL (4.70-6.10) L Hemoglobin 11.8 G/DL (14.2-18.0) L Hematocrit 35.9 % (42.0-52.0) L Mean Corpuscular Volume 78 FL (80-99) L Mean Corpuscular Hemoglobin 25.8 PG (27.0-31.0) L Mean Corpuscular Hemoglobin Concent 33.0 G/DL (32.0-36.0) Red Cell Distribution Width 14.3 % (11.6-14.8) Platelet Count 473 K/UL (150-450) H Mean Platelet Volume 5.0 FL (6.5-10.1) L Neutrophils (%) (Auto) 67.6 % (45.0-75.0) Lymphocytes (%) (Auto) 21.2 % (20.0-45.0) Monocytes (%) (Auto) 8.8 % (1.0-10.0) Eosinophils (%) (Auto) 1.6 % (0.0-3.0) Basophils (%) (Auto) 0.8 % (0.0-2.0) Erythrocyte Sedimentation Rate 95 MM/HR (0-20) H Prothrombin Time 17.5 SEC (9.30-11.50) H Prothrombin Time INR 1.7 (0.9-1.1) H PTT 41 SEC (23-33) H Sodium Level 135 MMOL/L (136-145) L Potassium Level 3.6 MMOL/L (3.5-5.1) Chloride Level 99 MMOL/L (98-107) Carbon Dioxide Level 27 MMOL/L (21-32) Anion Gap 9 mmol/L (5-15) Blood Urea Nitrogen 9 mg/dL (7-18) Creatinine 0.8 MG/DL (0.55-1.30) Estimate Glomerular Filtration Rate > 60 mL/min (>60) Glucose Level 104 MG/DL (74-106) Lactic Acid Level 1.10 mmol/L (0.4-2.0) Calcium Level 8.5 MG/DL (8.5-10.1) Total Bilirubin 0.3 MG/DL (0.2-1.0) Aspartate Amino Transferase (AST) 16 U/L (15-37) Alanine Aminotransferase (ALT) 11 U/L (12-78) L Alkaline Phosphatase 80 U/L (46-116) Total Creatine Kinase 45 U/L (26-308) Troponin I 0.000 ng/mL (0.000-0.056) Pro-B-Type Natriuretic Peptide 171 pg/mL (0-125) H Total Protein 8.2 G/DL (6.4-8.2) Albumin 2.3 G/DL (3.4-5.0) L Globulin 5.9 g/dL Albumin/Globulin Ratio 0.4 (1.0-2.7) L Serum Alcohol 9 mg/dL Urine Color Loree Urine Appearance Clear Urine pH 5 (4.5-8.0) Urine Specific [place] 1.020 (1.005-1.035) Urine Protein 2+ (NEGATIVE) H Urine Glucose (UA) Negative (NEGATIVE) Urine Ketones Negative (NEGATIVE) Urine Blood 1+ (NEGATIVE) H Urine Nitrite Negative (NEGATIVE) Urine Bilirubin Negative (NEGATIVE) Urine Ictotest [place] (NEGATIVE) Urine Urobilinogen 4 MG/DL (0.0-1.0) H Urine Leukocyte Esterase 1+ (NEGATIVE) H Urine RBC 5-10 /HPF (0 - 0) H Urine WBC 5-10 /HPF (0 - 0) H Urine Squamous Epithelial Cells Few /LPF (NONE/OCC) Urine Bacteria Few /HPF (NONE) Urine Mucus Few /LPF (NONE/OCC) H Urine Opiates Screen Negative (NEGATIVE) Urine Barbiturates Screen Negative (NEGATIVE) Phencyclidine (PCP) Screen Negative (NEGATIVE) Urine Amphetamines Screen Positive (NEGATIVE) H Urine Benzodiazepines Screen Negative (NEGATIVE) Urine Cocaine Screen Negative (NEGATIVE) Urine Marijuana (THC) Screen Positive (NEGATIVE) H EKG Diagnostic Results ST Segments: no acute changes Rhythm Strip Diag. Results EP Interpretation: yes Rhythm: no PVC's, no ectopy, other - Sinus tachycardia Chest X-Ray Diagnostic Results Chest X-Ray Diagnostic Results : Chest X-Ray Ordered: Yes # of Views/Limited/Complete: 1 View Indication: Other EP Interpretation: Yes Interpretation: no consolidation, no effusion, no pneumothorax Impression: No acute disease Electronically Signed by: Electronically signed by Ag Yadav MD Other X-Ray Diagnostic Results Other X-Ray Diagnostic Results #1: X-Ray ordered: Left foot # of Views/Limited Vs Complete: 3 View Indication: Other EP Interpretation: Yes Interpretation: no dislocation, no fractures, other - Soft tissue swelling Impression: Other Electronically Signed by: Electronically signed by Ag Yadav MD Other X-Ray Diagnostic Results #2: X-Ray ordered: Right foot # of Views/Limited Vs Complete: 3 View Indication: Other EP Interpretation: Yes Interpretation: no dislocation, no fractures, other - Soft tissue swelling no gas Impression: Other Electronically Signed by: Electronically signed by Ag Yadav MD Last Vital Signs Date Time Temp Pulse Resp B/P (MAP) Pulse Ox O2 Delivery O2 Flow Rate FiO2 02/13/18 00:00 99.3 101 19 119/80 (93) 99.3 02/12/18 20:14 Room Air 02/12/18 20:00 93 Status: improved Disposition: ADMITTED INPATIENT Condition: Serious Ag Yadav M.D. Feb 12, 2018 15:19
[2018-02-12] MEDS ORDERED: Heparin 2000 units/Ns 1000ml INJ STA (15:35)
[2018-02-12] MEDS ORDERED: Lidocaine 1% Plain 30 ml INJ STA (15:35)
[2018-02-12 16:00] VITALS: BP 131/73
[2018-02-12] MEDS ORDERED: Lidocaine 1% MPF 10mg/ml 5ml INJ ONE (16:00)
--- NOTE | 2018-02-12 16:18 | Diagnostic Imaging Report ---
Indication: Foot pain Technique: 3 views left foot Comparison: none Findings: There is rather severe hammertoe deformity of the second through fifth digits. This results in overlap of the bones which may obscure pathology. No definite acute fractures or dislocations. No definite osseous erosions, osteolytic lesion, or unusual periosteal reaction. No definite soft tissue ulcer demonstrated. Impression: Limited exam, as described No definite acute bony trauma No definite plain radiographic evidence of osteomyelitis. Note, however, limited sensitivity of plain radiographs for such. Consider nuclear medicine bone scan or MRI if there is high clinical suspicion
--- NOTE | 2018-02-12 16:21 | Diagnostic Imaging Report ---
Indication: Foot Technique: 3 views right foot Comparison: none Findings: There is severe hammertoe deformity of the second through fifth digits. This results in bony overlap that could obscure pathology. No acute fractures. No dislocations. The joint spaces are preserved. Impression: Limited exam, as described No definite acute bony trauma No definite plain radiographic evidence of osteomyelitis. Note, however, that plain radiographs are of limited sensitivity for such. If there is high clinical suspicion, consider nuclear medicine bone scan or MRI for further evaluation
--- NOTE | 2018-02-12 16:22 | Diagnostic Imaging Report ---
Indication: Shortness of breath Technique: One view of the chest Comparison: 12/07/2017 Findings: The heart is borderline enlarged. Lungs and pleural spaces are clear. The bones are unremarkable. No significant interim change. Impression: Borderline cardiomegaly No acute process
[2018-02-12 17:12] VITALS: BP 139/79
[2018-02-12 17:28] LABS: ANION GAP 9 mmol/L (5-15); BLOOD UREA NITROGEN 9 mg/dL (7-18); CALCIUM 8.5 MG/DL (8.5-10.1); CARBON DIOXIDE 27 MMOL/L (21-32); CHLORIDE 99 MMOL/L (98-107); CREATININE 0.8 MG/DL (0.55-1.30); POTASSIUM 3.6 MMOL/L (3.5-5.1); SODIUM 135 MMOL/L (136-145)
[2018-02-12 17:38] LABS: INR 1.7 (0.9-1.1)
[2018-02-12 17:40] LABS: ALANINE AMINOTRANSFERASE 11 U/L (12-78); ALBUMIN 2.3 G/DL (3.4-5.0); ALBUMIN/GLOBULIN RATIO 0.4 (1.0-2.7); ALKALINE PHOSPHATASE 80 U/L (46-116); ASPARTATE AMINO TRANSFERASE 16 U/L (15-37); BILIRUBIN,TOTAL 0.3 MG/DL (0.2-1.0); CREATINE KINASE 45 U/L (26-308)
[2018-02-12 17:45] LABS: APPEARANCE,URINE CLEAR; BILIRUBIN, URINE NEGATIVE (NEGATIVE); GLUCOSE, URINE (UA) NEGATIVE (NEGATIVE); KETONES,URINE NEGATIVE (NEGATIVE); LEUKOCYTE ESTERASE ,URINE 1+ (NEGATIVE); NITRITE,URINE NEGATIVE (NEGATIVE); PH,URINE 5 (4.5-8.0); PROTEIN,URINE 2+ (NEGATIVE); UROBILINOGEN,URINE 4 MG/DL (0.0-1.0)
[2018-02-12 17:46] LABS: COLOR,URINE AMBER
[2018-02-12] MEDS ORDERED: Morphine Sulfate 4mg/ml Inj (IV USE ONLY) ONE (17:50)
[2018-02-12 18:22] VITALS: BP 139/69
--- NOTE | 2018-02-12 18:25 | Diagnostic Imaging Report ---
EXAM: XR Chest, 1 View CLINICAL HISTORY: OSTEOMY TECHNIQUE: Frontal view of the chest. COMPARISON: 02/12/2018 FINDINGS: Lungs: Nonspecific opacity in the medial right lung base may represent atelectasis. An infectious or inflammatory process is not excluded. Hypoventilatory lungs. Pleural space: No significant pleural effusion or pneumothorax. Heart: Unremarkable. No cardiomegaly. Mediastinum: Unremarkable. Bones/joints: No acute osseous abnormality. Tubes, lines and devices: Right PICC tip projects over the superior vena cava. Telemetry leads overlie the patient. IMPRESSION: 1. Right PICC tip projects over the superior vena cava. 2. Nonspecific opacity in the medial right lung base may represent atelectasis. An infectious or inflammatory process is not excluded. 3. No significant pleural effusion or pneumothorax.
[2018-02-12 18:48] LABS: BASOPHILS % (AUTO) 0.8 % (0.0-2.0); EOSINOPHILS % (AUTO) 1.6 % (0.0-3.0); HEMATOCRIT 35.9 % (42.0-52.0); HEMOGLOBIN 11.8 G/DL (14.2-18.0); LYMPHOCYTES % (AUTO) 21.2 % (20.0-45.0); MEAN CORPUSCULAR VOLUME 78 FL (80-99); MONOCYTES % (AUTO) 8.8 % (1.0-10.0); NEUTROPHILS % (AUTO) 67.6 % (45.0-75.0); PLATELET COUNT 473 K/UL (150-450); RED BLOOD COUNT 4.59 M/UL (4.70-6.10); RED CELL DISTRIBUTION WIDTH 14.3 % (11.6-14.8); WHITE BLOOD COUNT 11.9 K/UL (4.8-10.8)
[2018-02-12] MEDS ORDERED: Hydrogen Peroxide 473ml Bottle TOPIC ONE ×2 (19:21→19:30)
[2018-02-12 19:54] VITALS: BP 142/75
[2018-02-12 20:00] VITALS: BP 126/84
[2018-02-12] MEDS ORDERED: Dyna-Hex 2% Top Sol 2oz TOPIC SCH (20:00)
[2018-02-12] MEDS ORDERED: DOCUSATE SODIU100 MG ORAL (21:12)
[2018-02-12] MEDS ORDERED: DIPHENHYDRAMINE25 M1 ORAL (21:12)
[2018-02-12] MEDS ORDERED: PREVACID15 MG ORAL (21:12)
[2018-02-12] MEDS ORDERED: Nitroglycerin Subl 0.4mg tab SL PRN (22:30)
[2018-02-12] MEDS ORDERED: Albuterol/Ipratropium 3ml neb HHN PRN (22:30)
[2018-02-12] MEDS ORDERED: Miralax 17gm pkt ORAL PRN (22:30)
[2018-02-13] VITALS: BP 119/80
[2018-02-13] MEDS: Morphine Sulfate 2mg/ml Inj(IV/IM USE ONLY) IVP PRN ×3 (03:58→21:24)
[2018-02-13 04:00] VITALS: BP 97/51
[2018-02-13] MEDS ORDERED: Aztreonam Inj 1 GM in NS 50 ML IVPB SCH (06:00)
[2018-02-13] MEDS: NovoLOG Insulin Flexpen SUBQ SCH ×4 (06:07→21:00)
[2018-02-13 06:22] LABS: BASOPHILS % (AUTO) 0.7 % (0.0-2.0); EOSINOPHILS % (AUTO) 4.5 % (0.0-3.0); HEMATOCRIT 32.9 % (42.0-52.0); HEMOGLOBIN 10.6 G/DL (14.2-18.0); LYMPHOCYTES % (AUTO) 14.1 % (20.0-45.0); MEAN CORPUSCULAR VOLUME 80 FL (80-99); MONOCYTES % (AUTO) 7.2 % (1.0-10.0); NEUTROPHILS % (AUTO) 73.4 % (45.0-75.0); PLATELET COUNT 407 K/UL (150-450); RED BLOOD COUNT 4.11 M/UL (4.70-6.10); RED CELL DISTRIBUTION WIDTH 14.7 % (11.6-14.8); WHITE BLOOD COUNT 10.9 K/UL (4.8-10.8)
[2018-02-13 06:31] LABS: ALANINE AMINOTRANSFERASE 12 U/L (12-78); ALBUMIN 1.9 G/DL (3.4-5.0); ALBUMIN/GLOBULIN RATIO 0.4 (1.0-2.7); ALKALINE PHOSPHATASE 71 U/L (46-116); ANION GAP 7 mmol/L (5-15); ASPARTATE AMINO TRANSFERASE 15 U/L (15-37); BILIRUBIN,TOTAL 0.4 MG/DL (0.2-1.0); BLOOD UREA NITROGEN 9 mg/dL (7-18); CALCIUM 8.1 MG/DL (8.5-10.1); CARBON DIOXIDE 26 MMOL/L (21-32); CHLORIDE 103 MMOL/L (98-107); CREATININE 0.8 MG/DL (0.55-1.30); POTASSIUM 3.9 MMOL/L (3.5-5.1); SODIUM 136 MMOL/L (136-145)
[2018-02-13 08:18] VITALS: BP 116/60
[2018-02-13] MEDS ORDERED: Heparin 5000 units/ml inj SUBQ SCH (09:00)
[2018-02-13 09:29] LABS: FERRITIN 139 NG/ML (8-388); GAMMA GLUTAMYL TRANSPEPTIDASE 23 U/L (5-85); PHOSPHORUS 3.2 MG/DL (2.5-4.9)
[2018-02-13 09:38] LABS: INR 1.6 (0.9-1.1)
--- NOTE | 2018-02-13 09:47 | Consultation ---
Consult Note Consult Note HPI Patient was brought in by private ambulance from assisted living. Apparently his dressings on his feet have not been changed for 4 days. They noted maggots in one of the wounds. The patient's complaining about pain from his feet radiating to his body. He states the pain is 10/10, aching. The patient has history of DVTs and is on Coumadin at this time. He drinks alcohol and also smokes THC. His last drink was this morning. He states his tetanus is less than 10 years. He denies chest pain, cough, nausea, vomiting. His stools been loose but brown in color. He denies dysuria. Aside from the wounds he denies other rashes. Denies headache. He's been admitted for this problem in the past (although, no maggots noted). Allergies: Coded Allergies: CEPHALEXIN (Verified Allergy, Intermediate, Hives, 12/11/17) Patietn refers tolerates Penicillin, amoxicillin Tolerated Zosyn 12/10/17 VANCOMYCIN (Verified Allergy, Intermediate, red man syndrome, 12/11/17) Past Medical History: see triage record, old chart reviewed Social History: Reports: smoking, alcohol use, drug use Social History Narrative Assisted living Hx COPD: Yes Hx DVT Assessment/Plan HypoNatremia Sever bilateral lower Ext cellulitis Maggot infestation left leg Anemia DVT Substance abuse Smoker- COPD Allergy Vanco- Cephalexin Per ID NS Wound care Leg elevation Anti Coag lovenox until coumadin kicks in for INR of 2.5 Thad Canales MD Feb 13, 2018 09:47
[2018-02-13 10:32] LABS: % IRON SATURATION 8 % (15-50); IRON 15 ug/dL (50-175); TOTAL IRON BINDING CAPACITY 181 ug/dL (250-450)
[2018-02-13] MEDS: Enoxaparin 80mg Inj SUBQ SCH (11:27)
[2018-02-13] MEDS ORDERED: Clindamycin 150mg cap ORAL SCH (12:00)
--- NOTE | 2018-02-13 12:00 | History and Physical Report ---
DATE OF ADMISSION: 02/12/2018 TIME: 10 a.m. CONSULTANTS: 1. Prem Thompson M.D. 2. Bryant Antoine M.D CHIEF COMPLAINT: Right foot cellulitis. BRIEF HISTORY: This is a 57-year-old male from [facility] presents to [facility] last night with worsening of bilateral foot cellulitis. He had it ongoing for the past six months, getting worse, and intermittent treatment. The patient was diagnosed with the above, admitted to medical floor for further treatment. Currently, calm in bed, slightly confused. No complaint. REVIEW OF SYSTEMS: No chest pain. No shortness of breath. No nausea, vomiting, or diarrhea. PAST MEDICAL HISTORY: Includes COPD, DVT, ATN, osteomyelitis, and substance abuse. PAST SURGICAL HISTORY: Unknown. MEDICATIONS: Include chlorhexidine, warfarin, clindamycin, enoxaparin, famotidine, gabapentin, mirtazapine, insulin, aztreonam, morphine, nitroglycerin, and temazepam. ALLERGIES: Cephalexin and vancomycin. SOCIAL HISTORY: Positive smoke. Positive alcohol. Positive methamphetamine use. OBJECTIVE: GENERAL: Calm in bed, oriented x2, in no acute distress. VITAL SIGNS: Temperature is 98, pulse 94, respirations 18, and blood pressure 116/60. CARDIOVASCULAR: No murmur. LUNGS: Distant and clear. ABDOMEN: Bowel sounds positive. Nontender. Nondistended. EXTREMITIES: No cyanosis, clubbing, 1+ edema. Bilateral foot dressing clean and dry. NEUROLOGIC: The patient moves all extremities, slightly weak. LABORATORY AND DIAGNOSTIC DATA: White count 10.9, hemoglobin and hematocrit 10/32, platelets 407. Glucose 107, otherwise BMP is normal. Albumin 1.9. INR is 1.6, PTT is 41. Urine tox positive for amphetamines and marijuana. Urinalysis show 1+ leukocyte esterase. ASSESSMENT: 1. Bilateral foot cellulitis. 2. UTI. 3. COPD. 4. Anemia. 5. DVT. 6. Hypertension. 7. Osteomyelitis. 8. Substance abuse. PLAN: 1. Wound care. 2. Antibiotics per Infectious Disease. 3. Pain control. 4. Dietary followup. 5. Detox. 6. Resume home medications. 7. Blood pressure control. 8. OT, PT, and dietary evaluation. 9. CBC and BMP in the morning. Miguel Angel Nolan D.O. DR: ANNIE JOB#: [id number] CC:
--- NOTE | 2018-02-13 12:23 | Consultation ---
Consult Note Consult Note # [id number] Bryant Antoine MD Feb 13, 2018 12:23
[2018-02-13 13:39] LABS: CREATINE KINASE 47 U/L (26-308)
[2018-02-13] MEDS ORDERED: Tubing IV Secondary IV ONE (13:46)
[2018-02-13] MEDS ORDERED: NS Irrig 1000ml ONE (13:46)
[2018-02-13] MEDS: DAPTOmycin 350 MG in NS 55 ML IV SCH (14:52)
[2018-02-13] MEDS ORDERED: Warfarin Sodium 4mg ORAL SCH (18:00)
[2018-02-13 20:00] VITALS: BP 108/63
[2018-02-13] MEDS: Dyna-Hex 2% Top Sol 2oz TOPIC SCH (21:24)
--- NOTE | 2018-02-13 22:00 | Consultation ---
DATE OF CONSULTATION: 02/13/2018 INFECTIOUS DISEASE CONSULTATION CONSULTING PHYSICIAN: Bryant Antoine M.D. REFERRING PHYSICIAN: Miguel Angel Nolan D.O. REASON FOR CONSULTATION: Evaluation of the patient for bilateral lower extremity cellulitis and antibiotic management. HISTORY OF PRESENT ILLNESS: The patient is a 57-year-old male with multiple medical problems as listed below, who was [facility] medical center because of worsening of bilateral leg cellulitis. Also, the patient reportedly has maggots on the wound. Infectious Disease consultation has been requested for evaluation of the patient for lower extremity cellulitis. PAST MEDICAL HISTORY: 1. History of chronic lower extremity cellulitis. 2. History of bilateral lower extremity edema. 3. History of alcohol abuse and substance abuse in the past. 4. Anemia. 5. History of DVT and PE. MEDICATIONS: Clindamycin and aztreonam. ALLERGIES: Vancomycin and Keflex. REVIEW OF SYSTEM: A 10-point review was done, except what was mentioned above has been negative. FAMILY HISTORY: Noncontributing. SOCIAL HISTORY: As mentioned above. PHYSICAL EXAMINATION: VITAL SIGNS: Temperature 98.2, pulse 86, respiratory rate 18, and blood pressure 116/60. HEENT: No pale conjunctivae. No icterus. NECK: No lymphadenopathy. CHEST: Clear. HEART: S1 and S2. ABDOMEN: Soft. EXTREMITY: Bilateral lower extremity edema/cellulitis of wound with no discharge. At the time of my examination, there were no maggots present. LABORATORY DATA: White blood cells 10.9, hemoglobin 10.6, and platelets 407,000. UA, 5 to 10 white blood cells and 5 to 10 red blood cells. BUN 9 and creatinine 0.8. ALT, AST, and alkaline phosphatase are unremarkable. Wound culture is pending. Chest x-ray, NAPD. Foot x-ray, no evidence of osteomyelitis. ASSESSMENT: The patient is a 57-year-old male with, 1. Chronic cellulitis/wound (history of maggots prior to presentation to this hospital, no evidence at the time of my examination), mostly due to gram-positive organisms, doubt gram-negatives at this point in view of significant wound. 2. Mild leukocytosis. 3. Status post PICC placement on 02/12/2018. 4. Doubt osteomyelitis of lower extremities. 5. Afebrile. 6. History of allergy to vancomycin and Keflex. 7. Rule out probable bacteremia. PLAN: 1. We will continue the patient on daptomycin. Hold aztreonam and clindamycin. 2. Monitor CBC. 3. Monitor BMP. 4. Monitor cultures (wound and blood culture), wound culture is going to most likely represent colonizers viridans in view of pathogens. 5. Wound care nurse consultation. 6. Based on the patient's clinical course and labs, we will do further recommendations. 7. We will monitor CK. Thank you Dr. Miguel Angel Nolan for allowing me to participate in the care of this patient. I will follow the patient with you during this hospitalization. Bryant Antoine M.D. DR: MARÍA ELENA JOB#: [id number] CC:
[2018-02-14] VITALS: BP 128/79
[2018-02-14 04:00] VITALS: BP 134/80
[2018-02-14] MEDS: Morphine Sulfate 2mg/ml Inj(IV/IM USE ONLY) IVP PRN ×2 (04:20→17:20)
[2018-02-14 06:27] LABS: BASOPHILS % (AUTO) 1.4 % (0.0-2.0); EOSINOPHILS % (AUTO) 12.6 % (0.0-3.0); HEMATOCRIT 33.7 % (42.0-52.0); HEMOGLOBIN 10.8 G/DL (14.2-18.0); LYMPHOCYTES % (AUTO) 31.6 % (20.0-45.0); MEAN CORPUSCULAR VOLUME 80 FL (80-99); MONOCYTES % (AUTO) 8.2 % (1.0-10.0); NEUTROPHILS % (AUTO) 46.3 % (45.0-75.0); PLATELET COUNT 408 K/UL (150-450); WHITE BLOOD COUNT 7.1 K/UL (4.8-10.8)
[2018-02-14 06:29] LABS: INR 1.4 (0.9-1.1)
[2018-02-14] MEDS: NovoLOG Insulin Flexpen SUBQ SCH (06:30)
[2018-02-14 06:54] LABS: ALANINE AMINOTRANSFERASE 14 U/L (12-78); ALBUMIN 1.8 G/DL (3.4-5.0); ALBUMIN/GLOBULIN RATIO 0.3 (1.0-2.7); ALKALINE PHOSPHATASE 74 U/L (46-116); ANION GAP 6 mmol/L (5-15); ASPARTATE AMINO TRANSFERASE 16 U/L (15-37); BILIRUBIN,TOTAL 0.1 MG/DL (0.2-1.0); BLOOD UREA NITROGEN 9 mg/dL (7-18); CALCIUM 8.2 MG/DL (8.5-10.1); CARBON DIOXIDE 28 MMOL/L (21-32); CHLORIDE 104 MMOL/L (98-107); CHOLESTEROL 102 MG/DL (< 200); CREATININE 0.9 MG/DL (0.55-1.30); GAMMA GLUTAMYL TRANSPEPTIDASE 21 U/L (5-85); HDL CHOLESTEROL 37 MG/DL (40-60); PHOSPHORUS 3.4 MG/DL (2.5-4.9); POTASSIUM 3.7 MMOL/L (3.5-5.1); SODIUM 138 MMOL/L (136-145); TRIGLYCERIDES 53 MG/DL (30-150)
[2018-02-14 08:07] VITALS: BP 131/85
[2018-02-14] MEDS: Enoxaparin 80mg Inj SUBQ SCH (08:51)
--- NOTE | 2018-02-14 09:51 | General Progress Note ---
Assessment/Plan Problem List: (1) UTI (urinary tract infection) ICD Codes: N39.0 - Urinary tract infection, site not specified SNOMED: 03337408 (2) ATN (acute tubular necrosis) ICD Codes: N17.0 - Acute kidney failure with tubular necrosis SNOMED: 24951206 (3) Drug abuse ICD Codes: F19.10 - Other psychoactive substance abuse, uncomplicated SNOMED: 01796389 (4) Cellulitis of left foot ICD Codes: L03.116 - Cellulitis of left lower limb SNOMED: 567752993 (5) COPD (chronic obstructive pulmonary disease) ICD Codes: J44.9 - Chronic obstructive pulmonary disease, unspecified SNOMED: 14204769 (6) DVT (deep venous thrombosis) ICD Codes: I82.409 - Acute embolism and thrombosis of unspecified deep veins of unspecified lower extremity SNOMED: 104332916 Status: unchanged Assessment/Plan ot pt diet wound care abx cbc bmp am Subjective Allergies: Coded Allergies: CEPHALEXIN (Verified Allergy, Intermediate, Hives, 12/11/17) Patietn refers tolerates Penicillin, amoxicillin Tolerated Zosyn 12/10/17 VANCOMYCIN (Verified Allergy, Intermediate, red man syndrome, 12/11/17) All Systems: reviewed and negative except above Subjective sleepy calm Objective Last 24 Hour Vital Signs Date Time Temp Pulse Resp B/P (MAP) Pulse Ox O2 Delivery O2 Flow Rate FiO2 02/14/18 08:07 98.1 91 18 131/85 (100) 96 98.1 02/14/18 04:50 98.2 02/14/18 04:20 98.2 02/14/18 04:00 97.2 84 20 134/80 (98) 96 97.2 02/14/18 00:00 98.2 94 18 128/79 (95) 94 98.2 02/13/18 21:24 98.2 02/13/18 21:00 Room Air 02/13/18 20:00 98.2 81 17 108/63 (78) 92 98.2 02/13/18 11:28 93 20 Room Air 21 02/13/18 09:54 98.2 Intake and Output 02/13/18 02/14/18 19:00 07:00 Intake Total 1420 ml 550 ml Output Total 700 ml Balance 720 ml 550 ml Intake Oral 960 ml IV Total 460 ml 550 ml Output Urine Total 700 ml # Voids 3 Laboratory Tests 02/14/18 05:00: White Blood Count 7.1, Red Blood Count 4.20L, Hemoglobin 10.8L, Hematocrit 33.7L , Mean Corpuscular Volume 80, Mean Corpuscular Hemoglobin 25.7L, Mean Corpuscular Hemoglobin Concent 32.0, Red Cell Distribution Width 15.0H, Platelet Count 408, Mean Platelet Volume 4.8L, Neutrophils (%) (Auto) 46.3, Lymphocytes (%) (Auto) 31.6, Monocytes (%) (Auto) 8.2, Eosinophils (%) (Auto) 12.6H, Basophils (%) (Auto) 1.4, Prothrombin Time 14.3H, Prothromb Time International Ratio 1.4H, Sodium Level 138, Potassium Level 3.7, Chloride Level 104, Carbon Dioxide Level 28, Anion Gap 6, Blood Urea Nitrogen 9, Creatinine 0.9 , Estimat Glomerular Filtration Rate > 60, Glucose Level 89, Uric Acid 5.0, Calcium Level 8.2L, Phosphorus Level 3.4, Magnesium Level 2.0, Total Bilirubin 0.1L, Gamma Glutamyl Transpeptidase 21, Aspartate Amino Transf (AST/SGOT) 16, Alanine Aminotransferase (ALT/SGPT) 14, Alkaline Phosphatase 74, Pro-B-Type Natriuretic Peptide 708H, Total Protein 7.0, Albumin 1.8L, Globulin 5.2, Albumin /Globulin Ratio 0.3L, Triglycerides Level 53, Cholesterol Level 102, LDL Cholesterol 62, HDL Cholesterol 37L, Cholesterol/HDL Ratio 2.8L Height (Feet): 5 Height (Inches): 8.00 Weight (Pounds): 195 General Appearance: lethargic EENT: normal ENT inspection Neck: normal alignment Cardiovascular: normal peripheral pulses, normal rate, regular rhythm Respiratory/Chest: chest wall non-tender, decreased breath sounds Abdomen: normal bowel sounds, non tender, soft Extremities: normal inspection Edema: 1+ Arm (L), 1+ Arm (R), 1+ Leg (L), 1+ Leg (R), 1+ Pedal (L), 1+ Pedal ( R), 1+ Generalized Neurologic: motor weakness Skin: normal pigmentation, warm/dry Objective bl foot dressing c&d Miguel Angel Nolan DO Feb 14, 2018 09:51
[2018-02-14 12:00] VITALS: BP 130/81
[2018-02-14] MEDS ORDERED: Vitamin B12 1000mcg/ml Inj SUBQ ONE (12:00)
--- NOTE | 2018-02-14 12:39 | Nephrology Progress Note ---
Assessment/Plan Problem List: (1) DVT (deep venous thrombosis) (2) COPD (chronic obstructive pulmonary disease) (3) Substance abuse (4) Maggot infestation (5) Bilateral lower leg cellulitis Assessment HypoNatremia Sever bilateral lower Ext cellulitis Maggot infestation left leg Anemia DVT Substance abuse Smoker- COPD Allergy Vanco- Cephalexin Plan Per ID NS Wound care Leg elevation Anti Coag lovenox until coumadin kicks in for INR of 2.5 Objective Objective Last 24 Hour Vital Signs Date Time Temp Pulse Resp B/P (MAP) Pulse Ox O2 Delivery O2 Flow Rate FiO2 02/14/18 12:00 97.4 79 18 130/81 (97) 95 97.4 02/14/18 11:36 88 16 Room Air 21 02/14/18 09:00 Room Air 02/14/18 08:07 98.1 91 18 131/85 (100) 96 98.1 02/14/18 04:50 98.2 02/14/18 04:20 98.2 02/14/18 04:00 97.2 84 20 134/80 (98) 96 97.2 02/14/18 00:00 98.2 94 18 128/79 (95) 94 98.2 02/13/18 21:24 98.2 02/13/18 21:00 Room Air 02/13/18 20:00 98.2 81 17 108/63 (78) 92 98.2 Intake and Output 02/13/18 02/14/18 19:00 07:00 Intake Total 1420 ml 550 ml Output Total 700 ml Balance 720 ml 550 ml Intake Oral 960 ml IV Total 460 ml 550 ml Output Urine Total 700 ml # Voids 3 Laboratory Tests 02/14/18 05:00: White Blood Count 7.1, Red Blood Count 4.20L, Hemoglobin 10.8L, Hematocrit 33.7L , Mean Corpuscular Volume 80, Mean Corpuscular Hemoglobin 25.7L, Mean Corpuscular Hemoglobin Concent 32.0, Red Cell Distribution Width 15.0H, Platelet Count 408, Mean Platelet Volume 4.8L, Neutrophils (%) (Auto) 46.3, Lymphocytes (%) (Auto) 31.6, Monocytes (%) (Auto) 8.2, Eosinophils (%) (Auto) 12.6H, Basophils (%) (Auto) 1.4, Prothrombin Time 14.3H, Prothromb Time International Ratio 1.4H, Sodium Level 138, Potassium Level 3.7, Chloride Level 104, Carbon Dioxide Level 28, Anion Gap 6, Blood Urea Nitrogen 9, Creatinine 0.9 , Estimat Glomerular Filtration Rate > 60, Glucose Level 89, Uric Acid 5.0, Calcium Level 8.2L, Phosphorus Level 3.4, Magnesium Level 2.0, Total Bilirubin 0.1L, Gamma Glutamyl Transpeptidase 21, Aspartate Amino Transf (AST/SGOT) 16, Alanine Aminotransferase (ALT/SGPT) 14, Alkaline Phosphatase 74, Pro-B-Type Natriuretic Peptide 708H, Total Protein 7.0, Albumin 1.8L, Globulin 5.2, Albumin /Globulin Ratio 0.3L, Triglycerides Level 53, Cholesterol Level 102, LDL Cholesterol 62, HDL Cholesterol 37L, Cholesterol/HDL Ratio 2.8L Height (Feet): 5 Height (Inches): 8.00 Weight (Pounds): 195 Thad Canales MD Feb 14, 2018 12:39
[2018-02-14] MEDS: DAPTOmycin 350 MG in NS 55 ML IV SCH (14:25)
[2018-02-14 16:16] VITALS: BP 122/64
[2018-02-14] MEDS ORDERED: Warfarin Sodium 10mg ORAL SCH (17:00)
[2018-02-14 20:00] VITALS: BP 112/68
[2018-02-14] MEDS: Dyna-Hex 2% Top Sol 2oz TOPIC SCH (22:30)
[2018-02-15] VITALS (7 sets, daily range): BP systolic 122–165; BP diastolic 73–107
[2018-02-15] MEDS: Morphine Sulfate 2mg/ml Inj(IV/IM USE ONLY) IVP PRN ×2 (02:06→15:17)
[2018-02-15 08:13] LABS: BASOPHILS % (AUTO) 0.6 % (0.0-2.0); EOSINOPHILS % (AUTO) 10.6 % (0.0-3.0); LYMPHOCYTES % (AUTO) 38.4 % (20.0-45.0); MEAN CORPUSCULAR VOLUME 80 FL (80-99); NEUTROPHILS % (AUTO) 43.4 % (45.0-75.0); PLATELET COUNT 409 K/UL (150-450); RED BLOOD COUNT 4.25 M/UL (4.70-6.10); RED CELL DISTRIBUTION WIDTH 14.8 % (11.6-14.8)
[2018-02-15 08:25] LABS: INR 1.4 (0.9-1.1)
[2018-02-15 08:26] LABS: ANION GAP 8 mmol/L (5-15); BLOOD UREA NITROGEN 7 mg/dL (7-18); CALCIUM 8.1 MG/DL (8.5-10.1); CARBON DIOXIDE 28 MMOL/L (21-32); CHLORIDE 105 MMOL/L (98-107); CREATININE 0.8 MG/DL (0.55-1.30); POTASSIUM 3.6 MMOL/L (3.5-5.1); SODIUM 141 MMOL/L (136-145)
--- NOTE | 2018-02-15 08:31 | Nephrology Progress Note ---
Assessment/Plan Problem List: (1) DVT (deep venous thrombosis) (2) COPD (chronic obstructive pulmonary disease) (3) Substance abuse (4) Maggot infestation (5) Bilateral lower leg cellulitis Assessment HypoNatremia RESOLVED Sever bilateral lower Ext cellulitis Maggot infestation left leg Anemia DVT Substance abuse Smoker- COPD Allergy Vanco- Cephalexin Plan Per ID NS Wound care Leg elevation Anti Coag lovenox until coumadin kicks in for INR of 2.5 Subjective ROS Limited/Unobtainable: No Objective Objective Last 24 Hour Vital Signs Date Time Temp Pulse Resp B/P (MAP) Pulse Ox O2 Delivery O2 Flow Rate FiO2 02/15/18 04:00 98.0 82 19 122/82 (95) 99 98.0 02/15/18 02:36 97.7 02/15/18 00:00 97.7 76 19 125/73 (90) 97 97.7 02/14/18 21:00 Room Air 02/14/18 20:00 98.1 88 16 112/68 (83) 94 98.1 02/14/18 18:53 83 16 Room Air 21 02/14/18 16:16 97.9 76 18 122/64 (83) 96 97.9 02/14/18 12:00 97.4 79 18 130/81 (97) 95 97.4 02/14/18 11:36 88 16 Room Air 21 02/14/18 09:00 Room Air Intake and Output 02/14/18 02/15/18 19:00 07:00 Intake Total 1800 ml 370 ml Output Total 2100 ml 1450 ml Balance -300 ml -1080 ml Intake Oral 1200 ml 370 ml IV Total 600 ml Output Urine Total 2100 ml 1450 ml # Voids 4 # Bowel Movements 1 Laboratory Tests 02/15/18 07:05: White Blood Count 7.0, Red Blood Count 4.25L, Hemoglobin 11.0L, Hematocrit 34.0L , Mean Corpuscular Volume 80, Mean Corpuscular Hemoglobin 26.0L, Mean Corpuscular Hemoglobin Concent 32.5, Red Cell Distribution Width 14.8, Platelet Count 409, Mean Platelet Volume 4.8L, Neutrophils (%) (Auto) 43.4L, Lymphocytes (%) (Auto) 38.4, Monocytes (%) (Auto) 7.0, Eosinophils (%) (Auto) 10.6H, Basophils (%) (Auto) 0.6, Prothrombin Time [Pending], Prothromb Time International Ratio [Pending], Sodium Level 141, Potassium Level 3.6, Chloride Level 105, Carbon Dioxide Level 28, Anion Gap 8, Blood Urea Nitrogen 7, Creatinine 0.8, Estimat Glomerular Filtration Rate > 60, Glucose Level 93, Calcium Level 8.1L Height (Feet): 5 Height (Inches): 8.00 Weight (Pounds): 195 General Appearance: no apparent distress Abdomen: soft Extremities: other - no change Thad Canales MD Feb 15, 2018 08:31
[2018-02-15] MEDS: Vitamin B12 1000mcg/ml Inj SUBQ SCH (08:49)
[2018-02-15] MEDS: Enoxaparin 80mg Inj SUBQ SCH (08:50)
--- NOTE | 2018-02-15 11:13 | Infectious Diseases Prog Note ---
Assessment/Plan Assessment/Plan ASSESSMENT: The patient is a 57-year-old male with, Chronic cellulitis/wound (history of maggots [employer] ), mostly due to gram-positive organisms Wnd Cx: PSA and Diphteroids( m/l most likely colonizers ) Doubt osteomyelitis of lower extremities Mild leukocytosis, Sp Afebrile. History of allergy to vancomycin and Keflex. Rule out probable bacteremia. Chest x-ray, [facility] Foot x-ray,: no evidence of osteomyelitis. Status post PICC placement on 02/12/2018 Hx of bilateral lower extremity edema. History of alcohol abuse and substance abuse in the past. Anemia. History of DVT and PE. PLAN: continue the patient on daptomycin d# 3 / 5 Monitor CBC. Monitor BMP. Surg and Wound care nurse consultation. monitor CK. Subjective Constitutional: Denies: no symptoms, fever, chills, fatigue, anorexia, drenching sweats, other Allergies: Coded Allergies: CEPHALEXIN (Verified Allergy, Intermediate, Hives, 12/11/17) Patietn refers tolerates Penicillin, amoxicillin Tolerated Zosyn 12/10/17 VANCOMYCIN (Verified Allergy, Intermediate, red man syndrome, 12/11/17) Objective Vital Signs Last 24 Hour Vital Signs Date Time Temp Pulse Resp B/P (MAP) Pulse Ox O2 Delivery O2 Flow Rate FiO2 02/15/18 09:00 Room Air 02/15/18 08:36 95.9 103 20 165/107 (126) 96 95.9 02/15/18 07:55 90 16 Room Air 21 02/15/18 04:00 98.0 82 19 122/82 (95) 99 98.0 02/15/18 02:36 97.7 02/15/18 00:00 97.7 76 19 125/73 (90) 97 97.7 02/14/18 21:00 Room Air 02/14/18 20:00 98.1 88 16 112/68 (83) 94 98.1 02/14/18 18:53 83 16 Room Air 21 02/14/18 16:16 97.9 76 18 122/64 (83) 96 97.9 02/14/18 12:00 97.4 79 18 130/81 (97) 95 97.4 02/14/18 11:36 88 16 Room Air 21 Height (Feet): 5 Height (Inches): 8.00 Weight (Pounds): 195 HEENT: anicteric Respiratory/Chest: no respiratory distress Cardiovascular: regular rhythm Abdomen: no organomegaly Microbiology Date/Time Source Procedure Growth Status 02/12/18 17:12 Blood Blood Culture - Preliminary NO GROWTH AFTER 48 HOURS Resulted 02/12/18 16:57 Blood Blood Culture - Preliminary NO GROWTH AFTER 48 HOURS Resulted 02/12/18 14:26 Nasal Nares MRSA Culture - Final NO METHICILLIN RESISTANT STAPH AUREUS... Complete 02/12/18 14:26 Rectum VRE Culture - Final NO VANCOMYCIN RESISTANT ENTEROCOCCUS ... Complete 02/12/18 14:26 Rectum - Final NO CARBAPENEM-RESISTANT ENTEROBACTERI... Complete 02/12/18 14:25 Foot Right Gram Stain - Final Complete 02/12/18 14:25 Wound Culture - Final Pseudomonas Aeruginosa Diphtheroids Complete Laboratory Tests Test 02/15/18 07:05 White Blood Count 7.0 K/UL (4.8-10.8) Red Blood Count 4.25 M/UL (4.70-6.10) L Hemoglobin 11.0 G/DL (14.2-18.0) L Hematocrit 34.0 % (42.0-52.0) L Mean Corpuscular Volume 80 FL (80-99) Mean Corpuscular Hemoglobin 26.0 PG (27.0-31.0) L Mean Corpuscular Hemoglobin Concent 32.5 G/DL (32.0-36.0) Red Cell Distribution Width 14.8 % (11.6-14.8) Platelet Count 409 K/UL (150-450) Mean Platelet Volume 4.8 FL (6.5-10.1) L Neutrophils (%) (Auto) 43.4 % (45.0-75.0) L Lymphocytes (%) (Auto) 38.4 % (20.0-45.0) Monocytes (%) (Auto) 7.0 % (1.0-10.0) Eosinophils (%) (Auto) 10.6 % (0.0-3.0) H Basophils (%) (Auto) 0.6 % (0.0-2.0) Prothrombin Time 14.1 SEC (9.30-11.50) H Prothromb Time International Ratio 1.4 (0.9-1.1) H Sodium Level 141 MMOL/L (136-145) Potassium Level 3.6 MMOL/L (3.5-5.1) Chloride Level 105 MMOL/L (98-107) Carbon Dioxide Level 28 MMOL/L (21-32) Anion Gap 8 mmol/L (5-15) Blood Urea Nitrogen 7 mg/dL (7-18) Creatinine 0.8 MG/DL (0.55-1.30) Estimat Glomerular Filtration Rate > 60 mL/min (>60) Glucose Level 93 MG/DL (74-106) Calcium Level 8.1 MG/DL (8.5-10.1) L Current Medications Medications (Trade) Dose Ordered Sig/Italo Route PRN Reason Start Time Stop Time Status Last Admin Dose Admin Acetaminophen (Tylenol) 650 mg Q4H PRN ORAL fever 02/12/18 22:30 03/14/18 22:29 Albuterol/ Ipratropium (Albuterol/ Ipratropium) 3 ml EVERY 4 HOURS PRN HHN Shortness of Breath 02/12/18 22:30 02/17/18 22:29 Chlorhexidine Gluconate (Mahi-Hex 2%) 1 applic DAILY@2000 TOPIC 02/13/18 20:00 03/15/18 19:59 02/14/18 22:30 Cyanocobalamin (Vitamin B12) 1,000 mcg DAILY SUBQ 02/15/18 09:00 02/16/18 09:01 02/15/18 08:49 Daptomycin 350 mg/ Sodium Chloride 55 ml @ 100 mls/hr Q24H IV 02/13/18 14:30 02/20/18 14:29 02/14/18 14:25 Diphenhydramine HCl (Benadryl) 50 mg Q6H PRN ORAL Itching 02/13/18 03:30 03/15/18 03:29 Enoxaparin Sodium (Lovenox) 80 mg DAILY SUBQ 02/13/18 11:30 03/15/18 11:29 02/15/18 08:50 Famotidine (Pepcid) 20 mg BID ORAL 02/13/18 11:00 03/15/18 10:59 02/15/18 08:48 Gabapentin (Neurontin) 600 mg QID ORAL 02/13/18 09:00 03/15/18 08:59 02/15/18 08:49 Mirtazapine (Remeron) 45 mg DAILY ORAL 02/13/18 09:00 03/15/18 08:59 02/15/18 08:48 Morphine Sulfate (Morphine Sulfate) 2 mg EVERY 4 HOURS PRN IVP Moderate Pain (Pain Scale 4-6) 02/12/18 22:30 02/19/18 22:29 02/15/18 02:06 Nitroglycerin (Ntg) 0.4 mg PRN PRN SL Prn Chest Pain 02/12/18 22:30 03/14/18 22:29 Ondansetron HCl (Zofran) 4 mg Q6H PRN IVP Nausea & Vomiting 02/12/18 22:30 03/14/18 22:29 Polyethylene Glycol (Miralax) 17 gm DAILYPRN PRN ORAL Constipation 02/12/18 22:30 03/14/18 22:29 Sodium Chloride 1,000 ml @ 50 mls/hr Q20H IV 02/13/18 11:00 03/15/18 10:59 02/13/18 21:28 Temazepam (Restoril) 15 mg HSPRN PRN ORAL Insomnia 02/12/18 22:30 02/19/18 22:29 02/14/18 22:30 Warfarin Sodium (Coumadin per pharmacy) 1 ea DAILY PRN MISC . 02/14/18 08:45 03/16/18 08:44 Bryant Antoine MD Feb 15, 2018 11:12
--- NOTE | 2018-02-15 11:20 | Consultation ---
History of Present Illness General Date patient seen: Feb 15, 2018 Chief Complaint: Skin Rash/Abscess Reason for Consultation: lower extremity cellulitis / wounds Present Illness HPI 57 year old male [facility] resident presented with worsening lower extremity wounds, cellulitis, and pain. states wounds present for some time now and intermittent cellulitis. has outside wound care being provided but states that not improving significantly. recently noted worsening pain and cellulitis. admitted for care and management. upon admission noted to have maggots in wounds. surgery called to evaluate and assist with management. patient seen, chart reviewed, patient examined. Allergies: Coded Allergies: CEPHALEXIN (Verified Allergy, Intermediate, Hives, 12/11/17) Patietn refers tolerates Penicillin, amoxicillin Tolerated Zosyn 12/10/17 VANCOMYCIN (Verified Allergy, Intermediate, red man syndrome, 12/11/17) Medication History Scheduled Chlorhexidine Gluconate* (Hibiclens*), 118 ML TP DAILY, (Reported) Docusate Sodium* (Docusate Sodium*), 100 MG ORAL TWICE A DAY, (Reported) Enoxaparin* (Lovenox*), 100 MG SUBQ DAILY, (Reported) Enoxaparin* (Lovenox*), 40 MG SUBQ DAILY, (Reported) Ferrous Sulfate (Ferosul), 325 MG PO BID, (Reported) Folic Acid* (Folic Acid*), 1 MG ORAL DAILY, (Reported) Gabapentin* (Gabapentin*), 600 MG ORAL QID, (Reported) Insulin Aspart* (Novolog*), 0 SUBQ ACHS, (Reported) Lansoprazole* (Lansoprazole*), 30 MG ORAL DAILY, (Reported) Lansoprazole* (Prevacid*), 15 MG ORAL DAILY, (Reported) Mirtazapine* (Mirtazapine*), 45 MG ORAL DAILY, (Reported) Mirtazapine* (Mirtazapine*), 45 MG ORAL DAILY, (Reported) Yitrdtftqwor-Tlcp-Uyzhbhyi,Iso (Zosyn 3.375 Gm Pre Mix-Bag), 3.375 GM IVPB EVERY 8 HOURS, (Reported) Warfarin Sod* (Coumadin*), 8 MG ORAL DAILY, (Reported) Scheduled PRN Acetaminophen* (Acetaminophen 325MG Tablet*), 650 MG ORAL Q4H PRN for Fever/ Headache/Mild Pain, (Reported) Dextrose (Dextrose 5%-Water IV Soln), 50 ML IV for Per rx protocol, (Reported) Diphenhydramine Hcl* (Diphenhydramine Hcl*), 25 MG ORAL THREE TIMES A DAY PRN for Itching, (Reported) Ipratropium/Albuterol Sulfate (DuoNeb 0.5-3(2.5)mg/3ml), 3 ML HHN Q4HR PRN for Shortness of Breath, (Reported) Morphine Sulfate (Morphine Sulfate), 2 MG IJ Q4HR PRN for Pain Scale (6-10), ( Reported) Nitroglycerin (Nitrostat), 0.4 MG SL Q5M X3 DOSES PRN for CHEST PAIN, (Reported) Ondansetron* (Zofran*), 4 MG IV Q6H PRN for Nausea & Vomiting, (Reported) Polyethylene Glycol 3350* (Miralax*), 17 GM ORAL DAILY PRN for Constipation, ( Reported) Temazepam* (Restoril*), 15 MG ORAL BEDTIME PRN for Insomnia, (Reported) [Warfain per pharmacy], 1 ORAL DAILY PRN for Per rx protocol, (Reported) Miscellaneous Medications Fluticasone/Vilanterol (Breo Ellipta 100-25 Mcg INH), 1 EACH IH, (Reported) Patient History History Provided By: Patient, Medical Record, PMD Healthcare decision maker JASWANT PITT Resuscitation status Full Code Advanced Directive on File N/A Past Medical/Surgical History Past Medical/Surgical History: (1) Low vitamin B12 level (2) Encounter for generalized patient complaints (3) DM (diabetes mellitus) (4) ATN (acute tubular necrosis) (5) Osteomyelitis (6) Maggot infestation (7) H/O deep venous thrombosis (8) Substance abuse (9) Cellulitis of left foot (10) COPD (chronic obstructive pulmonary disease) (11) Drug abuse (12) ATN (acute tubular necrosis) (13) UTI (urinary tract infection) (14) DVT (deep venous thrombosis) (15) Bilateral lower leg cellulitis Review of Systems All Other Systems: negative except mentioned in HPI Physical Exam General Appearance: no apparent distress Lines, tubes and drains: peripheral HEENT: atraumatic Neck: normal inspection Respiratory/Chest: normal breath sounds, no respiratory distress, no accessory muscle use Cardiovascular/Chest: normal rate Abdomen: soft, no organomegaly, no mass Extremities: inflammation, moderate edema, other Skin Exam: other Neurologic: alert, oriented x 3 Last 24 Hour Vital Signs Date Time Temp Pulse Resp B/P (MAP) Pulse Ox O2 Delivery O2 Flow Rate FiO2 02/15/18 09:00 Room Air 02/15/18 08:36 95.9 103 20 165/107 (126) 96 95.9 02/15/18 07:55 90 16 Room Air 21 02/15/18 04:00 98.0 82 19 122/82 (95) 99 98.0 02/15/18 02:36 97.7 02/15/18 00:00 97.7 76 19 125/73 (90) 97 97.7 02/14/18 21:00 Room Air 02/14/18 20:00 98.1 88 16 112/68 (83) 94 98.1 02/14/18 18:53 83 16 Room Air 21 02/14/18 16:16 97.9 76 18 122/64 (83) 96 97.9 02/14/18 12:00 97.4 79 18 130/81 (97) 95 97.4 02/14/18 11:36 88 16 Room Air 21 Intake and Output 02/14/18 02/15/18 19:00 07:00 Intake Total 1800 ml 370 ml Output Total 2100 ml 1450 ml Balance -300 ml -1080 ml Intake Oral 1200 ml 370 ml IV Total 600 ml Output Urine Total 2100 ml 1450 ml # Voids 4 # Bowel Movements 1 Laboratory Tests Test 02/15/18 07:05 White Blood Count 7.0 K/UL (4.8-10.8) Red Blood Count 4.25 M/UL (4.70-6.10) L Hemoglobin 11.0 G/DL (14.2-18.0) L Hematocrit 34.0 % (42.0-52.0) L Mean Corpuscular Volume 80 FL (80-99) Mean Corpuscular Hemoglobin 26.0 PG (27.0-31.0) L Mean Corpuscular Hemoglobin Concent 32.5 G/DL (32.0-36.0) Red Cell Distribution Width 14.8 % (11.6-14.8) Platelet Count 409 K/UL (150-450) Mean Platelet Volume 4.8 FL (6.5-10.1) L Neutrophils (%) (Auto) 43.4 % (45.0-75.0) L Lymphocytes (%) (Auto) 38.4 % (20.0-45.0) Monocytes (%) (Auto) 7.0 % (1.0-10.0) Eosinophils (%) (Auto) 10.6 % (0.0-3.0) H Basophils (%) (Auto) 0.6 % (0.0-2.0) Prothrombin Time 14.1 SEC (9.30-11.50) H Prothromb Time International Ratio 1.4 (0.9-1.1) H Sodium Level 141 MMOL/L (136-145) Potassium Level 3.6 MMOL/L (3.5-5.1) Chloride Level 105 MMOL/L (98-107) Carbon Dioxide Level 28 MMOL/L (21-32) Anion Gap 8 mmol/L (5-15) Blood Urea Nitrogen 7 mg/dL (7-18) Creatinine 0.8 MG/DL (0.55-1.30) Estimat Glomerular Filtration Rate > 60 mL/min (>60) Glucose Level 93 MG/DL (74-106) Calcium Level 8.1 MG/DL (8.5-10.1) L Height (Feet): 5 Height (Inches): 8.00 Weight (Pounds): 195 Medications Current Medications Medications (Trade) Dose Ordered Sig/Italo Route PRN Reason Start Time Stop Time Status Last Admin Dose Admin Acetaminophen (Tylenol) 650 mg Q4H PRN ORAL fever 02/12/18 22:30 03/14/18 22:29 Albuterol/ Ipratropium (Albuterol/ Ipratropium) 3 ml EVERY 4 HOURS PRN HHN Shortness of Breath 02/12/18 22:30 02/17/18 22:29 Chlorhexidine Gluconate (Mahi-Hex 2%) 1 applic DAILY@2000 TOPIC 02/13/18 20:00 03/15/18 19:59 02/14/18 22:30 Cyanocobalamin (Vitamin B12) 1,000 mcg DAILY SUBQ 02/15/18 09:00 02/16/18 09:01 02/15/18 08:49 Daptomycin 350 mg/ Sodium Chloride 55 ml @ 100 mls/hr Q24H IV 02/13/18 14:30 02/20/18 14:29 02/14/18 14:25 Diphenhydramine HCl (Benadryl) 50 mg Q6H PRN ORAL Itching 02/13/18 03:30 03/15/18 03:29 Enoxaparin Sodium (Lovenox) 80 mg DAILY SUBQ 02/13/18 11:30 03/15/18 11:29 02/15/18 08:50 Famotidine (Pepcid) 20 mg BID ORAL 02/13/18 11:00 03/15/18 10:59 02/15/18 08:48 Gabapentin (Neurontin) 600 mg QID ORAL 02/13/18 09:00 03/15/18 08:59 02/15/18 08:49 Mirtazapine (Remeron) 45 mg DAILY ORAL 02/13/18 09:00 03/15/18 08:59 02/15/18 08:48 Morphine Sulfate (Morphine Sulfate) 2 mg EVERY 4 HOURS PRN IVP Moderate Pain (Pain Scale 4-6) 02/12/18 22:30 02/19/18 22:29 02/15/18 02:06 Nitroglycerin (Ntg) 0.4 mg PRN PRN SL Prn Chest Pain 02/12/18 22:30 03/14/18 22:29 Ondansetron HCl (Zofran) 4 mg Q6H PRN IVP Nausea & Vomiting 02/12/18 22:30 03/14/18 22:29 Polyethylene Glycol (Miralax) 17 gm DAILYPRN PRN ORAL Constipation 02/12/18 22:30 03/14/18 22:29 Sodium Chloride 1,000 ml @ 50 mls/hr Q20H IV 02/13/18 11:00 03/15/18 10:59 02/13/18 21:28 Temazepam (Restoril) 15 mg HSPRN PRN ORAL Insomnia 02/12/18 22:30 02/19/18 22:29 02/14/18 22:30 Warfarin Sodium (Coumadin per pharmacy) 1 ea DAILY PRN MISC . 02/14/18 08:45 03/16/18 08:44 Assessment/Plan Problem List: (1) Maggot infestation Assessment & Plan: burring hole noted. no longer infested with maggots. no other areas noted. ICD Codes: B87.9 - Myiasis, unspecified SNOMED: 09402086 (2) Bilateral lower leg cellulitis Assessment & Plan: bilateral lower extremity chronic wounds currently with acute cellulitis afebrile, HD Stable, labs improved wounds evaluate and given history will start with 1/4 strength dakin's solution. apply wet to dry dakin's tid skin protectant to remainder of skin elevate lower extremities Abx as per ID thank you ICD Codes: L03.116 - Cellulitis of left lower limb; L03.115 - Cellulitis of right lower limb SNOMED: 103606195 Status: stable FortinoJosesito campuzano Feb 15, 2018 11:20
--- NOTE | 2018-02-15 11:21 | Consultation ---
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 the pt has anxiety and depression Allergies: Coded Allergies: CEPHALEXIN (Verified Allergy, Intermediate, Hives, 12/11/17) Patietn refers tolerates Penicillin, amoxicillin Tolerated Zosyn 12/10/17 VANCOMYCIN (Verified Allergy, Intermediate, red man syndrome, 12/11/17) Medication History Scheduled Chlorhexidine Gluconate* (Hibiclens*), 118 ML TP DAILY, (Reported) Docusate Sodium* (Docusate Sodium*), 100 MG ORAL TWICE A DAY, (Reported) Enoxaparin* (Lovenox*), 100 MG SUBQ DAILY, (Reported) Enoxaparin* (Lovenox*), 40 MG SUBQ DAILY, (Reported) Ferrous Sulfate (Ferosul), 325 MG PO BID, (Reported) Folic Acid* (Folic Acid*), 1 MG ORAL DAILY, (Reported) Gabapentin* (Gabapentin*), 600 MG ORAL QID, (Reported) Insulin Aspart* (Novolog*), 0 SUBQ ACHS, (Reported) Lansoprazole* (Lansoprazole*), 30 MG ORAL DAILY, (Reported) Lansoprazole* (Prevacid*), 15 MG ORAL DAILY, (Reported) Mirtazapine* (Mirtazapine*), 45 MG ORAL DAILY, (Reported) Mirtazapine* (Mirtazapine*), 45 MG ORAL DAILY, (Reported) Qmyzccgbsilw-Kedg-Bipugfwj,Iso (Zosyn 3.375 Gm Pre Mix-Bag), 3.375 GM IVPB EVERY 8 HOURS, (Reported) Warfarin Sod* (Coumadin*), 8 MG ORAL DAILY, (Reported) Scheduled PRN Acetaminophen* (Acetaminophen 325MG Tablet*), 650 MG ORAL Q4H PRN for Fever/ Headache/Mild Pain, (Reported) Dextrose (Dextrose 5%-Water IV Soln), 50 ML IV for Per rx protocol, (Reported) Diphenhydramine Hcl* (Diphenhydramine Hcl*), 25 MG ORAL THREE TIMES A DAY PRN for Itching, (Reported) Ipratropium/Albuterol Sulfate (DuoNeb 0.5-3(2.5)mg/3ml), 3 ML HHN Q4HR PRN for Shortness of Breath, (Reported) Morphine Sulfate (Morphine Sulfate), 2 MG IJ Q4HR PRN for Pain Scale (6-10), ( Reported) Nitroglycerin (Nitrostat), 0.4 MG SL Q5M X3 DOSES PRN for CHEST PAIN, (Reported) Ondansetron* (Zofran*), 4 MG IV Q6H PRN for Nausea & Vomiting, (Reported) Polyethylene Glycol 3350* (Miralax*), 17 GM ORAL DAILY PRN for Constipation, ( Reported) Temazepam* (Restoril*), 15 MG ORAL BEDTIME PRN for Insomnia, (Reported) [Warfain per pharmacy], 1 ORAL DAILY PRN for Per rx protocol, (Reported) Miscellaneous Medications Fluticasone/Vilanterol (Breo Ellipta 100-25 Mcg INH), 1 EACH IH, (Reported) Patient History Healthcare decision maker SELF, JASWANT JONES Resuscitation status Full Code Advanced Directive on File N/A Physical Exam Last 24 Hour Vital Signs Date Time Temp Pulse Resp B/P (MAP) Pulse Ox O2 Delivery O2 Flow Rate FiO2 02/15/18 09:00 Room Air 02/15/18 08:36 95.9 103 20 165/107 (126) 96 95.9 02/15/18 07:55 90 16 Room Air 21 02/15/18 04:00 98.0 82 19 122/82 (95) 99 98.0 02/15/18 02:36 97.7 02/15/18 00:00 97.7 76 19 125/73 (90) 97 97.7 02/14/18 21:00 Room Air 02/14/18 20:00 98.1 88 16 112/68 (83) 94 98.1 02/14/18 18:53 83 16 Room Air 21 02/14/18 16:16 97.9 76 18 122/64 (83) 96 97.9 02/14/18 12:00 97.4 79 18 130/81 (97) 95 97.4 02/14/18 11:36 88 16 Room Air 21 Intake and Output 02/14/18 02/15/18 19:00 07:00 Intake Total 1800 ml 370 ml Output Total 2100 ml 1450 ml Balance -300 ml -1080 ml Intake Oral 1200 ml 370 ml IV Total 600 ml Output Urine Total 2100 ml 1450 ml # Voids 4 # Bowel Movements 1 Laboratory Tests Test 02/15/18 07:05 White Blood Count 7.0 K/UL (4.8-10.8) Red Blood Count 4.25 M/UL (4.70-6.10) L Hemoglobin 11.0 G/DL (14.2-18.0) L Hematocrit 34.0 % (42.0-52.0) L Mean Corpuscular Volume 80 FL (80-99) Mean Corpuscular Hemoglobin 26.0 PG (27.0-31.0) L Mean Corpuscular Hemoglobin Concent 32.5 G/DL (32.0-36.0) Red Cell Distribution Width 14.8 % (11.6-14.8) Platelet Count 409 K/UL (150-450) Mean Platelet Volume 4.8 FL (6.5-10.1) L Neutrophils (%) (Auto) 43.4 % (45.0-75.0) L Lymphocytes (%) (Auto) 38.4 % (20.0-45.0) Monocytes (%) (Auto) 7.0 % (1.0-10.0) Eosinophils (%) (Auto) 10.6 % (0.0-3.0) H Basophils (%) (Auto) 0.6 % (0.0-2.0) Prothrombin Time 14.1 SEC (9.30-11.50) H Prothromb Time International Ratio 1.4 (0.9-1.1) H Sodium Level 141 MMOL/L (136-145) Potassium Level 3.6 MMOL/L (3.5-5.1) Chloride Level 105 MMOL/L (98-107) Carbon Dioxide Level 28 MMOL/L (21-32) Anion Gap 8 mmol/L (5-15) Blood Urea Nitrogen 7 mg/dL (7-18) Creatinine 0.8 MG/DL (0.55-1.30) Estimat Glomerular Filtration Rate > 60 mL/min (>60) Glucose Level 93 MG/DL (74-106) Calcium Level 8.1 MG/DL (8.5-10.1) L Height (Feet): 5 Height (Inches): 8.00 Weight (Pounds): 195 Medications Current Medications Medications (Trade) Dose Ordered Sig/Italo Route PRN Reason Start Time Stop Time Status Last Admin Dose Admin Acetaminophen (Tylenol) 650 mg Q4H PRN ORAL fever 02/12/18 22:30 03/14/18 22:29 Albuterol/ Ipratropium (Albuterol/ Ipratropium) 3 ml EVERY 4 HOURS PRN HHN Shortness of Breath 02/12/18 22:30 02/17/18 22:29 Chlorhexidine Gluconate (Mahi-Hex 2%) 1 applic DAILY@2000 TOPIC 02/13/18 20:00 03/15/18 19:59 02/14/18 22:30 Cyanocobalamin (Vitamin B12) 1,000 mcg DAILY SUBQ 02/15/18 09:00 02/16/18 09:01 02/15/18 08:49 Daptomycin 350 mg/ Sodium Chloride 55 ml @ 100 mls/hr Q24H IV 02/13/18 14:30 02/20/18 14:29 02/14/18 14:25 Diphenhydramine HCl (Benadryl) 50 mg Q6H PRN ORAL Itching 02/13/18 03:30 03/15/18 03:29 Enoxaparin Sodium (Lovenox) 80 mg DAILY SUBQ 02/13/18 11:30 03/15/18 11:29 02/15/18 08:50 Famotidine (Pepcid) 20 mg BID ORAL 02/13/18 11:00 03/15/18 10:59 02/15/18 08:48 Gabapentin (Neurontin) 600 mg QID ORAL 02/13/18 09:00 03/15/18 08:59 02/15/18 08:49 Mirtazapine (Remeron) 45 mg DAILY ORAL 02/13/18 09:00 03/15/18 08:59 02/15/18 08:48 Morphine Sulfate (Morphine Sulfate) 2 mg EVERY 4 HOURS PRN IVP Moderate Pain (Pain Scale 4-6) 02/12/18 22:30 02/19/18 22:29 02/15/18 02:06 Nitroglycerin (Ntg) 0.4 mg PRN PRN SL Prn Chest Pain 02/12/18 22:30 03/14/18 22:29 Ondansetron HCl (Zofran) 4 mg Q6H PRN IVP Nausea & Vomiting 02/12/18 22:30 03/14/18 22:29 Polyethylene Glycol (Miralax) 17 gm DAILYPRN PRN ORAL Constipation 02/12/18 22:30 03/14/18 22:29 Sodium Hypochlorite (Dakin's Quarter Strength) 1 applic DAILY TOPIC 02/15/18 11:15 03/17/18 11:14 UNV Sodium Chloride 1,000 ml @ 50 mls/hr Q20H IV 02/13/18 11:00 03/15/18 10:59 02/13/18 21:28 Temazepam (Restoril) 15 mg HSPRN PRN ORAL Insomnia 02/12/18 22:30 02/19/18 22:29 02/14/18 22:30 Warfarin Sodium (Coumadin per pharmacy) 1 ea DAILY PRN MISC . 02/14/18 08:45 03/16/18 08:44 Assessment/Plan Assessment/Plan mdd anxiety Lesley Garcia MD Feb 15, 2018 11:21
[2018-02-15] MEDS: Dakin's 0.125% Soln (Quarter Strength) 16oz TOPIC SCH (12:51)
--- NOTE | 2018-02-15 13:42 | General Progress Note ---
Assessment/Plan Problem List: (1) UTI (urinary tract infection) ICD Codes: N39.0 - Urinary tract infection, site not specified SNOMED: 73555876 (2) ATN (acute tubular necrosis) ICD Codes: N17.0 - Acute kidney failure with tubular necrosis SNOMED: 67676552 (3) Drug abuse ICD Codes: F19.10 - Other psychoactive substance abuse, uncomplicated SNOMED: 03191112 (4) Cellulitis of left foot ICD Codes: L03.116 - Cellulitis of left lower limb SNOMED: 773308674 (5) COPD (chronic obstructive pulmonary disease) ICD Codes: J44.9 - Chronic obstructive pulmonary disease, unspecified SNOMED: 22619854 (6) DVT (deep venous thrombosis) ICD Codes: I82.409 - Acute embolism and thrombosis of unspecified deep veins of unspecified lower extremity SNOMED: 580147126 Status: stable, progressing Assessment/Plan ot pt diet wound care abx cbc bmp am Subjective Constitutional: Reports: weakness Allergies: Coded Allergies: CEPHALEXIN (Verified Allergy, Intermediate, Hives, 12/11/17) Patietn refers tolerates Penicillin, amoxicillin Tolerated Zosyn 12/10/17 VANCOMYCIN (Verified Allergy, Intermediate, red man syndrome, 12/11/17) All Systems: reviewed and negative except above Subjective eating calm Objective Last 24 Hour Vital Signs Date Time Temp Pulse Resp B/P (MAP) Pulse Ox O2 Delivery O2 Flow Rate FiO2 02/15/18 12:27 96.6 107 18 154/95 (114) 95 96.6 02/15/18 09:00 Room Air 02/15/18 08:36 95.9 103 20 165/107 (126) 96 95.9 02/15/18 07:55 90 16 Room Air 21 02/15/18 04:00 98.0 82 19 122/82 (95) 99 98.0 02/15/18 02:36 97.7 02/15/18 00:00 97.7 76 19 125/73 (90) 97 97.7 02/14/18 21:00 Room Air 02/14/18 20:00 98.1 88 16 112/68 (83) 94 98.1 02/14/18 18:53 83 16 Room Air 21 02/14/18 16:16 97.9 76 18 122/64 (83) 96 97.9 Intake and Output 02/14/18 02/15/18 19:00 07:00 Intake Total 1800 ml 370 ml Output Total 2100 ml 1450 ml Balance -300 ml -1080 ml Intake Oral 1200 ml 370 ml IV Total 600 ml Output Urine Total 2100 ml 1450 ml # Voids 4 # Bowel Movements 1 Laboratory Tests 02/15/18 07:05: White Blood Count 7.0, Red Blood Count 4.25L, Hemoglobin 11.0L, Hematocrit 34.0L , Mean Corpuscular Volume 80, Mean Corpuscular Hemoglobin 26.0L, Mean Corpuscular Hemoglobin Concent 32.5, Red Cell Distribution Width 14.8, Platelet Count 409, Mean Platelet Volume 4.8L, Neutrophils (%) (Auto) 43.4L, Lymphocytes (%) (Auto) 38.4, Monocytes (%) (Auto) 7.0, Eosinophils (%) (Auto) 10.6H, Basophils (%) (Auto) 0.6, Prothrombin Time 14.1H, Prothromb Time International Ratio 1.4H, Sodium Level 141, Potassium Level 3.6, Chloride Level 105, Carbon Dioxide Level 28, Anion Gap 8, Blood Urea Nitrogen 7, Creatinine 0.8, Estimat Glomerular Filtration Rate > 60, Glucose Level 93, Calcium Level 8.1L Height (Feet): 5 Height (Inches): 8.00 Weight (Pounds): 195 General Appearance: lethargic EENT: normal ENT inspection Neck: normal alignment Cardiovascular: normal peripheral pulses, normal rate, regular rhythm Respiratory/Chest: chest wall non-tender, lungs clear, normal breath sounds Abdomen: normal bowel sounds, non tender, soft Extremities: normal inspection Edema: no edema noted Arm (L), no edema noted Arm (R), no edema noted Leg (L), no edema noted Leg (R), no edema noted Pedal (L), no edema noted Pedal (R), no edema noted Generalized Neurologic: motor weakness Skin: normal pigmentation, warm/dry Objective bl foot dressing c&Miguel Angel Castillo DO Feb 15, 2018 13:42
[2018-02-15] MEDS: DAPTOmycin 350 MG in NS 55 ML IV SCH (14:50)
[2018-02-15] MEDS ORDERED: Warfarin Sodium 10mg ORAL SCH (17:00)
[2018-02-15] MEDS: Dyna-Hex 2% Top Sol 2oz TOPIC SCH (21:20)
[2018-02-16] VITALS: BP 144/86
[2018-02-16] MEDS: Morphine Sulfate 2mg/ml Inj(IV/IM USE ONLY) IVP PRN ×2 (00:32→22:11)
[2018-02-16 04:00] VITALS: BP 142/81
[2018-02-16 06:24] LABS: EOSINOPHILS % (AUTO) 7.8 % (0.0-3.0); HEMATOCRIT 34.6 % (42.0-52.0); HEMOGLOBIN 11.3 G/DL (14.2-18.0); LYMPHOCYTES % (AUTO) 34.6 % (20.0-45.0); MEAN CORPUSCULAR VOLUME 80 FL (80-99); MONOCYTES % (AUTO) 8.3 % (1.0-10.0); NEUTROPHILS % (AUTO) 48.3 % (45.0-75.0); PLATELET COUNT 393 K/UL (150-450); RED BLOOD COUNT 4.33 M/UL (4.70-6.10); RED CELL DISTRIBUTION WIDTH 14.5 % (11.6-14.8); WHITE BLOOD COUNT 7.3 K/UL (4.8-10.8)
[2018-02-16 06:43] LABS: ANION GAP 10 mmol/L (5-15); BLOOD UREA NITROGEN 13 mg/dL (7-18); CALCIUM 8.6 MG/DL (8.5-10.1); CARBON DIOXIDE 27 MMOL/L (21-32); CHLORIDE 101 MMOL/L (98-107); CREATININE 0.9 MG/DL (0.55-1.30); POTASSIUM 3.7 MMOL/L (3.5-5.1); SODIUM 138 MMOL/L (136-145)
[2018-02-16 06:47] LABS: INR 1.4 (0.9-1.1)
[2018-02-16 08:05] VITALS: BP 147/96
[2018-02-16] MEDS: Vitamin B12 1000mcg/ml Inj SUBQ SCH (08:44)
[2018-02-16] MEDS: Dakin's 0.125% Soln (Quarter Strength) 16oz TOPIC SCH (08:53)
[2018-02-16] MEDS: Enoxaparin 80mg Inj SUBQ SCH (08:53)
--- NOTE | 2018-02-16 09:47 | Nephrology Progress Note ---
Assessment/Plan Problem List: (1) DVT (deep venous thrombosis) (2) COPD (chronic obstructive pulmonary disease) (3) Substance abuse (4) Maggot infestation (5) Bilateral lower leg cellulitis Assessment HypoNatremia RESOLVED Sever bilateral lower Ext cellulitis Maggot infestation left leg Anemia DVT Substance abuse Smoker- COPD Allergy Vanco- Cephalexin Plan Per ID NS Wound care Leg elevation Anti Coag lovenox until coumadin kicks in for INR of 2.5 Subjective ROS Limited/Unobtainable: No Constitutional: Reports: malaise Objective Objective Last 24 Hour Vital Signs Date Time Temp Pulse Resp B/P (MAP) Pulse Ox O2 Delivery O2 Flow Rate FiO2 02/16/18 08:14 85 18 Room Air 21 02/16/18 08:05 97.7 92 18 147/96 (113) 96 97.7 02/16/18 04:00 98.1 81 18 142/81 (101) 99 98.1 02/16/18 01:02 98.2 02/16/18 00:32 98.2 02/16/18 00:00 98.2 87 16 144/86 (105) 95 98.2 02/15/18 21:00 Room Air 02/15/18 20:00 98.1 93 20 151/93 (112) 99 98.1 02/15/18 19:56 94 18 Room Air 21 02/15/18 17:05 98.5 99 19 148/99 (115) 94 98.5 02/15/18 15:47 99.5 99 18 154/100 (118) 94 99.5 02/15/18 15:17 96.6 02/15/18 12:27 96.6 107 18 154/95 (114) 95 96.6 Intake and Output 02/15/18 02/16/18 19:00 07:00 Intake Total 1320 ml 410 ml Output Total 1400 ml 700 ml Balance -80 ml -290 ml Intake Oral 1320 ml 410 ml Output Urine Total 1400 ml 700 ml # Voids 1 # Bowel Movements 2 1 Laboratory Tests 02/16/18 05:30: White Blood Count 7.3, Red Blood Count 4.33L, Hemoglobin 11.3L, Hematocrit 34.6L , Mean Corpuscular Volume 80, Mean Corpuscular Hemoglobin 26.1L, Mean Corpuscular Hemoglobin Concent 32.6, Red Cell Distribution Width 14.5, Platelet Count 393, Mean Platelet Volume 4.6L, Neutrophils (%) (Auto) 48.3, Lymphocytes ( %) (Auto) 34.6, Monocytes (%) (Auto) 8.3, Eosinophils (%) (Auto) 7.8H, Basophils (%) (Auto) 1.0, Prothrombin Time 14.7H, Prothromb Time International Ratio 1.4H, Sodium Level 138, Potassium Level 3.7, Chloride Level 101, Carbon Dioxide Level 27, Anion Gap 10, Blood Urea Nitrogen 13, Creatinine 0.9, Estimat Glomerular Filtration Rate > 60, Glucose Level 95, Calcium Level 8.6 Height (Feet): 5 Height (Inches): 8.00 Weight (Pounds): 195 General Appearance: no apparent distress Objective no change Thad Canales MD Feb 16, 2018 09:47
--- NOTE | 2018-02-16 10:22 | Infectious Diseases Prog Note ---
Assessment/Plan Assessment/Plan ASSESSMENT: The patient is a 57-year-old male with, Chronic cellulitis/wound (history of maggots [employer] MELTING ), mostly due to gram-positive organisms Wnd Cx: PSA and Diphteroids( m/l most likely colonizers ) Doubt osteomyelitis of lower extremities Mild leukocytosis, Sp Afebrile. History of allergy to vancomycin and Keflex. Rule out probable bacteremia. Chest x-ray, [facility] Foot x-ray,: no evidence of osteomyelitis. Status post PICC placement on 02/12/2018 Hx of bilateral lower extremity edema. History of alcohol abuse and substance abuse in the past. Anemia. History of DVT and PE. PLAN: continue the patient on daptomycin d# 4 / 5 Monitor CBC. Monitor BMP. Surg and Wound care nurse consultation. monitor CK Dakins Radha as per Surg Subjective Constitutional: Denies: no symptoms, fever, chills, fatigue, anorexia, drenching sweats, other Allergies: Coded Allergies: CEPHALEXIN (Verified Allergy, Intermediate, Hives, 12/11/17) Patietn refers tolerates Penicillin, amoxicillin Tolerated Zosyn 12/10/17 VANCOMYCIN (Verified Allergy, Intermediate, red man syndrome, 12/11/17) Objective Vital Signs Last 24 Hour Vital Signs Date Time Temp Pulse Resp B/P (MAP) Pulse Ox O2 Delivery O2 Flow Rate FiO2 02/16/18 09:00 Room Air 02/16/18 08:14 85 18 Room Air 21 02/16/18 08:05 97.7 92 18 147/96 (113) 96 97.7 02/16/18 04:00 98.1 81 18 142/81 (101) 99 98.1 02/16/18 01:02 98.2 02/16/18 00:32 98.2 02/16/18 00:00 98.2 87 16 144/86 (105) 95 98.2 02/15/18 21:00 Room Air 02/15/18 20:00 98.1 93 20 151/93 (112) 99 98.1 02/15/18 19:56 94 18 Room Air 21 02/15/18 17:05 98.5 99 19 148/99 (115) 94 98.5 02/15/18 15:47 99.5 99 18 154/100 (118) 94 99.5 8/27/18 15:17 96.6 02/15/18 12:27 96.6 107 18 154/95 (114) 95 96.6 Height (Feet): 5 Height (Inches): 8.00 Weight (Pounds): 195 HEENT: atraumatic Respiratory/Chest: no respiratory distress Cardiovascular: regularly irregular Abdomen: no organomegaly Laboratory Tests Test 02/16/18 05:30 White Blood Count 7.3 K/UL (4.8-10.8) Red Blood Count 4.33 M/UL (4.70-6.10) L Hemoglobin 11.3 G/DL (14.2-18.0) L Hematocrit 34.6 % (42.0-52.0) L Mean Corpuscular Volume 80 FL (80-99) Mean Corpuscular Hemoglobin 26.1 PG (27.0-31.0) L Mean Corpuscular Hemoglobin Concent 32.6 G/DL (32.0-36.0) Red Cell Distribution Width 14.5 % (11.6-14.8) Platelet Count 393 K/UL (150-450) Mean Platelet Volume 4.6 FL (6.5-10.1) L Neutrophils (%) (Auto) 48.3 % (45.0-75.0) Lymphocytes (%) (Auto) 34.6 % (20.0-45.0) Monocytes (%) (Auto) 8.3 % (1.0-10.0) Eosinophils (%) (Auto) 7.8 % (0.0-3.0) H Basophils (%) (Auto) 1.0 % (0.0-2.0) Prothrombin Time 14.7 SEC (9.30-11.50) H Prothromb Time International Ratio 1.4 (0.9-1.1) H Sodium Level 138 MMOL/L (136-145) Potassium Level 3.7 MMOL/L (3.5-5.1) Chloride Level 101 MMOL/L (98-107) Carbon Dioxide Level 27 MMOL/L (21-32) Anion Gap 10 mmol/L (5-15) Blood Urea Nitrogen 13 mg/dL (7-18) Creatinine 0.9 MG/DL (0.55-1.30) Estimat Glomerular Filtration Rate > 60 mL/min (>60) Glucose Level 95 MG/DL (74-106) Calcium Level 8.6 MG/DL (8.5-10.1) Current Medications Medications (Trade) Dose Ordered Sig/Italo Route PRN Reason Start Time Stop Time Status Last Admin Dose Admin Acetaminophen (Tylenol) 650 mg Q4H PRN ORAL fever 02/12/18 22:30 03/14/18 22:29 Albuterol/ Ipratropium (Albuterol/ Ipratropium) 3 ml EVERY 4 HOURS PRN HHN Shortness of Breath 02/12/18 22:30 02/17/18 22:29 Chlorhexidine Gluconate (Mahi-Hex 2%) 1 applic DAILY@2000 TOPIC 02/13/18 20:00 03/15/18 19:59 02/15/18 21:20 Daptomycin 350 mg/ Sodium Chloride 55 ml @ 100 mls/hr Q24H IV 02/13/18 14:30 02/20/18 14:29 02/15/18 14:50 Diphenhydramine HCl (Benadryl) 50 mg Q6H PRN ORAL Itching 02/13/18 03:30 03/15/18 03:29 Enoxaparin Sodium (Lovenox) 80 mg DAILY SUBQ 02/13/18 11:30 03/15/18 11:29 02/16/18 08:53 Famotidine (Pepcid) 20 mg BID ORAL 02/13/18 11:00 03/15/18 10:59 02/16/18 08:44 Gabapentin (Neurontin) 600 mg QID ORAL 02/13/18 09:00 03/15/18 08:59 02/16/18 08:44 Mirtazapine (Remeron) 45 mg BEDTIME ORAL 02/15/18 21:00 03/17/18 20:59 02/15/18 21:19 Morphine Sulfate (Morphine Sulfate) 2 mg EVERY 4 HOURS PRN IVP Moderate Pain (Pain Scale 4-6) 02/12/18 22:30 02/19/18 22:29 02/16/18 00:32 Nitroglycerin (Ntg) 0.4 mg PRN PRN SL Prn Chest Pain 02/12/18 22:30 03/14/18 22:29 Ondansetron HCl (Zofran) 4 mg Q6H PRN IVP Nausea & Vomiting 02/12/18 22:30 9/23/18 22:29 Polyethylene Glycol (Miralax) 17 gm DAILYPRN PRN ORAL Constipation 02/12/18 22:30 03/14/18 22:29 Sodium Hypochlorite (Dakin's Quarter Strength) 1 applic DAILY TOPIC 02/15/18 12:30 03/17/18 12:29 02/16/18 08:53 Sodium Chloride 1,000 ml @ 50 mls/hr Q20H IV 02/13/18 11:00 03/15/18 10:59 02/15/18 18:00 Temazepam (Restoril) 15 mg HSPRN PRN ORAL Insomnia 02/12/18 22:30 02/19/18 22:29 02/14/18 22:30 Warfarin Sodium (Coumadin per pharmacy) 1 ea DAILY PRN MISC . 02/14/18 08:45 03/16/18 08:44 Bryant Antoine MD Feb 16, 2018 10:22
[2018-02-16 11:54] VITALS: BP 143/88
--- NOTE | 2018-02-16 13:35 | General Progress Note ---
Assessment/Plan Problem List: (1) UTI (urinary tract infection) ICD Codes: N39.0 - Urinary tract infection, site not specified SNOMED: 71805924 (2) ATN (acute tubular necrosis) ICD Codes: N17.0 - Acute kidney failure with tubular necrosis SNOMED: 74672922 (3) Drug abuse ICD Codes: F19.10 - Other psychoactive substance abuse, uncomplicated SNOMED: 63424967 (4) Cellulitis of left foot ICD Codes: L03.116 - Cellulitis of left lower limb SNOMED: 843976148 (5) COPD (chronic obstructive pulmonary disease) ICD Codes: J44.9 - Chronic obstructive pulmonary disease, unspecified SNOMED: 28486822 (6) DVT (deep venous thrombosis) ICD Codes: I82.409 - Acute embolism and thrombosis of unspecified deep veins of unspecified lower extremity SNOMED: 786391763 Status: stable, progressing Assessment/Plan ot pt diet wound care abx cbc bmp am dc plan if clear Subjective Constitutional: Reports: weakness Allergies: Coded Allergies: CEPHALEXIN (Verified Allergy, Intermediate, Hives, 12/11/17) Patietn refers tolerates Penicillin, amoxicillin Tolerated Zosyn 12/10/17 VANCOMYCIN (Verified Allergy, Intermediate, red man syndrome, 12/11/17) All Systems: reviewed and negative except above Subjective in room calm Objective Last 24 Hour Vital Signs Date Time Temp Pulse Resp B/P (MAP) Pulse Ox O2 Delivery O2 Flow Rate FiO2 02/16/18 11:54 97.9 86 20 143/88 (106) 98 97.9 02/16/18 09:00 Room Air 02/16/18 08:14 85 18 Room Air 21 02/16/18 08:05 97.7 92 18 147/96 (113) 96 97.7 02/16/18 04:00 98.1 81 18 142/81 (101) 99 98.1 02/16/18 01:02 98.2 02/16/18 00:32 98.2 02/16/18 00:00 98.2 87 16 144/86 (105) 95 98.2 02/15/18 21:00 Room Air 02/15/18 20:00 98.1 93 20 151/93 (112) 99 98.1 02/15/18 19:56 94 18 Room Air 21 02/15/18 17:05 98.5 99 19 148/99 (115) 94 98.5 02/15/18 15:47 99.5 99 18 154/100 (118) 94 99.5 02/15/18 15:17 96.6 Intake and Output 02/15/18 02/16/18 19:00 07:00 Intake Total 1320 ml 410 ml Output Total 1400 ml 700 ml Balance -80 ml -290 ml Intake Oral 1320 ml 410 ml Output Urine Total 1400 ml 700 ml # Voids 1 # Bowel Movements 2 1 Laboratory Tests 02/16/18 05:30: White Blood Count 7.3, Red Blood Count 4.33L, Hemoglobin 11.3L, Hematocrit 34.6L , Mean Corpuscular Volume 80, Mean Corpuscular Hemoglobin 26.1L, Mean Corpuscular Hemoglobin Concent 32.6, Red Cell Distribution Width 14.5, Platelet Count 393, Mean Platelet Volume 4.6L, Neutrophils (%) (Auto) 48.3, Lymphocytes ( %) (Auto) 34.6, Monocytes (%) (Auto) 8.3, Eosinophils (%) (Auto) 7.8H, Basophils (%) (Auto) 1.0, Prothrombin Time 14.7H, Prothromb Time International Ratio 1.4H, Sodium Level 138, Potassium Level 3.7, Chloride Level 101, Carbon Dioxide Level 27, Anion Gap 10, Blood Urea Nitrogen 13, Creatinine 0.9, Estimat Glomerular Filtration Rate > 60, Glucose Level 95, Calcium Level 8.6 Height (Feet): 5 Height (Inches): 8.00 Weight (Pounds): 195 General Appearance: lethargic EENT: normal ENT inspection Neck: normal alignment Cardiovascular: normal peripheral pulses, normal rate, regular rhythm Respiratory/Chest: chest wall non-tender, lungs clear, normal breath sounds Abdomen: normal bowel sounds, non tender, soft Extremities: normal inspection Edema: no edema noted Arm (L), no edema noted Arm (R), no edema noted Leg (L), no edema noted Leg (R), no edema noted Pedal (L), no edema noted Pedal (R), no edema noted Generalized Neurologic: motor weakness Skin: normal pigmentation, warm/dry Objective bl foot dressing c&d Miguel Angel Nolan DO Feb 16, 2018 13:35
[2018-02-16] MEDS: DAPTOmycin 350 MG in NS 55 ML IV SCH (15:25)
[2018-02-16 16:14] VITALS: BP 142/93
[2018-02-16] MEDS ORDERED: Warfarin Sod 10 MG, Warfarin Sod 2 MG ORAL ONE ×2 (17:00)
[2018-02-16 19:47] VITALS: BP 137/84
[2018-02-16] MEDS: Dyna-Hex 2% Top Sol 2oz TOPIC SCH (21:14)
[2018-02-17] VITALS (7 sets, daily range): BP systolic 104–140; BP diastolic 63–105
[2018-02-17 06:36] LABS: BASOPHILS % (AUTO) 0.9 % (0.0-2.0); EOSINOPHILS % (AUTO) 8.5 % (0.0-3.0); HEMATOCRIT 36.5 % (42.0-52.0); HEMOGLOBIN 11.5 G/DL (14.2-18.0); LYMPHOCYTES % (AUTO) 34.6 % (20.0-45.0); MEAN CORPUSCULAR VOLUME 80 FL (80-99); MONOCYTES % (AUTO) 8.3 % (1.0-10.0); NEUTROPHILS % (AUTO) 47.7 % (45.0-75.0); PLATELET COUNT 409 K/UL (150-450); RED BLOOD COUNT 4.58 M/UL (4.70-6.10); RED CELL DISTRIBUTION WIDTH 14.7 % (11.6-14.8); WHITE BLOOD COUNT 9.7 K/UL (4.8-10.8)
[2018-02-17 06:44] LABS: INR 1.5 (0.9-1.1)
[2018-02-17 06:45] LABS: ANION GAP 8 mmol/L (5-15); BLOOD UREA NITROGEN 19 mg/dL (7-18); CALCIUM 8.3 MG/DL (8.5-10.1); CARBON DIOXIDE 28 MMOL/L (21-32); CHLORIDE 102 MMOL/L (98-107); POTASSIUM 3.8 MMOL/L (3.5-5.1); SODIUM 138 MMOL/L (136-145)
[2018-02-17] MEDS: Morphine Sulfate 2mg/ml Inj(IV/IM USE ONLY) IVP PRN ×3 (08:01→17:35)
[2018-02-17] MEDS: Dakin's 0.125% Soln (Quarter Strength) 16oz TOPIC SCH (08:17)
[2018-02-17] MEDS: Enoxaparin 80mg Inj SUBQ SCH (08:17)
--- NOTE | 2018-02-17 09:12 | Nephrology Progress Note ---
Assessment/Plan Problem List: (1) DVT (deep venous thrombosis) (2) COPD (chronic obstructive pulmonary disease) (3) Substance abuse (4) Maggot infestation (5) Bilateral lower leg cellulitis Assessment HypoNatremia RESOLVED Sever bilateral lower Ext cellulitis Maggot infestation left leg Anemia DVT Substance abuse Smoker- COPD Allergy Vanco- Cephalexin Plan Per ID NS Wound care Leg elevation Anti Coag lovenox until coumadin kicks in for INR of 2.5 DC planning? Subjective ROS Limited/Unobtainable: No Constitutional: Reports: malaise Objective Objective Last 24 Hour Vital Signs Date Time Temp Pulse Resp B/P (MAP) Pulse Ox O2 Delivery O2 Flow Rate FiO2 02/17/18 07:50 96.0 104 18 117/83 (94) 95 96.0 02/17/18 04:20 98.1 97 18 126/73 (90) 92 98.1 02/17/18 00:45 96.8 94 17 129/79 (96) 96 96.8 02/16/18 22:41 97.5 02/16/18 22:11 97.5 02/16/18 21:00 Room Air 02/16/18 20:17 96 18 Room Air 21 02/16/18 19:47 97.5 98 18 137/84 (101) 96 97.5 02/16/18 16:14 97.8 100 20 142/93 (109) 95 97.8 02/16/18 11:54 97.9 86 20 143/88 (106) 98 97.9 Intake and Output 02/16/18 02/17/18 19:00 07:00 Intake Total 995 ml Output Total 450 ml Balance 995 ml -450 ml Intake Oral 890 ml IV Total 105 ml Output Urine Total 450 ml # Voids 3 Laboratory Tests 02/17/18 05:30: White Blood Count 9.7, Red Blood Count 4.58L, Hemoglobin 11.5L, Hematocrit 36.5L , Mean Corpuscular Volume 80, Mean Corpuscular Hemoglobin 25.1L, Mean Corpuscular Hemoglobin Concent 31.5L, Red Cell Distribution Width 14.7, Platelet Count 409, Mean Platelet Volume 5.2L, Neutrophils (%) (Auto) 47.7, Lymphocytes (%) (Auto) 34.6, Monocytes (%) (Auto) 8.3, Eosinophils (%) (Auto) 8.5H, Basophils (%) (Auto) 0.9, Prothrombin Time 15.7H, Prothromb Time International Ratio 1.5H, Sodium Level 138, Potassium Level 3.8, Chloride Level 102, Carbon Dioxide Level 28, Anion Gap 8, Blood Urea Nitrogen 19H, Creatinine 1.0, Estimat Glomerular Filtration Rate > 60, Glucose Level 95, Calcium Level 8.3L Height (Feet): 5 Height (Inches): 8.00 Weight (Pounds): 192 General Appearance: no apparent distress Cardiovascular: regular rhythm Respiratory/Chest: lungs clear Extremities: other Objective no change Thad Canales MD Feb 17, 2018 09:12
[2018-02-17] MEDS: DAPTOmycin 350 MG in NS 55 ML IV SCH (13:38)
--- NOTE | 2018-02-17 14:46 | General Progress Note ---
Assessment/Plan Problem List: (1) UTI (urinary tract infection) ICD Codes: N39.0 - Urinary tract infection, site not specified SNOMED: 52503972 (2) ATN (acute tubular necrosis) ICD Codes: N17.0 - Acute kidney failure with tubular necrosis SNOMED: 92706259 (3) Drug abuse ICD Codes: F19.10 - Other psychoactive substance abuse, uncomplicated SNOMED: 82683538 (4) Cellulitis of left foot ICD Codes: L03.116 - Cellulitis of left lower limb SNOMED: 638155328 (5) COPD (chronic obstructive pulmonary disease) ICD Codes: J44.9 - Chronic obstructive pulmonary disease, unspecified SNOMED: 26486148 (6) DVT (deep venous thrombosis) ICD Codes: I82.409 - Acute embolism and thrombosis of unspecified deep veins of unspecified lower extremity SNOMED: 309231132 Assessment/Plan ot pt diet wound care abx dc to snf if clear Subjective Constitutional: Reports: weakness Allergies: Coded Allergies: CEPHALEXIN (Verified Allergy, Intermediate, Hives, 12/11/17) Patietn refers tolerates Penicillin, amoxicillin Tolerated Zosyn 12/10/17 VANCOMYCIN (Verified Allergy, Intermediate, red man syndrome, 12/11/17) All Systems: reviewed and negative except above Subjective in room calm Objective Last 24 Hour Vital Signs Date Time Temp Pulse Resp B/P (MAP) Pulse Ox O2 Delivery O2 Flow Rate FiO2 02/17/18 11:11 97.8 96 19 140/92 (108) 94 97.8 02/17/18 09:00 Room Air 02/17/18 07:50 96.0 104 18 117/83 (94) 95 96.0 02/17/18 04:20 98.1 97 18 126/73 (90) 92 98.1 02/17/18 00:45 96.8 94 17 129/79 (96) 96 96.8 02/16/18 22:41 97.5 02/16/18 22:11 97.5 02/16/18 21:00 Room Air 02/16/18 20:17 96 18 Room Air 21 02/16/18 19:47 97.5 98 18 137/84 (101) 96 97.5 02/16/18 16:14 97.8 100 20 142/93 (109) 95 97.8 Intake and Output 02/16/18 02/17/18 19:00 07:00 Intake Total 995 ml Output Total 450 ml Balance 995 ml -450 ml Intake Oral 890 ml IV Total 105 ml Output Urine Total 450 ml # Voids 3 Laboratory Tests 02/17/18 05:30: White Blood Count 9.7, Red Blood Count 4.58L, Hemoglobin 11.5L, Hematocrit 36.5L , Mean Corpuscular Volume 80, Mean Corpuscular Hemoglobin 25.1L, Mean Corpuscular Hemoglobin Concent 31.5L, Red Cell Distribution Width 14.7, Platelet Count 409, Mean Platelet Volume 5.2L, Neutrophils (%) (Auto) 47.7, Lymphocytes (%) (Auto) 34.6, Monocytes (%) (Auto) 8.3, Eosinophils (%) (Auto) 8.5H, Basophils (%) (Auto) 0.9, Prothrombin Time 15.7H, Prothromb Time International Ratio 1.5H, Sodium Level 138, Potassium Level 3.8, Chloride Level 102, Carbon Dioxide Level 28, Anion Gap 8, Blood Urea Nitrogen 19H, Creatinine 1.0, Estimat Glomerular Filtration Rate > 60, Glucose Level 95, Calcium Level 8.3L Height (Feet): 5 Height (Inches): 8.00 Weight (Pounds): 192 General Appearance: lethargic EENT: normal ENT inspection Neck: normal alignment Cardiovascular: normal peripheral pulses, normal rate, regular rhythm Respiratory/Chest: chest wall non-tender, lungs clear, normal breath sounds Abdomen: normal bowel sounds, non tender, soft Extremities: normal inspection Edema: no edema noted Arm (L), no edema noted Arm (R), no edema noted Leg (L), no edema noted Leg (R), no edema noted Pedal (L), no edema noted Pedal (R), no edema noted Generalized Neurologic: motor weakness Skin: normal pigmentation, warm/dry Objective bl foot dressing c&d Miguel Angel Nolan DO Feb 17, 2018 14:46
--- NOTE | 2018-02-17 15:37 | Infectious Diseases Prog Note ---
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 History of allergy to vancomycin and Keflex. Rule out probable bacteremia. Chest x-ray, N[facility]D Foot x-ray,: no evidence of osteomyelitis. Status post PICC placement on 02/12/2018 Hx of bilateral lower extremity edema. History of alcohol abuse and substance abuse in the past. Anemia. History of DVT and PE. PLAN: continue the patient on daptomycin d# 5 / 5 ; ok to discharge off antibiotics Monitor CBC. Monitor BMP. Surg and Wound care nurse consultation. 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 Subjective Allergies: Coded Allergies: CEPHALEXIN (Verified Allergy, Intermediate, Hives, 12/11/17) Patietn refers tolerates Penicillin, amoxicillin Tolerated Zosyn 12/10/17 VANCOMYCIN (Verified Allergy, Intermediate, red man syndrome, 12/11/17) Subjective afebrile no leukocytosis Objective Vital Signs Last 24 Hour Vital Signs Date Time Temp Pulse Resp B/P (MAP) Pulse Ox O2 Delivery O2 Flow Rate FiO2 02/17/18 11:11 97.8 96 19 140/92 (108) 94 97.8 02/17/18 09:00 Room Air 02/17/18 07:50 96.0 104 18 117/83 (94) 95 96.0 02/17/18 04:20 98.1 97 18 126/73 (90) 92 98.1 02/17/18 00:45 96.8 94 17 129/79 (96) 96 96.8 02/16/18 22:41 97.5 02/16/18 22:11 97.5 02/16/18 21:00 Room Air 02/16/18 20:17 96 18 Room Air 21 02/16/18 19:47 97.5 98 18 137/84 (101) 96 97.5 02/16/18 16:14 97.8 100 20 142/93 (109) 95 97.8 Height (Feet): 5 Height (Inches): 8.00 Weight (Pounds): 192 Objective HEENT: atraumatic Respiratory/Chest: no respiratory distress Cardiovascular: regularly irregular Abdomen: no organomegaly Laboratory Tests Test 02/17/18 05:30 White Blood Count 9.7 K/UL (4.8-10.8) Red Blood Count 4.58 M/UL (4.70-6.10) L Hemoglobin 11.5 G/DL (14.2-18.0) L Hematocrit 36.5 % (42.0-52.0) L Mean Corpuscular Volume 80 FL (80-99) Mean Corpuscular Hemoglobin 25.1 PG (27.0-31.0) L Mean Corpuscular Hemoglobin Concent 31.5 G/DL (32.0-36.0) L Red Cell Distribution Width 14.7 % (11.6-14.8) Platelet Count 409 K/UL (150-450) Mean Platelet Volume 5.2 FL (6.5-10.1) L Neutrophils (%) (Auto) 47.7 % (45.0-75.0) Lymphocytes (%) (Auto) 34.6 % (20.0-45.0) Monocytes (%) (Auto) 8.3 % (1.0-10.0) Eosinophils (%) (Auto) 8.5 % (0.0-3.0) H Basophils (%) (Auto) 0.9 % (0.0-2.0) Prothrombin Time 15.7 SEC (9.30-11.50) H Prothromb Time International Ratio 1.5 (0.9-1.1) H Sodium Level 138 MMOL/L (136-145) Potassium Level 3.8 MMOL/L (3.5-5.1) Chloride Level 102 MMOL/L (98-107) Carbon Dioxide Level 28 MMOL/L (21-32) Anion Gap 8 mmol/L (5-15) Blood Urea Nitrogen 19 mg/dL (7-18) H Creatinine 1.0 MG/DL (0.55-1.30) Estimat Glomerular Filtration Rate > 60 mL/min (>60) Glucose Level 95 MG/DL (74-106) Calcium Level 8.3 MG/DL (8.5-10.1) L Current Medications Medications (Trade) Dose Ordered Sig/Italo Route PRN Reason Start Time Stop Time Status Last Admin Dose Admin Acetaminophen (Tylenol) 650 mg Q4H PRN ORAL fever 02/12/18 22:30 03/14/18 22:29 Albuterol/ Ipratropium (Albuterol/ Ipratropium) 3 ml EVERY 4 HOURS PRN HHN Shortness of Breath 02/12/18 22:30 02/17/18 22:29 Chlorhexidine Gluconate (Mahi-Hex 2%) 1 applic DAILY@2000 TOPIC 02/13/18 20:00 03/15/18 19:59 02/16/18 21:14 Daptomycin 350 mg/ Sodium Chloride 55 ml @ 100 mls/hr Q24H IV 02/13/18 14:30 02/20/18 14:29 02/17/18 13:38 Diphenhydramine HCl (Benadryl) 50 mg Q6H PRN ORAL Itching 02/13/18 03:30 03/15/18 03:29 02/17/18 06:38 Enoxaparin Sodium (Lovenox) 80 mg DAILY SUBQ 02/13/18 11:30 03/15/18 11:29 02/17/18 08:17 Famotidine (Pepcid) 20 mg BID ORAL 02/13/18 11:00 03/15/18 10:59 02/17/18 08:03 Gabapentin (Neurontin) 600 mg QID ORAL 02/17/18 13:00 03/15/18 12:59 02/17/18 13:38 Mirtazapine (Remeron) 45 mg BEDTIME ORAL 02/15/18 21:00 03/17/18 20:59 02/16/18 21:14 Morphine Sulfate (Morphine Sulfate) 2 mg EVERY 4 HOURS PRN IVP Moderate Pain (Pain Scale 4-6) 02/12/18 22:30 02/19/18 22:29 02/17/18 13:38 Nitroglycerin (Ntg) 0.4 mg PRN PRN SL Prn Chest Pain 02/12/18 22:30 03/14/18 22:29 Ondansetron HCl (Zofran) 4 mg Q6H PRN IVP Nausea & Vomiting 02/12/18 22:30 03/14/18 22:29 Polyethylene Glycol (Miralax) 17 gm DAILYPRN PRN ORAL Constipation 02/12/18 22:30 03/14/18 22:29 Sodium Hypochlorite (Dakin's Quarter Strength) 1 applic DAILY TOPIC 02/15/18 12:30 03/17/18 12:29 02/17/18 08:17 Sodium Chloride 1,000 ml @ 50 mls/hr Q20H IV 02/13/18 11:00 03/15/18 10:59 02/17/18 08:03 Temazepam (Restoril) 15 mg HSPRN PRN ORAL Insomnia 02/12/18 22:30 02/19/18 22:29 02/14/18 22:30 Warfarin Sodium (Coumadin per pharmacy) 1 ea DAILY PRN MISC . 02/14/18 08:45 03/16/18 08:44 Warfarin Sodium (Coumadin) 12 mg COUMADIN ORAL 02/17/18 17:00 02/17/18 18:00 Leatha Choi M.D. Feb 17, 2018 15:37
[2018-02-17] MEDS ORDERED: LOVENOX10 M4 SUBQ (16:17)
[2018-02-17] MEDS ORDERED: FAMOTIDINE20 MG ORAL (16:17)
[2018-02-17] MEDS ORDERED: GABAPENTIN600 MG ORAL (16:17)
[2018-02-17] MEDS ORDERED: MORPHINE 22 MG/1 ML IV (16:18)
[2018-02-17] MEDS ORDERED: ZOFRAN 4 MG4 MG/2 ML IV (16:18)
--- NOTE | 2018-02-17 16:19 | Cardiology Report ---
APPROVED REPORT EKG Measurement Heart [id number] Sinus tachycardia Possible Left atrial enlargement Borderline ECG
[2018-02-17] MEDS ORDERED: DAKIN'S473 ML MC (16:38)
[2018-02-17] MEDS ORDERED: Warfarin Sod 10 MG, Warfarin Sod 2 MG ORAL SCH ×2 (17:00)
--- NOTE | 2018-02-18 13:59 | Diagnostic Imaging Report ---
APPROVED REPORT CPT Code: 87021 Present Symptoms Comments: R/O DVT Past History DVT :Bilateral RIGHT LEG: Venous imaging reveals recanalized chronic thrombus in the common femoral, superficial femoral and popliteal veins. Imaging also reveals patency of the calf veins. The greater saphenous vein is also within normal limits. Doppler indicates normal spontaneous flow within these segments. LEFT LEG: Venous imaging reveals recanalized chronic thrombus in the common femoral, superficial femoral and popliteal veins. Imaging also reveals patency of the calf veins. The greater saphenous vein is also within normal limits. Doppler indicates normal spontaneous flow within these segments. Incidental findings: Enlarged lymph nodes noted in the right and left superficial femoral veins area, bilaterally.
--- NOTE | 2018-02-18 15:03 | Discharge Summary ---
Discharge Summary Discharge Summary _ DATE OF ADMISSION: 02/12/2018 DATE OF DISCHARGE: 02/17/2018 CONSULTANTS: Dr. Leatha Liu BRIEF HOSPITAL COURSE: Patient is a 57-year-old male, from [facility], presented to [place] for complaints of worsening bilateral foot cellulitis. Symptoms had been ongoing for the past 6 months and is getting worse. Patient has history of DVT and is on Coumadin. Denied dysuria or headache. He had loose stools but brown in color. On arrival to ED, he was noted to have lower leg ulcers with erythema, left top of foot was with maggot infestation. He had poor IV access. PICC line was inserted. Blood work showed WBC 11.9. Urinalysis with 1+ leukocyte esterase, 5 -10 RBC, 5-10 WBC. Chest x-ray showed no acute disease. X-ray of the left and right foot showed soft tissue swelling with no gas, no evidence of osteomyelitis. He was admitted for evaluation of bilateral foot cellulitis and UTI. He was seen by infectious disease specialist. Patient has allergies to vancomycin and Keflex. He was given daptomycin. Surgical consultation was done to assist with wound management. Patient had bilateral lower extremity cellulitis with chronic wounds and acute cellulitis. There was burring hole noted. Wound no longer infested with maggots. Wound was cleansed with one fourth strength Dakin's solution. He was given wound care. He had hyponatremia and was given NS. He has history of DVT. Venous duplex of lower extremity showed chronic recanalized thrombosis on bilateral lower legs. He was given Lovenox on bridge with Coumadin as INR was subtherapeutic. Patient has anxiety and depression. He given Remeron and prn Ativan. Wound culture with growth of Pseudomonas and Diphteroids, most likely colonizers. He received 5 days of daptomycin and was eventually taken off antibiotics. He was then discharged to custodial. FINAL DIAGNOSES: Bilateral cellulitis of lower extremity with maggot infestation Old DVT and PE on subtherapeutic anticoagulation COPD Substance abuse Hyponatremia Anemia Smoker UTI History of alcohol and substance abuse DISPOSITION: Patient was transferred to [facility]. DISCHARGE MEDICATIONS: Refer to Discharge Medication List. I have been assigned to dictate discharge summary on this account, and I was not involved in the patient's management. Melissa Escalera NP Feb 18, 2018 15:03
== END 2018-02-17 20:15 | DRG 383 ==
LOC: EDBD 14:51 → EDUNIT# 14:51 → EDBEDREQ 15:30 → EMR 15:50 → 4W 16:09 → EDBEDREQ 18:16
PROC: 02HV33Z Insertion of Infusion Device into Superior Vena Cava, Percutaneous Approach (ICD-10-PCS; principal; 2018-02-12)
DX: L03.116 Cellulitis of left lower limb (principal); N17.0 Acute kidney failure with tubular necrosis; E87.1 Hypo-osmolality and hyponatremia; B87.0 Cutaneous myiasis; D64.9 Anemia, unspecified; E11.9 Type 2 diabetes mellitus without complications; F10.10 Alcohol abuse, uncomplicated; F17.200 Nicotine dependence, unspecified, uncomplicated; L03.115 Cellulitis of right lower limb; Z86.718 Personal history of other venous thrombosis and embolism; Z79.01 Long term (current) use of anticoagulants; Z86.711 Personal history of pulmonary embolism; J44.9 Chronic obstructive pulmonary disease, unspecified; N39.0 Urinary tract infection, site not specified; F41.8 Other specified anxiety disorders; Z88.1 Allergy status to other antibiotic agents; Z79.4 Long term (current) use of insulin; F15.10 Other stimulant abuse, uncomplicated
CPT/HCPCS: 36415; 36569; 71045; 76937; 80048; 80053; 80061; 80307; 80329; 81003; 82550; 82607; 82728; 82746; 82962; 82977; 83036; 83540; 83550; 83605; 83735; 83880; 84100; 84443; 84484; 84550; 85025; 85610; 85651; 85730; 86140; 86850; 86900; 86901; 87040; 87070; 87081; 87181; 87205; 93005; 93970; 94664; 97803; 99285; J1815; J2405

== ENCOUNTER 2018-04-25 16:14 | Emergency (ER) | payer MEDICAID, OTHER ==
[~2018-04-25] VITALS: Ht 170.2 cm; Wt 72.6 kg
[~2018-04-25 16:14] MED LIST changes: +DAKIN'S473 ML MC; +DIPHENHYDRAMINE25 M1 ORAL; +DOCUSATE SODIU100 MG ORAL; +FAMOTIDINE20 MG ORAL; +MORPHINE 22 MG/1 ML IV
[2018-04-25] MEDS ORDERED: COUMADIN6 MG ORAL (17:07)
[2018-04-25 17:13] LABS: BASOPHILS % (AUTO) 1.5 % (0.0-2.0); EOSINOPHILS % (AUTO) 4.3 % (0.0-3.0); HEMOGLOBIN 14.3 G/DL (14.2-18.0); LYMPHOCYTES % (AUTO) 34.2 % (20.0-45.0); MEAN CORPUSCULAR VOLUME 80 FL (80-99); NEUTROPHILS % (AUTO) 54.1 % (45.0-75.0); PLATELET COUNT 240 K/UL (150-450); RED BLOOD COUNT 5.62 M/UL (4.70-6.10); RED CELL DISTRIBUTION WIDTH 15.1 % (11.6-14.8); WHITE BLOOD COUNT 8.3 K/UL (4.8-10.8)
[2018-04-25 17:14] LABS: ANION GAP 8 mmol/L (5-15); BLOOD UREA NITROGEN 5 mg/dL (7-18); CALCIUM 8.8 MG/DL (8.5-10.1); CARBON DIOXIDE 23 MMOL/L (21-32); CHLORIDE 103 MMOL/L (98-107); CREATININE 0.8 MG/DL (0.55-1.30); POTASSIUM 5.7 MMOL/L (3.5-5.1); SODIUM 134 MMOL/L (136-145)
[2018-04-25] MEDS ORDERED: ELIQUIS2.5 MG PO (17:19)
[2018-04-25] MEDS ORDERED: CIPRO500 MG PO (17:19)
[2018-04-25] MEDS ORDERED: MIRTAZAPINE15 M3 ORAL (17:19)
[2018-04-25] MEDS ORDERED: TRAMADOL HCL50 MG ORAL (17:19)
[2018-04-25 17:26] LABS: ALANINE AMINOTRANSFERASE 14 U/L (12-78); ALBUMIN 2.8 G/DL (3.4-5.0); ALBUMIN/GLOBULIN RATIO 0.4 (1.0-2.7); ALKALINE PHOSPHATASE 100 U/L (46-116); ASPARTATE AMINO TRANSFERASE 42 U/L (15-37); BILIRUBIN,TOTAL 0.4 MG/DL (0.2-1.0)
[2018-04-25 18:06] LABS: INR 1.1 (0.9-1.1)
--- NOTE | 2018-04-25 19:01 | Emergency Room Report ---
History of Present Illness General Chief Complaint: Lower Extremity Injury Present Illness HPI Patient's 57-year-old male brought in by EMS after increased bilateral leg wound drainage. The patient was noted to have prior history of chronic DVT. He had previously been on anticoagulation with Coumadin for DVT. The patient had been noted to have increased discoloration and drainage. Patient is allergic to Keflex and vancomycin. The patient previously been treated with daptomycin for the pseudomonas as well as diphtheroids to his foot wounds.The patient is currently being treated with ciprofloxacin. Allergies: Coded Allergies: CEPHALEXIN (Verified Allergy, Intermediate, Hives, 12/11/17) Patietn refers tolerates Penicillin, amoxicillin Tolerated Zosyn 12/10/17 VANCOMYCIN (Verified Allergy, Intermediate, red man syndrome, 12/11/17) Patient History Past Medical History: see triage record Reviewed Nursing Documentation: PMH: Agreed; PSxH: Agreed Nursing Documentation-PMH Past Medical History: No History, Except For Hx COPD: Yes Hx Cancer: No Hx Gastrointestinal Problems: No Hx Weakness: Yes - WEAKNESS BILATERAL LOWER EXTREMITIES Review of Systems All Other Systems: negative except mentioned in HPI Physical Exam Vital Signs Date Time Temp Pulse Resp B/P (MAP) Pulse Ox O2 Delivery O2 Flow Rate FiO2 04/25/18 16:16 97.7 90 18 97 Nasal Cannula 4.0 Sp02 EP Interpretation: reviewed, normal General Appearance: normal inspection, well appearing, no apparent distress, alert, GCS 15, non-toxic, Chronically Ill Head: atraumatic ENT: normal ENT inspection, hearing grossly normal, normal voice Neck: normal inspection, full range of motion, supple, no bony tend Respiratory: normal inspection, lungs clear, normal breath sounds, no respiratory distress, no retraction, no wheezing Cardiovascular #1: regular rate, rhythm, no edema Gastrointestinal: normal inspection, normal bowel sounds, non tender, soft, no guarding, no hernia Genitourinary: no CVA tenderness Musculoskeletal: normal inspection, back normal, normal range of motion Neurologic: normal inspection, alert, responsive, speech normal Psychiatric: normal inspection, judgement/insight normal, mood/affect normal Skin: no rash, other - bilateral leg drainage, yellow green discoloration of dressing Medical Decision Making Diagnostic Impression: Primary Impression: Bilateral lower leg cellulitis ER Course The patient presented for lower extremity wound.Differential diagnosis included but was not limited to fracture, contusion, renal stone, vascular insufficiency, aortic aneurysm, cellulitis.Because of complexity of patient's case laboratory testing and imaging studies were ordered. The patient noted to have chronic nonhealing wound. The patient appears to be have some evidence of the wound infection bilaterally. The patient was discussed with Dr. Torrez who agreed to accept the patient in transfer.The patient's potassium was noted to be elevated on laboratory testing which is likely lab error due to hemolysis Labs Test 04/25/18 16:54 04/25/18 17:50 White Blood Count 8.3 K/UL (4.8-10.8) Red Blood Count 5.62 M/UL (4.70-6.10) Hemoglobin 14.3 G/DL (14.2-18.0) Hematocrit 45.0 % (42.0-52.0) Mean Corpuscular Volume 80 FL (80-99) Mean Corpuscular Hemoglobin 25.5 PG (27.0-31.0) Mean Corpuscular Hemoglobin Concent 31.9 G/DL (32.0-36.0) Red Cell Distribution Width 15.1 % (11.6-14.8) Platelet Count 240 K/UL (150-450) Mean Platelet Volume 5.7 FL (6.5-10.1) Neutrophils (%) (Auto) 54.1 % (45.0-75.0) Lymphocytes (%) (Auto) 34.2 % (20.0-45.0) Monocytes (%) (Auto) 6.0 % (1.0-10.0) Eosinophils (%) (Auto) 4.3 % (0.0-3.0) Basophils (%) (Auto) 1.5 % (0.0-2.0) Sodium Level 134 MMOL/L (136-145) Potassium Level 5.7 MMOL/L (3.5-5.1) Chloride Level 103 MMOL/L (98-107) Carbon Dioxide Level 23 MMOL/L (21-32) Anion Gap 8 mmol/L (5-15) Blood Urea Nitrogen 5 mg/dL (7-18) Creatinine 0.8 MG/DL (0.55-1.30) Estimat Glomerular Filtration Rate > 60 mL/min (>60) Glucose Level 89 MG/DL (74-106) Calcium Level 8.8 MG/DL (8.5-10.1) Total Bilirubin 0.4 MG/DL (0.2-1.0) Aspartate Amino Transf (AST/SGOT) 42 U/L (15-37) Alanine Aminotransferase (ALT/SGPT) 14 U/L (12-78) Alkaline Phosphatase 100 U/L (46-116) C-Reactive Protein, Quantitative 5.8 mg/dL (0.00-0.90) Total Protein 9.7 G/DL (6.4-8.2) Albumin 2.8 G/DL (3.4-5.0) Globulin 6.9 g/dL Albumin/Globulin Ratio 0.4 (1.0-2.7) Thyroid Stimulating Hormone (TSH) 0.910 uiU/mL (0.358-3.740) Prothrombin Time 11.7 SEC (9.30-11.50) Prothromb Time International Ratio 1.1 (0.9-1.1) Activated Partial Thromboplast Time 32 SEC (23-33) Last Vital Signs Date Time Temp Pulse Resp B/P (MAP) Pulse Ox O2 Delivery O2 Flow Rate FiO2 04/25/18 16:16 97.7 90 18 97 Nasal Cannula 4.0 Status: improved Disposition: XFER SHT-TRM HOSP Condition: Stable Referrals: [facility],REFERRING (PCP) Maceij Díaz MD Apr 25, 2018 19:00
[2018-04-25 19:05] LABS: APPEARANCE,URINE CLEAR; BILIRUBIN, URINE NEGATIVE (NEGATIVE); COLOR,URINE PALE YELLOW; GLUCOSE, URINE (UA) NEGATIVE (NEGATIVE); KETONES,URINE NEGATIVE (NEGATIVE); LEUKOCYTE ESTERASE ,URINE NEGATIVE (NEGATIVE); NITRITE,URINE NEGATIVE (NEGATIVE); PH,URINE 6.5 (4.5-8.0); PROTEIN,URINE NEGATIVE (NEGATIVE); UROBILINOGEN,URINE NORMAL MG/DL (0.0-1.0)
[2018-04-25 21:07] VITALS: BP 110/90
== END 2018-04-25 21:00 | disposition short-term general hospital (02) ==
LOC: EDBD 16:14 → EMR 16:34 → EDBEDREQ 16:38 → EMR 21:00
DX: L03.116 Cellulitis of left lower limb (principal); L03.115 Cellulitis of right lower limb; R53.1 Weakness; J44.9 Chronic obstructive pulmonary disease, unspecified; Z88.8 Allergy status to other drugs, medicaments and biological substances; Z86.718 Personal history of other venous thrombosis and embolism
CPT/HCPCS: 36415; 80053; 80307; 81001; 84443; 85025; 85610; 85730; 86140; 99285